=== PATIENT | male | born 1960 | race Caucasian/White ===

== ENCOUNTER 2018-10-02 06:40 | Inpatient (IN) | payer OTHER ==
[~2018-10-02] VITALS: Ht 177.8 cm; Wt 122.0 kg
[2018-10-02] VITALS (41 sets, daily range): BP systolic 112–163; BP diastolic 55–88; PULSE 54–64; RESP 11–23; Ht 177.8 cm; Wt 122.0 kg
[2018-10-02] MEDS ORDERED: ACET-2047 PO (07:28)
[2018-10-02] MEDS ORDERED: ASPI81TA52 PO (07:29)
[2018-10-02] MEDS ORDERED: HYDR-4011 PO (07:29)
[2018-10-02] MEDS ORDERED: METO-448 PO (07:30)
[2018-10-02] MEDS ORDERED: ATOR-2 PO (07:31)
[2018-10-02] MEDS ORDERED: MAG355OR14 PO (07:32)
[2018-10-02] MEDS ORDERED: ZOLP5TAB7 PO (07:33)
[2018-10-02] MEDS ORDERED: ONDA4TAB13 PO (07:34)
[2018-10-02] MEDS ORDERED: NICO-544 TD (07:35)
[2018-10-02] MEDS ORDERED: HYDR2TAB36 IV* (07:42)
[2018-10-02] MEDS ORDERED: IODIXANOL LOCM 100 ML BTL ONE (09:02)
[2018-10-02] MEDS ORDERED: HEPARIN 1000 UNITS/ML 10 ML INJ ONE (09:02)
[2018-10-02] MEDS ORDERED: LIDOCAINE 1% (MDV) 20 ML INJ ONE (09:02)
[2018-10-02] MEDS ORDERED: NITROGLYCERIN (IC) 100 MCG/ML INJ ONE (09:03)
[2018-10-02] MEDS ORDERED: FENTAnyl 50 MCG/ML VIAL ONE (09:03)
[2018-10-02] MEDS ORDERED: VERAPAMIL 5 MG INJ ONE (09:03)
[2018-10-02] MEDS ORDERED: MIDAZOLAM 1 MG/ML 2 ML INJ ONE (09:03)
[2018-10-02] MEDS ORDERED: SOD CHLORIDE 0.9% 500 ML ONE (10:33)
[2018-10-02] MEDS ORDERED: SOD CHLORIDE 0.9% 1,000 ML IV SCH (10:36)
--- NOTE | 2018-10-02 10:44 | OPR ---
Date/Time of Note Date/Time of Note DATE: 10/02/18 TIME: 10:44 Operative Report Procedure Date: Oct 02, 2018 Preoperative Diagnosis Acute coronary syndrome Postoperative Diagnosis same, multivessel CAD Operation/Procedure Performed see details Surgeon see signature line Forklift Driver none Anesthesia Type: moderate sedation Estimated Blood Loss: minimal Transfusion none Specimen none Grafts/Implants none Complications none Procedure Description Procedure Date:10/02/18 Value Stream Leader/surgeon:Maurice Aldana MD. Procedures Performed: Left heart catheterization with selective left and right coronary angiography. Pre-operative Diagnosis:unstable angina Post-operative Diagnosis:same, three vessel CAD Indications: 58 yo M with a h/o CAD, HTN, HL, likely DM (A1C pending), smoker, presenting with chest pain and abnormal EKG concerning for unstable angina. Description of Procedure: After informed consent, the patient was brought to the cardiac catheterization lab. The procedure site was prepped and draped in usual manner. The patient was premedicated with versed 1 mg and fentanyl 50 mcg. 3 mL lidocaine was injected into the right wrist. Next using the posterior wall technique, the 6/5 malay s andriy was inserted into the right radial artery. Next using the JL3.5 and JR4, selective angiography of the left and right coronary arteries were obtained.AV was not crossed due to radial spasm. Next all equipment was removed and hemostasis was obtained by TR band. Findings: Anatomy/Hemodynamics: Left main:normal LAD: prox to mid sequential up to 90% lesions Diagonal:luminal irregularities Circumflex:mid to distal 80% Obtuse marginal: prox 80-90% RCA: long prox to mid stented area with focal 99% in stent restenosis in the mid vessel PDA:luminal irregularities PLV:luminal irregularities Estimated blood loss<10 mL. Specimen: none Grafts/implants: none Complications: none Assessment: Unstable angina/ACS/CAD: Three vessel disease in likely diabetic (A1C pending but glucose levels suggestive). CABG eval is appropriate HTN HL Likely DM Tobacco use Plan: -CABG eval -ASA, lipitor -imdur -metoprolol -heparin drip 2 hours after TR band is removed as RCA lesion appears unstable and dynamic changes in inferior territory on admission MAURICE ALDANA Oct 02, 2018 10:44
[2018-10-02] MEDS ORDERED: HEPARIN 1000 UNITS/ML 10 ML INJ IV ONE (11:00)
[2018-10-02] MEDS ORDERED: HEPARIN 1000 UNITS/ML 10 ML INJ IV PRN (11:00)
[2018-10-02] MEDS: ASPIRIN 81 MG TAB PO SCH (11:27)
[2018-10-02] MEDS: METOPROLOL 25 MG TAB PO SCH ×2 (11:28→21:00)
[2018-10-02] MEDS ORDERED: morphine 2 MG INJ IV PRN (11:30)
[2018-10-02] MEDS ORDERED: ACETAMINOPHEN 325 MG TAB PO PRN (11:30)
[2018-10-02] MEDS: HOLD all METFORMIN and METFORMIN CONTAINING medications for 48 hours post procedure. Chec XX SCH (14:02)
[2018-10-02] MEDS: ISOSORBIDE MONONITRATE(SR)60 MG TAB PO SCH (14:21)
[2018-10-02] MEDS: HEPARIN 25000 UNITS/250 ML 250 ML IV SCH (15:03)
[2018-10-02] MEDS ORDERED: GLUCOSE GEL 15 GRAM TUBE BUCCAL PRN (15:30)
[2018-10-02] MEDS ORDERED: DEXTROSE 50% 50 ML SYRINGE IV PRN ×2 (15:30)
[2018-10-02] MEDS ORDERED: GLUCAGON 1 MG INJ IM PRN (15:30)
[2018-10-02] MEDS ORDERED: GLUCOSE GEL 15 GRAM TUBE PO PRN ×2 (15:30)
--- NOTE | 2018-10-02 16:22 | HP ---
DATE OF ADMISSION: 10/02/2018 CHIEF COMPLAINT: Coronary artery disease. HISTORY OF PRESENT ILLNESS: This is a 58-year-old male with a past medical history of coronary arter y disease, status post 2 stents in the past, who presented to an outside hospital with intermittent c hest pain. The patient states in the morning he started developing chest pain that did not go away w ith some radiation to his shoulder. The patient had some diaphoresis. Upon arrival to the outside h ospital, the patient had abnormal EKG concerning for unstable angina. The patient as a result transf erred to [facility] and underwent cardiac catheterization and found to have multive ssel disease. The patient was then admitted to telemetry for CABG evaluation. Upon my evaluation of the patient at this time, he currently denies any fevers, chills, nausea, vomit ing. PAST MEDICAL HISTORY: History of coronary artery disease, history of hypertension. PAST SURGICAL HISTORY: Status post cardiac catheterization. SOCIAL HISTORY: Does not do drugs. ALLERGIES: NO KNOWN DRUG ALLERGIES. FAMILY HISTORY: No family history of kidney disease. MEDICATIONS: Have been reviewed and reconciled. REVIEW OF SYSTEMS: A 14-point review of systems was conducted. Pertinent positives are stated in HP I, otherwise negative. PHYSICAL EXAMINATION: VITAL SIGNS: Blood pressure is 118/65, respirations 17, pulse 56, temperature 98.6. HEENT: Head is normocephalic. NECK: Supple. HEART: Regular rate. LUNGS: Show diminished breath sounds at base. ABDOMEN: Soft, nontender to palpation. No rebound or guarding. EXTREMITIES: Negative for clubbing, cyanosis. No edema. DERMATOLOGIC: No rashes. MUSCULOSKELETAL: No joint effusion. NEUROLOGIC: No change in exam. LABORATORY DATA: Show a CBC within normal limits. Hemoglobin A1c of 6.9. ASSESSMENT AND PLAN: This is a 58-year-old male who presents with: 1. Coronary artery disease. The patient is status post cardiac catheterization with multivessel dis ease. The patient is pending CABG evaluation. 2. Unstable angina. Continue current medical management. Continue aspirin, statin therapy, beta bl ocker, Imdur. Monitor closely. Follow up with cardiology and CT surgery. 3. Newly diagnosed diabetes. The patient's hemoglobin A1c is 6.8. We will start the patient on ins ulin sliding scale. We will consult for diabetic teaching. 4. Dyslipidemia. Continue statin therapy. 5. History of tobacco use. I will recommend smoking cessation. Consider nicotine patch. 6. Gastrointestinal and deep venous thrombosis prophylaxis. Please note, I spent an additional 30 minutes in [id number] time with the patient, discussing advan michela directives and code status. The patient is full code. Dictated By: VANCE FELDMAN DO NR/NTS Conf#: [id number] DID#: [id number] CC: VANESA RUIZ MD;*EndCC*
[2018-10-02] MEDS: INSULIN ASPART [NOVOLOG] 3 ML PEN SC SCH ×2 (17:00→21:00)
--- NOTE | 2018-10-02 17:29 | CONS ---
Assessment/Plan Assessment/Plan Assessment/Plan (Daily) 58 year old male with history of CAD and now with unstable angina and severe 3V CAD. He will need urgent CABG on this admission. I explained the risks, benefits and alternatives of surgery. The risks are but not limited to bleeding, infection, stroke, MT, renal and respiratory failure and . He understands and agrees. I will order carotids and PFTs Consultation Date/Type/Reason Admit Date/Time Oct 02, 2018 at 10:40 Date of Consultation: Oct 02, [address] SURGERY Reason for Consultation eval for cabg Requesting Provider: VANESA RUIZ Date/Time of Note DATE: 10/02/18 TIME: 17:24 Hx of Present Illness 58 year old male began having chest pain at work and [facility] He has history of previous stents and was transferred here where he underwent cath which shows severe 3V CAD. His chest pain has subsided. His troponin were negative. We are asked to see regarding CABG Constitutional: no complaints, improved Eyes: no complaints ENT: no complaints Respiratory: no complaints Cardiovascular: chest pain Gastrointestinal: no complaints Genitourinary: no complaints Musculoskeletal: no complaints Skin: no complaints Neurologic: no complaints Endocrine: no complaints Lymphatic: no complaints Psychological: no complaints, nl mood/affect Immunologic: no complaints Past Medical History Medical History: angina, coronary artery disease Home Meds Reported Medications Hydromorphone Hcl* (Dilaudid*) 2 Mg Tablet, 2 MG IV* Q4H WHILE AWAKE PRN for PAIN LEVEL 8-10, TAB 10/02/18 Nicotine* (Nicotine* Patch) 7 mg/day Patch, 1 PATCH TD DAILY, PATCH 14MCG 10/02/18 Ondansetron Hcl* (Zofran*) 4 Mg Tab, 4 MG PO Q6H PRN for NAUSEA AND OR VOMITING, TAB 10/02/18 Zolpidem Tartrate* (Zolpidem Tartrate*) 5 Mg Tablet, 5 MG PO QHS PRN for INSOMNIA, #30 TAB 10/02/18 Mag Hydrox/Al Hydrox/Simeth (Maalox Advanced Suspension) 355 Ml Oral.susp, 30 ML PO Q6 PRN for GASTROINTESTINAL UPSET 10/02/18 Atorvastatin* (Atorvastatin*) 80 Mg Tablet, 80 MG PO QHS, #30 TAB 10/02/18 Metoprolol Tartrate* (Lopressor*) 25 Mg Tab, 25 MG PO BID, #60 TAB 10/02/18 Aspirin (Low Dose Aspirin) 81 Mg Tablet.dr, 81 MG PO DAILY, #30 TAB 10/02/18 Hydrocodone/Acetaminophen ([place] 5-325 Tablet) 1 Each Tablet, 1 EACH PO Q4 PRN for MODERATE PAIN 4-7, TAB 10/02/18 Acetaminophen* (Acetaminophen*) 650 Mg Tablet, 650 MG PO Q6H PRN for MILD PAIN LEVEL 1-3, #30 TAB 10/02/18 Medications Current Medications Aspirin (Aspirin) 81 mg DAILY PO Last administered on 10/02/18at 11:27; Admin Dose 81 MG; Start 10/02/18 at 11:30 Atorvastatin Calcium (Lipitor) 80 mg HS PO ; Start 10/02/18 at 21:00 Metoprolol Tartrate (Lopressor) 25 mg BID PO Last administered on 10/02/18at 11:28; Admin Dose 25 MG; Start 10/02/18 at 11:30 Heparin Sodium (Porcine) (Heparin (1000 Units/ml)) 4,000 unit PER PROTOCOL PRN IV aPTT<47; Start 10/02/18 at 11:00 Heparin Sodium (Porcine) 250 ml @ 10 mls/hr PER PROTOCOL IV Last administered on 10/02/18at 15:03; Admin Dose 10 MLS/HR; Start 10/02/18 at 11:00 Miscellaneous Information (* Miscellaneous Pharmacy Order) HOLD all METFORMIN ... ONCE XX ; Start 10/02/18 at 11:00; Stop 10/04/18 at 10:59 Sodium Chloride 1,000 ml @ 75 mls/hr [id number] IV Last administered on 10/02/18at 11:29; Admin Dose 75 MLS/HR; Start 10/02/18 at 10:36; Stop 10/02/18 at 23:55 Isosorbide Mononitrate (Imdur) 60 mg DAILY PO Last administered on 10/02/18at 14:21; Admin Dose 60 MG; Start 10/02/18 at 11:30 Acetaminophen (Tylenol Tab) 650 mg Q4H PRN PO NON-CARDIAC PAIN LEVEL (1-3) Last administered on 10/02/18at 11:27; Admin Dose 650 MG; Start 10/02/18 at 11:30 Morphine Sulfate (morphine) 2 mg Q2H PRN IV FOR NON CARDIAC PAIN (4-10); Start 10/02/18 at 11:30 Diagnostic Test (Pha) (Accu-Chek) 1 ea 02 XX ; Start 10/03/18 at 02:00 Insulin Aspart (Novolog Insulin Pen) NOVOLOG *MILD* ALGORITHM WITH MEALS BEDTIME SC ; Start 10/02/18 at 17:55 Miscellaneous Information 1 ea NOTE XX ; Start 10/02/18 at 15:30 Glucose (Glutose) 15 gm Q15M PRN PO DECREASED GLUCOSE; Start 10/02/18 at 15:30 Glucose (Glutose) 22.5 gm Q15M PRN PO DECREASED GLUCOSE; Start 10/02/18 at 15:30 Dextrose (D50w Syringe) 25 ml Q15M PRN IV DECREASED GLUCOSE; Start 10/02/18 at 15:30 Dextrose (D50w Syringe) 50 ml Q15M PRN IV DECREASED GLUCOSE; Start 10/02/18 at 15:30 Glucagon (Glucagen) 1 mg Q15M PRN IM DECREASED GLUCOSE; Start 10/02/18 at 15:30 Glucose (Glutose) 15 gm Q15M PRN BUCCAL DECREASED GLUCOSE; Start 10/02/18 at 15:30 Influenza Virus Vaccine Quadrival (Fluzone) 0.5 ml ONCE ONCE IM* ; Start 10/03/18 at 09:00; Stop 10/03/18 at 09:01 Allergies: Coded Allergies: No Known Allergy (Unverified , 10/02/18) Past Surgical History Past Surgical Hx: no surgical history Family History Significant Family History: no pertinent family hx Social History Alcohol Use: occasionally Smoking Status: Current every day smoker Drug Use: none Exam/Review of Systems Exam Vitals Vital Signs Date Temp Pulse Resp B/P (MAP) Pulse Ox O2 O2 Flow FiO2 Time Delivery Rate 10/02/18 54 16:46 10/02/18 98.6 22 112/55 91 15:09 (74) 10/02/18 Room Air 13:46 Constitutional: alert, oriented, well developed Psych: no complaints, nl mood/affect Head: normocephalic, atraumatic Eyes: nl conjunctiva, EOMI, nl lids, nl sclera, PERRL ENMT: nl external ears & nose, nl lips & teeth, nl nasal mucosa & septum Neck: supple, non-tender Respiratory: clear to auscultation, normal air movement Cardiovascular: regular rate and rhythm, nl pulses Extremities: normal pulses Neurological: SOFTWARE PROGRAMMER II-XII intact, nl mental status, nl speech, nl strength Skin: nl turgor; No rash or lesions Lymph: nl lymph nodes Results Result Diagram: 10/02/18 1542 Results 24hrs Laboratory Tests Test 10/02/18 07:25 10/02/18 10:36 10/02/18 11:07 10/02/18 15:42 Bedside Glucose 126 Hemoglobin A1c 6.9 H White Blood Count 9.9 10.4 Red Blood Count 4.84 4.70 Hemoglobin 14.9 14.5 Hematocrit 45.9 43.0 Mean Corpuscular 94.8 91.5 Volume Mean Corpuscular 30.8 30.9 Hemoglobin Mean Corpuscular 32.5 33.7 Hemoglobin Concent Red Cell 14.1 14.0 Distribution Width Platelet Count 140 147 Mean Platelet Volume 9.6 9.4 Immature 0.400 0.400 Granulocytes % Neutrophils % 60.2 63.1 Lymphocytes % 30.4 26.9 Monocytes % 7.2 8.2 Eosinophils % 1.4 1.0 Basophils % 0.4 0.4 Nucleated Red Blood 0.0 0.0 Cells % Immature 0.040 H 0.040 H Granulocytes # Neutrophils # 5.9 6.6 Lymphocytes # 3.0 H 2.8 Monocytes # 0.7 0.9 Eosinophils # 0.1 0.1 Basophils # 0.0 0.0 Nucleated Red Blood 0.0 0.0 Cells # Prothrombin Time 12.8 Prothrombin Time 1.0 Ratio INR International 0.95 Normalized Ratio Activated 34.5 Partial Thromboplast Time Test 10/02/18 16:59 Bedside Glucose 105 Medications Medication Current Medications Aspirin (Aspirin) 81 mg DAILY PO Last administered on 10/02/18at 11:27; Admin Dose 81 MG; Start 10/02/18 at 11:30 Atorvastatin Calcium (Lipitor) 80 mg HS PO ; Start 10/02/18 at 21:00 Metoprolol Tartrate (Lopressor) 25 mg BID PO Last administered on 10/02/18at 11:28; Admin Dose 25 MG; Start 10/02/18 at 11:30 Heparin Sodium (Porcine) (Heparin (1000 Units/ml)) 4,000 unit PER PROTOCOL PRN IV aPTT<47; Start 10/02/18 at 11:00 Heparin Sodium (Porcine) 250 ml @ 10 mls/hr PER PROTOCOL IV Last administered on 10/02/18at 15:03; Admin Dose 10 MLS/HR; Start 10/02/18 at 11:00 Miscellaneous Information (* Miscellaneous Pharmacy Order) HOLD all METFORMIN ... ONCE XX ; Start 10/02/18 at 11:00; Stop 10/04/18 at 10:59 Sodium Chloride 1,000 ml @ 75 mls/hr [id number] IV Last administered on 10/02/18at 11:29; Admin Dose 75 MLS/HR; Start 10/02/18 at 10:36; Stop 10/02/18 at 23:55 Isosorbide Mononitrate (Imdur) 60 mg DAILY PO Last administered on 10/02/18at 14:21; Admin Dose 60 MG; Start 10/02/18 at 11:30 Acetaminophen (Tylenol Tab) 650 mg Q4H PRN PO NON-CARDIAC PAIN LEVEL (1-3) Last administered on 10/02/18at 11:27; Admin Dose 650 MG; Start 10/02/18 at 11:30 Morphine Sulfate (morphine) 2 mg Q2H PRN IV FOR NON CARDIAC PAIN (4-10); Start 10/02/18 at 11:30 Diagnostic Test (Pha) (Accu-Chek) 1 ea 02 XX ; Start 10/03/18 at 02:00 Insulin Aspart (Novolog Insulin Pen) NOVOLOG *MILD* ALGORITHM WITH MEALS BEDTIME SC ; Start 10/02/18 at 17:55 Miscellaneous Information 1 ea NOTE XX ; Start 10/02/18 at 15:30 Glucose (Glutose) 15 gm Q15M PRN PO DECREASED GLUCOSE; Start 10/02/18 at 15:30 Glucose (Glutose) 22.5 gm Q15M PRN PO DECREASED GLUCOSE; Start 10/02/18 at 15:30 Dextrose (D50w Syringe) 25 ml Q15M PRN IV DECREASED GLUCOSE; Start 10/02/18 at 15:30 Dextrose (D50w Syringe) 50 ml Q15M PRN IV DECREASED GLUCOSE; Start 10/02/18 at 15:30 Glucagon (Glucagen) 1 mg Q15M PRN IM DECREASED GLUCOSE; Start 10/02/18 at 15:30 Glucose (Glutose) 15 gm Q15M PRN BUCCAL DECREASED GLUCOSE; Start 10/02/18 at 15:30 Influenza Virus Vaccine Quadrival (Fluzone) 0.5 ml ONCE ONCE IM* ; Start 10/03/18 at 09:00; Stop 10/03/18 at 09:01 LAMINE BRYAN MD Oct 02, 2018 17:29
[2018-10-02] MEDS ORDERED: CEFAZOLIN 2 GM/50 ML (PMX) 50 ML IVPB ONE (17:30)
[2018-10-02] MEDS: ATORVASTATIN 80 MG TAB PO SCH (21:39)
[2018-10-03] VITALS (10 sets, daily range): BP systolic 114–156; BP diastolic 57–86; PULSE 55–89; RESP 18–22
[2018-10-03] MEDS ORDERED: HEPARIN 1000 UNITS/ML 10 ML INJ IV ONE
[2018-10-03] MEDS: HEPARIN 25000 UNITS/250 ML 250 ML IV SCH ×3 (00:14→08:15)
[2018-10-03] MEDS: ACCU-CHEK XX SCH (02:02)
--- NOTE | 2018-10-03 07:08 | PN ---
Date/Time of Note Date/Time of Note DATE: 10/03/18 TIME: 07:06 Assessment/Plan Lines/Catheters IV Catheter Type (from Nrs): Peripheral IV Assessment/Plan Assessment/Plan await PFTs and carotid duplex. CABG tomorrow Exam/Review of Systems Vital Signs Vitals Vital Signs Date Temp Pulse Resp B/P (MAP) Pulse Ox O2 O2 Flow FiO2 Time Delivery Rate 10/03/18 56 04:00 10/03/18 98.5 20 156/86 93 04:00 (109) 10/02/18 Room Air 13:46 Intake and Output 10/02/18 10/02/18 10/03/18 1515:00 23:00 07:00 IntakeIntake Total 60 ml 1920 ml BalanceBalance 60 ml 1920 ml Results Result Diagram: 10/03/18 0631 LAMINE BRYAN MD Oct 03, 2018 07:08
[2018-10-03] MEDS: INSULIN ASPART [NOVOLOG] 3 ML PEN SC SCH ×4 (07:55→21:00)
[2018-10-03] MEDS: ASPIRIN 81 MG TAB PO SCH (08:11)
[2018-10-03] MEDS: METOPROLOL 25 MG TAB PO SCH ×2 (08:11→21:39)
[2018-10-03] MEDS: ISOSORBIDE MONONITRATE(SR)60 MG TAB PO SCH (08:11)
[2018-10-03] MEDS ORDERED: ALBUTEROL 0.083% (NEB) 2.5 MG/3 ML AMP HHN STA (08:40)
[2018-10-03] MEDS ORDERED: ENOXAPARIN 40 MG/0.4 ML SYG SC SCH (09:00)
[2018-10-03] MEDS ORDERED: INFLUENZA VIRUS VACCINE 0.5 ML (DISPENSING) IM* ONE (09:00)
--- NOTE | 2018-10-03 10:39 | PN ---
DATE: 10/03/2018 SUBJECTIVE: The patient is stable. The patient is pending possible CABG tomorrow. No other events noted. OBJECTIVE: VITAL SIGNS: Blood pressure is 150/77, respirations 18, pulse 89, temperature 98.7. HEENT: Head is normocephalic. NECK: Supple. HEART: Regular rate. LUNGS: Show diminished breath sounds at the base. ABDOMEN: Soft, nontender to palpation without rebound or guarding. EXTREMITIES: Negative for clubbing, cyanosis, no edema. DERMATOLOGIC: No rashes. MUSCULOSKELETAL: No joint effusion. NEUROLOGIC: No focal deficits. MEDICATIONS: Reviewed. LABORATORY DATA: Shows a BMP within normal limits. CBC within normal limits. ASSESSMENT AND PLAN: 1. Coronary artery disease. The patient is status post cardiac catheterization with multivessel dis ease. The patient is pending coronary artery bypass graft. Continue medical management. 2. Unstable angina. Continue current medical regimen. Continue aspirin and statin therapy, beta bl ocker, continue heparin drip. Continue Imdur. Follow up with cardiology, CT surgery. 3. Diabetes. Continue current insulin regimen of sliding scale. Anticipate starting the patient on oral medications following surgery. 4. Dyslipidemia. Continue statin therapy. 5. History of tobacco abuse. Continue nicotine patch. 6. Gastrointestinal and deep vein thrombosis prophylaxis. Dictated By: VANCE FELDMAN DO NR/NTS Conf#: [id number] DID#: [id number] CC: VANESA RUIZ MD;*EndCC*
[2018-10-03] MEDS: HOLD all METFORMIN and METFORMIN CONTAINING medications for 48 hours post procedure. Chec XX SCH (10:44)
--- NOTE | 2018-10-03 16:08 | CONS ---
Assessment/Plan Assessment/Plan Hospital Course (Demo Recall) Assessment: Unstable angina/ACS/CAD: Three vessel disease in diabetic, scheduled for CABG tomorrow HTN HL DM Tobacco use Recommendations: -scheduled for CABG tomorrow (Dr. Irizarry) -ASA, lipitor -imdur -metoprolol -heparin drip as RCA lesion appears unstable and dynamic changes in inferior territory on admission Consultation Date/Type/Reason Admit Date/Time Oct 02, 2018 at 10:40 Initial Consult Date 10/02/18 Type of Consult Cardiology Date/Time of Note DATE: 10/03/18 TIME: 16:06 24 HR Interval Summary Free Text/Dictation No acute events. Denies chest pain. Scheduled for CABG tomorrow. Detailed Summary Additional Comments 14 point review of systems without changes. Exam/Review of Systems Vital Signs Vitals Vital Signs Date Temp Pulse Resp B/P (MAP) Pulse Ox O2 O2 Flow FiO2 Time Delivery Rate 10/03/18 98.7 55 18 120/58 94 Room Air 15:39 (78) 10/03/18 21 09:30 Intake and Output 10/02/18 10/02/18 10/03/18 1515:00 23:00 07:00 IntakeIntake Total 60 ml 1400 ml OutputOutput Total 400 ml BalanceBalance 60 ml 1000 ml Exam Constitutional: alert, well developed Psych: no complaints, nl mood/affect Head: normocephalic, atraumatic Eyes: nl conjunctiva, nl lids ENMT: nl external ears & nose, nl nasal mucosa & septum Neck: supple, non-tender; No jvd Respiratory: clear to auscultation Cardiovascular: regular rate and rhythm Gastrointestinal: soft, non-tender Musculoskeletal: nl extremities to inspection Extremities: No cyanosis, No clubbing, No edema Neurological: nl mental status, nl speech Labs Result Diagram: 10/03/1831 10/03/1831 Results 24hrs Laboratory Tests Test 10/02/18 16:59 10/02/18 18:00 10/02/18 20:40 10/02/18 21:42 Bedside Glucose 105 123 Urine Random 94.15 Creatinine Urine Random Sodium 98 H Urine Total Protein 6.0 Activated 32.2 Partial Thromboplast Time Test 10/03/18 06:31 10/03/18 08:10 10/03/18 12:03 10/03/18 14:31 White Blood Count 10.4 Red Blood Count 5.09 Hemoglobin 15.7 Hematocrit 46.5 Mean Corpuscular 91.4 Volume Mean Corpuscular 30.8 Hemoglobin Mean Corpuscular 33.8 Hemoglobin Concent Red Cell 13.8 Distribution Width Platelet Count 155 Mean Platelet Volume 9.2 Immature 0.400 Granulocytes % Neutrophils % 60.8 Lymphocytes % 29.5 Monocytes % 7.0 Eosinophils % 1.9 Basophils % 0.4 Nucleated Red Blood 0.0 Cells % Immature 0.040 H Granulocytes # Neutrophils # 6.3 Lymphocytes # 3.1 H Monocytes # 0.7 Eosinophils # 0.2 Basophils # 0.0 Nucleated Red Blood 0.0 Cells # Activated 53.6 H 58.8 H Partial Thromboplast Time Sodium Level 142 Potassium Level 4.1 Chloride Level 109 Carbon Dioxide Level 24 Anion Gap 9 Blood Urea Nitrogen 11 Creatinine 0.60 L Est Glomerular > 60 Filtrat Rate mL/min Glucose Level 115 Calcium Level 9.1 Phosphorus Level 3.5 Magnesium Level 2.1 Bedside Glucose 113 93 Medications Medications Current Medications Aspirin (Aspirin) 81 mg DAILY PO Last administered on 10/03/18 08:11; Admin Dose 81 MG; Start 10/02/18 at 11:30 Atorvastatin Calcium (Lipitor) 80 mg HS PO Last administered on 10/02/18at 21:39; Admin Dose 80 MG; Start 10/02/18 at 21:00 Metoprolol Tartrate (Lopressor) 25 mg BID PO Last administered on 10/03/18 08:11; Admin Dose 25 MG; Start 10/02/18 at 11:30 Heparin Sodium (Porcine) (Heparin (1000 Units/ml)) 4,000 unit PER PROTOCOL PRN IV aPTT<47; Start 10/02/18 at 11:00 Heparin Sodium (Porcine) 250 ml @ 10 mls/hr PER PROTOCOL IV Last administered on 10/03/18 08:15; Admin Dose 17.5 MLS/HR; Start 10/02/18 at 11:00 Miscellaneous Information (* Miscellaneous Pharmacy Order) HOLD all METFORMIN ... ONCE XX ; Start 10/02/18 at 11:00; Stop 10/04/18 at 10:59 Isosorbide Mononitrate (Imdur) 60 mg DAILY PO Last administered on 3/26/19at 08:11; Admin Dose 60 MG; Start 10/02/18 at 11:30 Acetaminophen (Tylenol Tab) 650 mg Q4H PRN PO NON-CARDIAC PAIN LEVEL (1-3) Last administered on 10/02/18at 11:27; Admin Dose 650 MG; Start 10/02/18 at 11:30 Morphine Sulfate (morphine) 2 mg Q2H PRN IV FOR NON CARDIAC PAIN (4-10); Start 10/02/18 at 11:30 Diagnostic Test (Pha) (Accu-Chek) 1 ea 02 XX Last administered on 10/03/18at 02:02; Admin Dose 1 EA; Start 10/03/18 at 02:00 Insulin Aspart (Novolog Insulin Pen) NOVOLOG *MILD* ALGORITHM WITH MEALS BEDTIME SC ; Start 10/02/18 at 17:55 Miscellaneous Information 1 ea NOTE XX ; Start 10/02/18 at 15:30 Glucose (Glutose) 15 gm Q15M PRN PO DECREASED GLUCOSE; Start 10/02/18 at 15:30 Glucose (Glutose) 22.5 gm Q15M PRN PO DECREASED GLUCOSE; Start 10/02/18 at 15:30 Dextrose (D50w Syringe) 25 ml Q15M PRN IV DECREASED GLUCOSE; Start 10/02/18 at 15:30 Dextrose (D50w Syringe) 50 ml Q15M PRN IV DECREASED GLUCOSE; Start 10/02/18 at 15:30 Glucagon (Glucagen) 1 mg Q15M PRN IM DECREASED GLUCOSE; Start 10/02/18 at 15:30 Glucose (Glutose) 15 gm Q15M PRN BUCCAL DECREASED GLUCOSE; Start 10/02/18 at 15:30 Insulin Human Regular 100 unit/ Sodium Chloride 100 ml @ 0 mls/hr Q0M ONCE IVPB ; Start 10/04/18 at 11:00; Stop 10/04/18 at 11:01 Norepinephrine 250 ml @ 0 mls/hr ONCE ONCE IV ; Start 10/04/18 at 11:00; Stop 10/04/18 at 11:01 Epinephrine 4 mg/ Dextrose 250 ml @ 0 mls/hr Q0M ONCE IV ; Start 10/04/18 at 11:00; Stop 10/04/18 at 11:01 Phenylephrine HCl 250 ml @ 0 mls/hr ONCE ONCE IV ; Start 10/04/18 at 11:00; Stop 10/04/18 at 11:01 Aspirin (Aspirin) 600 mg ONCE ONCE GA ; Start 10/04/18 at 11:00; Stop 10/04/18 at 11:01 Heparin Sodium (Porcine) 55855 unit/Milrinone Lactate 10 mg/ Sodium Chloride 1,011 ml @ 0 mls/hr ONCE ONCE SC ; Start 10/04/18 at 11:00; Stop 10/04/18 at 11:01 Milrinone Lactate 2 mg/Sodium Chloride 52 ml @ 0 mls/hr ONCE ONCE IV ; Start 10/04/18 at 11:00; Stop 10/04/18 at 11:01 CYN VALDOVINOS MD Oct 03, 2018 16:08
[2018-10-03] MEDS: ATORVASTATIN 80 MG TAB PO SCH (21:38)
[2018-10-04] VITALS (36 sets, daily range): BP systolic 86–177; BP diastolic 44–84; PULSE 53–112; RESP 12–23; TEMP 98–99.9
[2018-10-04] MEDS: ACCU-CHEK XX SCH ×9 (02:00→23:56)
[2018-10-04] MEDS ORDERED: DOPamine-D5W 1.6 MG/ML 250 ML ONE (07:00)
[2018-10-04] MEDS: INSULIN ASPART [NOVOLOG] 3 ML PEN SC SCH (07:55)
[2018-10-04] MEDS: ASPIRIN 81 MG TAB PO SCH (08:08)
[2018-10-04] MEDS: ISOSORBIDE MONONITRATE(SR)60 MG TAB PO SCH (08:09)
[2018-10-04] MEDS: METOPROLOL 25 MG TAB PO SCH ×2 (08:10→21:00)
--- NOTE | 2018-10-04 09:38 | PN ---
DATE: 10/04/2018 SUBJECTIVE: The patient is stable. The patient is pending CABG today. No other events noted. OBJECTIVE: VITAL SIGNS: Blood pressure is 150/70, pulse 55, respirations 18, temperature 98.0. HEENT: Head is normocephalic. NECK: Supple. HEART: Regular rate. LUNGS: Show diminished breath sounds at the base. ABDOMEN: Soft, nontender to palpation without rebound or guarding. EXTREMITIES: Negative for clubbing, cyanosis, no edema. DERMATOLOGIC: No rashes. MUSCULOSKELETAL: No joint effusion. NEUROLOGIC: No change in exam. MEDICATIONS: Reviewed. LABORATORY DATA: Reviewed. ASSESSMENT AND PLAN: 1. Coronary artery disease. The patient is status post cardiac catheterization with multivessel dis ease. The patient is pending CABG. Continue medical management. 2. Unstable angina. Continue medical management. Continue aspirin and statin therapy, beta abdiel , heparin. Continue Imdur. Follow up with cardiology. 3. Diabetes. Continue current insulin regimen. 4. Dyslipidemia. Continue statin therapy. 5. History of tobacco use. 6. Obesity. Continue dietary modification. 7. Gastrointestinal and deep vein thrombosis prophylaxis. Dictated By: VANCE FELDMAN DO NR/NTS Conf#: [id number] DID#: [id number] CC: VANESA RUIZ MD;*End*
[2018-10-04] MEDS ORDERED: VANCOMYCIN 1 GM INJ ONE ×2 (09:52→12:06)
[2018-10-04] MEDS ORDERED: PAPAVERINE 60 MG INJ ONE (09:52)
[2018-10-04] MEDS ORDERED: HEPARIN 1000 UNITS/ML 10 ML INJ ONE ×4 (09:52→14:51)
[2018-10-04] MEDS ORDERED: MIDAZOLAM 5 ML ONE ×2 (10:33)
[2018-10-04] MEDS ORDERED: ROCURONIUM 50 MG INJ ONE (10:37)
[2018-10-04] MEDS ORDERED: SUCCINYLCHOLINE CHLORIDE 100 MG/5 ML SYG IV ONE (10:37)
[2018-10-04] MEDS ORDERED: PROPOFOL 100 ML ONE (10:37)
[2018-10-04] MEDS ORDERED: NITROGLYCERIN 50 MG/D5W (PMX) 250 ML ONE (10:37)
[2018-10-04] MEDS ORDERED: LIDOCAINE 2% (SDV) 5 ML INJ ONE (10:38)
[2018-10-04] MEDS ORDERED: ALBUMIN HUMAN 25% 200 ML ONE (10:38)
[2018-10-04] MEDS ORDERED: NA BICARBONATE 8.4% 50 ML SYG ONE ×2 (10:38→11:03)
[2018-10-04] MEDS ORDERED: CA CHLORIDE 10% 10 ML SYRINGE ONE ×2 (10:38→11:01)
--- NOTE | 2018-10-04 10:41 | CONS ---
Assessment/Plan Assessment/Plan Hospital Course (Demo Recall) Unstable angina/ACS/CAD: Three vessel disease. Scheduled for CABG HTN HL DM Tobacco use -CABG today -ASA, lipitor -imdur (stop after surgery) -metoprolol -heparin drip (stop after surgery) Consultation Date/Type/Reason Admit Date/Time Oct 02, 2018 at 10:40 Initial Consult Date 10/02/18 Date/Time of Note DATE: 10/04/18 TIME: 10:40 24 HR Interval Summary Free Text/Dictation Awaiting surgery today. No chest pain over past 48 hrs Exam/Review of Systems Exam Vitals Vital Signs Date Temp Pulse Resp B/P (MAP) Pulse Ox O2 O2 Flow FiO2 Time Delivery Rate 10/04/18 58 08:01 10/04/18 98.0 18 150/70 92 Room Air 07:11 (96) 10/03/18 21 09:30 Intake and Output 10/03/18 10/03/18 10/04/18 1515:00 23:00 07:00 IntakeIntake Total 1610 ml 250 ml BalanceBalance 1610 ml 250 ml Constitutional: alert, oriented Psych: no complaints, nl mood/affect Head: normocephalic, atraumatic Neck: supple; No jvd Respiratory: clear to auscultation; No crackles/rales Cardiovascular: regular rate and rhythm; No edema, No systolic murmur Gastrointestinal: soft, non-tender Neurological: nl mental status, nl speech Results Result Diagram: 10/03/18 0631 10/03/18 0631 Results 24hrs Laboratory Tests Test 10/03/18 12:03 10/03/18 14:31 10/03/18 17:03 10/03/18 20:13 Bedside Glucose 93 97 Activated 58.8 H 57.2 H Partial Thromboplast Time Test 10/03/18 21:40 10/04/18 07:54 Bedside Glucose 112 115 Medications Medication Current Medications Aspirin (Aspirin) 81 mg DAILY PO Last administered on 10/04/18at 08:08; Admin Dose 81 MG; Start 10/02/18 at 11:30 Atorvastatin Calcium (Lipitor) 80 mg HS PO Last administered on 10/03/18at 21:38; Admin Dose 80 MG; Start 10/02/18 at 21:00 Metoprolol Tartrate (Lopressor) 25 mg BID PO Last administered on 10/04/18at 08:10; Admin Dose 25 MG; Start 10/02/18 at 11:30 Heparin Sodium (Porcine) (Heparin (1000 Units/ml)) 4,000 unit PER PROTOCOL PRN IV aPTT<47; Start 10/02/18 at 11:00 Miscellaneous Information (* Miscellaneous Pharmacy Order) HOLD all METFORMIN ... ONCE XX ; Start 10/02/18 at 11:00; Stop 10/04/18 at 10:59 Isosorbide Mononitrate (Imdur) 60 mg DAILY PO Last administered on 10/04/18at 08:09; Admin Dose 60 MG; Start 10/02/18 at 11:30 Acetaminophen (Tylenol Tab) 650 mg Q4H PRN PO NON-CARDIAC PAIN LEVEL (1-3) Last administered on 10/02/18at 11:27; Admin Dose 650 MG; Start 10/02/18 at 11:30 Morphine Sulfate (morphine) 2 mg Q2H PRN IV FOR NON CARDIAC PAIN (4-10); Start 10/02/18 at 11:30 Diagnostic Test (Pha) (Accu-Chek) 1 ea 02 XX Last administered on 10/03/18at 02:02; Admin Dose 1 EA; Start 10/03/18 at 02:00 Insulin Aspart (Novolog Insulin Pen) NOVOLOG *MILD* ALGORITHM WITH MEALS BEDTIME SC ; Start 10/02/18 at 17:55 Miscellaneous Information 1 ea NOTE XX ; Start 10/02/18 at 15:30 Glucose (Glutose) 15 gm Q15M PRN PO DECREASED GLUCOSE; Start 10/02/18 at 15:30 Glucose (Glutose) 22.5 gm Q15M PRN PO DECREASED GLUCOSE; Start 10/02/18 at 15:30 Dextrose (D50w Syringe) 25 ml Q15M PRN IV DECREASED GLUCOSE; Start 10/02/18 at 15:30 Dextrose (D50w Syringe) 50 ml Q15M PRN IV DECREASED GLUCOSE; Start 10/02/18 at 15:30 Glucagon (Glucagen) 1 mg Q15M PRN IM DECREASED GLUCOSE; Start 10/02/18 at 15:30 Glucose (Glutose) 15 gm Q15M PRN BUCCAL DECREASED GLUCOSE; Start 10/02/18 at 15:30 Insulin Human Regular 100 unit/ Sodium Chloride 100 ml @ 0 mls/hr Q0M ONCE IVPB ; Start 10/04/18 at 11:00; Stop 10/04/18 at 11:01 Norepinephrine 250 ml @ 0 mls/hr ONCE ONCE IV ; Start 10/04/18 at 11:00; Stop 10/04/18 at 11:01 Epinephrine 4 mg/ Dextrose 250 ml @ 0 mls/hr Q0M ONCE IV ; Start 10/04/18 at 11:00; Stop 10/04/18 at 11:01 Phenylephrine HCl 250 ml @ 0 mls/hr ONCE ONCE IV ; Start 10/04/18 at 11:00; Stop 10/04/18 at 11:01 Aspirin (Aspirin) 600 mg ONCE ONCE PA ; Start 10/04/18 at 11:00; Stop 10/04/18 at 11:01 Heparin Sodium (Porcine) 29394 unit/Milrinone Lactate 10 mg/ Sodium Chloride 1,011 ml @ 0 mls/hr ONCE ONCE SC ; Start 10/04/18 at 11:00; Stop 10/04/18 at 11:01 Milrinone Lactate 2 mg/Sodium Chloride 52 ml @ 0 mls/hr ONCE ONCE IV ; Start 10/04/18 at 11:00; Stop 10/04/18 at 11:01 VANESA RUIZ Oct 04, 2018 10:41
--- NOTE | 2018-10-04 10:54 | PREAC ---
Date/Time of Note Date/Time of Note DATE: 10/04/18 TIME: 10:52 Anesthesia Eval and Record Evaluation Time Pre-Procedure Interview DATE: 10/04/18 TIME: 10:52 Age 58 Sex male NPO: 8 hrs Preoperative diagnosis acute CAD ischemia Planned procedure CABG Past Medical History Past Medical History: Includes Cardio: HTN, Dyslipidemia, DE, CAD, PTCA/Stent, Arrythmia, CHF Endo: Diabetes Pulm: Smoking Hx, Other (current) Neuro: Peripheral neuropathy Renal: CKD GI: GERD, Morbid obesity Heme: Other (on ASA) Surgery & Anesthesia Issues Significant blood loss Meds Anticoagulation: No Beta Bhavna within 24 hr: Yes Reported Medications Hydromorphone Hcl* (Dilaudid*) 2 Mg Tablet, 2 MG IV* Q4H WHILE AWAKE PRN for PAIN LEVEL 8-10, TAB 10/02/18 Nicotine* (Nicotine* Patch) 7 mg/day Patch, 1 PATCH TD DAILY, PATCH 14MCG 10/02/18 Ondansetron Hcl* (Zofran*) 4 Mg Tab, 4 MG PO Q6H PRN for NAUSEA AND OR VOMITING, TAB 10/02/18 Zolpidem Tartrate* (Zolpidem Tartrate*) 5 Mg Tablet, 5 MG PO QHS PRN for INSOMNIA, #30 TAB 10/02/18 Mag Hydrox/Al Hydrox/Simeth (Maalox Advanced Suspension) 355 Ml Oral.susp, 30 ML PO Q6 PRN for GASTROINTESTINAL UPSET 10/02/18 Atorvastatin* (Atorvastatin*) 80 Mg Tablet, 80 MG PO QHS, #30 TAB 10/02/18 Metoprolol Tartrate* (Lopressor*) 25 Mg Tab, 25 MG PO BID, #60 TAB 10/02/18 Aspirin (Low Dose Aspirin) 81 Mg Tablet.dr, 81 MG PO DAILY, #30 TAB 10/02/18 Hydrocodone/Acetaminophen ([place] 5-325 Tablet) 1 Each Tablet, 1 EACH PO Q4 PRN for MODERATE PAIN 4-7, TAB 10/02/18 Acetaminophen* (Acetaminophen*) 650 Mg Tablet, 650 MG PO Q6H PRN for MILD PAIN LEVEL 1-3, #30 TAB 10/02/18 Current Medications Aspirin (Aspirin) 81 mg DAILY PO Last administered on 10/04/18at 08:08; Admin Dose 81 MG; Start 10/02/18 at 11:30 Atorvastatin Calcium (Lipitor) 80 mg HS PO Last administered on 10/03/18at 21:38; Admin Dose 80 MG; Start 10/02/18 at 21:00 Metoprolol Tartrate (Lopressor) 25 mg BID PO Last administered on 10/04/18at 08:10; Admin Dose 25 MG; Start 10/02/18 at 11:30 Heparin Sodium (Porcine) (Heparin (1000 Units/ml)) 4,000 unit PER PROTOCOL PRN IV aPTT<47; Start 10/02/18 at 11:00 Miscellaneous Information (* Miscellaneous Pharmacy Order) HOLD all METFORMIN ... ONCE XX ; Start 10/02/18 at 11:00; Stop 10/04/18 at 10:59 Isosorbide Mononitrate (Imdur) 60 mg DAILY PO Last administered on 10/04/18at 08:09; Admin Dose 60 MG; Start 10/02/18 at 11:30 Acetaminophen (Tylenol Tab) 650 mg Q4H PRN PO NON-CARDIAC PAIN LEVEL (1-3) Last administered on 10/02/18at 11:27; Admin Dose 650 MG; Start 10/02/18 at 11:30 Morphine Sulfate (morphine) 2 mg Q2H PRN IV FOR NON CARDIAC PAIN (4-10); Start 10/02/18 at 11:30 Diagnostic Test (Pha) (Accu-Chek) 1 ea 02 XX Last administered on 10/03/18at 02:02; Admin Dose 1 EA; Start 10/03/18 at 02:00 Insulin Aspart (Novolog Insulin Pen) NOVOLOG *MILD* ALGORITHM WITH MEALS [place] [facility] [place] Start 10/02/18 at 17:55 Miscellaneous Information 1 ea NOTE XX ; Start 10/02/18 at 15:30 Glucose (Glutose) 15 gm Q15M PRN PO DECREASED GLUCOSE; Start 10/02/18 at 15:30 Glucose (Glutose) 22.5 gm Q15M PRN PO DECREASED GLUCOSE; Start 10/02/18 at 15:30 Dextrose (D50w Syringe) 25 ml Q15M PRN IV DECREASED GLUCOSE; Start 10/02/18 at 15:30 Dextrose (D50w Syringe) 50 ml Q15M PRN IV DECREASED GLUCOSE; Start 10/02/18 at 15:30 Glucagon (Glucagen) 1 mg Q15M PRN IM DECREASED GLUCOSE; Start 10/02/18 at 15:30 Glucose (Glutose) 15 gm Q15M PRN BUCCAL DECREASED GLUCOSE; Start 10/02/18 at 15:30 Insulin Human Regular 100 unit/ Sodium Chloride 100 ml @ 0 mls/hr Q0M ONCE IVPB ; Start 10/04/18 at 11:00; Stop 10/04/18 at 11:01 Norepinephrine 250 ml @ 0 mls/hr ONCE ONCE IV ; Start 10/04/18 at 11:00; Stop 10/04/18 at 11:01 Epinephrine 4 mg/ Dextrose 250 ml @ 0 mls/hr Q0M ONCE IV ; Start 10/04/18 at 11:00; Stop 10/04/18 at 11:01 Phenylephrine HCl 250 ml @ 0 mls/hr ONCE ONCE IV ; Start 10/04/18 at 11:00; Stop 10/04/18 at 11:01 Aspirin (Aspirin) 600 mg ONCE ONCE IA ; Start 10/04/18 at 11:00; Stop 10/04/18 at 11:01 Heparin Sodium (Porcine) 72495 unit/Milrinone Lactate 10 mg/ Sodium Chloride 1,011 ml @ 0 mls/hr ONCE ONCE SC ; Start 10/04/18 at 11:00; Stop 10/04/18 at 11:01 Milrinone Lactate 2 mg/Sodium Chloride 52 ml @ 0 mls/hr ONCE ONCE IV ; Start 10/04/18 at 11:00; Stop 10/04/18 at 11:01 Meds reviewed: Yes Allergies Coded Allergies: No Known Allergy (Unverified , 10/02/18) Allergies Reviewed: Yes Labs/Studies Labs Reviewed: Reviewed by anesthesiologist Result Diagram: 10/03/1863010/03/18630 test: N/A Studies: ECG, CXR, Stress test Pre-procedure Exam Last vitals Vital Signs Date Temp Pulse Resp B/P (MAP) Pulse Ox O2 O2 Flow FiO2 Time Delivery Rate 10/04/18 58 08:01 10/04/18 98.0 18 150/70 92 Room Air 07:11 (96) 10/03/18 21 09:30 Airway: Adequate mouth opening, Adequate thyromental dist Mallampati: Mallampati III Teeth: Normal Lung: Normal Heart: Normal ASA Physical Status ASA physical status: 4 Emergency: None Planned Anesthetic General/MAC: ETT, A Line, CVP, PCWP, MYRA Planned Pain Management Parenteral pain med Pre-operative Attestations Prior to commencing anesthesia and surgery, the patient was re-evaluated, there was verification of: *The patient's identity *The results of appropriate recent lab work and preoperative vital signs *The above evaluation not changing prior to induction *Anesthetic plan, risk benefits, alternative and complications discussed with p atient/family; questions answered; patient/family understands, accepts and wishes to proceed. SHAHRZAD COLES MD Oct 04, 2018 10:54
[2018-10-04] MEDS ORDERED: HALOPERIDOL 5 MG INJ IV PRN (11:00)
[2018-10-04] MEDS ORDERED: LABETALOL HCL 20MG INJ IV PRN (11:00)
[2018-10-04] MEDS ORDERED: METOCLOPRAMIDE 10 MG INJ IV PRN (11:00)
[2018-10-04] MEDS ORDERED: EPINEPHrine 4 MG in DEXTROSE 5% 246 ML IV ONE (11:00)
[2018-10-04] MEDS ORDERED: INSULIN HUMAN REGULAR 100 UNIT in SOD CHLORIDE 0.9% 99 ML IVPB ONE (11:00)
[2018-10-04] MEDS ORDERED: FENTAnyl 50 MCG/ML VIAL IV PRN ×3 (11:00)
[2018-10-04] MEDS ORDERED: LEVALBUTEROL (NEB) 1.25 MG/0.5 ML AMP HHN PRN (11:00)
[2018-10-04] MEDS ORDERED: ALBUMIN HUMAN 25% 100 ML ONE (11:00)
[2018-10-04] MEDS ORDERED: MIDAZOLAM 1 MG/ML 2 ML INJ IV PRN (11:00)
[2018-10-04] MEDS ORDERED: hydrALAzine 20 MG INJ IV PRN (11:00)
[2018-10-04] MEDS ORDERED: HYDROmorphONE 0.5 MG/0.5 ML SYG IV PRN ×4 (11:00→16:30)
[2018-10-04] MEDS ORDERED: IPRATROPIUM (NEB) 0.5 MG/2.5 ML AMP HHN PRN (11:00)
[2018-10-04] MEDS ORDERED: ALBUMIN HUMAN 5% 250 ML IV PRN (11:00)
[2018-10-04] MEDS ORDERED: NORepinephrine 8MG/250 ML (PMX 250 ML IV ONE (11:00)
[2018-10-04] MEDS ORDERED: morphine 2 MG INJ IV PRN ×2 (11:00)
[2018-10-04] MEDS ORDERED: DIPHENHYDRAMINE 50 MG INJ IV PRN (11:00)
[2018-10-04] MEDS ORDERED: LORAZEPAM 2 MG INJ IV PRN (11:00)
[2018-10-04] MEDS ORDERED: ASPIRIN 600 MG SUPP PR ONE (11:00)
[2018-10-04] MEDS ORDERED: ONDANSETRON 4 MG INJ IV PRN ×2 (11:00→16:30)
[2018-10-04] MEDS ORDERED: MEPERIDINE 25 MG INJ IV PRN (11:00)
[2018-10-04] MEDS ORDERED: PHENYLephrine 20MG IN 250 ML 250 ML IV ONE ×2 (11:00→20:00)
[2018-10-04] MEDS ORDERED: HEPARIN (10000 UNITS/ML) 10,000 UNIT, MILRINONE LACTATE 10 MG in SOD CHLORIDE 0.9% 1,00... SC ONE (11:00)
[2018-10-04] MEDS ORDERED: morphine 10 MG INJ IV PRN (11:00)
[2018-10-04] MEDS ORDERED: ALBUMIN HUMAN 5% 500 ML ONE (11:00)
[2018-10-04] MEDS ORDERED: MILRINONE LACTATE 2 MG in SOD CHLORIDE 0.9% 50 ML IV ONE (11:00)
[2018-10-04] MEDS ORDERED: AMINOCAPROIC ACID 5 GM INJ ONE ×2 (11:01→12:38)
[2018-10-04] MEDS ORDERED: LIDOCAINE 100 MG SYRINGE ONE (11:02)
[2018-10-04] MEDS ORDERED: POTASSIUM CHLORIDE 40 MEQ INJ ONE (11:02)
[2018-10-04] MEDS ORDERED: MANNITOL 20% 500 ML ONE (11:03)
[2018-10-04] MEDS ORDERED: MAGNESIUM SULFATE (MG) 50% 10 ML INJ ONE (11:03)
[2018-10-04] MEDS ORDERED: PHENYLephrine 10 MG INJ ONE (11:04)
[2018-10-04] MEDS ORDERED: PHENYLephrine (100 MCG/ML) 5ML SYG ONE (11:05)
--- NOTE | 2018-10-04 11:38 | HPN ---
Date/Time of Note Date/Time of Note DATE: 10/04/18 TIME: 11:38 Interval H&P Admission Note Pt. seen H&P reviewed: No system changes LAMINE BRYAN MD Oct 04, 2018 11:38
[2018-10-04] MEDS ORDERED: CEFAZOLIN 1 GM INJ ONE (12:38)
[2018-10-04] MEDS ORDERED: PROTAMINE 250 MG INJ ONE (12:38)
[2018-10-04] MEDS ORDERED: FUROSEMIDE 20 MG INJ ONE ×2 (15:00→15:51)
[2018-10-04] MEDS ORDERED: AMIODARONE 150 MG INJ ONE (15:10)
[2018-10-04] MEDS ORDERED: morphine 10 MG INJ ONE (15:40)
[2018-10-04] MEDS ORDERED: PROVENTIL HFA 6.7GM INHALER ONE (15:54)
--- NOTE | 2018-10-04 16:14 | SIPON ---
Date/Time of Note Date/Time of Note DATE: 10/04/18 TIME: 16:12 Operative Report Preoperative Diagnosis 3v CAD Postoperative Diagnosis SAME Operation/Procedure Performed CABGX5, BILLINGSLEY TO LAD, SVG TO PDA, SVG TO DIAG SEQUENCED OM1 SEQUENCED TO OM2 Surgeon see signature line kindergarten teacher assistant ITA STACK MD AND SHWETHA HOPPER Second assist: AGUSTINA LAW Anesthesia: general Estimated blood loss: 250 - 300 ml's Transfusion Required none Specimen NONE Grafts/Implants none Complications none LAMINE BRYAN MD Oct 04, 2018 16:14
[2018-10-04] MEDS ORDERED: MAGNESIUM SULFATE 1 GM/D5W 100 ML IVPB PRN (16:30)
[2018-10-04] MEDS ORDERED: NITROGLYCERIN 50 MG/D5W (PMX) 250 ML IV SCH (16:30)
[2018-10-04] MEDS ORDERED: DEXTROSE 50% 50 ML SYRINGE IV PRN ×2 (16:30)
[2018-10-04] MEDS ORDERED: ACETAMINOPHEN 325 MG TAB PO PRN (16:30)
[2018-10-04] MEDS ORDERED: DOPamine-D5W 1.6 MG/ML 250 ML IV SCH (16:30)
[2018-10-04] MEDS ORDERED: CEFAZOLIN 1 GM/50 ML (PMX) 50 ML IVPB SCH (16:30)
[2018-10-04] MEDS ORDERED: MILRINONE LACTATE 100 ML IV SCH (17:30)
[2018-10-04] MEDS: POTASSIUM CHLORIDE 40 MEQ, CALCIUM CHLORIDE 10% 1 GM in DEXTROSE 5%-0.225% NACL 1,000 ML IV SCH (18:10)
[2018-10-04] MEDS: HYDROmorphONE 0.5 MG/0.5 ML SYG IV PRN ×3 (18:10→19:02)
[2018-10-04] MEDS: INSULIN HUMAN REGULAR 100 UNIT in SOD CHLORIDE 0.9% 99 ML IV SCH (18:13)
[2018-10-04] MEDS: POTASSIUM CHLORIDE 50 ML IVPB PRN ×3 (19:25→21:49)
[2018-10-04] MEDS ORDERED: NA BICARBONATE 8.4% 50 ML SYG IV ONE (20:00)
[2018-10-04] MEDS ORDERED: PHENYLephrine 20MG IN 250 ML 250 ML IV SCH (20:00)
[2018-10-04] MEDS: FAMOTIDINE 20 MG INJ IV SCH (20:29)
[2018-10-04] MEDS: PROPOFOL 100 ML IV SCH (20:58)
[2018-10-04] MEDS: ATORVASTATIN 80 MG TAB PO SCH (21:00)
[2018-10-04] MEDS: ENOXAPARIN 30 MG/0.3 ML SYG SC SCH (21:00)
--- NOTE | 2018-10-04 21:23 | OPR ---
DATE OF OPERATION: 10/04/2018 PREOPERATIVE DIAGNOSIS: Unstable angina, 3-vessel coronary artery disease. POSTOPERATIVE DIAGNOSIS: Unstable angina, 3-vessel coronary artery disease. PROCEDURE: CABG x5, BILLINGSLEY to LAD, SVG to PDA, SVG to diagonal artery sequence to OM1 sequenced to OM2 , endoscopic vein harvesting from both lower extremities, epiaortic scanning of the ascending aorta. SURGEON: Lamine Bryan MD ANALOG CIRCUIT DESIGNER: Francisco Perales MD SECOND CAUSTIC CRESYLATE SHIFT SUPERINTENDENT: WARD Nails CAUSTIC CRESYLATE SHIFT SUPERINTENDENT: Alecia Castellon PA-C ANESTHESIOLOGIST: Dr. Rob Reyes. ANESTHESIA: General endotracheal. COMPLICATIONS: None. FINDINGS: LV function was good pre- and post-revascularization. No atheromas or plaques were noted in the ascending aorta. The flow in the BILLINGSLEY was 37 mL per minute, the flow in the triple sequenced graft was 75 mL per minute, and the flow in the PDA was 30 mL per minute. Aortic crossclamp time was 74 minutes. Cardiopulmonary bypass time was 95 minutes. INDICATION: The patient is a 58-year-old male with previous coronary artery disease and stenting who presented with unstable angina. He underwent angiogram which showed severe 3-vessel coronary artery disease. He was referred for urgent CABG. Risks, benefits and alternatives were explained to the p atient as well as to his who understood and consented. DESCRIPTION OF PROCEDURE: The patient was brought to the operating room. He was placed in supine po sition. He was induced and underwent general endotracheal intubation without complications. Lines w ere placed. Antibiotics were given. He was prepped and draped in usual sterile fashion. Median cecy rnotomy was made simultaneous to endoscopic vein harvesting of the saphenous vein from both lower ext remities. Heparin was given. BILLINGSLEY was taken down using clips and cautery. Pericardium was establis hed. The ascending aorta was scanned. There were no atheromas or plaques. Pursestring was placed i n the ascending aorta on the right atrium. He was then cannulated and then we placed an ascending ao rtic vent. Once all our lines were in place, we commenced cardiopulmonary bypass. We placed a cross clamp and arrested using antegrade cardioplegia and topical ice. Once the heart was arrested, we lora ntified the OM2, made arteriotomy, extended the Alfaro scissors, and anastomose our vein graft using 7 -0 Prolene in running fashion in end-to-side manner. The next two arteries, the OM1 and diagonal, we re sequentially vein graft anastomosis using 6-0 Prolene. Vein graft cut to length. We then identif ied the PDA, made arteriotomy, extended with Alfaro scissors, and anastomose our vein graft using 7-0 Prolene in running fashion in end-to-side manner. Antegrade cardioplegia was given intermittently th roughout the case. We then identified the mid-LAD, made arteriotomy, extended with Alfaro scissors, a nd anastomose our BILLINGSLEY using 7-0 Prolene in running fashion in end-to-side manner. At this time, the patient was rewarmed. Warm blood was given. Crossclamp was removed. He was cardioverted back to n ormal sinus rhythm. Partial clamp was placed on the ascending aorta and a ventricular pacing wire wa s placed. We made two aortotomies and anastomose our vein graft using 5-0 Prolene in running fashion in end-to-side manner. Partial clamp was removed. Vein grafts were deaired. Distal hemostasis was achieved. We began ventilating and then weaned the patient off cardiopulmonary bypass. Protamine w as given. He was de-lined. We placed a left pleural tube and anterior mediastinal tube and then lino sed the chest using interrupted cables followed by sternal plates and screws, followed by closure of the fascia using 0 Vicryl and the skin using 4-0 Monocryl in subcuticular fashion. Lower extremity i ncisions were closed using 3-0 Vicryl for the deep layer and 4-0 Monocryl for the skin. Dressings we re applied. The patient was taken to the ICU in critical but stable condition. Dictated By: LAMINE BRYAN MD AA/NTS Conf#: [id number] DID#: [id number] CC: VANESA RUIZ MD;*End*
[2018-10-04] MEDS: CEFAZOLIN 1 GM/50 ML (PMX) 50 ML IVPB SCH (21:52)
[2018-10-04] MEDS: PHENYLephrine 20MG IN 250 ML 250 ML IV SCH (22:20)
[2018-10-05] VITALS (88 sets, daily range): BP systolic 84–166; BP diastolic 50–83; PULSE 62–100; RESP 13–31; TEMP 98–100
[2018-10-05] MEDS: ACCU-CHEK XX SCH ×23 (00:57→23:00)
[2018-10-05] MEDS: PROPOFOL 100 ML IV SCH ×2 (00:58→06:26)
[2018-10-05] MEDS: POTASSIUM CHLORIDE 50 ML IVPB PRN ×2 (01:20→05:36)
[2018-10-05] MEDS: HYDROmorphONE 0.5 MG/0.5 ML SYG IV PRN ×2 (01:44→06:04)
[2018-10-05] MEDS: PHENYLephrine 20MG IN 250 ML 250 ML IV SCH (03:27)
[2018-10-05] MEDS: CEFAZOLIN 1 GM/50 ML (PMX) 50 ML IVPB SCH ×2 (05:36→14:39)
--- NOTE | 2018-10-05 06:57 | PN ---
Date/Time of Note Date/Time of Note DATE: 10/05/18 TIME: 06:56 Assessment/Plan Lines/Catheters IV Catheter Type (from Nrsg): Peripheral IV Fierro in Place (from Nrsg): Yes Assessment/Plan Assessment/Plan PO2 improved on 60%. sedated. HD stable. needs fluid bolus. attempt weaning today. WBC 16K which is down. cxr mild congestion. Exam/Review of Systems Vital Signs Vitals Vital Signs Date Temp Pulse Resp B/P (MAP) Pulse Ox O2 O2 Flow FiO2 Time Delivery Rate 10/05/18 60 05:20 10/05/18 99.7 81 20 122/54 97 05:00 (76) 10/05/18 Bag Valve 00:00 Mask Intake and Output 10/04/18 10/04/18 10/05/18 1515:00 23:00 07:00 IntakeIntake Total 3767.06 ml 1058.66 ml OutputOutput Total 1839 ml 539 ml BalanceBalance 1928.06 ml 519.66 ml Results Result Diagram: 10/05/18 0340 10/05/18 0340 LAMINE BRYAN MD Oct 05, 2018 06:57
[2018-10-05] MEDS ORDERED: SOD CHLORIDE 0.9% 500 ML IV ONE (07:00)
[2018-10-05] MEDS: METOPROLOL 25 MG TAB PO SCH ×2 (08:25→20:19)
[2018-10-05] MEDS: ENOXAPARIN 30 MG/0.3 ML SYG SC SCH ×2 (08:25→20:20)
[2018-10-05] MEDS: ASPIRIN (EC) 325 MG TAB PO SCH (08:25)
[2018-10-05] MEDS: FAMOTIDINE 20 MG INJ IV SCH ×2 (08:25→20:24)
--- NOTE | 2018-10-05 08:34 | CONS ---
Assessment/Plan Assessment/Plan Hospital Course (Demo Recall) Unstable angina/ACS/CAD: Three vessel disease on cath. s/p CABG x5 10/04/2018, BILLINGSLEY to LAD, SVG to PDA, SVG to diagonal artery sequence to OM1 sequenced to OM2 Acute respiratory failure: intubated for surgery. Will be weaned today HTN HL DM Tobacco use -ASA 325mg x 1 year, then 81mg -lipitor -restart metoprolol if BP stable Consultation Date/Type/Reason Admit Date/Time Oct 02, 2018 at 10:40 Initial Consult Date 10/02/18 Date/Time of Note DATE: 10/05/18 TIME: 08:26 24 HR Interval Summary Free Text/Dictation s/p CABG. No complications. Almost off pressor support. Remains intubated but will be weaned later today. PAP normal. CVP ~10 Exam/Review of Systems Exam Vitals Vital Signs Date Temp Pulse Resp B/P (MAP) Pulse Ox O2 O2 Flow FiO2 Time Delivery Rate 10/05/18 99.2 100 20 108/54 99 07:00 (72) 10/05/18 60 05:20 10/05/18 Bag Valve 00:00 Mask Intake and Output 10/04/18 10/04/18 10/05/18 1515:00 23:00 07:00 IntakeIntake Total 3767.06 ml 1058.66 ml OutputOutput Total 1839 ml 605 ml BalanceBalance 1928.06 ml 453.66 ml Constitutional: No alert, No oriented ENMT: intubated Neck: supple; No jvd Respiratory: diminished breath sounds; No clear to auscultation Cardiovascular: regular rate and rhythm; No edema, No systolic murmur Gastrointestinal: soft, non-tender; No distended Neurological: No nl mental status, No nl speech Results Result Diagram: 10/05/18 0340 10/05/18 0340 Results 24hrs Laboratory Tests Test 10/04/18 16:16 10/04/18 17:01 10/04/18 17:25 10/04/18 18:04 Blood Gas Blood arterial Specimen Source Arterial Blood 10/04/2018 6:30: Date Drawn 43 PM Arterial Blood 7.257 *L pH (Temp corrected) Arterial Blood 46.7 H pCO2 (Temp correct) Arterial Blood 107.8 H pO2 (Temp corrected) Arterial Blood 20.3 L HCO3 Arterial Blood -6.8 L Base Excess Arterial Blood 96.7 Oxygen Saturatio n Rudy Test N/A Arterial Blood A-Line Gas Puncture Site Arterial 0.3 Blood Carboxyhem oglobin Arterial Blood 0.5 Methemoglobin Blood Gas A-a O2 558.5 H Differential Oxyhemoglobin 95.9 Percent Blood Gas 37.0 Temperature Blood Gas 16.0 Respiration Rate Blood Gas Actual 16 Respiration Rate Blood Gas VENT - AC Modality FiO2 100.0 Blood Gas Tidal 750.0 Volume Blood Gas Low 10.0 PEEP Setting Blood Gas A Pressure Support Blood Gas A.Lissa SHERMAN Critical Value N Read Back Blood Gas [place] Notified Whom Blood Gas 10/04/2018 6:47: Notified Time 30 PM Bedside Glucose 113 147 White Blood 24.8 #H Count Red Blood Count 4.19 L Hemoglobin 13.0 L Hematocrit 39.0 L Mean Corpuscular 93.1 Volume Mean Corpuscular 31.0 Hemoglobin Mean Corpuscular 33.3 Hemoglobin Chanell nt Red Cell 14.2 Distribution Width Platelet Count 171 Mean Platelet 9.4 Volume Immature 1.300 H Granulocytes % Neutrophils % 82.7 H Lymphocytes % 9.7 L Monocytes % 5.7 Eosinophils % 0.2 Basophils % 0.4 Nucleated Red 0.0 Blood Cells % Immature 0.330 H Granulocytes # Neutrophils # 20.5 H Lymphocytes # 2.4 Monocytes # 1.4 H Eosinophils # 0.1 Basophils # 0.1 Nucleated Red 0.0 Blood Cells # Prothrombin Time 15.0 H Prothrombin Time 1.2 Ratio INR 1.17 International Normalized Ratio Activated 35.2 H Partial Thrombop last Time Sodium Level 145 H Potassium Level 3.8 Chloride Level 110 Carbon Dioxide 22 Level Anion Gap 13 Blood Urea 19 Nitrogen Creatinine 1.20 Est Glomerular > 60 Filtrat Rate mL/min Glucose Level 115 Calcium Level 9.4 Magnesium Level 3.2 H Test 10/04/18 18:43 10/04/18 19:00 10/04/18 20:00 10/04/18 21:00 Blood Gas BLMV Blood arterial Specimen Source Arterial Blood 10/04/2018 6:30: 10/04/2018 9:00: Date Drawn 00 PM 20 PM Arterial Blood PUL ART LINE A-Line Gas Puncture Site Rudy Test N/A N/A Mixed Venous 48.1 H Blood PO2 Mixed Venous 75.2 H Blood O2 Saturation Mixed Venous 14.4 Blood Total Hemoglobin Mixed Venous 74.7 Blood Oxyhemoglo bin Mixed Venous 0.1 Bld Carboxyhemog lobin Mixed Venous 0.5 Blood Methemoglo bin Blood Gas 37.0 37.0 Temperature Blood Gas 16.0 20.0 Respiration Rate Blood Gas Actual 16 20 Respiration Rate Blood Gas VENT - AC VENT - AC Modality FiO2 100.0 100.0 Blood Gas Tidal 750.0 600.0 Volume Blood Gas Low 10.0 10.0 PEEP Setting Blood Gas [place]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 Notified Whom Blood Gas 10/04/2018 6:50: 10/04/2018 9:09: Notified Time 00 PM 44 PM Bedside Glucose 177 181 Arterial Blood 7.271 *L pH (Temp corrected) Arterial Blood 57.0 H pCO2 (Temp correct) Arterial Blood 158.8 H pO2 (Temp corrected) Arterial Blood 25.6 HCO3 Arterial Blood -2.2 Base Excess Arterial Blood 98.5 H Oxygen Saturatio n Arterial 0.3 Blood Carboxyhem oglobin Arterial Blood 0.4 Methemoglobin Blood Gas A-a O2 497.2 H Differential Oxyhemoglobin 97.8 Percent Blood Gas 26.0 Inspiratory Pressure Blood Gas [facility] Critical Value Read Back Test 10/04/18 21:02 10/04/18 22:19 10/04/18 23:20 10/04/18 23:55 Bedside Glucose 161 157 148 Potassium Level 4.4 Test 10/05/18 01:05 10/05/18 03:21 10/05/18 03:40 10/05/18 03:59 Bedside Glucose 179 185 179 White Blood 16.1 #H Count Red Blood Count 3.91 L Hemoglobin 12.0 L Hematocrit 37.0 L Mean Corpuscular 94.6 Volume Mean Corpuscular 30.7 Hemoglobin Mean Corpuscular 32.4 Hemoglobin Chanell nt Red Cell 14.6 H Distribution Width Platelet Count 201 Mean Platelet 9.9 Volume Immature 0.600 H Granulocytes % Neutrophils % 78.2 H Lymphocytes % 11.5 L Monocytes % 9.4 Eosinophils % 0.0 Basophils % 0.3 Nucleated Red 0.0 Blood Cells % Immature 0.100 H Granulocytes # Neutrophils # 12.6 H Lymphocytes # 1.9 Monocytes # 1.5 H Eosinophils # 0.0 Basophils # 0.1 Nucleated Red 0.0 Blood Cells # Prothrombin Time 14.5 Prothrombin Time 1.1 Ratio INR 1.12 International Normalized Ratio Activated 26.0 Partial Thrombop last Time Sodium Level 147 H Potassium Level 4.5 Chloride Level 108 Carbon Dioxide 26 Level Anion Gap 13 Blood Urea 22 H Nitrogen Creatinine 1.06 Est Glomerular > 60 Filtrat Rate mL/min Glucose Level 181 Calcium Level 8.8 Phosphorus Level 5.5 #H Magnesium Level 2.6 H Test 10/05/18 05:00 10/05/18 05:27 10/05/18 06:32 10/05/18 07:52 Blood Gas Blood arterial Specimen Source Arterial Blood 10/05/2018 5:03: Date Drawn 27 AM Arterial Blood 7.351 pH (Temp corrected) Arterial Blood 45.2 H pCO2 (Temp correct) Arterial Blood 120.4 H pO2 (Temp corrected) Arterial Blood 24.4 HCO3 Arterial Blood -1.3 Base Excess Arterial Blood 97.9 Oxygen Saturatio n Rudy Test N/A Arterial Blood A-Line Gas Puncture Site Arterial 0.3 Blood Carboxyhem oglobin Arterial Blood 0.3 Methemoglobin Blood Gas A-a O2 402.5 H Differential Oxyhemoglobin 97.3 Percent Blood Gas 37.0 Temperature Blood Gas 20.0 Respiration Rate Blood Gas Actual 20 Respiration Rate Blood Gas VENT - AC Modality FiO2 80.0 Blood Gas Tidal 600.0 Volume Blood Gas Low 5.0 PEEP Setting Blood Gas 22.0 Inspiratory Pressure Blood Gas d yokasta [facility] Notified Whom Blood Gas 10/05/2018 5:13: Notified Time 46 AM Bedside Glucose 167 139 146 Medications Medication Current Medications Aspirin (Aspirin) 81 mg DAILY PO Last administered on 10/04/18at 08:08; Admin Dose 81 MG; Start 10/02/18 at 11:30 Atorvastatin Calcium (Lipitor) 80 mg HS PO Last administered on 10/03/18at 21:38; Admin Dose 80 MG; Start 10/02/18 at 21:00 Metoprolol Tartrate (Lopressor) 25 mg BID PO Last administered on 10/04/18at 08:10; Admin Dose 25 MG; Start 10/02/18 at 11:30 Insulin Human Regular 100 unit/ Sodium Chloride 100 ml @ 0 mls/hr PER PROTOCOL IV Last administered on 10/04/18at 18:13; Admin Dose 1.5 MLS/HR; Start 10/04/18 at 16:30 Miscellaneous Information (* Miscellaneous Pharmacy Order) Treatment of Hypoglycemia: 1.BG 51... Per protocol XX ; Start 10/04/18 at 16:30 Dextrose (D50w Syringe) 25 ml Q15M PRN IV .DECREASED GLUCOSE; Start 10/04/18 at 16:30 Dextrose (D50w Syringe) 50 ml Q15M PRN IV .DECREASED GLUCOSE; Start 10/04/18 at 16:30 Potassium Chloride 40 meq/ Calcium Chloride 1 gm/Dextrose/ Sodium Chloride 1,030 ml @ 60 mls/hr [id number] IV Last administered on 10/04/18at 18:10; Admin Dose 60 MLS/HR; Start 10/04/18 at 16:16 Hydromorphone HCl (Dilaudid) 0.2 mg Q15M PRN IV PAIN LEVEL 1-5; Start 10/04/18 at 16:30 Hydromorphone HCl (Dilaudid) 0.4 mg Q15M PRN IV PAIN LEVEL 6-10 Last administered on 10/05/18at 06:04; Admin Dose 0.4 MG; Start 10/04/18 at 16:30 Oxycodone/ Acetaminophen (Percocet (5/ 325)) 1 tab Q3H PRN PO PAIN LEVEL 1-5; Start 10/04/18 at 16:30 Oxycodone/ Acetaminophen (Percocet (5/ 325)) 2 tab Q3H PRN PO PAIN LEVEL 6-10; Start 10/04/18 at 16:30 Ondansetron HCl (Zofran Inj) 4 mg Q6H PRN IV NAUSEA AND/OR VOMITING; Start 10/04/18 at 16:30 Famotidine (Pepcid Iv) 20 mg BID@08,20 IV Last administered on 10/04/18at 20:29; Admin Dose 20 MG; Start 10/04/18 at 20:00 Acetaminophen (Tylenol Tab) 650 mg Q3H PRN PO ELEVATED TEMPERATURE; Start 10/04/18 at 16:30 Potassium Chloride 50 ml @ 50 mls/hr SEE DIRECTION PRN IVPB K+ LEVEL Last administered on 10/05/18at 05:36; Admin Dose 50 MLS/HR; Start 10/04/18 at 16:30 Magnesium Sulfate/ Dextrose 100 ml @ 100 mls/hr PRN PRN IVPB PENDING LAB VALUE; Start 10/04/18 at 16:30 Nitroglycerin/ Dextrose 250 ml @ 1.5 mls/hr PER PROTOCOL IV Last administered on 10/04/18at 18:14; Admin Dose 1.5 MLS/HR; Start 10/04/18 at 16:30 Dopamine HCl/ Dextrose 250 ml @ 9.15 mls/hr PER PROTOCOL IV Last administered on 10/04/18at 17:16; Admin Dose 32.025 MLS/HR; Start 10/04/18 at 16:30 Enoxaparin Sodium (Lovenox) 30 mg BID SC ; Start 10/04/18 at 21:00 Milrinone Lactate 100 ml @ 13.725 mls/ hr TITRATE IV Last administered on 10/04/18at 18:25; Admin Dose 13.725 MLS/HR; Start 10/04/18 at 17:30 Cefazolin Sodium 50 ml @ 100 mls/hr Q8 IVPB Last administered on 10/05/18at 05:36; Admin Dose 100 MLS/HR; Start 10/04/18 at 22:00; Stop 10/05/18 at 14:29 Propofol 100 ml @ 3.66 mls/hr Q12H IV Last administered on 10/05/18at 06:26; Admin Dose 36.6 MLS/HR; Start 10/04/18 at 21:00 Phenylephrine HCl 250 ml @ 75 mls/hr TITRATE IV Last administered on 10/05/18at 03:27; Admin Dose 75 MLS/HR; Start 10/04/18 at 21:34 Diagnostic Test (Pha) (Accu-Chek) 1 ea Q1H XX ; Start 10/05/18 at 08:00 VANESA RUIZ Oct 05, 2018 08:34
[2018-10-05] MEDS ORDERED: ALBUMIN HUMAN 5% 250 ML IV PRN (09:00)
--- NOTE | 2018-10-05 09:23 | PN ---
DATE: 10/05/2018 SUBJECTIVE: The patient is status post 5-vessel CABG. Overnight, the patient was unable to be extubated. The patient remains on pressor support. Urinary output has been adequate. No other events noted. OBJECTIVE: VITAL SIGNS: Blood pressure is 102/50, respiratory rate 20, pulse 68, temperature 98.6. HEENT: Head is normocephalic. NECK: Supple. HEART: Regular rate. LUNGS: Show diminished breath sounds at the base. ABDOMEN: Soft, nontender to palpation. Positive mediastinal tubes noted. DERMATOLOGIC: No rashes. MUSCULOSKELETAL: No joint effusions. NEUROLOGIC: Limited exam as the patient's obtunded, sedated. MEDICATIONS: Reviewed. LABORATORY DATA: Shows white count 16.8, hemoglobin 12.0, platelet count is 201. Sodium 147, BUN 22, creatinine 1.06, phosphorous and magnesium were reviewed. INR is reviewed. Urinalysis was reviewed. ABG was reviewed. IMAGING: The patient's chest x-ray was reviewed, shows mild pulmonary congestion, cardiomegaly. ASSESSMENT AND PLAN: 1. Coronary artery disease. The patient is status post 5-vessel CABG. Continue current medical management. Continue aspirin. Continue Lipitor. Follow up with cardiology, CT surgery. 2. Shock, etiology is likely cardiogenic secondary to CABG. The patient is being weaned off pressor support. Will continue to monitor. Follow up with cardiology and CT surgery. 3. Ventilator-dependent respiratory failure. Vent settings and ABG was reviewed. Continue to monitor. Continue weaning. Will follow. Will place a pulmonary consult for evaluation. 4. History of tobacco use, possible COPD. Continue medical management. Continue nebulizers. 5. Diabetes. Continue current insulin regimen. 6. Dyslipidemia. Continue statin therapy. 7. Hypernatremia. Continue hypertonic fluid and monitor. 8. Mineral bone disorder. Monitor calcium and phosphorus levels. 9. Hypomagnesemia. Continue to monitor. 10. Acute encephalopathy, etiology toxic metabolic. 11. Gastrointestinal and deep vein thrombosis prophylaxis. Dictated By: VANCE EUGENE/NTS Conf#: [id number] DID#: [id number] CC: VANESA RUIZ MD;*EndCC* MTDD
[2018-10-05] MEDS ORDERED: FUROSEMIDE 20 MG INJ ONE (10:32)
[2018-10-05] MEDS ORDERED: morphine 2 MG INJ IV STA (10:49)
[2018-10-05] MEDS ORDERED: FUROSEMIDE 20 MG INJ IV ONE (11:00)
--- NOTE | 2018-10-05 11:10 | CONS ---
DATE OF ADMISSION: 10/02/2018 DATE OF CONSULTATION: 10/05/2018 TYPE OF CONSULTATION: Pulmonary. REASON FOR CONSULTATION: Shortness of breath. Thank you, Dr. Irizarry for this consultation. HISTORY OF PRESENT ILLNESS: This is a 58-year-old gentleman with multiple medical problems including history of coronary artery disease with prior stent placement, presented to outside facility with in creasing chest pain with radiation to his shoulder with associated diaphoresis. He was found to have abnormal EKG concerning for non-ST elevation myocardial infarction and ongoing ischemia. Transferre d to [facility] for cardiac catheterization, found to have multivessel disease and now status post coronary artery bypass graft surgery. 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 PAST MEDICAL HISTORY: Coronary artery disease, morbid obesity, possible sleep apnea, and prior signi ficant tobacco history. MEDICATIONS: Per chart. ALLERGIES: NONE. SOCIAL HISTORY: Ex-smoker, no alcohol, no history of drug use. FAMILY HISTORY: Noncontributory. SYSTEMS REVIEW: A 12-point review of systems was negative, other than that mentioned above. PHYSICAL EXAMINATION: GENERAL: Well-nourished, well-developed gentleman, intubated on mechanical ventilation, appears comf ortable at rest, no acute distress. VITAL SIGNS: Currently afebrile, pulse is 80, blood pressure 102/50, O2 saturation 96% on FIO2 of 40 %. NECK: Supple. No JVD or lymphadenopathy. CARDIAC: Sounds S1, S2, no added sounds or murmurs. CHEST: Diminished air entry bilaterally. ABDOMEN: Soft, nontender. No guarding or rebound. EXTREMITIES: No cyanosis, clubbing, 1+ edema. NEUROLOGIC: Generalized weakness. LABORATORY DATA: White count 16.1, hemoglobin 12.0, platelets of 201. BUN 22, creatinine 1.06. ABG : pH 7.35, pCO2 of 45, pO2 of 120 on FIO2 of 80%. DATA: Chest x-ray was reviewed, showed no significant infiltrates or effusions. IMPRESSION AND PLAN: A 58-year-old gentleman with multivessel coronary artery disease, status post re cent coronary artery bypass graft surgery, postop day 1. The patient will require: 1. Decrease sedation. 2. CPAP weaning trial. 3. Post-extubation incentive spirometry and bronchodilators. 4. Early ambulation as tolerated. 5. Outpatient pulmonary function testing and sleep study. Given probability of obstructive sleep ap allison the patient may require nocturnal noninvasive positive pressure ventilation post-extubation. Thank you again, Dr. Irizarry, for this consultation. Dictated By: IVAN COOK MD SV/NTS Conf#: [id number] DID#: [id number] CC: VANESA RUIZ MD;*EndCC*
[2018-10-05] MEDS: morphine 2 MG INJ IV PRN ×3 (12:32→22:00)
[2018-10-05] MEDS: POTASSIUM CHLORIDE 40 MEQ, CALCIUM CHLORIDE 10% 1 GM in DEXTROSE 5%-0.225% NACL 1,000 ML IV SCH (14:39)
--- NOTE | 2018-10-05 18:55 | RADRPT ---
Vent Rate: 66 bpm RR Interval: 0 msec IA Interval: 134 msec QRS Duration: 86 msec QT Interval: 430 msec QTC Interval: 450 msec P-R-T Riggins: 50 - 39 - 74 degrees Normal sinus rhythm Nonspecific T wave abnormality Abnormal ECG Electronically Signed By: Maurice Aldana
[2018-10-05] MEDS: ATORVASTATIN 80 MG TAB PO SCH (20:19)
[2018-10-05] MEDS: INSULIN HUMAN REGULAR 100 UNIT in SOD CHLORIDE 0.9% 99 ML IV SCH (21:09)
[2018-10-05] MEDS ORDERED: AMOXICILLIN/CLAV 500 MG TAB PO SCH (22:00)
[2018-10-06] VITALS (29 sets, daily range): BP systolic 112–154; BP diastolic 62–87; PULSE 60–150; RESP 14–31
[2018-10-06] MEDS: ACCU-CHEK XX SCH ×8 (01:00→07:00)
[2018-10-06] MEDS: OXYCODONE/ACETAMINOPHEN (5/325) TAB PO PRN ×4 (01:09→22:59)
[2018-10-06] MEDS: POTASSIUM CHLORIDE 40 MEQ, CALCIUM CHLORIDE 10% 1 GM in DEXTROSE 5%-0.225% NACL 1,000 ML IV SCH (05:45)
[2018-10-06] MEDS: INSULIN HUMAN REGULAR 100 UNIT in SOD CHLORIDE 0.9% 99 ML IV SCH (06:12)
[2018-10-06] MEDS: POTASSIUM CHLORIDE 50 ML IVPB PRN (06:29)
--- NOTE | 2018-10-06 06:29 | PN ---
Date/Time of Note Date/Time of Note DATE: 10/06/18 TIME: 06:28 Assessment/Plan Lines/Catheters IV Catheter Type (from Nrs): Peripheral IV Adams in Place (from Nrs): Yes Assessment/Plan Assessment/Plan sitting up in bed. labs ok. d/c lines and adams. transfer to tele. transition insulin Exam/Review of Systems Vital Signs Vitals Vital Signs Date Temp Pulse Resp B/P (MAP) Pulse Ox O2 O2 Flow FiO2 Time Delivery Rate 10/06/18 92 4.0 04:38 10/06/18 72 04:00 10/06/18 98.5 31 04:00 10/06/18 129/87 03:30 (101) 10/05/18 Nasal 23:30 Cannula 10/05/18 40 13:10 Intake and Output 10/05/18 10/05/18 10/06/18 1515:00 23:00 07:00 IntakeIntake Total 938 ml 1388 ml 709 ml OutputOutput Total 610 ml 940 ml 240 ml BalanceBalance 328 ml 448 ml 469 ml Results Result Diagram: 10/06/18 0400 10/06/18 0400 LAMINE BRYAN MD Oct 06, 2018 06:29
[2018-10-06] MEDS ORDERED: DIGOXIN 500 MCG INJ IV ONE (06:30)
[2018-10-06] MEDS ORDERED: MAGNESIUM SULFATE 2 GM/50 ML 50 ML IVPB ONE (06:30)
[2018-10-06] MEDS: morphine 2 MG INJ IV PRN (07:38)
[2018-10-06] MEDS: ASPIRIN (EC) 325 MG TAB PO SCH (09:42)
[2018-10-06] MEDS: METOPROLOL 25 MG TAB PO SCH ×2 (09:42→20:45)
[2018-10-06] MEDS: FAMOTIDINE 20 MG INJ IV SCH ×2 (09:42→20:45)
[2018-10-06] MEDS: ENOXAPARIN 30 MG/0.3 ML SYG SC SCH ×2 (09:44→21:03)
[2018-10-06] MEDS ORDERED: FUROSEMIDE 20 MG INJ IV ONE (11:00)
--- NOTE | 2018-10-06 11:29 | CONS ---
Assessment/Plan Assessment/Plan Hospital Course (Demo Recall) Paroxysmal atrial fibrillation: very common post cardiac surgery. No need for chronic anticoagulation. Will try rhythm control for one month Acute diastolic CHF: EF preserved. Mild CHF on exam and CXR Unstable angina/ACS/CAD: Three vessel disease on cath. s/p CABG x5 10/04/2018, BILLINGSLEY to LAD, SVG to PDA, SVG to diagonal artery sequence to OM1 sequenced to OM2 Acute respiratory failure: intubated for surgery. extubated 10/05 HTN HL DM Tobacco use -amiodarone bolus followed by 400mg PO BID, eventual taper to outpt dose of 200mg daily x 1 month -lasix 20mg IV x2 today, reassess daily -ASA 325mg -lipitor -metoprolol 25mg BID Consultation Date/Type/Reason Admit Date/Time Oct 02, 2018 at 10:40 Initial Consult Date 10/02/18 Type of Consult Cardiology Date/Time of Note DATE: 10/06/18 TIME: 11:26 24 HR Interval Summary Free Text/Dictation Extubated yesterday. Overall doing well. Not much pain. Mild SOB. Had afib with RVR briefly and has been in and out of afib this am. Exam/Review of Systems Exam Vitals Vital Signs Date Temp Pulse Resp B/P (MAP) Pulse Ox O2 O2 Flow FiO2 Time Delivery Rate 10/06/18 77 24 148/73 93 Nasal 5.0 10:00 (98) Cannula 10/06/18 98.8 08:00 10/05/18 40 13:10 Intake and Output 10/05/18 10/05/18 10/06/18 1515:00 23:00 07:00 IntakeIntake Total 938 ml 1388 ml 709 ml OutputOutput Total 610 ml 940 ml 415 ml BalanceBalance 328 ml 448 ml 294 ml Constitutional: alert, oriented Psych: no complaints, nl mood/affect Head: normocephalic, atraumatic Neck: jvd (9cm) Respiratory: crackles/rales; No clear to auscultation Cardiovascular: regular rate and rhythm, edema (1+) Gastrointestinal: soft, non-tender; No distended Neurological: nl mental status, nl speech Results Result Diagram: 10/06/18 0400 10/06/18 0400 Results 24hrs Laboratory Tests Test 10/05/18 11:56 10/05/18 13:00 10/05/18 13:49 10/05/18 15:58 Bedside Glucose 157 161 171 Blood Gas Blood arterial Specimen Source Arterial Blood 10/05/2018 1:13: Date Drawn 00 PM Arterial Blood 7.419 pH (Temp corrected ) Arterial Blood 35.5 pCO2 (Temp correct) Arterial Blood 65.4 L pO2 (Temp corrected ) Arterial Blood 22.5 HCO3 Arterial Blood -1.6 Base Excess Arterial Blood 92.1 L Oxygen Saturati on Rudy Test N/A Arterial Blood A-Line Gas Puncture Site Arterial 0.3 Blood Carboxyhe moglobin Arterial Blood 0.3 Methemoglobin Blood Gas A-a 179.0 H O2 Differential Oxyhemoglobin 91.5 L Percent Blood Gas 37.0 Temperature Blood Gas 26 Actual Respiration Rat e Blood Gas VENT - CPAP Modality FiO2 40.0 Blood Gas Low 5.0 PEEP Setting Blood Gas 10 Pressure Support Blood Gas TM Notified Whom Blood Gas 10/05/2018 1:21: Notified Time 48 PM Test 10/05/18 16:08 10/05/18 17:58 10/05/18 20:12 10/05/18 21:56 Hematocrit 32.1 L Bedside Glucose 152 165 194 Test 10/05/18 23:45 10/06/18 01:45 10/06/18 04:00 10/06/18 04:06 Bedside Glucose 137 175 122 White Blood 14.7 H Count Red Blood Count 3.52 L Hemoglobin 10.9 L Hematocrit 33.4 L Mean 94.9 Corpuscular Volume Mean 31.0 Corpuscular Hemoglobin Mean 32.6 Corpuscular Hemoglobin Conc ent Red Cell 14.4 Distribution Width Platelet Count 118 #L Mean Platelet 10.2 Volume Immature 0.600 H Granulocytes % Neutrophils % 70.7 Lymphocytes % 18.7 Monocytes % 9.5 Eosinophils % 0.2 Basophils % 0.3 Nucleated Red 0.0 Blood Cells % Immature 0.090 H Granulocytes # Neutrophils # 10.4 H Lymphocytes # 2.7 Monocytes # 1.4 H Eosinophils # 0.0 Basophils # 0.0 Nucleated Red 0.0 Blood Cells # Prothrombin 14.0 Time Prothrombin 1.1 Time Ratio INR 1.07 International Normalized Rati o Activated 21.5 L Partial Thrombo plast Time Sodium Level 142 Potassium Level 4.1 Chloride Level 107 Carbon Dioxide 26 Level Anion Gap 9 Blood Urea 24 H Nitrogen Creatinine 0.70 Est Glomerular > 60 Filtrat Rate mL/min Glucose Level 112 # Calcium Level 9.1 Phosphorus 3.4 # Level Magnesium Level 2.3 Test 10/06/18 05:12 10/06/18 05:53 10/06/18 07:00 Lab Scanned REFERENCE LAB Report Bedside Glucose 128 Blood Gas Blood Specimen arterial Source Arterial Blood 10/06/2018 7:11 Date Drawn :33 AM Arterial Blood 7.425 pH (Temp corrected ) Arterial Blood 37.1 pCO2 (Temp correct) Arterial Blood 57.0 L pO2 (Temp corrected ) Arterial Blood 23.8 HCO3 Arterial Blood -0.3 Base Excess Arterial Blood 89.2 L Oxygen Saturati on Rudy Test ACCEPTAB Arterial Blood Right Radial Gas Puncture Site Arterial 0.3 Blood Carboxyhe moglobin Arterial Blood 0.3 Methemoglobin Blood Gas A-a 135.0 H O2 Differential Oxyhemoglobin 88.7 L Percent Blood Gas 37.0 Temperature Blood Gas NASAL CANNULA Modality FiO2 33.0 Blood Gas TM Notified Whom Blood Gas 10/06/2018 7:25 Notified Time :01 AM Medications Medication Current Medications Atorvastatin Calcium (Lipitor) 80 mg HS PO Last administered on 10/05/18at 20:19; Admin Dose 80 MG; Start 10/02/18 at 21:00 Metoprolol Tartrate (Lopressor) 25 mg BID PO Last administered on 10/06/18at 09:42; Admin Dose 25 MG; Start 10/02/18 at 11:30 Miscellaneous Information (* Miscellaneous Pharmacy Order) Treatment of Hypogly cemia: 1.BG 51... Per protocol XX ; Start 10/04/18 at 16:30 Dextrose (D50w Syringe) 25 ml Q15M PRN IV .DECREASED GLUCOSE; Start 10/04/18 at 16:30 Dextrose (D50w Syringe) 50 ml Q15M PRN IV .DECREASED GLUCOSE; Start 10/04/18 at 16:30 Oxycodone/ Acetaminophen (Percocet (5/ 325)) 1 tab Q3H PRN PO PAIN LEVEL 1-5; Start 10/04/18 at 16:30 Oxycodone/ Acetaminophen (Percocet (5/ 325)) 2 tab Q3H PRN PO PAIN LEVEL 6-10 Last administered on 10/06/18at 09:42; Admin Dose 2 TAB; Start 3/27/19 at 16:30 Ondansetron HCl (Zofran Inj) 4 mg Q6H PRN IV NAUSEA AND/OR VOMITING; Start 10/04/18 at 16:30 Famotidine (Pepcid Iv) 20 mg BID@08,20 IV Last administered on 10/06/18 09:42; Admin Dose 20 MG; Start 10/04/18 at 20:00 Acetaminophen (Tylenol Tab) 650 mg Q3H PRN PO ELEVATED TEMPERATURE; Start 10/04/18 at 16:30 Enoxaparin Sodium (Lovenox) 30 mg BID SC Last administered on 10/06/18 09:44; Admin Dose 30 MG; Start 10/04/18 at 21:00 Aspirin (Ecotrin) 325 mg DAILY PO Last administered on 10/06/18 09:42; Admin Dose 325 MG; Start 10/05/18 at 09:00 Morphine Sulfate (morphine) 2 mg Q2H PRN IV SEVERE PAIN LEVEL 7-10 Last administered on 10/06/18 07:38; Admin Dose 2 MG; Start 10/05/18 at 11:00 VANESA RUIZ Oct 06, 2018 11:29
[2018-10-06] MEDS ORDERED: AMIODARONE 150MG/D5W BOLUS 100 ML IV ONE (11:30)
[2018-10-06] MEDS: FUROSEMIDE 20 MG INJ IV SCH ×2 (12:16→18:10)
--- NOTE | 2018-10-06 12:25 | CONS ---
Consult Date/Type/Reason Admit Date/Time Oct 02, 2018 at 10:40 Initial Consult Date 10/02/18 Type of Consult Pulmonary Date/Time of Note DATE: 10/06/18 TIME: 12:23 Subjective Patient is comfortable this morning. Decreased chest tube output. Objective Vital Signs Date Temp Pulse Resp B/P (MAP) Pulse Ox O2 O2 Flow FiO2 Time Delivery Rate 10/06/18 77 24 148/73 93 Nasal 5.0 10:00 (98) Cannula 10/06/18 98.8 08:00 10/05/18 40 13:10 Intake and Output 10/05/18 10/05/18 10/06/18 1515:00 23:00 07:00 IntakeIntake Total 938 ml 1388 ml 714 ml OutputOutput Total 610 ml 940 ml 415 ml BalanceBalance 328 ml 448 ml 299 ml Exam PHYSICAL EXAMINATION: GENERAL: Well-nourished, well-developed gentleman nasal cannula O2 VITAL SIGNS: NECK: Supple. No JVD or lymphadenopathy. CARDIAC: Sounds S1, S2, no added sounds or murmurs. CHEST: Diminished air entry bilaterally. ABDOMEN: Soft, nontender. No guarding or rebound. EXTREMITIES: No cyanosis, clubbing, 1+ edema. NEUROLOGIC: Generalized weakness. Vent Setting Ventilator Support Mode: CPAP, PS, SPONT Fraction of Inspired Oxygen pe: 40 Positive End Expiratory Pressu: 5.0 Results/Medications Result Diagram: 10/06/18 0400 10/06/18 0400 Results 24 hrs Laboratory Tests Test 10/05/18 13:00 10/05/18 13:49 10/05/18 15:58 10/05/18 16:08 Blood Gas Blood arterial Specimen Source Arterial Blood 10/05/2018 1:13: Date Drawn 00 PM Arterial Blood 7.419 pH (Temp corrected ) Arterial Blood 35.5 pCO2 (Temp correct) Arterial Blood 65.4 L pO2 (Temp corrected ) Arterial Blood 22.5 HCO3 Arterial Blood -1.6 Base Excess Arterial Blood 92.1 L Oxygen Saturati on Rudy Test N/A Arterial Blood A-Line Gas Puncture Site Arterial 0.3 Blood Carboxyhe moglobin Arterial Blood 0.3 Methemoglobin Blood Gas A-a 179.0 H O2 Differential Oxyhemoglobin 91.5 L Percent Blood Gas 37.0 Temperature Blood Gas 26 Actual Respiration Rat e Blood Gas VENT - CPAP Modality FiO2 40.0 Blood Gas Low 5.0 PEEP Setting Blood Gas 10 Pressure Support Blood Gas TM Notified Whom Blood Gas 10/05/2018 1:21: Notified Time 48 PM Bedside Glucose 161 171 Hematocrit 32.1 L Test 10/05/18 17:58 10/05/18 20:12 10/05/18 21:56 10/05/18 23:45 Bedside Glucose 152 165 194 137 Test 10/06/18 01:45 10/06/18 04:00 10/06/18 04:06 10/06/18 05:12 Bedside Glucose 175 122 White Blood 14.7 H Count Red Blood Count 3.52 L Hemoglobin 10.9 L Hematocrit 33.4 L Mean 94.9 Corpuscular Volume Mean 31.0 Corpuscular Hemoglobin Mean 32.6 Corpuscular Hemoglobin Conc ent Red Cell 14.4 Distribution Width Platelet Count 118 #L Mean Platelet 10.2 Volume Immature 0.600 H Granulocytes % Neutrophils % 70.7 Lymphocytes % 18.7 Monocytes % 9.5 Eosinophils % 0.2 Basophils % 0.3 Nucleated Red 0.0 Blood Cells % Immature 0.090 H Granulocytes # Neutrophils # 10.4 H Lymphocytes # 2.7 Monocytes # 1.4 H Eosinophils # 0.0 Basophils # 0.0 Nucleated Red 0.0 Blood Cells # Prothrombin 14.0 Time Prothrombin 1.1 Time Ratio INR 1.07 International Normalized Rati o Activated 21.5 L Partial Thrombo plast Time Sodium Level 142 Potassium Level 4.1 Chloride Level 107 Carbon Dioxide 26 Level Anion Gap 9 Blood Urea 24 H Nitrogen Creatinine 0.70 Est Glomerular > 60 Filtrat Rate mL/min Glucose Level 112 # Calcium Level 9.1 Phosphorus 3.4 # Level Magnesium Level 2.3 Lab Scanned REFERENCE LAB Report Test 10/06/18 05:53 10/06/18 07:00 Bedside Glucose 128 Blood Gas Blood arterial Specimen Source Arterial Blood 10/06/2018 7:11: Date Drawn 33 AM Arterial Blood 7.425 pH (Temp corrected ) Arterial Blood 37.1 pCO2 (Temp correct) Arterial Blood 57.0 L pO2 (Temp corrected ) Arterial Blood 23.8 HCO3 Arterial Blood -0.3 Base Excess Arterial Blood 89.2 L Oxygen Saturati on Rudy Test ACCEPTAB Arterial Blood Right Radial Gas Puncture Site Arterial 0.3 Blood Carboxyhe moglobin Arterial Blood 0.3 Methemoglobin Blood Gas A-a 135.0 H O2 Differential Oxyhemoglobin 88.7 L Percent Blood Gas 37.0 Temperature Blood Gas NASAL CANNULA Modality FiO2 33.0 Blood Gas TM Notified Whom Blood Gas 10/06/2018 7:25: Notified Time 01 AM Medications Current Medications Atorvastatin Calcium (Lipitor) 80 mg HS PO Last administered on 10/05/18 20:19; Admin Dose 80 MG; Start 10/02/18 at 21:00 Metoprolol Tartrate (Lopressor) 25 mg BID PO Last administered on 10/06/18 09:42; Admin Dose 25 MG; Start 10/02/18 at 11:30 Miscellaneous Information (* Miscellaneous Pharmacy Order) Treatment of Hypoglyc emia: 1.BG 51... Per protocol XX ; Start 10/04/18 at 16:30 Dextrose (D50w Syringe) 25 ml Q15M PRN IV .DECREASED GLUCOSE; Start 10/04/18 at 16:30 Dextrose (D50w Syringe) 50 ml Q15M PRN IV .DECREASED GLUCOSE; Start 10/04/18 at 16:30 Oxycodone/ Acetaminophen (Percocet (5/ 325)) 1 tab Q3H PRN PO PAIN LEVEL 1-5; Start 10/04/18 at 16:30 Oxycodone/ Acetaminophen (Percocet (5/ 325)) 2 tab Q3H PRN PO PAIN LEVEL 6-10 Last administered on 10/06/18 09:42; Admin Dose 2 TAB; Start 10/04/18 at 16:30 Ondansetron HCl (Zofran Inj) 4 mg Q6H PRN IV NAUSEA AND/OR VOMITING; Start 10/04/18 at 16:30 Famotidine (Pepcid Iv) 20 mg BID@08,20 IV Last administered on 10/06/18 09:42; Admin Dose 20 MG; Start 10/04/18 at 20:00 Acetaminophen (Tylenol Tab) 650 mg Q3H PRN PO ELEVATED TEMPERATURE; Start 10/04/18 at 16:30 Enoxaparin Sodium (Lovenox) 30 mg BID SC Last administered on 10/06/18 09:44; Admin Dose 30 MG; Start 10/04/18 at 21:00 Aspirin (Ecotrin) 325 mg DAILY PO Last administered on 3/29/19at 09:42; Admin Dose 325 MG; Start 10/05/18 at 09:00 Morphine Sulfate (morphine) 2 mg Q2H PRN IV SEVERE PAIN LEVEL 7-10 Last administered on 10/06/18at 07:38; Admin Dose 2 MG; Start 10/05/18 at 11:00 Furosemide (Lasix) 20 mg BID DIURETICS IV Last administered on 10/06/18at 12:16; Admin Dose 20 MG; Start 10/06/18 at 11:30; Stop 10/06/18 at 23:00 Amiodarone HCl (Cordarone) 400 mg BID PO ; Start 10/06/18 at 21:00 Assessment/Plan Hospital Course (Demo Recall) Assessment 1. Multivessel coronary artery disease status post coronary artery bypass graft surgery 2. History of COPD 3. Probable obstructive sleep apnea with morbid obesity 4. Status post hypoxemic respiratory failure postoperatively Plan 1. Post extubation incentive spirometry and bronchodilators 2. Continue chest tube management per thoracic surgery 3. Physical therapy and encourage out of bed if tolerated 4. DVT and GI prophylaxis Critical care time 40 minutes [facility] COOK MD, [facility] Oct 06, 2018 12:25
--- NOTE | 2018-10-06 14:56 | PAC ---
Date/Time of Note Date/Time of Note DATE: 10/06/18 TIME: 14:56 Post-Anesthesia Notes Post-Anesthesia Note Last documented vital signs Vital Signs Date Temp Pulse Resp B/P (MAP) Pulse Ox O2 O2 Flow FiO2 Time Delivery Rate 10/06/18 62 14:34 10/06/18 98.6 17 132/66 96 14:33 (88) 10/06/18 Nasal 5.0 10:00 Cannula 10/05/18 40 13:10 Activity: WNL Respiratory function: WNL Cardiovascular function: WNL Mental status: Baseline Pain reasonably controlled: Yes Hydration appropriate: Yes Nausea/Vomiting absent: Yes SHAHRZAD COLES MD Oct 06, 2018 14:56
[2018-10-06] MEDS: ALBUTEROL/IPRATROPIUM (NEB) 3 ML AMP HHN SCH ×2 (15:10→20:14)
[2018-10-06] MEDS ORDERED: GLUCAGON 1 MG INJ IM PRN (20:00)
[2018-10-06] MEDS ORDERED: GLUCOSE GEL 15 GRAM TUBE BUCCAL PRN (20:00)
[2018-10-06] MEDS ORDERED: DEXTROSE 50% 50 ML SYRINGE IV PRN ×2 (20:00)
[2018-10-06] MEDS ORDERED: GLUCOSE GEL 15 GRAM TUBE PO PRN ×2 (20:00)
[2018-10-06] MEDS: AMIODARONE 200 MG TAB PO SCH (20:45)
[2018-10-06] MEDS: ATORVASTATIN 80 MG TAB PO SCH (20:45)
[2018-10-06] MEDS: INSULIN ASPART [NOVOLOG] 3 ML PEN SC SCH (21:00)
[2018-10-07] VITALS (11 sets, daily range): BP systolic 125–140; BP diastolic 61–76; PULSE 62–78; RESP 16–18
[2018-10-07] MEDS: INSULIN ASPART [NOVOLOG] 3 ML PEN SC SCH ×4 (07:36→21:00)
[2018-10-07] MEDS: ALBUTEROL/IPRATROPIUM (NEB) 3 ML AMP HHN SCH ×3 (08:26→20:04)
--- NOTE | 2018-10-07 08:26 | PN ---
Date/Time of Note Date/Time of Note DATE: 10/07/18 TIME: 08:23 Assessment/Plan VTE Prophylaxis Risk score (from Ns)>0 risk: 11 SCD applied (from [facility] [place]): No SCD contraindicated: other Pharmacological prophylaxis: other Lines/Catheters [facility]from [facility] Saline Lock Urinary Cath still in place: No Assessment/Plan Hospital Course SUBJECTIVE: The patient is status post 5-vessel CABG. Urinary output has been adequate. No other events noted. no fever, chills, new rash, chest pain, dyspnea, hematuria oxygenating well on 3 liters nc OBJECTIVE: HEENT: Head is normocephalic. NECK: Supple. HEART: Regular rate. LUNGS: Show diminished breath sounds at the base. ABDOMEN: Soft, nontender to palpation. DERMATOLOGIC: No rashes. MUSCULOSKELETAL: No joint effusions. NEUROLOGIC: Limited exam as the patient's obtunded, sedated. MEDICATIONS: Reviewed. ASSESSMENT AND PLAN: 1. Coronary artery disease. The patient is status post 5-vessel CABG. Continue current medical management. Continue aspirin. Continue Lipitor. Follow up with cardiology, CT surgery. 2. Shock, etiology is likely cardiogenic secondary to CABG. Will continue to monitor. Follow up with cardiology and CT surgery. 3. Ventilator-dependent respiratory failure. s/p extubation 4. History of tobacco use, possible COPD. Continue medical management. Continue nebulizers. 5. Diabetes. Continue current insulin regimen. 6. Dyslipidemia. Continue statin therapy. 7. Hypernatremia. Continue hypertonic fluid and monitor. 8. Mineral bone disorder. Monitor calcium and phosphorus levels. 9. Hypomagnesemia. Continue to monitor. 10. Acute encephalopathy, etiology toxic metabolic. 11. Gastrointestinal and deep vein thrombosis prophylaxis. Result Diagram: 10/07/18 0500 10/07/18 0500 Results 24hrs Laboratory Tests Test 10/06/18 12:29 10/06/18 20:29 10/07/18 05:00 10/07/18 07:35 Bedside Glucose 128 158 124 White Blood Count 12.6 H Red Blood Count 3.76 L Hemoglobin 11.7 L Hematocrit 35.4 L Mean Corpuscular 94.1 Volume Mean Corpuscular 31.1 Hemoglobin Mean Corpuscular 33.1 Hemoglobin Concent Red Cell 14.2 Distribution Width Platelet Count 118 L Mean Platelet Volume 9.4 Immature 0.600 H Granulocytes % Neutrophils % 72.8 Lymphocytes % 17.1 Monocytes % 7.9 Eosinophils % 1.2 Basophils % 0.4 Nucleated Red Blood 0.0 Cells % Immature 0.080 H Granulocytes # Neutrophils # 9.2 H Lymphocytes # 2.2 Monocytes # 1.0 H Eosinophils # 0.2 Basophils # 0.1 Nucleated Red Blood 0.0 Cells # Sodium Level 141 Potassium Level 4.4 Chloride Level 104 Carbon Dioxide Level 30 Anion Gap 7 Blood Urea Nitrogen 20 Creatinine 0.72 Est Glomerular > 60 Filtrat Rate mL/min Glucose Level 124 Calcium Level 8.7 Phosphorus Level 3.4 Magnesium Level 2.1 Exam/Review of Systems Exam Vitals Vital Signs Date Temp Pulse Resp B/P (MAP) Pulse Ox O2 O2 Flow FiO2 Time Delivery Rate 10/07/18 66 08:14 10/07/18 97.7 16 125/67 91 07:32 (86) 10/06/18 3.0 20:17 10/06/18 Nasal 20:16 Cannula 10/06/18 28 15:12 Intake and Output 10/06/18 10/06/18 10/07/18 1414:59 22:59 06:59 IntakeIntake Total 515 ml 550 ml 650 ml OutputOutput Total 650 ml 425 ml 700 ml BalanceBalance -135 ml 125 ml -50 ml Results Results 24hrs Laboratory Tests Test 10/06/18 12:29 10/06/18 20:29 10/07/18 05:00 10/07/18 07:35 Bedside Glucose 128 158 124 White Blood Count 12.6 H Red Blood Count 3.76 L Hemoglobin 11.7 L Hematocrit 35.4 L Mean Corpuscular 94.1 Volume Mean Corpuscular 31.1 Hemoglobin Mean Corpuscular 33.1 Hemoglobin Concent Red Cell 14.2 Distribution Width Platelet Count 118 L Mean Platelet Volume 9.4 Immature 0.600 H Granulocytes % Neutrophils % 72.8 Lymphocytes % 17.1 Monocytes % 7.9 Eosinophils % 1.2 Basophils % 0.4 Nucleated Red Blood 0.0 Cells % Immature 0.080 H Granulocytes # Neutrophils # 9.2 H Lymphocytes # 2.2 Monocytes # 1.0 H Eosinophils # 0.2 Basophils # 0.1 Nucleated Red Blood 0.0 Cells # Sodium Level 141 Potassium Level 4.4 Chloride Level 104 Carbon Dioxide Level 30 Anion Gap 7 Blood Urea Nitrogen 20 Creatinine 0.72 Est Glomerular > 60 Filtrat Rate mL/min Glucose Level 124 Calcium Level 8.7 Phosphorus Level 3.4 Magnesium Level 2.1 Medications Medication Current Medications Atorvastatin Calcium (Lipitor) 80 mg HS PO Last administered on 10/06/18 20:45; Admin Dose 80 MG; Start 10/02/18 at 21:00 Metoprolol Tartrate (Lopressor) 25 mg BID PO Last administered on 10/06/18 20:45; Admin Dose 25 MG; Start 10/02/18 at 11:30 Oxycodone/ Acetaminophen (Percocet (5/ 325)) 1 tab Q3H PRN PO PAIN LEVEL 1-5; Start 10/04/18 at 16:30 Oxycodone/ Acetaminophen (Percocet (5/ 325)) 2 tab Q3H PRN PO PAIN LEVEL 6-10 Last administered on 10/06/18 22:59; Admin Dose 2 TAB; Start 10/04/18 at 16:30 Ondansetron HCl (Zofran Inj) 4 mg Q6H PRN IV NAUSEA AND/OR VOMITING; Start 10/04/18 at 16:30 Famotidine (Pepcid Iv) 20 mg BID@08,20 IV Last administered on 10/06/18 20:45; Admin Dose 20 MG; Start 10/04/18 at 20:00 Acetaminophen (Tylenol Tab) 650 mg Q3H PRN PO ELEVATED TEMPERATURE; Start 10/04/18 at 16:30 Enoxaparin Sodium (Lovenox) 30 mg BID SC Last administered on 10/06/18 21:03; Admin Dose 30 MG; Start 10/04/18 at 21:00 Aspirin (Ecotrin) 325 mg DAILY PO Last administered on 10/06/18 09:42; Admin Dose 325 MG; Start 10/05/18 at 09:00 Morphine Sulfate (morphine) 2 mg Q2H PRN IV SEVERE PAIN LEVEL 7-10 Last administered on 10/06/18 07:38; Admin Dose 2 MG; Start 10/05/18 at 11:00 Amiodarone HCl (Cordarone) 400 mg BID PO Last administered on 10/06/18 20:45; Admin Dose 400 MG; Start 10/06/18 at 21:00 Albuterol/ Ipratropium (Duoneb) 3 ml Q6HWA RESP THERAPY HHN Last administered on 10/06/18at 20:14; Admin Dose 3 ML; Start 10/06/18 at 14:00 Insulin Aspart (Novolog Insulin Pen) NOVOLOG *MILD* ALGORITHM WITH MEALS BEDTIME SC ; Start 10/06/18 at 21:00 Miscellaneous Information 1 ea NOTE XX ; Start 10/06/18 at 20:00 Glucose (Glutose) 15 gm Q15M PRN PO DECREASED GLUCOSE; Start 10/06/18 at 20:00 Glucose (Glutose) 22.5 gm Q15M PRN PO DECREASED GLUCOSE; Start 10/06/18 at 20:00 Dextrose (D50w Syringe) 25 ml Q15M PRN IV DECREASED GLUCOSE; Start 10/06/18 at 20:00 Dextrose (D50w Syringe) 50 ml Q15M PRN IV DECREASED GLUCOSE; Start 10/06/18 at 20:00 Glucagon (Glucagen) 1 mg Q15M PRN IM DECREASED GLUCOSE; Start 10/06/18 at 20:00 Glucose (Glutose) 15 gm Q15M PRN BUCCAL DECREASED GLUCOSE; Start 10/06/18 at 20:00 FRANKI MARTINEZ DO Oct 07, 2018 08:26
[2018-10-07] MEDS: ASPIRIN (EC) 325 MG TAB PO SCH (08:52)
[2018-10-07] MEDS: METOPROLOL 25 MG TAB PO SCH ×2 (08:52→20:57)
[2018-10-07] MEDS: AMIODARONE 200 MG TAB PO SCH ×2 (08:53→20:56)
[2018-10-07] MEDS: FAMOTIDINE 20 MG INJ IV SCH (08:53)
[2018-10-07] MEDS: ENOXAPARIN 30 MG/0.3 ML SYG SC SCH ×2 (09:14→21:04)
--- NOTE | 2018-10-07 10:35 | CONS ---
Assessment/Plan Assessment/Plan Assessment/Plan (Daily) Assessment and recommendations; next 1. Patient status post CABG with significant overall clinical improvement. 2. Likely underlying sleep apnea. 3. COPD. Continue current supportive care. Chest tube to be removed per cardiothoracic surgeon. Consultation Date/Type/Reason Admit Date/Time Oct 02, 2018 at 10:40 Initial Consult Date 10/02/18 Type of Consult Pulmonary Reason for Consultation Patient's condition is stable. Has been transferred to medical floor. Denies any shortness of breath. Complains of occasional cough with associated chest pain. General exam; middle-aged male, awake alert, currently in no distress. Date/Time of Note DATE: 10/07/18 TIME: 10:32 Exam/Review of Systems Exam Vitals Vital Signs Date Temp Pulse Resp B/P (MAP) Pulse Ox O2 O2 Flow FiO2 Time Delivery Rate 10/07/18 77 20 92 Nasal 4.0 08:32 Cannula 10/07/18 97.7 125/67 07:32 (86) 10/06/18 28 15:12 Intake and Output 10/06/18 10/06/18 10/07/18 1515:00 23:00 07:00 IntakeIntake Total 450 ml 550 ml 650 ml OutputOutput Total 550 ml 425 ml 700 ml BalanceBalance -100 ml 125 ml -50 ml Exam HEENT exam; supple neck, no JVD. No lymphadenopathy. Midline trachea. No thyromegaly. Patient has carious teeth. Chest exam; diminished but clear breath sounds. S1-S2 audible, no murmurs. Dressing applied to the sternum. Right-sided chest tube in place. Abdomen exam; soft, protuberant. Bowel sounds audible. Nontender. Extremity exam; no peripheral edema. BUILDING CUSTODIAN exam; no focal deficit. Results Result Diagram: 10/07/18 0500 10/07/18 0500 Results 24hrs Laboratory Tests Test 10/06/18 12:29 10/06/18 20:29 10/07/18 05:00 10/07/18 07:35 Bedside Glucose 128 158 124 White Blood Count 12.6 H Red Blood Count 3.76 L Hemoglobin 11.7 L Hematocrit 35.4 L Mean Corpuscular 94.1 Volume Mean Corpuscular 31.1 Hemoglobin Mean Corpuscular 33.1 Hemoglobin Concent Red Cell 14.2 Distribution Width Platelet Count 118 L Mean Platelet Volume 9.4 Immature 0.600 H Granulocytes % Neutrophils % 72.8 Lymphocytes % 17.1 Monocytes % 7.9 Eosinophils % 1.2 Basophils % 0.4 Nucleated Red Blood 0.0 Cells % Immature 0.080 H Granulocytes # Neutrophils # 9.2 H Lymphocytes # 2.2 Monocytes # 1.0 H Eosinophils # 0.2 Basophils # 0.1 Nucleated Red Blood 0.0 Cells # Sodium Level 141 Potassium Level 4.4 Chloride Level 104 Carbon Dioxide Level 30 Anion Gap 7 Blood Urea Nitrogen 20 Creatinine 0.72 Est Glomerular > 60 Filtrat Rate mL/min Glucose Level 124 Calcium Level 8.7 Phosphorus Level 3.4 Magnesium Level 2.1 Medications Medication Current Medications Atorvastatin Calcium (Lipitor) 80 mg HS PO Last administered on 10/06/18 20:45; Admin Dose 80 MG; Start 10/02/18 at 21:00 Metoprolol Tartrate (Lopressor) 25 mg BID PO Last administered on 10/07/18 08:52; Admin Dose 25 MG; Start 10/02/18 at 11:30 Oxycodone/ Acetaminophen (Percocet (5/ 325)) 1 tab Q3H PRN PO PAIN LEVEL 1-5; Start 10/04/18 at 16:30 Oxycodone/ Acetaminophen (Percocet (5/ 325)) 2 tab Q3H PRN PO PAIN LEVEL 6-10 Last administered on 10/06/18 22:59; Admin Dose 2 TAB; Start 10/04/18 at 16:30 Ondansetron HCl (Zofran Inj) 4 mg Q6H PRN IV NAUSEA AND/OR VOMITING; Start 10/04/18 at 16:30 Famotidine (Pepcid Iv) 20 mg BID@08,20 IV Last administered on 10/07/18 08:53; Admin Dose 20 MG; Start 10/04/18 at 20:00 Acetaminophen (Tylenol Tab) 650 mg Q3H PRN PO ELEVATED TEMPERATURE; Start 10/04/18 at 16:30 Enoxaparin Sodium (Lovenox) 30 mg BID SC Last administered on 10/07/18 09:14; Admin Dose 30 MG; Start 10/04/18 at 21:00 Aspirin (Ecotrin) 325 mg DAILY PO Last administered on 10/07/18 08:52; Admin Dose 325 MG; Start 10/05/18 at 09:00 Morphine Sulfate (morphine) 2 mg Q2H PRN IV SEVERE PAIN LEVEL 7-10 Last administered on 10/06/18at 07:38; Admin Dose 2 MG; Start 10/05/18 at 11:00 Amiodarone HCl (Cordarone) 400 mg BID PO Last administered on 10/07/18at 08:53; Admin Dose 400 MG; Start 10/06/18 at 21:00 Albuterol/ Ipratropium (Duoneb) 3 ml Q6HWA RESP THERAPY HHN Last administered on 10/07/18at 08:26; Admin Dose 3 ML; Start 10/06/18 at 14:00 Insulin Aspart (Novolog Insulin Pen) NOVOLOG *MILD* ALGORITHM WITH MEALS BEDTIME SC ; Start 10/06/18 at 21:00 Miscellaneous Information 1 ea NOTE XX ; Start 10/06/18 at 20:00 Glucose (Glutose) 15 gm Q15M PRN PO DECREASED GLUCOSE; Start 10/06/18 at 20:00 Glucose (Glutose) 22.5 gm Q15M PRN PO DECREASED GLUCOSE; Start 10/06/18 at 20:00 Dextrose (D50w Syringe) 25 ml Q15M PRN IV DECREASED GLUCOSE; Start 10/06/18 at 20:00 Dextrose (D50w Syringe) 50 ml Q15M PRN IV DECREASED GLUCOSE; Start 10/06/18 at 20:00 Glucagon (Glucagen) 1 mg Q15M PRN IM DECREASED GLUCOSE; Start 10/06/18 at 20:00 Glucose (Glutose) 15 gm Q15M PRN BUCCAL DECREASED GLUCOSE; Start 10/06/18 at 20:00 GLORIA SANCHEZ Oct 07, 2018 10:35
--- NOTE | 2018-10-07 14:26 | PN ---
Date/Time of Note Date/Time of Note DATE: 10/07/18 TIME: 14:25 Assessment/Plan Lines/Catheters IV Catheter Type (from Nrs): Saline Lock Fierro in Place (from Nrs): No Assessment/Plan Assessment/Plan doing well, remove chest tubes and wires. cxr shows LLL atelectasis. increase activity. home in 1-2 days Exam/Review of Systems Vital Signs Vitals Vital Signs Date Temp Pulse Resp B/P (MAP) Pulse Ox O2 O2 Flow FiO2 Time Delivery Rate 10/07/18 4.0 13:35 10/07/18 62 20 94 Nasal 13:31 Cannula 10/07/18 98.0 129/61 11:12 (83) 10/06/18 28 15:12 Intake and Output 10/06/18 10/06/18 10/07/18 1414:59 22:59 06:59 IntakeIntake Total 515 ml 550 ml 650 ml OutputOutput Total 650 ml 425 ml 700 ml BalanceBalance -135 ml 125 ml -50 ml Results Result Diagram: 10/07/18 0500 10/07/18 0500 LAMINE BRYAN MD Oct 07, 2018 14:26
--- NOTE | 2018-10-07 18:08 | RADRPT ---
Vent Rate: 80 bpm RR Interval: 0 msec MT Interval: 136 msec QRS Duration: 102 msec QT Interval: 420 msec QTC Interval: 484 msec P-R-T [place]: 35 - 27 - 42 degrees Normal sinus rhythm Prolonged QT Abnormal ECG Electronically Signed By: Maurice Aldana
--- NOTE | 2018-10-07 18:09 | RADRPT ---
Vent Rate: 103 bpm RR Interval: 0 msec DE Interval: 124 msec QRS Duration: 98 msec QT Interval: 380 msec QTC Interval: 497 msec P-R-T [place]: 18 - 55 - 49 degrees Sinus tachycardia Nonspecific ST abnormality Abnormal ECG Electronically Signed By: Maurice Aldana
[2018-10-07] MEDS: FAMOTIDINE 20 MG TAB PO SCH (20:56)
[2018-10-07] MEDS: ATORVASTATIN 80 MG TAB PO SCH (20:57)
[2018-10-07] MEDS: OXYCODONE/ACETAMINOPHEN (5/325) TAB PO PRN (21:07)
[2018-10-08] VITALS (12 sets, daily range): BP systolic 112–159; BP diastolic 69–82; PULSE 64–131; RESP 16–18
[2018-10-08] MEDS: OXYCODONE/ACETAMINOPHEN (5/325) TAB PO PRN ×3 (02:53→20:18)
[2018-10-08] MEDS: FAMOTIDINE 20 MG TAB PO SCH ×2 (07:45→20:18)
[2018-10-08] MEDS: INSULIN ASPART [NOVOLOG] 3 ML PEN SC SCH ×4 (07:45→20:16)
[2018-10-08] MEDS: ALBUTEROL/IPRATROPIUM (NEB) 3 ML AMP HHN SCH ×3 (07:54→20:28)
--- NOTE | 2018-10-08 07:54 | PN ---
Date/Time of Note Date/Time of Note DATE: 10/08/18 TIME: 07:50 Assessment/Plan VTE Prophylaxis Risk score (from Ns)>0 risk: 11 SCD applied (from Ns): No SCD contraindicated: other Pharmacological prophylaxis: other Lines/Catheters [facility]from [facility] Saline Lock Urinary Cath still in place: No Assessment/Plan Hospital Course SUBJECTIVE: The patient is status post 5-vessel CABG. Urinary output has been adequate. No other events noted. no fever, chills, new rash, chest pain, dyspnea, hematuria oxygenating well on 3 liters nc has a wound vac on sternal surgical site OBJECTIVE: HEENT: Head is normocephalic. NECK: Supple. HEART: Regular rate. LUNGS: Show diminished breath sounds at the base. ABDOMEN: Soft, nontender to palpation. DERMATOLOGIC: No rashes. MUSCULOSKELETAL: No joint effusions. NEUROLOGIC: Limited exam as the patient's obtunded, sedated. MEDICATIONS: Reviewed. ASSESSMENT AND PLAN: 1. Coronary artery disease. The patient is status post 5-vessel CABG. Continue current medical management. Continue aspirin. Continue Lipitor. unsure when the wound vac is going to be dc'd. will d/w surgery 2. Shock, etiology is likely cardiogenic secondary to CABG. Will continue to monitor. Follow up with cardiology and CT surgery. 3. Ventilator-dependent respiratory failure. s/p extubation 4. History of tobacco use, possible COPD. Continue medical management. Continue nebulizers. 5. Diabetes. Continue current insulin regimen. 6. Dyslipidemia. Continue statin therapy. 7. Hypernatremia. Continue hypertonic fluid and monitor. 8. Mineral bone disorder. Monitor calcium and phosphorus levels. 9. Hypomagnesemia. Continue to monitor. 10. Acute encephalopathy, etiology toxic metabolic. 11. Gastrointestinal and deep vein thrombosis prophylaxis. Result Diagram: 10/07/18 0500 10/07/18 0500 Results 24hrs Laboratory Tests Test 10/07/18 11:23 10/07/18 17:12 10/07/18 21:42 10/08/18 07:42 Bedside Glucose 119 131 119 273 H Test 10/08/18 07:44 Bedside Glucose 122 Exam/Review of Systems Exam Vitals Vital Signs Date Temp Pulse Resp B/P (MAP) Pulse Ox O2 O2 Flow FiO2 Time Delivery Rate 10/08/18 64 04:00 10/08/18 98.8 16 126/72 92 03:53 (90) 10/07/18 Nasal 4.0 20:05 Cannula 10/06/18 15:12 Intake and Output 10/07/18 10/07/18 10/08/18 1515:00 23:00 07:00 IntakeIntake Total 480 ml BalanceBalance 480 ml Results Results 24hrs Laboratory Tests Test 10/07/18 11:23 10/07/18 17:12 10/07/18 21:42 10/08/18 07:42 Bedside Glucose 119 131 119 273 H Test 10/08/18 07:44 Bedside Glucose 122 Medications Medication Current Medications Atorvastatin Calcium (Lipitor) 80 mg HS PO Last administered on 10/07/18 20:57; Admin Dose 80 MG; Start 10/02/18 at 21:00 Metoprolol Tartrate (Lopressor) 25 mg BID PO Last administered on 10/07/18 20:57; Admin Dose 25 MG; Start 10/02/18 at 11:30 Oxycodone/ Acetaminophen (Percocet (5/ 325)) 1 tab Q3H PRN PO PAIN LEVEL 1-5 Last administered on 10/08/18 02:53; Admin Dose 1 TAB; Start 10/04/18 at 16:30 Oxycodone/ Acetaminophen (Percocet (5/ 325)) 2 tab Q3H PRN PO PAIN LEVEL 6-10 Last administered on 10/06/18 22:59; Admin Dose 2 TAB; Start 10/04/18 at 16:30 Ondansetron HCl (Zofran Inj) 4 mg Q6H PRN IV NAUSEA AND/OR VOMITING; Start 10/04/18 at 16:30 Acetaminophen (Tylenol Tab) 650 mg Q3H PRN PO ELEVATED TEMPERATURE; Start 10/04/18 at 16:30 Enoxaparin Sodium (Lovenox) 30 mg BID SC Last administered on 10/07/18 21:04; Admin Dose 30 MG; Start 10/04/18 at 21:00 Aspirin (Ecotrin) 325 mg DAILY PO Last administered on 10/07/18 08:52; Admin Dose 325 MG; Start 10/05/18 at 09:00 Morphine Sulfate (morphine) 2 mg Q2H PRN IV SEVERE PAIN LEVEL 7-10 Last administered on 3/29/19at 07:38; Admin Dose 2 MG; Start 10/05/18 at 11:00 Amiodarone HCl (Cordarone) 400 mg BID PO Last administered on 10/07/18at 20:56; Admin Dose 400 MG; Start 10/06/18 at 21:00 Albuterol/ Ipratropium (Duoneb) 3 ml Q6HWA RESP THERAPY HHN Last administered on 10/07/18at 20:04; Admin Dose 3 ML; Start 10/06/18 at 14:00 Insulin Aspart (Novolog Insulin Pen) NOVOLOG *MILD* ALGORITHM WITH MEALS BEDTIME SC ; Start 10/06/18 at 21:00 Miscellaneous Information 1 ea NOTE XX ; Start 10/06/18 at 20:00 Glucose (Glutose) 15 gm Q15M PRN PO DECREASED GLUCOSE; Start 10/06/18 at 20:00 Glucose (Glutose) 22.5 gm Q15M PRN PO DECREASED GLUCOSE; Start 10/06/18 at 20:00 Dextrose (D50w Syringe) 25 ml Q15M PRN IV DECREASED GLUCOSE; Start 10/06/18 at 20:00 Dextrose (D50w Syringe) 50 ml Q15M PRN IV DECREASED GLUCOSE; Start 10/06/18 at 20:00 Glucagon (Glucagen) 1 mg Q15M PRN IM DECREASED GLUCOSE; Start 10/06/18 at 20:00 Glucose (Glutose) 15 gm Q15M PRN BUCCAL DECREASED GLUCOSE; Start 10/06/18 at 20:00 Famotidine (Pepcid) 20 mg BID@0800,2000 PO Last administered on 10/08/18at 07:45; Admin Dose 20 MG; Start 10/07/18 at 20:00 FRANKI MARTINEZ DO Oct 08, 2018 07:54
[2018-10-08] MEDS: AMIODARONE 200 MG TAB PO SCH ×2 (08:24→20:17)
[2018-10-08] MEDS: ASPIRIN (EC) 325 MG TAB PO SCH (08:24)
[2018-10-08] MEDS: METOPROLOL 25 MG TAB PO SCH ×2 (08:24→20:18)
[2018-10-08] MEDS: ENOXAPARIN 30 MG/0.3 ML SYG SC SCH ×2 (08:59→20:23)
--- NOTE | 2018-10-08 12:06 | PN ---
Date/Time of Note Date/Time of Note DATE: 10/08/18 TIME: 12:05 Assessment/Plan Lines/Catheters IV Catheter Type (from Nrs): Saline Lock Fierro in Place (from Nrs): No Assessment/Plan Assessment/Plan doing well, remove dressing. ok to shower. d/c home and follow up in office Exam/Review of Systems Vital Signs Vitals Vital Signs Date Temp Pulse Resp B/P (MAP) Pulse Ox O2 O2 Flow FiO2 Time Delivery Rate 10/08/18 98.6 116 16 120/69 94 11:30 (86) 10/08/18 Nasal 4.0 07:56 Cannula 10/06/18 28 15:12 Intake and Output 10/07/18 10/07/18 10/08/18 1515:00 23:00 07:00 IntakeIntake Total 480 ml BalanceBalance 480 ml Results Result Diagram: 10/07/18 0500 10/07/18 0500 LAMINE BRYAN MD Oct 08, 2018 12:06
[2018-10-08] MEDS: ATORVASTATIN 80 MG TAB PO SCH (20:18)
[2018-10-09] VITALS (11 sets, daily range): BP systolic 116–137; BP diastolic 55–82; PULSE 59–129; RESP 16–18
[2018-10-09] MEDS: OXYCODONE/ACETAMINOPHEN (5/325) TAB PO PRN (02:54)
[2018-10-09] MEDS: ALBUTEROL/IPRATROPIUM (NEB) 3 ML AMP HHN SCH ×2 (07:24→13:07)
[2018-10-09] MEDS: INSULIN ASPART [NOVOLOG] 3 ML PEN SC SCH ×2 (08:00→12:00)
[2018-10-09] MEDS: ASPIRIN (EC) 325 MG TAB PO SCH (08:55)
[2018-10-09] MEDS: METOPROLOL 25 MG TAB PO SCH (08:58)
[2018-10-09] MEDS: AMIODARONE 200 MG TAB PO SCH (08:59)
[2018-10-09] MEDS: ENOXAPARIN 30 MG/0.3 ML SYG SC SCH (09:03)
[2018-10-09] MEDS: FAMOTIDINE 20 MG TAB PO SCH (09:04)
--- NOTE | 2018-10-09 10:03 | PN ---
DATE: 10/09/2018 SUBJECTIVE: The patient is stable. The patient was noted to still require 3 to 4 liters nasal cannu la. The patient this morning also describes some weakness upon ambulating. I discussed with the pat rose possibility of acute rehab for rehabilitation. The patient has agreed for an evaluation. No ot her events noted. OBJECTIVE: VITAL SIGNS: Blood pressure is 129/72, respiration 18, pulse 129, temperature is 98.3. HEENT: Head is normocephalic. NECK: Supple. HEART: Regular rate. LUNGS: Show diminished breath sounds at the base. ABDOMEN: Soft, nontender to palpation without rebound or guarding. EXTREMITIES: Negative for clubbing, cyanosis, no edema. DERMATOLOGIC: No rashes. MUSCULOSKELETAL: No joint effusion. NEUROLOGIC: No change in exam. MEDICATIONS: The patient's medications have been reviewed. LABORATORY DATA: Has been reviewed. ASSESSMENT AND PLAN: 1. Coronary artery disease. The patient is status post 5-vessel CABG. Continue to medical manageme nt. Continue aspirin and Lipitor. Followup with CT surgery. 2. Status post shock. Etiology secondary to cardiogenic, likely from CABG. Improved. Continue to m onitor. 3. Respiratory failure, status post extubation. The patient is currently on 3 to 4 liters nasal can nula. Continue to titrate down. 4. History of tobacco abuse, possible COPD. Continue medical management. Continue nebulizers. 5. Diabetes. Continue current diabetic regimen. 6. Dyslipidemia. Continue statin therapy. 7. Hypernatremia, improved. 8. Mineral bone disorder, monitor calcium and phosphorus levels. 9. Hypomagnesemia. Continue to monitor. 10. Acute encephalopathy, etiology is toxic metabolic. 11. GI and deep vein thrombosis prophylaxis. 12. Debility. Will have an acute rehabilitation evaluation. Dictated By: VANCE FELDMAN DO NR/NTS Conf#: [id number] DID#: [id number] CC: IVAN COOK MD; VANESA RUIZ MD;*EndCC*
[2018-10-09] MEDS ORDERED: METOPROLOL 25 MG TAB PO ONE (10:30)
--- NOTE | 2018-10-09 11:16 | CONS ---
Assessment/Plan Assessment/Plan Hospital Course (Demo Recall) Paroxysmal atrial fibrillation: very common post cardiac surgery. No need for chronic anticoagulation unless recurrence as outpt. Will try rhythm control for one month. Chronic treatment depends on if there is recurrence Acute diastolic CHF: EF preserved. Euvolemic Unstable angina/ACS/CAD: Three vessel disease on cath. s/p CABG x5 10/04/2018, BILLINGSLEY to LAD, SVG to PDA, SVG to diagonal artery sequence to OM1 sequenced to OM2 Acute respiratory failure: intubated for surgery. extubated 10/05 HTN HL DM Tobacco use -ok for d/c home -amiodarone 400mg PO BID x 1 week, then 200mg PO BID x 1 week, then 200mg daily x 2 weeks. To be assessed by his outpt post form remover who he will see within 2 weeks -ASA 325mg -lipitor -increase to metoprolol 50mg BID Consultation Date/Type/Reason Admit Date/Time Oct 02, 2018 at 10:40 Initial Consult Date 10/02/18 Type of Consult Cardiology Date/Time of Note DATE: 10/09/18 TIME: 11:13 24 HR Interval Summary Free Text/Dictation Had afib with RVR for about 12 hors yesterday but has been in sinus for >12 hours. No complaints and wants to go home. Exam/Review of Systems Exam Vitals Vital Signs Date Temp Pulse Resp B/P (MAP) Pulse Ox O2 O2 Flow FiO2 Time Delivery Rate 10/09/18 68 08:00 10/09/18 98.3 18 129/72 91 Room Air 07:18 (91) 10/08/18 4.0 20:28 10/06/18 28 15:12 Intake and Output 10/08/18 10/08/18 10/09/18 1515:00 23:00 07:00 IntakeIntake Total 1200 ml 600 ml BalanceBalance 1200 ml 600 ml Constitutional: alert, oriented Psych: no complaints, nl mood/affect Head: normocephalic, atraumatic Neck: No jvd Respiratory: clear to auscultation, diminished breath sounds Cardiovascular: regular rate and rhythm, systolic murmur (2/6 JONATHAN); No edema Gastrointestinal: soft, non-tender, distended Neurological: nl mental status, nl speech Results Result Diagram: 10/07/18 0500 10/07/18 0500 Results 24hrs Laboratory Tests Test 10/08/18 11:55 10/08/18 18:01 10/08/18 20:14 10/09/18 08:07 Bedside Glucose 118 105 146 121 Medications Medication Current Medications Atorvastatin Calcium (Lipitor) 80 mg HS PO Last administered on 10/08/18 20:18; Admin Dose 80 MG; Start 10/02/18 at 21:00 Oxycodone/ Acetaminophen (Percocet (5/ 325)) 1 tab Q3H PRN PO PAIN LEVEL 1-5 Last administered on 10/09/18 02:54; Admin Dose 1 TAB; Start 10/04/18 at 16:30 Oxycodone/ Acetaminophen (Percocet (5/ 325)) 2 tab Q3H PRN PO PAIN LEVEL 6-10 Last administered on 10/06/18at 22:59; Admin Dose 2 TAB; Start 10/04/18 at 16:30 Ondansetron HCl (Zofran Inj) 4 mg Q6H PRN IV NAUSEA AND/OR VOMITING; Start 10/04/18 at 16:30 Acetaminophen (Tylenol Tab) 650 mg Q3H PRN PO ELEVATED TEMPERATURE; Start 10/04/18 at 16:30 Enoxaparin Sodium (Lovenox) 30 mg BID SC Last administered on 10/09/18 09:03; Admin Dose 30 MG; Start 10/04/18 at 21:00 Aspirin (Ecotrin) 325 mg DAILY PO Last administered on 10/09/18 08:55; Admin Dose 325 MG; Start 10/05/18 at 09:00 Morphine Sulfate (morphine) 2 mg Q2H PRN IV SEVERE PAIN LEVEL 7-10 Last administered on 10/06/18 07:38; Admin Dose 2 MG; Start 10/05/18 at 11:00 Amiodarone HCl (Cordarone) 400 mg BID PO Last administered on 10/09/18 08:59; Admin Dose 400 MG; Start 10/06/18 at 21:00 Albuterol/ Ipratropium (Duoneb) 3 ml Q6HWA RESP THERAPY HHN Last administered on 10/09/18 07:24; Admin Dose 3 ML; Start 10/06/18 at 14:00 Insulin Aspart (Novolog Insulin Pen) NOVOLOG *MILD* ALGORITHM WITH MEALS BEDTIME SC ; Start 10/06/18 at 21:00 Miscellaneous Information 1 ea NOTE XX ; Start 10/06/18 at 20:00 Glucose (Glutose) 15 gm Q15M PRN PO DECREASED GLUCOSE; Start 10/06/18 at 20:00 Glucose (Glutose) 22.5 gm Q15M PRN PO DECREASED GLUCOSE; Start 10/06/18 at 20:00 Dextrose (D50w Syringe) 25 ml Q15M PRN IV DECREASED GLUCOSE; Start 10/06/18 at 20:00 Dextrose (D50w Syringe) 50 ml Q15M PRN IV DECREASED GLUCOSE; Start 10/06/18 at 20:00 Glucagon (Glucagen) 1 mg Q15M PRN IM DECREASED GLUCOSE; Start 10/06/18 at 20:00 Glucose (Glutose) 15 gm Q15M PRN BUCCAL DECREASED GLUCOSE; Start 10/06/18 at 20:00 Famotidine (Pepcid) 20 mg BID@0800,2000 PO Last administered on 10/09/18at 09:04; Admin Dose 20 MG; Start 10/07/18 at 20:00 Metoprolol Tartrate (Lopressor) 50 mg BID PO ; Start 10/09/18 at 21:00 VANESA RUIZ Oct 09, 2018 11:16
--- NOTE | 2018-10-09 12:36 | CONS ---
Consult Date/Type/Reason Admit Date/Time Oct 02, 2018 at 10:40 Initial Consult Date 10/02/18 Type of Consult Pulmonary Date/Time of Note DATE: 10/09/18 TIME: 12:35 Subjective Patient comfortable this morning anxious to go home denies shortness of breath chest pain or palpitations Objective Vital Signs Date Temp Pulse Resp B/P (MAP) Pulse Ox O2 O2 Flow FiO2 Time Delivery Rate 10/09/18 98.3 75 16 135/76 92 Room Air 11:22 (95) 10/08/18 4.0 20:28 10/06/18 28 15:12 Intake and Output 10/08/18 10/08/18 10/09/18 1515:00 23:00 07:00 IntakeIntake Total 1200 ml 600 ml BalanceBalance 1200 ml 600 ml Exam PHYSICAL EXAMINATION: GENERAL: Well-nourished, well-developed gentleman VITAL SIGNS: NECK: Supple. No JVD or lymphadenopathy. CARDIAC: Sounds S1, S2, no added sounds or murmurs. CHEST: Diminished air entry bilaterally. ABDOMEN: Soft, nontender. No guarding or rebound. EXTREMITIES: No cyanosis, clubbing, 1+ edema. NEUROLOGIC: Generalized weakness. Vent Setting Ventilator Support Mode: CPAP, PS, SPONT Fraction of Inspired Oxygen pe: 28 Positive End Expiratory Pressu: 5.0 Results/Medications Result Diagram: 10/07/18 0500 10/07/18 0500 Results 24 hrs Laboratory Tests Test 10/08/18 18:01 10/08/18 20:14 10/09/18 08:07 10/09/18 12:00 Bedside Glucose 105 146 121 111 Medications Current Medications Atorvastatin Calcium (Lipitor) 80 mg HS PO Last administered on 10/08/18at 20:18; Admin Dose 80 MG; Start 10/02/18 at 21:00 Oxycodone/ Acetaminophen (Percocet (5/ 325)) 1 tab Q3H PRN PO PAIN LEVEL 1-5 Last administered on 10/09/18at 02:54; Admin Dose 1 TAB; Start 10/04/18 at 16:30 Oxycodone/ Acetaminophen (Percocet (5/ 325)) 2 tab Q3H PRN PO PAIN LEVEL 6-10 Last administered on 10/06/18at 22:59; Admin Dose 2 TAB; Start 10/04/18 at 16:30 Ondansetron HCl (Zofran Inj) 4 mg Q6H PRN IV NAUSEA AND/OR VOMITING; Start 10/04/18 at 16:30 Acetaminophen (Tylenol Tab) 650 mg Q3H PRN PO ELEVATED TEMPERATURE; Start 10/04/18 at 16:30 Enoxaparin Sodium (Lovenox) 30 mg BID SC Last administered on 10/09/18at 09:03; Admin Dose 30 MG; Start 10/04/18 at 21:00 Aspirin (Ecotrin) 325 mg DAILY PO Last administered on 10/09/18at 08:55; Admin Dose 325 MG; Start 10/05/18 at 09:00 Morphine Sulfate (morphine) 2 mg Q2H PRN IV SEVERE PAIN LEVEL 7-10 Last administered on 10/06/18at 07:38; Admin Dose 2 MG; Start 10/05/18 at 11:00 Amiodarone HCl (Cordarone) 400 mg BID PO Last administered on 10/09/18at 08:59; Admin Dose 400 MG; Start 10/06/18 at 21:00 Albuterol/ Ipratropium (Duoneb) 3 ml Q6HWA RESP THERAPY HHN Last administered on 10/09/18at 07:24; Admin Dose 3 ML; Start 10/06/18 at 14:00 Insulin Aspart (Novolog Insulin Pen) NOVOLOG *MILD* ALGORITHM WITH MEALS BEDTIME SC ; Start 10/06/18 at 21:00 Miscellaneous Information 1 ea NOTE XX ; Start 10/06/18 at 20:00 Glucose (Glutose) 15 gm Q15M PRN PO DECREASED GLUCOSE; Start 10/06/18 at 20:00 Glucose (Glutose) 22.5 gm Q15M PRN PO DECREASED GLUCOSE; Start 10/06/18 at 20:00 Dextrose (D50w Syringe) 25 ml Q15M PRN IV DECREASED GLUCOSE; Start 10/06/18 at 20:00 Dextrose (D50w Syringe) 50 ml Q15M PRN IV DECREASED GLUCOSE; Start 10/06/18 at 20:00 Glucagon (Glucagen) 1 mg Q15M PRN IM DECREASED GLUCOSE; Start 10/06/18 at 20:00 Glucose (Glutose) 15 gm Q15M PRN BUCCAL DECREASED GLUCOSE; Start 10/06/18 at 20:00 Famotidine (Pepcid) 20 mg BID@0800,2000 PO Last administered on 10/09/18at 09:04; Admin Dose 20 MG; Start 10/07/18 at 20:00 Metoprolol Tartrate (Lopressor) 50 mg BID PO ; Start 10/09/18 at 21:00 Assessment/Plan Hospital Course (Demo Recall) Assessment 1. Multivessel coronary artery disease status post coronary artery bypass graft surgery 2. History of COPD 3. Probable obstructive sleep apnea with morbid obesity 4. Status post hypoxemic respiratory failure postoperatively Plan 1. Continue cardiac recommendations 2. Outpatient pulmonary function testing 3. Discharge planning okay from pulmonary standpoint IVAN COOK MD, [facility] Oct 09, 2018 12:36
[2018-10-09] MEDS ORDERED: METOPROLOL 25 MG TAB PO SCH (21:00)
--- NOTE | 2018-10-12 02:47 | DS ---
DATE OF ADMISSION: 10/02/2018 DATE OF DISCHARGE: 10/09/2018 HOSPITAL COURSE: This is a 58-year-old male with a past medical history of coronary artery disease, status post PCI in the past, history of tobacco use who presented to outside hospital with chest pain . The patient was subsequently transferred to [facility], underwent cardiac cathet erization and found to have multivessel disease. The patient was then evaluated by CT surgeon, Dr. Fer anderson and had a cardiac CABG, 5-vessel. Following surgery, the patient required intubation for over _ ____. The patient was then eventually appropriately extubated. The patient also following surgery w as noted to be in shock, felt to be likely cardiogenic. The patient was on inotropic medication and that was eventually weaned off. The patient was then transferred to telemetry. While on telemetry, the patient was stable and was cleared by both cardiology, pulmonary and CT surgery for discharge mariya e. Currently, at this time, the patient is stable, no acute distress. He will be discharged home an d will follow up with his primary physician, his ski lift operator, Dr. Ruiz and CT surgeon, Dr. Russell solano in 1 to 2 weeks' time. Please also note, during the hospital course, the patient had hemoglobin A 1c checked and was found to be elevated at 6.8. The patient's glucose levels, however, were controll ed to diet without any intervention. FINAL DIAGNOSES: 1. Coronary artery disease, status post 5-vessel CABG. 2. Diabetes, newly diagnosed, controlled on dietary modification. 3. Dyslipidemia. 4. Hypomagnesemia. 5. Status post respiratory failure. 6. Status post shock. 7. Status post acute encephalopathy. FINAL MEDICATIONS: See reconciliation list. Please note I spent 40 minutes of time preparing the patient's discharge. At time of discharge, the patient is stable, in no acute distress. Please note, the patient's final medications will include: 1. Aspirin 325 mg daily. 2. Amiodarone taper. 3. Metoprolol 50 mg b.i.d. 4. Lipitor 80 mg at bedtime. 5. DuoNeb nebulizers p.r.n. The patient will be also discharged on a glucometer, lancet, and Accu-Chek. Dictated By: VANCE EUGENE/MARC Conf#: [id number] DID#: [id number] CC: VANESA RUIZ MD;*End*
== END 2018-10-09 16:52 | disposition home health service (06) | DRG 233 ==
LOC: SDS 06:40 → CCL 06:40 → REC 10:40 → TEL 14:00 → ICU 10-04 12:29 → 6WM 10-06 14:10
PROVIDERS: ADMIT Internal Medicine Interventional Cardiology; ATTEND Internal Medicine Interventional Cardiology
PROC: 4A023N7 Measurement of Cardiac Sampling and Pressure, Left Heart, Percutaneous Approach (ICD-10-PCS; 2018-10-02)
PROC: B211YZZ Fluoroscopy of Multiple Coronary Arteries using Other Contrast (ICD-10-PCS; 2018-10-02)
PROC: 021309W Bypass Coronary Artery, Four or More Arteries from Aorta with Autologous Venous Tissue, Open Approach (ICD-10-PCS; 2018-10-04)
PROC: 06BQ4ZZ Excision of Left Saphenous Vein, Percutaneous Endoscopic Approach (ICD-10-PCS; 2018-10-04)
PROC: 06BP4ZZ Excision of Right Saphenous Vein, Percutaneous Endoscopic Approach (ICD-10-PCS; 2018-10-04)
PROC: 5A1221Z Performance of Cardiac Output, Continuous (ICD-10-PCS; 2018-10-04)
PROC: 5A1935Z Respiratory Ventilation, Less than 24 Consecutive Hours (ICD-10-PCS; 2018-10-04)
PROC: 02100Z9 Bypass Coronary Artery, One Artery from Left Internal Mammary, Open Approach (ICD-10-PCS; principal; 2018-10-04 12:00)
DX: I24.9 Acute ischemic heart disease, unspecified (principal); I50.31 Acute diastolic (congestive) heart failure; J96.01 Acute respiratory failure with hypoxia; R57.0 Cardiogenic shock; G92 Toxic encephalopathy; T82.855A Stenosis of coronary artery stent, initial encounter; E87.0 Hyperosmolality and hypernatremia; E83.42 Hypomagnesemia; E78.5 Hyperlipidemia, unspecified; E11.9 Type 2 diabetes mellitus without complications; E66.01 Morbid (severe) obesity due to excess calories; F17.200 Nicotine dependence, unspecified, uncomplicated; G47.33 Obstructive sleep apnea (adult) (pediatric); I11.0 Hypertensive heart disease with heart failure; I25.110 Atherosclerotic heart disease of native coronary artery with unstable angina pectoris; Y83.8 Other surgical procedures as the cause of abnormal reaction of the patient, or of later complication, without mention of misadventure at the time of the procedure; Z68.38 Body mass index [BMI] 38.0-38.9, adult; Z79.82 Long term (current) use of aspirin
CPT/HCPCS: 36592; 36600; 71045; 80048; 80076; 81001; 81003; 82043; 82803; 82962; 83036; 83735; 84100; 84132; 84155; 84300; 85014; 85025; 85610; 85730; 86850; 86900; 86901; 86920; 87081; 90686; 93005; 93312; 93320; 93325; 93454; 93880; 94002; 94003; 94060; 94640; 94664; 94770; 97110; 97116; 97163; 97530; C1887; J0171; J0282; J0690; J1170; J1265; J1644; J1650; J1815; J1940; J2001; J2250; J2260; J2270; J2370; J2440; J2720; J3010; J3370; J3475; J3480; J7030; J7040; J7070; P9045; P9047; Q9967

== ENCOUNTER 2018-10-21 03:28 | Inpatient (IN) | payer OTHER ==
[~2018-10-21] VITALS: Ht 177.8 cm; Wt 120.0 kg
[2018-10-21] VITALS (53 sets, daily range): BP systolic 99–150; BP diastolic 70–104; PULSE 109–138; RESP 13–44
[~2018-10-21 03:28] MED LIST: ACET-2047 PO; ATOR-2 PO; NICO-544 TD
--- NOTE | 2018-10-21 03:32 | ERD ---
ER Documentation Chief Complaint Chief Complaint sob HPI The patient is a 58-year-old male, presenting to the ER because of dyspnea, o rthopnea, paroxysmal nocturnal dyspnea and bilateral leg edema for the last couple days, worse today. He was treated by EMS with 2 nitroglycerin spray and put on high flow nasal cannula with good response. He had similar interim previously, denies fever, cough, neck pain, chest pain, abdominal pain, vomiting, dizzy, diarrhea. He smoke a pack a day Past medical history: CAD, diabetes mellitus, hypertension, hyperlipidemia Past surgical history: CABG in October 04, 2018, stent PCI ROS All systems reviewed and are negative except as per history of present illness. Medications Home Meds Reported Medications Nicotine* (Nicotine* Patch) 7 mg/day Patch, 1 PATCH TD DAILY, PATCH 14MCG 10/02/18 Atorvastatin* (Atorvastatin*) 80 Mg Tablet, 80 MG PO QHS, #30 TAB 10/02/18 Acetaminophen* (Acetaminophen*) 650 Mg Tablet, 650 MG PO Q6H PRN for MILD PAIN LEVEL 1-3, #30 TAB 10/02/18 Allergies Allergies: Coded Allergies: No Known Allergy (Unverified , 10/02/18) PMhx/Soc History of Surgery: Yes (CARDIAC STENT X2) Anesthesia Reaction: No Hx Neurological Disorder: No Hx Respiratory Disorders: No Hx Cardiac Disorders: Yes (HTN,HLD,CAD,CP) Hx Psychiatric Problems: No Hx Miscellaneous Medical Probl: Yes (See technical record) Hx Alcohol Use: No Hx Substance Use: No Hx Tobacco Use: Yes (1 PACK A DAY) Physical Exam Vitals Vital Signs Date Temp Pulse Resp B/P (MAP) Pulse Ox O2 O2 Flow FiO2 Time Delivery Rate 10/21/18 131 95 60 05:12 10/21/18 93 6.0 04:37 10/21/18 114 26 93 Nasal 6.0 04:37 Cannula 10/21/18 Nasal 6 03:37 Cannula 10/21/18 98.7 72 35 144/81 84 03:31 (102) 10/21/18 98.7 71 24 140/82 91 Nasal 6.0 03:31 (101) Cannula Physical Exam Const: Mild-moderate acute distress. Head: Atraumatic. Eyes: Normal Conjunctiva. ENT: Normal External Ears, Nose and Mouth. Neck: Full range of motion. No meningismus. Resp: Bibasilar crackle. Mild expiratory wheeze, tachypneic Cardio: Regular rate and rhythm. Abd: Soft, non distended, normal bowel sounds, non tender. Skin: No petechiae or rashes. Back: No midline or flank tenderness. Ext: Bilateral leg edema, no calf tenderness Neur: Awake and alert. No focal deficit Psych: Normal Mood and Affect. Result Diagram: 10/21/18 0334 10/21/18 0334 Results 24 hrs Laboratory Tests Test 10/21/18 03:33 10/21/18 03:34 Blood Gas Specimen Source Blood arterial Arterial Blood Date Drawn 10/21/2018 3:49:30 AM Arterial Blood pH (Temp corrected) 7.390 Arterial Blood pCO2 (Temp correct) 48.1 mmhg Arterial Blood pO2 (Temp corrected) 66.8 mmHG Arterial Blood HCO3 28.5 mmol/L Arterial Blood Base Excess 2.8 mmol/L Arterial Blood Oxygen Saturation 91.4 mmHG Rudy Test ACCEPTAB Arterial Blood Gas Puncture Site Right Radial Arterial Blood Carboxyhemoglobin 0.4 % Arterial Blood Methemoglobin 0.2 % Blood Gas A-a O2 Differential 155.8 mmHg Oxyhemoglobin Percent 90.9 % Blood Gas Temperature 37.0 C Blood Gas Actual Respiration Rate 23 Blood Gas Modality NASAL CANNULA FiO2 39.0 % Blood Gas Notified Whom MH Blood Gas Notified Time 10/21/2018 3:54:55 AM White Blood Count 15.3 10^3/ul Red Blood Count 3.90 10^6/ul Hemoglobin 11.8 g/dl Hematocrit 36.2 % Mean Corpuscular Volume 92.8 fl Mean Corpuscular Hemoglobin 30.3 pg Mean Corpuscular Hemoglobin Concent 32.6 g/dl Red Cell Distribution Width 14.4 % Platelet Count 436 10^3/UL Mean Platelet Volume 8.1 fl Immature Granulocytes % 0.300 % Neutrophils % 74.9 % Lymphocytes % 12.3 % Monocytes % 8.3 % Eosinophils % 3.7 % Basophils % 0.5 % Nucleated Red Blood Cells % 0.0 /100WBC Immature Granulocytes # 0.050 10^3/ul Neutrophils # 11.4 10^3/ul Lymphocytes # 1.9 10^3/ul Monocytes # 1.3 10^3/ul Eosinophils # 0.6 10^3/ul Basophils # 0.1 10^3/ul Nucleated Red Blood Cells # 0.0 10^3/ul Prothrombin Time 14.7 Sec Prothrombin Time Ratio 1.1 INR International Normalized Ratio 1.14 Activated Partial Thromboplast Time 25.9 Sec D-Dimer Pending Sodium Level 140 mmol/L Potassium Level 3.8 mmol/L Chloride Level 104 mmol/L Carbon Dioxide Level 29 mmol/L Anion Gap 7 Blood Urea Nitrogen 20 mg/dl Creatinine 0.81 mg/dl Est Glomerular Filtrat Rate mL/min > 60 mL/min Glucose Level 134 mg/dl Calcium Level 8.6 mg/dl Magnesium Level 2.1 mg/dl Troponin I 0.046 ng/ml B-Type Natriuretic Peptide 377 PG/ML Current Medications Medications Dose Sig/Maureen Start Time Status Last (Trade) Ordered Route PRN Stop Time Admin Dose Reason Admin Furosemide 40 mg ONCE ONCE 10/21/18 DC 10/21/18 (Lasix) IV 04:00 03:45 10/21/18 04:01 1.25 mg ONCE ONCE 10/21/18 DC 10/21/18 Levalbuterol HHN 04:30 04:37 (Xopenex 10/21/18 04:31 Neb) Cefepime HCl 50 ml @ ONCE ONCE 10/21/18 10/21/18 100 mls/hr IVPB 05:00 05:13 10/21/18 05:29 Vancomycin 250 ml @ ONCE ONCE 10/21/18 HCl 125 mls/hr IVPB 05:00 10/21/18 06:59 Procedures/[place] [address] Radiology Main Line: [phone] DIAGNOSTIC IMAGING REPORT Patient: ZENAIDA HUGHES : 1960 Age: 58 Sex: M MR #: [id number] DOS: 10/21/18 0333 Ordering MD: ITA CALL MD Location: E/R Room/Bed: PROCEDURE: Chest x-ray CLINICAL INDICATION: Shortness of breath. TECHNIQUE: VIEWS: 1 COMPARISON: CR chest 10/07/2018 FINDINGS: SUPPORT DEVICES: None CARDIAC AND MEDIASTINAL SILHOUETTES: Obscured left cardiac border. There are thoracic aortic atherosclerotic calcifications. Sternotomy changes with cardiac valve replacement. LUNGS AND PLEURAL SPACE: There are increased bilateral, left greater than right pleural effusions and atelectasis. . PNEUMOTHORAX: None. OSSEOUS STRUCTURES: Unremarkable. IMPRESSION: 1. Interval increased bilateral, left greater than right pleural effusions and atelectasis. 2. Aortic valve replacement. Aortic atherosclerosis. RPTAT: HRSR Physician Staci Date Time Electronically viewed and signed by Myriam Cruz Physician on 10/21/2018 04:42 RR/ CC: ITA CALL MD [phone] D-dimer Pending EKG: Read by emergency physician Rate/Rhythm: Normal Sinus Rhythm 70 beats per min QRS, ST, T-waves: No ST elevation, no T wave inversion, PVC, LAE, septal Q, prolong QT Impression: Abnormal EKG MEDICAL MAKING DECISION: The patient is a 58-year-old male, presenting with acute respiratory failure, acute CHF exacerbation, probable acute COPD exacerbation. He was treated with Lasix 80 mg IV for acute CHF exacerbation, cefepime IV and vancomycin IV and Solu-Medrol 125 mg IV for acute COPD exacerbation. He was able to tolerate BiPAP well The differential diagnoses considered include but are not limited to asthma, COPD, pneumonia, pulmonary embolus, pleural effusion, congestive heart failure. Critical Care: Time: 35 minutes excluding all billable procedures. Treatments/Evaluations: Close monitoring and treatment of unstable vital signs, cardiorespiratory, and neurologic status, while maintaining tight balance of fluid, respiratory, and cardiac interventions. Departure Diagnosis: Primary Impression: Respiratory failure Additional Impressions: CHF (congestive heart failure) COPD exacerbation Anemia Condition: Critical Comments I discussed the findings with the patient. I am waiting for his physician Dr. Salcido to call back to admit the patient. The patient is admitted to ICU Disclaimer: Inadvertent spelling and grammatical errors are likely due to EHR/dictation software use and do not reflect on the overall quality of patient care. Also, please note that the electronic time recorded on this note does not necessarily reflect the actual time of the patient encounter. ITA CALL MD Oct 21, 2018 03:32
[2018-10-21] MEDS ORDERED: FUROSEMIDE 40 MG INJ IV ONE (04:00)
[2018-10-21] MEDS ORDERED: LEVALBUTEROL (NEB) 1.25 MG/0.5 ML AMP HHN ONE (04:30)
[2018-10-21] MEDS ORDERED: VANCOMYCIN 1 GM (PMX) 250 ML IVPB ONE (05:00)
[2018-10-21] MEDS ORDERED: CEFEPIME 1GM/50 ML (PMX) 50 ML IVPB ONE (05:00)
[2018-10-21] MEDS ORDERED: METHYLPREDNISOLONE 125 MG INJ IV ONE (05:30)
[2018-10-21] MEDS ORDERED: IOHEXOL 100 ML ONE (06:01)
[2018-10-21] MEDS ORDERED: SOD CHLORIDE 0.9% 100 ML ONE (06:01)
--- NOTE | 2018-10-21 08:29 | HP ---
DATE OF ADMISSION: 10/21/2018 CHIEF COMPLAINT: Shortness of breath, chest pain. HISTORY OF PRESENT ILLNESS: This is a 58-year-old male with a past medical history of coronary arter y disease, history of tobacco use who presented to [facility] in early October after being ruled in for acute coronary syndrome. The patient then underwent cardiac catheterization and e ventual 5-vessel CABG by Dr. Irizarry. Following the surgery, the patient had a fever and was eventuall y extubated. The patient was stabilized and eventually discharged home. After being discharged home , the patient had an episode of syncope, was seen by his director compliance and placed on a monitor. The p atrose also continued to have cough and was given inhalers and nebulizers. The patient, however, in the last 24 hours, had a significant worsening of respiratory status and increased shortness of breat h. As a result, he came in to [facility] Emergency Room. Upon arrival, the bernard t had imaging studies including chest x-ray, which showed findings of bilateral effusions, left great er than right. The patient in the emergency room also had elevated white count of 15,000. The patie nt was given IV antibiotics, given diuretic therapy, placed on BiPAP and transferred to intensive car e unit for evaluation. Upon my evaluation of the patient, he is currently alert and oriented, continues to be on BiPAP. The patient denies any hemoptysis, hematemesis, hematochezia. PAST MEDICAL HISTORY: History of coronary artery disease, history of hypertension, history of dyslip idemia, history of probable COPD, history of diabetes. PAST SURGICAL HISTORY: Status post CABG. FAMILY HISTORY: No family history of kidney disease. SOCIAL HISTORY: Does not actively drink, smoke or do drugs. MEDICATIONS: The patient's medications have been reviewed. ALLERGIES: NO KNOWN DRUG ALLERGIES. REVIEW OF SYSTEMS: A 14-point review of systems conducted. Pertinent positives stated in HPI, other ibanez negative. PHYSICAL EXAMINATION: VITAL SIGNS: Blood pressure is 127/80, respirations 23, pulse 128, temperature 98.6. HEENT: Head is normocephalic. NECK: Supple. HEART: Regular rate. LUNGS: Show diminished breath sounds at the base. ABDOMEN: Soft, nontender to palpation without rebound or guarding. EXTREMITIES: Negative for clubbing, cyanosis. Positive edema. DERMATOLOGIC: No rashes. MUSCULOSKELETAL: No joint effusion. NEUROLOGIC: No focal deficits. MEDICATIONS: The patient's medications have been reviewed. LABORATORY DATA: Has been reviewed. ABG was reviewed. Chest x-rays were reviewed. ASSESSMENT AND PLAN: This is a 58-year-old male who presents with: 1. Acute hypoxemic respiratory failure. Etiology is secondary to acute congestive heart failure exa cerbation, possible chronic obstructive pulmonary disease exacerbation, possible pneumonia. The froylan ent is currently on BiPAP. Plan is to continue current treatment plan. Will continue antibiotic the rapy. Continue diuretic therapy, continue BiPAP, wean off if possible. We will place a pulmonary co nsult for evaluation. 2. Acute heart failure. The patient is clinically decompensated with pleural effusions, lower extre mity edema. Continue current diuretic regimen. Would also check serial troponins to rule out possib ility of acute coronary syndrome. Consider a 2D echo. We will place a cardiology consult for evaluat ion. 3. Coronary artery disease, status post coronary artery bypass graft. Continue medical management. Continue aspirin, continue beta abdiel. Continue statin therapy. 4. Hypertension. Continue current blood pressure regimen. 5. Systemic inflammatory response syndrome, possible sepsis may be secondary to bronchitis, pneumoni a. Continue current antibiotic regimen. Follow up cultures. We will place an ID consult for evalua tion. 6. Diabetes. Continue Accu-Cheks, insulin sliding scale. 7. History of tobacco abuse. Continue nicotine patch. 8. Gastrointestinal and deep venous thrombosis prophylaxis. 9. Anemia. Monitor hemoglobin and hematocrit levels. 10. Syncope, noted in the outpatient setting. The patient was currently on a monitor to evaluate fo r any forms of arrhythmia. Will continue to monitor closely. Please note I spent over 30 minutes of critical care time with this patient. Dictated By: VANCE FELDMAN DO NR/NTS Conf#: [id number] DID#: [id number] CC: ITA CALL MD;*EndCC*
[2018-10-21] MEDS ORDERED: ACETAMINOPHEN 325 MG TAB PO PRN (08:30)
[2018-10-21] MEDS ORDERED: ALBUTEROL/IPRATROPIUM (NEB) 3 ML AMP HHN SCH (09:00)
[2018-10-21] MEDS: FUROSEMIDE 40 MG INJ IV SCH ×2 (09:09→18:09)
[2018-10-21] MEDS: ASPIRIN 325 MG TAB PO SCH (09:09)
[2018-10-21] MEDS: ENOXAPARIN 100 MG/ML SYG SC SCH ×2 (09:11→20:29)
[2018-10-21] MEDS ORDERED: VANCOMYCIN IV PER PHARMACY XX SCH (09:30)
[2018-10-21] MEDS ORDERED: AMIODARONE 900 MG in DEXTROSE 5% 482 ML IV SCH (10:00)
--- NOTE | 2018-10-21 10:28 | CONS ---
Assessment/Plan Assessment/Plan Hospital Course (Demo Recall) ID PRELIMINARY NOTE=> Please refer to Dr. Kelly's FULL CONSULT NOTE dictated w/irish moss gatherer pending. CURRENT ABX: DAY # =>Vanco IV #1 + Cefepime #1 10/21/18 0334 10/21/18333 HPI/INITIAL HOSPITAL COURSE REVIEWED * 58 yo M recent 5V CABG re-admitted w/acute hypoxic respiratory distress, SIRS w/tachycardia, leukocytosis, bilateral pleural effusions. No fevers recorded. BNP mild elevated at 377. Per notes syncopal episode recent -- he is currently wearing ambulatory heart monitor. Patient started on broad spectrum IV ABX coverage and administered IV steroids. * A/A/O & able to communicate yes and not and other simple words -- currently on BIPAP face mask for hypoxemia, tachy on telemonitor, mild distress, no fevers. I introduced myself and discussed the CXR and need for empiric coverage with ABX for HCAP. Patient nods expressing understanding, agreement, and gratitude. PAST MEDICAL/SURG HX: * Past medical history: CAD, diabetes mellitus, hypertension, hyperlipidemia, tobaccoism * Past surgical history: AoVR, 5V CABG October 04, 2018, stent PCI DIAGNOSTIC IMAGING * 10/21/18 CXR: IMPRESSION:1. Interval increased bilateral, left greater than right pleural effusions and atelectasis.2. Aortic valve replacement. Aortic atherosclerosis. MICRO/OTHER * 10/05/18 MRSA SCREEN Final No methicillin resistant staphylococcus aureus isolated PHYSICAL EXAMINATION: GENERAL: A/A/O -- mild-moderate distress due to hypoxic resp failure -- stable on BIPAP HEENT: AT, NC, anicteric NECK: Supple, CHEST: Equal chest rise bilaterally, tachypneic, bilateral rales HEART: Pulse RRR, S1S2 tachy ABDOMEN: Soft / NT : Voiding EXTREMITIES: Warm, dry, trace bilat pedal edema, bilateral feet callouses SKIN: No rash, no diaphoresis ID ASSESSMENT 58 yo M admit with: 1. SIRS criteria: tachycardia, leukocytosis -> No fevers 2. Acute hypoxic respiratory failure -- BIPAP 3. Acute CHF exacerbation w/mildly elevated BNP 377 - tachycardia playing a role 4. Bilateral pleural effusions w/hx of prior recent intubation -- presumptive HCAP 5. CAD-> s/p 5V CABG + Hx of AVR 6. COPD-> started on IV STEROIDS 7. Hypertension. 8. Recent syncopal episode -- r/o cardiac arrhythmia vs orthostatic hypotension vs other 9. Diabetes 10. HLD 11. Anemia 13. History of tobacco abuse-> currently on nicotine patch. (-)MRSA Nares ABX ALLERGIES: KNDA INVASIVES: PIV CURRENT ABX: DAY # => Vanco IV #1 + Cefepime #1 ID RECOMMENDATIONS/PLAN: 1. Continue current ABX 2. Diuretics per CARDS/primary 3. Obtain sputum for C&S if able to produce 4. IV steroids initiated -- may impact WBC short term future 5. Case d/w Dr. Kelly -- please refer to Dr. Kelly's full dictation note pending irish moss gatherer/posting into medical record. . Consultation Date/Type/Reason Admit Date/Time Oct 21, 2018 at 05:07 Initial Consult Date Date/Time of Note DATE: 10/21/18 TIME: 10:27 Exam/Review of Systems Exam Vitals Vital Signs Date Temp Pulse Resp B/P (MAP) Pulse Ox O2 O2 Flow FiO2 Time Delivery Rate 10/21/18 123 08:00 10/21/18 98.6 23 127/80 97 BIPAP 6.0 07:51 (96) 10/21/18 50 07:15 Intake and Output 10/20/18 10/20/18 10/21/18 1515:00 23:00 07:00 IntakeIntake Total 50 ml BalanceBalance 50 ml Results Result Diagram: 10/21/18 0334 10/21/18 0334 Results 24hrs Laboratory Tests Test 10/21/18 03:33 10/21/18 03:34 10/21/18 06:00 Blood Gas Specimen Blood arterial Blood arterial Source Arterial Blood Date 10/21/2018 3:49:30 AM 10/21/2018 6:20:51 AM Drawn Arterial Blood pH 7.390 7.420 (Temp corrected) Arterial Blood pCO2 48.1 H 42.8 (Temp correct) Arterial Blood pO2 66.8 L 85.5 (Temp corrected) Arterial Blood HCO3 28.5 H 27.1 H Arterial Blood Base 2.8 2.3 Excess Arterial Blood 91.4 L 96.0 Oxygen Saturation Rudy Test ACCEPTAB ACCEPTAB Arterial Blood Gas Right Radial Left Radial Puncture Site Arterial 0.4 0.1 Blood Carboxyhemoglob in Arterial Blood 0.2 0 Methemoglobin Blood Gas A-a O2 155.8 H 295.2 H Differential Oxyhemoglobin Percent 90.9 L 95.9 Blood Gas Temperature 37.0 37.0 Blood Gas Actual 23 21 Respiration Rate Blood Gas Modality NASAL CANNULA MASK - BIPAP FiO2 39.0 60.0 Blood Gas Notified UP Whom Blood Gas Notified 10/21/2018 3:54:55 AM 10/21/2018 6:33:47 AM Time White Blood Count 15.3 #H Red Blood Count 3.90 L Hemoglobin 11.8 L Hematocrit 36.2 L Mean Corpuscular 92.8 Volume Mean Corpuscular 30.3 Hemoglobin Mean Corpuscular 32.6 Hemoglobin Concent Red Cell Distribution 14.4 Width Platelet Count 436 #H Mean Platelet Volume 8.1 Immature Granulocytes 0.300 % Neutrophils % 74.9 Lymphocytes % 12.3 L Monocytes % 8.3 Eosinophils % 3.7 Basophils % 0.5 Nucleated Red Blood 0.0 Cells % Immature Granulocytes 0.050 H # Neutrophils # 11.4 H Lymphocytes # 1.9 Monocytes # 1.3 H Eosinophils # 0.6 H Basophils # 0.1 Nucleated Red Blood 0.0 Cells # Prothrombin Time 14.7 Prothrombin Time 1.1 Ratio INR International 1.14 Normalized Ratio Activated 25.9 Partial Thromboplast Time D-Dimer 9134.10 H D-Dimer Comment Sodium Level 140 Potassium Level 3.8 Chloride Level 104 Carbon Dioxide Level 29 Anion Gap 7 Blood Urea Nitrogen 20 Creatinine 0.81 Est Glomerular > 60 Filtrat Rate mL/min Glucose Level 134 Calcium Level 8.6 Magnesium Level 2.1 Troponin I 0.046 B-Type Natriuretic 377 H Peptide Blood Gas Respiration 18.0 Rate Blood Gas Pressure 13 Support Blood Gas IPAP/EPAP 18/5 Ratio Medications Medication Current Medications Enoxaparin Sodium (Lovenox) 120 mg Q12 SC Last administered on 10/21/18at 09:11; Admin Dose 120 MG; Start 10/21/18 at 09:00 Acetaminophen (Tylenol Tab) 650 mg Q6H PRN PO MILD PAIN LEVEL 1-3; Start 10/21/18 at 08:30 Atorvastatin Calcium (Lipitor) 80 mg QHS PO ; Start 10/21/18 at 21:00 Nicotine (Nicoderm 7 Mg/ 24 Hr) 1 patch DAILY TRANSDERM ; Start 10/21/18 at 09:00 Aspirin (Aspirin) 325 mg DAILY PO Last administered on 10/21/18at 09:09; Admin Dose 325 MG; Start 10/21/18 at 09:00 Albuterol/ Ipratropium (Duoneb) 3 ml DAILY HHN ; Start 10/21/18 at 09:00 Furosemide (Lasix) 40 mg BID DIURETICS IV Last administered on 10/21/18at 09:09; Admin Dose 40 MG; Start 10/21/18 at 09:00 Cefepime HCl 50 ml @ 100 mls/hr Q12 IVPB ; Start 10/21/18 at 21:00 Vancomycin HCl (Vanco Iv Per Pharmacy) VANCOMYCIN PER PHARMACY PER PROTOCOL XX ; Start 10/21/18 at 09:30; Status UNV Amiodarone HCl 900 mg/Dextrose 500 ml @ 0 mls/hr Q0M IV ; Start 10/21/18 at 10:00 FEDERICO KHAN NP Oct 21, 2018 10:28
--- NOTE | 2018-10-21 10:41 | CONS ---
DATE OF ADMISSION: 10/21/2018 DATE OF CONSULTATION: 10/21/2018 TYPE OF CONSULTATION: Respiratory distress. Thank you, Dr. Feldman, for this consultation. HISTORY OF PRESENT ILLNESS: This is a 58-year-old gentleman with history of coronary artery disease, underwent coronary artery bypass graft vessel surgery 2 weeks ago at [facility]. He was discharged safely with no respiratory distress, now represents with dyspnea, hypoxemia, orthop allison and leukocytosis. Chest x-ray on admission shows mild congestive cardiac failure, possible left effusion. The patient denies chest pain this morning in the ICU on BiPAP. PAST MEDICAL HISTORY: Likely chronic obstructive pulmonary disease, coronary artery disease, hyperte nsion, hyperlipidemia, morbid obesity, possible obstructive sleep apnea. MEDICATIONS: Per chart. ALLERGIES: NONE KNOWN SOCIAL HISTORY: Ex-smoker. No alcohol. No history of drug use. FAMILY HISTORY: Noncontributory. A 12-point review of systems negative on admission. PHYSICAL EXAMINATION: GENERAL: Moderately obese gentleman, awake, alert, comfortable on high flow O2. VITAL SIGNS: Currently afebrile, pulse is 130 in atrial flutter, blood pressure 127/80, O2 sat 97% o n BiPAP. NECK: Supple. JVD is mildly elevated. HEART: S1, S2, tachycardia. CHEST: Diminished air entry bilaterally. ABDOMEN: Obese, soft, nontender, no guarding or rebound. EXTREMITIES: No cyanosis, clubbing, 1+ edema. NEUROLOGIC: Generalized weakness. LABORATORY DATA: White count 15.3, hemoglobin 11.8, platelets of 436. Chemistry is within normal li mits. BNP mildly elevated. D-dimer elevated at 9134. ABG on BiPAP 60%, pH 7.42, pCO2 of 42, pO2 of 185. Chest x-ray as stated. EKG shows atrial flutter. ASSESSMENT: 1. Congestive cardiac failure with hypoxemic respiratory failure. 2. Possible community-acquired pneumonia. 3. Atrial fibrillation with rapid ventricular rate. 4. Underlying history of chronic obstructive pulmonary disease. 5. Coronary artery disease status post 5-vessel coronary artery bypass graft surgery. PLAN: 1. Gentle diuresis. 2. Antibiotics. 3. Rate control per cardiology. 4. Transition to high flow O2. 5. CT chest and thoracentesis if not radiographically improved by tomorrow. 6. Deep vein thrombosis and gastrointestinal prophylaxis. 7. Lower extremity Doppler's to rule out deep vein thrombosis. Dictated By: KEVAN NUÑEZ/MARC Conf#: [id number] DID#: [id number] CC: IVAN COOK MD; RONY WYNN MD; VANCE FELDMAN DO;*EndCC*
--- NOTE | 2018-10-21 10:58 | CONS ---
DATE OF ADMISSION: 10/21/2018 DATE OF CONSULTATION: 10/21/2018 TYPE OF CONSULTATION: Infectious Disease. REASON FOR CONSULTATION: Antibiotic management. HISTORY OF PRESENT ILLNESS: The patient is a 58-year-old male who came to the emergency room with sh ortness of breath, orthopnea, PND, bilateral pedal edema for the last few days, worse. On admission, he was treated with nitroglycerin spray, high flow nasal cannula with good response and similar epis ode previously, does not have any cough, runny nose, or sore throat. He smokes a pack of cigarettes a day. PAST MEDICAL HISTORY: Includes: 1. Coronary artery disease. 2. Diabetes mellitus. 3. Hypertension. 4. Hyperlipidemia. 5. Status post coronary bypass graft 10/04/2018 just recently and stent PCI and cardiac stent x2. A s noted, he had hypertension, hyperlipidemia, coronary artery disease and chest pain. PAST MEDICAL HISTORY: As outlined. FAMILY HISTORY: Noncontributory. SOCIAL HISTORY: He smokes a pack of cigarettes a day. REVIEW OF SYSTEMS: Noncontributory. PHYSICAL EXAMINATION: GENERAL: He is in mild to moderate distress. VITAL SIGNS: Stable. He is afebrile. SKIN: Without generalized rash. HEENT: Within normal limits. NECK: Supple. LYMPH NODES: None palpable. CHEST: Decreased breath sounds at the bases. HEART: Without murmur or gallop. ABDOMEN: Soft, nontender, without organomegaly, splenomegaly or masses. EXTREMITIES: Without cyanosis or clubbing. He has bilateral leg edema. No calf tenderness. RECTAL AND GENITAL: Deferred. NEUROLOGIC: No focal neurological abnormalities. ANCILLARY LABORATORY DATA: White count 15.3 with 75% neutrophils, hemoglobin and hematocrit 11.8 and 36.2, platelet count 436, urine creatinine 20/0.81, glucose 134. IMAGING: Chest x-ray shows interval increased bilateral left greater than right pleural effusions an d atelectasis, aortic valve replacement, aortic atherosclerosis. IMPRESSION AND PLAN: The patient was discussed with Dr. Feldman. Dr. Feldman knows the patient. He was seen by Dr. Feldman who notes that the patient presents with acute hypoxemic respiratory failure secondary to congestive heart failure and chronic pulmonary obstructive disease, possible pneumonia. The patient is currently on BiPAP. Antibiotic therapy was started. Pulmonary consultation was adv ised to consider 2D echocardiogram. The patient has coronary artery disease in addition to numerous other problems. He has a systemic inflammatory response syndrome, possibly sepsis may be secondary t o bronchitis or pneumonia. The patient was begun on vancomycin and cefepime. Chest x-ray as recentl y outlined. Cultures were done. Blood cultures are pending. MRSA screen is pending. We will get a urinalysis and culture as well if the patient's putting out urine. I will dictate my findings to Dr Samira Feldman. Dictated By: NALDO GUILLAUME MD, JD/NTS Conf#: [id number] DID#: [id number] CC: VANCE FELDMAN DO; IVAN COOK MD; RONY WYNN MD;*[facility]*
[2018-10-21] MEDS: NICOTINE (7 MG/24 HR) PATCH TRANSDERM SCH (11:32)
[2018-10-21] MEDS: VANCOMYCIN HCL 1.5 GM in SOD CHLORIDE 0.9% 250 ML IVPB SCH ×2 (11:50→23:17)
[2018-10-21] MEDS ORDERED: ALBUTEROL/IPRATROPIUM (NEB) 3 ML AMP HHN PRN (17:00)
[2018-10-21] MEDS ORDERED: PENDING SANTYL ORDER FOR WOUND CARE XX PRN (19:30)
[2018-10-21] MEDS: ATORVASTATIN 80 MG TAB PO SCH (20:28)
[2018-10-21] MEDS: CEFEPIME 1GM/50 ML (PMX) 50 ML IVPB SCH (20:28)
[2018-10-21] MEDS ORDERED: LORAZEPAM 2 MG INJ IV PRN (21:30)
[2018-10-22] VITALS (34 sets, daily range): BP systolic 103–146; BP diastolic 58–101; PULSE 64–128; RESP 17–32
[2018-10-22] MEDS: FUROSEMIDE 40 MG INJ IV SCH ×2 (05:11→17:13)
--- NOTE | 2018-10-22 08:25 | PN ---
DATE: 10/22/2018 SUBJECTIVE: The patient is currently on high flow oxygen. The patient was noted to be anxious overn ight. No other acute events noted. No hemoptysis, hematemesis, hematochezia. The patient's D-dimer was noted to be elevated at 9000. The patient is pending possible CT angio and is currently on Love nox. OBJECTIVE: VITAL SIGNS: Blood pressure is 146/72, respiration 23, pulse 83, temperature 97.5. I's and O's were reviewed. HEENT: Head is normocephalic. NECK: Supple. HEART: Regular rate. LUNGS: Show diminished breath sounds at the base. ABDOMEN: Soft, nontender to palpation. EXTREMITIES: Negative for clubbing, cyanosis. Positive edema, improving. DERMATOLOGIC: No rashes. MUSCULOSKELETAL: No joint effusion. NEUROLOGIC: No change in exam. MEDICATIONS: The patient's medications have been reviewed. LABORATORY DATA: From 10/22/2018 was reviewed. ABG was reviewed. Microbiology was reviewed. IMAGING: Chest x-ray from 10/21/2018 was reviewed. ASSESSMENT AND PLAN: 1. Acute hypoxemic respiratory failure. Etiology is possibly multifactorial secondary to congestive heart failure exacerbation, likely chronic obstructive pulmonary disease exacerbation, possible pneu monia, possible PE. The patient remains on high flow oxygen and has been receiving antibiotic therap y, nebulizers and diuretics. The possibility of a CT angio is a consideration per pulmonary. Contin ue current medical management. Continue Lovenox. Monitor closely. 2. Acute heart failure, possibly systolic, diastolic. The patient remains clinically volume overloa ded, although improving. A 2D echo is pending. The patient's initial troponins were negative. Will continue current medical management. Continue diuretic therapy. Follow up with cardiology. 3. Atrial fibrillation, atrial flutter. The patient is currently on amiodarone drip, has converted to sinus tachycardia. Will continue medical management. Complete a course of amiodarone drip and th en convert to oral amiodarone. Will follow up with cardiology recommendations. 4. Coronary artery disease, status post coronary artery bypass graft. Continue current medical wiliam gement with aspirin. Continue beta abdiel. Continue statin therapy. 5. Hypertension. Continue current blood pressure regimen. 6. SIRS, possible sepsis secondary to bronchitis pneumonia. Continue current antibiotic regimen. F ollow up cultures. 7. Diabetes, continue insulin sliding scale, Accu-Cheks. 8. History of tobacco abuse. Continue nicotine patch. 9. Anemia. Monitor hemoglobin and hematocrit levels. 10. Syncope, since resolved. Continue to monitor. 11. Gastrointestinal and deep venous thrombosis prophylaxis. Please note I spent over 30 minutes of critical care time with this patient. Dictated By: VANCE FELDMAN DO NR/NTS Conf#: [id number] DID#: [id number] CC: RONY WYNN MD;*EndCC*
[2018-10-22] MEDS: NICOTINE (7 MG/24 HR) PATCH TRANSDERM SCH (08:38)
[2018-10-22] MEDS: CEFEPIME 1GM/50 ML (PMX) 50 ML IVPB SCH ×2 (08:39→21:23)
[2018-10-22] MEDS: ENOXAPARIN 100 MG/ML SYG SC SCH ×2 (08:42→21:40)
[2018-10-22] MEDS: ASPIRIN 325 MG TAB PO SCH (08:46)
[2018-10-22] MEDS: FAMOTIDINE 20 MG TAB PO SCH ×2 (08:49→21:22)
--- NOTE | 2018-10-22 10:40 | RADRPT ---
Echocardiogram Report Patient Name: ZENAIDA HUGHES MPatient ID: [id number] : 1960 (58y 8m)Study Date: 10/21/2018 11:02:06 AM Gender: MAccession #: [id number] Tech: DENISSE Location: Ref.Physician: VANCE FELDMAN Height(Cm): BSA: Weight(Kg): 119.8 Quality: Technically Difficult StudyAccount #: Procedures: Echocardiographic Report: Transthoracic echocardiogram examination. Indications: Congestive Heart Failure. Measurements: 2D/M Mode Doppler Measurement Value Normal Range Measurement Value Normal Range LVIDd 2D 4.4 [ 4.2 - 5.8 ] cm TOM VTI 1.5 [ 2.0 - 4.0 ] cm2 LVIDs 2D 2.7 [ 2.5 - 4.0 ] cm AV Mean Humza 1.4 [ 70.0 - 90.0 ] cm/sec LVPWd 2D 1.4 [ 0.6 - 1.0 ] cm AV Mean PG 10.0 [ 2.0 - 4.0 ] mmHg IVSd 2D 1.7 [ 0.6 - 1.0 ] cm AV VTI 29.6 cm AoR Diam 2D 3.7 [ 2.6 - 3.4 ] cm LVOT Mean Humza 0.6 [ 60.0 - 80.0 ] cm/sec EDV 2D 87.7 [ 62.0 - 150.0 ] ml LVOT Mean PG 2.0 [ 1.0 - 3.0 ] mmHg ESV 2D 27.3 [ 21.0 - 61.0 ] ml LVOT Peak Humza 1.0 [ 70.0 - 110.0 ] cm/sec EF 2D 68.9 [ 52.0 - 72.0 ] percent LVOT Peak PG 4.0 [ 2.0 - 6.0 ] mmHg LA Dimen 2D 3.3 [ 3.0 - 4.0 ] cm LVOT VTI 14.0 [ 20.0 - 30.0 ] cm LVOT Diam 2.0 [ 2.3 - 2.9 ] cm Lat E` Humza 0.1 [ 10.0 - 15.0 ] cm/sec PV Peak Humza 0.8 [ 40.0 - 80.0 ] cm/sec PV Peak PG 2.0 mmHg Findings: Left Ventricle: Normal left ventricular cavity size. Normal left ventricular systolic function. Moderate concentric left ventricular hypertrophy. The left ventricular ejection fraction is visually estimated at 60 %. Right Ventricle: Normal right ventricular size. Normal right ventricular systolic function. Left Atrium: There is moderate enlargement of left atrium. Right Atrium: The right atrium is not well visualized. Atrial Septum: The atrial septum is not well visualized. Mitral Valve: Normal appearance of the mitral valve leaflets to the extent imaged. Normal appearance and function of the mitral valve with trace physiologic regurgitation. Aortic Valve: The aortic valve is not well visualized. No hemodynamically significant aortic stenosis by Doppler. Aortic cusps appear to be at least moderately calcified. No aortic regurgitation. Tricuspid Valve: The tricuspid valve is not well visualized. Pulmonic Valve: The pulmonic valve is not well visualized. Pericardium: Normal pericardium with no significant pericardial effusion. Left pleural effusion seen. Aorta: Normal aortic root. IVC: The inferior vena cava is not well visualized. Pulmonary Artery: Normal pulmonary artery size. Conclusions: Technically difficult study with overall poor structural visualization. Normal left ventricular cavity size. Normal left ventricular systolic function based on limited views. Moderate concentric left ventricular hypertrophy. The left ventricular ejection fraction is visually estimated at 60 %. The aortic valve is not well visualized. No hemodynamically significant aortic stenosis by Doppler. Aortic cusps appear to be at least moderately calcified. No aortic regurgitation. The inferior vena cava is not well visualized. Electronically Signed By: Maurice Aldana 2018-10-22 10:39:29 PDT
--- NOTE | 2018-10-22 10:42 | CONS ---
DATE OF ADMISSION: 10/21/2018 DATE OF CONSULTATION: 10/22/2018 REASON FOR CONSULTATION: Shortness of breath. Thank you, Dr. Feldman, for this consultation. HISTORY OF PRESENT ILLNESS: This is a 58-year-old gentleman with history of coronary artery bypass g raft, underwent 5-vessel coronary artery bypass graft surgery several weeks ago. Presented yesterday with increasing cough, congestion, respiratory distress, initially placed on noninvasive positive pr essure ventilation, now high flow O2. He states his breathing is still somewhat labored. Chest x-ra y demonstrates mild pulmonary edema, possible left effusion and compressive atelectasis. He has an e xtensive prior tobacco history. PAST MEDICAL HISTORY: Chronic obstructive pulmonary disease, hypertension, hyperlipidemia, and mild coronary artery disease with coronary artery bypass graft surgery. SOCIAL HISTORY: Nonsmoker, no alcohol, no history of drug use. FAMILY HISTORY: Noncontributory. SYSTEMS REVIEW: A 12-point review of systems was negative other than that mentioned above. PHYSICAL EXAMINATION: GENERAL: Well-nourished, well-developed gentleman, awake, alert, oriented, sitting up in chair, no r espiratory distress but on 100% high flow O2. VITAL SIGNS: Temperature 98, pulse is 83, blood pressure 146/72, O2 saturation 96% on high flow O2. NECK: Supple. No JVD or lymphadenopathy. CARDIAC: S1, S2, no added sounds or murmurs. CHEST: Diminished air entry bilaterally. ABDOMEN: Soft, nontender. No guarding or rebound. EXTREMITIES: No cyanosis, clubbing, or edema. NEUROLOGIC: Grossly intact. No focal deficits. LABORATORY DATA: White count 21.0, hemoglobin 11.4, platelets of 258. Chemistry is within normal li mits. BNP was mildly elevated. ABG this morning, pH 7.41, pCO2 of 45, pO2 of 95. IMPRESSION AND PLAN: 1. Acute hypoxemic respiratory failure, likely secondary to combination of chronic obstructive pulmo nary disease exacerbation. 2. Congestive cardiac failure. 3. Postop atelectasis and possible effusion. The patient will require: 1. Supplemental O2. Titrate to keep sats greater than 92. 2. Antibiotics, currently on cefepime and vancomycin. 3. Rate control per cardiology. 4. Short course of steroids. 5. Diuretics. 6. Possible ultrasound thoracentesis of left pleural effusion. Dictated By: IVAN COOK MD SV/MARC Conf#: [id number] [facility]#: [id number] CC: IVAN COOK MD; RONY WYNN MD; VANCE FELDMAN DO;*EndCC*
--- NOTE | 2018-10-22 12:14 | CONS ---
Assessment/Plan Assessment/Plan Hospital Course (Demo Recall) ID PRELIMINARY NOTE=> CURRENT ABX: DAY # =>Vanco IV #2 + Cefepime #2 10/22/18 1000 10/22/18 0442 24H INTERVAL SUMMARY * Napping while sitting up OOB-> Chair on supplemental O2 via NC -- Generalized weakness, SOB with activities, easily fatigued * No fevers, Tachy on telemonitor -- per notes was noted to have intermittent bouts of anxiety/restlessness overnight, this am * PER PULM NOTE: Possible ultrasound thoracentesis of left pleural effusion. * D-dimer noted to be elevated at 9000. * IV steroids initiated -- WBC rising = partial steroids demargination HPI/INITIAL HOSPITAL COURSE REVIEWED * 58 yo M recent 5V CABG re-admitted w/acute hypoxic respiratory distress, SIRS w/tachycardia, leukocytosis, bilateral pleural effusions. No fevers recorded. BNP mild elevated at 377. Per notes syncopal episode recent -- he is currently wearing ambulatory heart monitor. Patient started on broad spectrum IV ABX coverage and administered IV steroids. PAST MEDICAL/SURG HX: * Past medical history: CAD, diabetes mellitus, hypertension, hyperlipidemia, tobaccoism * Past surgical history: AoVR, 5V CABG October 04, 2018, stent PCI DIAGNOSTIC IMAGING * 10/21/18 CXR: IMPRESSION:1. Interval increased bilateral, left greater than right pleural effusions and atelectasis.2. Aortic valve replacement. Aortic atherosclerosis. MICRO/OTHER * 10/21/18 BCx (+) 1/2 bottles from ED:BLOOD CULTURE Preliminary BCULT GRAM BOTTLE 1 Gram positive cocci in clusters 1 of 2 bottles . seen on gram stain of the broth Organism 1 GRAM POSITIVE COCCI IN CLUSTER * 10/21/18 MRSA SCREEN Final No methicillin resistant staphylococcus aureus isolated PHYSICAL EXAMINATION: GENERAL: A/A/O -- mild-moderate distress due to hypoxic resp failure -- stable on BIPAP HEENT: AT, NC, anicteric NECK: Supple, CHEST: Equal chest rise bilaterally, tachypneic, bilateral rales, LEFT CHEST AMBULATORY HEART MONITOR ONBOARD HEART: Pulse RRR, S1S2 tachy ABDOMEN: Soft / NT : Voiding EXTREMITIES: Warm, dry, trace bilat pedal edema, bilateral feet callouses SKIN: No rash, no diaphoresis ID ASSESSMENT 58 yo M admit with: 1. SIRS criteria: tachycardia, leukocytosis -> No fevers * -- WBC rising = partial steroids demargination 2. Acute hypoxic respiratory failure -- BIPAP 3. Acute CHF exacerbation w/mildly elevated BNP 377 - tachycardia playing a role 4. Bilateral pleural effusions w/hx of prior recent intubation -- presumptive HCAP 5. CAD-> s/p 5V CABG + Hx of AVR 6. COPD-> started on IV STEROIDS 7. Hypertension. 8. Recent syncopal episode -- r/o cardiac arrhythmia vs orthostatic hypotension vs other 9. Diabetes 10. HLD 11. Anemia 13. History of tobacco abuse-> currently on nicotine patch. 14. Coagulopathy -> D-dimer noted to be elevated at 9000. (-)MRSA Nares ABX ALLERGIES: KNDA INVASIVES: PIV CURRENT ABX: DAY #2 => Vanco IV #2 + Cefepime #2 ID RECOMMENDATIONS/PLAN: 1. Continue current ABX -- WBC rising = partial steroids demargination 2. Diuretics per CARDS/primary 3. Obtain sputum for C&S if able to produce 4. PER PULM NOTE: Possible ultrasound thoracentesis of left pleural effusion. . Consultation Date/Type/Reason Admit Date/Time Oct 21, 2018 at 05:07 Initial Consult Date Date/Time of Note DATE: 10/22/18 TIME: 12:03 Exam/Review of Systems Exam Vitals Vital Signs Date Temp Pulse Resp B/P (MAP) Pulse Ox O2 O2 Flow FiO2 Time Delivery Rate 10/22/18 85 08:00 10/22/18 23 146/72 93 High Flow 06:00 (96) 10/22/18 97.5 04:00 10/22/18 100 03:35 10/21/18 6.0 07:51 Intake and Output 10/21/18 10/21/18 10/22/18 1515:00 23:00 07:00 IntakeIntake Total 799.900 ml 541.75 ml 486.899 ml OutputOutput Total 950 ml 480 ml 400 ml BalanceBalance -150.100 ml 61.75 ml 86.899 ml Results Result Diagram: 10/22/18 1000 10/22/18 0442 Results 24hrs Laboratory Tests Test 10/22/18 04:42 10/22/18 05:00 10/22/18 07:00 10/22/18 10:00 Sodium Level 139 Potassium Level 3.9 Chloride Level 99 Carbon Dioxide 31 Level Anion Gap 9 Blood Urea 28 H Nitrogen Creatinine 0.73 Est Glomerular > 60 Filtrat Rate mL/min Glucose Level 133 Calcium Level 8.4 Phosphorus Level 3.8 Magnesium Level 2.1 Blood Gas Blood arterial Blood arterial Specimen Source Arterial Blood 10/22/2018 5:10: 10/22/2018 8:20: Date Drawn 29 AM 01 AM Arterial Blood 7.446 7.414 pH (Temp corrected) Arterial Blood 40.2 45.7 H pCO2 (Temp correct) Arterial Blood 71.2 L 95.3 pO2 (Temp corrected) Arterial Blood 27.1 H 28.6 H HCO3 Arterial Blood 2.8 3.4 H Base Excess Arterial Blood 93.9 L 96.8 Oxygen Saturatio n Rudy Test ACCEPTAB ACCEPTAB Arterial Blood Right Radial Right Radial Gas Puncture Site Arterial 0.3 0 Blood Carboxyhem oglobin Arterial Blood 0.1 0 Methemoglobin Blood Gas A-a O2 601.6 H 572.0 H Differential Oxyhemoglobin 93.5 96.8 Percent Blood Gas 37.0 37.0 Temperature Blood Gas HFNC HFNC Modality FiO2 100.0 100.0 Blood Gas UP Jose [facility]OP[facility] Notified Whom Blood Gas 10/22/2018 5:23: 10/22/2018 8:34: Notified Time 46 AM 19 AM White Blood 21.0 #H Count Red Blood Count 3.79 L Hemoglobin 11.4 L Hematocrit 34.7 L Mean Corpuscular 91.6 Volume Mean Corpuscular 30.1 Hemoglobin Mean Corpuscular 32.9 Hemoglobin Chanell nt Red Cell 14.6 H Distribution Width Platelet Count 258 # Mean Platelet 9.1 Volume Immature 0.400 Granulocytes % Neutrophils % 82.2 H Lymphocytes % 8.5 L Monocytes % 8.5 Eosinophils % 0.2 Basophils % 0.2 Nucleated Red 0.0 Blood Cells % Immature 0.090 H Granulocytes # Neutrophils # 17.3 H Lymphocytes # 1.8 Monocytes # 1.8 H Eosinophils # 0.1 Basophils # 0.1 Nucleated Red 0.0 Blood Cells # Medications Medication Current Medications Enoxaparin Sodium (Lovenox) 120 mg Q12 SC Last administered on 10/22/18at 08:42; Admin Dose 120 MG; Start 10/21/18 at 09:00 Acetaminophen (Tylenol Tab) 650 mg Q6H PRN PO MILD PAIN LEVEL 1-3; Start 10/21/18 at 08:30 Atorvastatin Calcium (Lipitor) 80 mg QHS PO Last administered on 10/21/18 20:28; Admin Dose 80 MG; Start 10/21/18 at 21:00 Nicotine (Nicoderm 7 Mg/ 24 Hr) 1 patch DAILY TRANSDERM Last administered on 10/22/18 08:38; Admin Dose 1 PATCH; Start 10/21/18 at 09:00 Aspirin (Aspirin) 325 mg DAILY PO Last administered on 10/22/18 08:46; Admin Dose 325 MG; Start 10/21/18 at 09:00 Furosemide (Lasix) 40 mg BID DIURETICS IV Last administered on 10/22/18 05:11; Admin Dose 40 MG; Start 10/21/18 at 09:00 Cefepime HCl 50 ml @ 100 mls/hr Q12 IVPB Last administered on 10/22/18 08:39; Admin Dose 100 MLS/HR; Start 10/21/18 at 21:00 Vancomycin HCl (Vanco Iv Per Pharmacy) VANCOMYCIN PER PHARMACY PER PROTOCOL XX ; Start 10/21/18 at 09:30 Amiodarone HCl 900 mg/Dextrose 500 ml @ 0 mls/hr Q0M IV Last administered on 10/21/18 11:32; Admin Dose 33.3 MLS/HR; Start 10/21/18 at 10:00 Vancomycin HCl 1.5 gm/Sodium Chloride 250 ml @ 83.333 mls/ hr Q12H IVPB Last administered on 10/21/18 23:17; Admin Dose 83.333 MLS/HR; Start 10/21/18 at 12:00 Albuterol/ Ipratropium (Duoneb) 3 ml Q6H RESP THERAPY PRN HHN SHORTNESS OF BREATH; Start 10/21/18 at 17:00 Miscellaneous Information (Pending [facility] Order For Wound Care) This patient mclean... PRN PRN XX WOUND CARE; Start 10/21/18 at 19:30 Lorazepam (Ativan) 1 mg Q8H PRN IV anxiety Last administered on 10/21/18 22:52; Admin Dose 1 MG; Start 10/21/18 at 21:30 Famotidine (Pepcid) 20 mg BID PO Last administered on 10/22/18at 08:49; Admin Dose 20 MG; Start 10/22/18 at 09:00 Methylprednisolone Sodium Succinate (Solu-Medrol) 40 mg Q8 IV ; Start 10/22/18 at 14:00 FEDERICO KHAN NP Oct 22, 2018 12:13
[2018-10-22] MEDS: VANCOMYCIN HCL 1.5 GM in SOD CHLORIDE 0.9% 250 ML IVPB SCH ×2 (13:09→23:56)
[2018-10-22] MEDS: METHYLPREDNISOLONE 40 MG INJ IV SCH ×2 (14:20→21:22)
[2018-10-22] MEDS: HYDROCODONE/APAP (5/325) TAB PO PRN (16:13)
--- NOTE | 2018-10-22 16:18 | CONS ---
Assessment/Plan Cardiology NYHA: IV Heart Failure Type: Acute on Chronic Heart Failure Type: Diastolic Assessment/Plan Hospital Course (Demo Recall) Acute respiratory failure: Likely multifactorial including CHF exacerbation, COPD, and left pleural effusion. Doubt PE but possible Acute on chronic diastolic CHF: EF remains preserved though poor study. Deco mpensated on exam Acute on chronic COPD with exacerbation Left pleural effusion Paroxysmal atrial fibrillation/flutter: very common post cardiac surgery, however this is no longer the acute stage and so anticoagulation mcfp is appropriate. Now back in sinus after amiodarone CAD s/p CABG: s/p CABG x5 10/04/2018, BILLINGS[place] to LAD, SVG to PDA, SVG to diagonal artery sequence to OM1 sequenced to OM2. No angina and trops negative HTN HL DM Tobacco use -continue lasix 40mg IV BID -steroids per pulm -amiodarone 400mg PO BID, taper to 200mg on discharge -ASA 325mg -lipitor 80mg -start diltiazem 120mg instead of metoprolol with COPD -consider thoracentesis. After all procedures completed, switch lovenox to Eliquis 5mg BID and decrease ASA to 81mg daily Consultation Date/Type/Reason Admit Date/Time Oct 21, 2018 at 05:07 Date of Consultation: Oct 22, 2018 Type of Consult Cardiology Reason for Consultation Respiratory failure Requesting Provider: VANCE FELDMAN DO Date/Time of Note DATE: 10/22/18 TIME: 16:07 Hx of Present Illness 58 yo M known to me from prior hospitalization with a h/o CAD s/p 5V CABG 10/04/18 here at [facility], chronic diastolic CHF, COPD, DM, HTN, HL, tobacco use, paroxysmal afib post op discharged with amiodarone (unclear if he took it though), who presented with worsening dyspnea, edema, orthopnea. 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 No chest pain except from the surgical site. SOB improved per pt since admission. He remains on high flow oxygen. He was diuresed and also treated for COPD exacerbation. He converted to afib/flutter and after amiodarone drip, converted back to sinus. per hPI Past Medical History per hPI Home Meds Reported Medications Nicotine* (Nicotine* Patch) 7 mg/day Patch, 1 PATCH TD DAILY, PATCH 14MCG 10/02/18 Atorvastatin* (Atorvastatin*) 80 Mg Tablet, 80 MG PO QHS, #30 TAB 10/02/18 Acetaminophen* (Acetaminophen*) 650 Mg Tablet, 650 MG PO Q6H PRN for MILD PAIN LEVEL 1-3, #30 TAB 10/02/18 Medications Current Medications Enoxaparin Sodium (Lovenox) 120 mg Q12 SC Last administered on 10/22/18 08:42; Admin Dose 120 MG; Start 10/21/18 at 09:00 Acetaminophen (Tylenol Tab) 650 mg Q6H PRN PO MILD PAIN LEVEL 1-3; Start 10/21 at 08:30 Atorvastatin Calcium (Lipitor) 80 mg QHS PO Last administered on 10/21/18 20:28; Admin Dose 80 MG; Start 10/21/18 at 21:00 Nicotine (Nicoderm 7 Mg/ 24 Hr) 1 patch DAILY TRANSDERM Last administered on 10/22/18 08:38; Admin Dose 1 PATCH; Start 10/21/18 at 09:00 Aspirin (Aspirin) 325 mg DAILY PO Last administered on 10/22/18 08:46; Admin Dose 325 MG; Start 10/21/18 at 09:00 Furosemide (Lasix) 40 mg BID DIURETICS IV Last administered on 10/22/18 05:11; Admin Dose 40 MG; Start 10/21/18 at 09:00 Cefepime HCl 50 ml @ 100 mls/hr Q12 IVPB Last administered on 10/22/18 08:39; Admin Dose 100 MLS/HR; Start 10/21/18 at 21:00 Vancomycin HCl (Vanco Iv Per Pharmacy) VANCOMYCIN PER PHARMACY PER PROTOCOL XX ; Start 10/21/18 at 09:30 Amiodarone HCl 900 mg/Dextrose 500 ml @ 0 mls/hr Q0M IV Last administered on 10/21/18 11:32; Admin Dose 33.3 MLS/HR; Start 10/21/18 at 10:00 Vancomycin HCl 1.5 gm/Sodium Chloride 250 ml @ 83.333 mls/ hr Q12H IVPB Last administered on 10/22/18 13:09; Admin Dose 83.333 MLS/HR; Start 10/21/18 at 12:00 Albuterol/ Ipratropium (Duoneb) 3 ml Q6H RESP THERAPY PRN HHN SHORTNESS OF BREATH; Start 10/21/18 at 17:00 Miscellaneous Information ([facility]) This patient mclean... PRN PRN XX WOUND CARE; Start 10/21/18 at 19:30 Lorazepam (Ativan) 1 mg Q8H PRN IV anxiety Last administered on 10/21/18at 22:52; Admin Dose 1 MG; Start 10/21/18 at 21:30 Famotidine (Pepcid) 20 mg BID PO Last administered on 10/22/18at 08:49; Admin Dose 20 MG; Start 10/22/18 at 09:00 Methylprednisolone Sodium Succinate (Solu-Medrol) 40 mg Q8 IV Last administered on 10/22/18at 14:20; Admin Dose 40 MG; Start 10/22/18 at 14:00 Miscellaneous Information (*Rx Drug Level Order Reminder*) VANCO TROUGH ON @ 300 2300 ONCE XX ; Start 10/22/18 at 23:00; Stop 10/22/18 at 23:01 Allergies: Coded Allergies: No Known Allergy (Unverified , 10/02/18) Past Surgical History Past Surgical Hx: no surgical history Social History Smoking Status: Former smoker Exam/Review of Systems Vital Signs Vitals Vital Signs Date Temp Pulse Resp B/P (MAP) Pulse Ox O2 O2 Flow FiO2 Time Delivery Rate 10/22/18 96 100 15:34 10/22/18 72 23 132/85 High Flow 15:00 (101) Nasal Cannula 10/22/18 98.5 12:00 10/21/18 6.0 07:51 Intake and Output 10/21/18 10/21/18 10/22/18 1515:00 23:00 07:00 IntakeIntake Total 799.900 ml 541.75 ml 503.599 ml OutputOutput Total 950 ml 480 ml 400 ml BalanceBalance -150.100 ml 61.75 ml 103.599 ml Exam Constitutional: alert, oriented Psych: no complaints Head: normocephalic, atraumatic Neck: jvd (9-10cm) Respiratory: diminished breath sounds; No clear to auscultation Cardiovascular: regular rate and rhythm, edema (2-3+), systolic murmur (2/6 JONATHAN) Gastrointestinal: soft, non-tender; No distended Musculoskeletal: No nl extremities to inspection Neurological: nl mental status, nl speech Labs Result Diagram: 10/22/18 1000 10/22/18 0442 Results 24hrs Laboratory Tests Test 10/22/18 04:42 10/22/18 05:00 10/22/18 07:00 10/22/18 10:00 Sodium Level 139 Potassium Level 3.9 Chloride Level 99 Carbon Dioxide 31 Level Anion Gap 9 Blood Urea 28 H Nitrogen Creatinine 0.73 Est Glomerular > 60 Filtrat Rate mL/min Glucose Level 133 Calcium Level 8.4 Phosphorus Level 3.8 Magnesium Level 2.1 Blood Gas Blood arterial Blood arterial Specimen Source Arterial Blood 10/22/2018 5:10: 10/22/2018 8:20: Date Drawn 29 AM 01 AM Arterial Blood 7.446 7.414 pH (Temp corrected) Arterial Blood 40.2 45.7 H pCO2 (Temp correct) Arterial Blood 71.2 L 95.3 pO2 (Temp corrected) Arterial Blood 27.1 H 28.6 H HCO3 Arterial Blood 2.8 3.4 H Base Excess Arterial Blood 93.9 L 96.8 Oxygen Saturatio n Rudy Test ACCEPTAB ACCEPTAB Arterial Blood Right Radial Right Radial Gas Puncture Site Arterial 0.3 0 Blood Carboxyhem oglobin Arterial Blood 0.1 0 Methemoglobin Blood Gas A-a O2 601.6 H 572.0 H Differential Oxyhemoglobin 93.5 96.8 Percent Blood Gas 37.0 37.0 Temperature Blood Gas HFNC HFNC Modality FiO2 100.0 100.0 Blood Gas UP Jose [facility] Notified Whom Blood Gas 10/22/2018 5:23: 10/22/2018 8:34: Notified Time 46 AM 19 AM White Blood 21.0 #H Count Red Blood Count 3.79 L Hemoglobin 11.4 L Hematocrit 34.7 L Mean Corpuscular 91.6 Volume Mean Corpuscular 30.1 Hemoglobin Mean Corpuscular 32.9 Hemoglobin Chanell nt Red Cell 14.6 H Distribution Width Platelet Count 258 # Mean Platelet 9.1 Volume Immature 0.400 Granulocytes % Neutrophils % 82.2 H Lymphocytes % 8.5 L Monocytes % 8.5 Eosinophils % 0.2 Basophils % 0.2 Nucleated Red 0.0 Blood Cells % Immature 0.090 H Granulocytes # Neutrophils # 17.3 H Lymphocytes # 1.8 Monocytes # 1.8 H Eosinophils # 0.1 Basophils # 0.1 Nucleated Red 0.0 Blood Cells # Medications Medications Current Medications Enoxaparin Sodium (Lovenox) 120 mg Q12 SC Last administered on 10/22/18 08:42; Admin Dose 120 MG; Start 10/21/18 at 09:00 Acetaminophen (Tylenol Tab) 650 mg Q6H PRN PO MILD PAIN LEVEL 1-3; Start 10/21/18 at 08:30 Atorvastatin Calcium (Lipitor) 80 mg QHS PO Last administered on 10/21/18 20:28; Admin Dose 80 MG; Start 10/21/18 at 21:00 Nicotine (Nicoderm 7 Mg/ 24 Hr) 1 patch DAILY TRANSDERM Last administered on 10/22/18 08:38; Admin Dose 1 PATCH; Start 10/21/18 at 09:00 Aspirin (Aspirin) 325 mg DAILY PO Last administered on 10/22/18 08:46; Admin Dose 325 MG; Start 10/21/18 at 09:00 Furosemide (Lasix) 40 mg BID DIURETICS IV Last administered on 10/22/18 05:11; Admin Dose 40 MG; Start 10/21/18 at 09:00 Cefepime HCl 50 ml @ 100 mls/hr Q12 IVPB Last administered on 10/22/18 08:39; Admin Dose 100 MLS/HR; Start 10/21/18 at 21:00 Vancomycin HCl (Vanco Iv Per Pharmacy) VANCOMYCIN PER PHARMACY PER PROTOCOL XX ; Start 10/21/18 at 09:30 Amiodarone HCl 900 mg/Dextrose 500 ml @ 0 mls/hr Q0M IV Last administered on 10/21/18 11:32; Admin Dose 33.3 MLS/HR; Start 10/21/18 at 10:00 Vancomycin HCl 1.5 gm/Sodium Chloride 250 ml @ 83.333 mls/ hr Q12H IVPB Last administered on 10/22/18 13:09; Admin Dose 83.333 MLS/HR; Start 10/21/18 at 12:00 Albuterol/ Ipratropium (Duoneb) 3 ml Q6H RESP THERAPY PRN HHN SHORTNESS OF BREATH; Start 10/21/18 at 17:00 Miscellaneous Information (Pending [facility] Order For Wound Care) This patient mclean... PRN PRN XX WOUND CARE; Start 10/21/18 at 19:30 Lorazepam (Ativan) 1 mg Q8H PRN IV anxiety Last administered on 10/21/18at 22:52; Admin Dose 1 MG; Start 10/21/18 at 21:30 Famotidine (Pepcid) 20 mg BID PO Last administered on 10/22/18at 08:49; Admin Dose 20 MG; Start 10/22/18 at 09:00 Methylprednisolone Sodium Succinate (Solu-Medrol) 40 mg Q8 IV Last administered on 10/22/18at 14:20; Admin Dose 40 MG; Start 10/22/18 at 14:00 Miscellaneous Information (*Rx Drug Level Order Reminder*) VANCO TROUGH ON @ 300 2300 ONCE XX ; Start 10/22/18 at 23:00; Stop 10/22/18 at 23:01 VANESA RUIZ Oct 22, 2018 16:18
[2018-10-22] MEDS: AMIODARONE 200 MG TAB PO SCH ×2 (17:14→23:56)
[2018-10-22] MEDS: DILTIAZEM (CD) 120 MG CAP PO SCH (17:47)
[2018-10-22] MEDS: ATORVASTATIN 80 MG TAB PO SCH (21:22)
[2018-10-23] VITALS (23 sets, daily range): BP systolic 119–159; BP diastolic 61–102; PULSE 55–90; RESP 15–38
[2018-10-23] MEDS: METHYLPREDNISOLONE 40 MG INJ IV SCH ×3 (06:31→21:00)
[2018-10-23] MEDS: FUROSEMIDE 40 MG INJ IV SCH ×2 (06:31→17:11)
[2018-10-23] MEDS ORDERED: POTASSIUM CHLORIDE (SR) 20 MEQ TAB PO STA (08:09)
--- NOTE | 2018-10-23 08:26 | PN ---
DATE: 10/23/2018 SUBJECTIVE: The patient is in serious, but stable condition. The patient remains on high flow oxyge n. The patient's urinary output has been adequate. No other events noted. No hemoptysis, hematemes is or hematochezia. OBJECTIVE: VITAL SIGNS: Blood pressure is 119/73, respirations 15, pulse 65, temperature 97.0. HEENT: Head is normocephalic. NECK: Supple. HEART: Regular rate. LUNGS: Show diminished breath sounds at the base. ABDOMEN: Soft, nontender to palpation without rebound or guarding. EXTREMITIES: Negative for clubbing, cyanosis. Positive edema. DERMATOLOGIC: No rashes. MUSCULOSKELETAL: No joint effusion. NEUROLOGIC: No change in exam. MEDICATIONS: Reviewed. LABORATORY DATA: Shows sodium 140, potassium 3.8, bicarbonate 32, BUN 29, creatinine 0.55. The froylan ent's ABG was reviewed. White count 13.9, hemoglobin 11.3, platelet count is 205. The patient's uri nalysis was reviewed. The patient's blood cultures were reviewed. IMAGING STUDIES: Chest x-ray on 10/22/2018 was reviewed, continues to show central pulmonary vascula r congestion. ASSESSMENT AND PLAN: 1. Acute hypoxemic respiratory failure, etiology is multifactorial secondary to congestive heart batsheva lure exacerbation, chronic obstructive pulmonary disease exacerbation, possible pneumonia, questionab le pulmonary embolism. The patient is clinically stable on high flow oxygen. He continues on antibi otics, diuretics, and nebulizers. Possible CT angio is pending. We will continue anticoagulation. Monitor closely. 2. Sepsis. The patient has a gram-positive bacteremia. Underlying source is unclear, possible pneu monia. Continue broad spectrum antibiotics. Follow up with infectious disease for antibiotic manage ment. 3. Acute diastolic heart failure. The patient's echo was reviewed. Continue current diuretic regim en. We will continue Lasix 40 mg IV b.i.d. We will add Diamox to help augment diuresis also in the setting of alkalosis. 4. Arrhythmia. The patient continues to have atrial fibrillation, atrial flutter. Continue medical management. Continue amiodarone. Continue anticoagulation. Follow up with cardiology for further recommendations. 5. Coronary artery disease, status post 5-vessel coronary artery bypass graft. Currently stable. C ontinue aspirin. Continue AV shantelle blockers. Continue statin therapy. 6. Hypertension. Continue current blood pressure regimen. 7. Diabetes. Continue current insulin regimen. Continue Accu-Cheks. 8. History of tobacco abuse. Continue nicotine patch. 9. Anemia. Monitor hemoglobin and hematocrit levels. 10. Syncope, resolved. Continue to monitor. 11. Gastrointestinal and deep vein thrombosis prophylaxis. Please note I spent over 30 minutes of critical care time with this patient. Dictated By: VANCE FELDMAN DO NR/NTS Conf#: [id number] DID#: [id number] CC: RONY WYNN MD; IVAN COOK MD;*EndCC*
[2018-10-23] MEDS ORDERED: ACETAZOLAMIDE 500 MG INJ IV ONE (08:30)
--- NOTE | 2018-10-23 08:47 | CONS ---
Assessment/Plan Assessment/Plan Assessment/Plan (Daily) Assessment and recommendations; 1. Patient admitted with severe hypoxemic respiratory failure with left lower lobe atelectasis. 2. History of recent CABG about 5 weeks ago. 3. COPD. 4. Possible left lower lobe pneumonia. 5. Gram-positive bacteremia. 6. Mild CHF. Continue current supportive care. Continue current antibiotics as well as full dose Lovenox. Obtain CTA of the chest to rule out pulmonary embolism. Consultation Date/Type/Reason Admit Date/Time Oct 21, 2018 at 05:07 Initial Consult Date 10/22/18 Type of Consult Pulmonary Reason for Consultation Patient's condition is still tenuous. 100% FiO2 via high flow nasal cannula. Patient himself is complaining of significant improvement in shortness of breath. Denies any chest pain, coughing, wheezing, sputum production. General exam; middle-aged male, morbidly obese, sitting in a chair by bedside. Currently no distress. Awake and alert. Requesting Provider: VANCE FELDMAN DO Date/Time of Note DATE: 10/23/18 TIME: 08:45 Exam/Review of Systems Exam Vitals Vital Signs Date Temp Pulse Resp B/P (MAP) Pulse Ox O2 O2 Flow FiO2 Time Delivery Rate 10/23/18 97.0 55 15 119/73 95 High Flow 06:00 (88) Nasal Cannula 10/23/18 100 05:56 10/21/18 6.0 07:51 Intake and Output 10/22/18 10/22/18 10/23/18 1515:00 23:00 07:00 IntakeIntake Total 531.816 ml 433.334 ml 490 ml OutputOutput Total 580 ml 1020 ml 985 ml BalanceBalance -48.184 ml -586.666 ml -495 ml Exam H EENT exam; supple neck, no JVD. No lymphadenopathy. Midline trachea. No thyromegaly. Patient has a multiple carious teeth. No neck masses. Chest exam; diminished but clear breath sounds. S1-S2 audible, no murmurs. Regular rhythm. There is a well-healed sternal scar. Abdomen exam; protuberant. Nontender. Bowel sounds audible. Organomegaly difficult to assess. Extremity exam; no peripheral edema or clubbing. [employer] exam; no focal deficit. Results Result Diagram: 10/23/18 0447 10/23/18 044 Results 24hrs Laboratory Tests Test 10/22/18 10:00 10/22/18 22:00 10/22/18 22:52 10/23/18 04:47 White Blood Count 21.0 #H 13.9 #H Red Blood Count 3.79 L 3.82 L Hemoglobin 11.4 L 11.3 L Hematocrit 34.7 L 35.4 L Mean Corpuscular 91.6 92.7 Volume Mean Corpuscular 30.1 29.6 Hemoglobin Mean Corpuscular 32.9 31.9 L Hemoglobin Concent Red Cell 14.6 H 14.2 Distribution Width Platelet Count 258 # 205 # Mean Platelet Volume 9.1 8.8 Immature 0.400 0.600 H Granulocytes % Neutrophils % 82.2 H 90.8 H Lymphocytes % 8.5 L 6.3 L Monocytes % 8.5 2.2 Eosinophils % 0.2 0.0 Basophils % 0.2 0.1 Nucleated Red Blood 0.0 0.0 Cells % Immature 0.090 H 0.080 H Granulocytes # Neutrophils # 17.3 H 12.7 H Lymphocytes # 1.8 0.9 Monocytes # 1.8 H 0.3 Eosinophils # 0.1 0.0 Basophils # 0.1 0.0 Nucleated Red Blood 0.0 0.0 Cells # Urine Color YELLOW Urine Clarity CLEAR Urine pH 5.0 Urine Specific 1.019 [place] Urine Ketones NEGATIVE Urine Nitrite NEGATIVE Urine Bilirubin NEGATIVE Urine Urobilinogen 1+ H Urine Leukocyte NEGATIVE Esterase Urine Microscopic 0 RBC Urine Microscopic 2 WBC Urine Mucus FEW A Urine Hemoglobin 1+ H Urine Random 105.89 Creatinine Urine Random Sodium 29 L Urine Glucose NEGATIVE Urine Total Protein 9.0 Vancomycin Level 9.9 L Trough Sodium Level 140 Potassium Level 3.8 Chloride Level 98 Carbon Dioxide Level 32 H Anion Gap 10 Blood Urea Nitrogen 29 H Creatinine 0.55 L Est Glomerular > 60 Filtrat Rate mL/min Glucose Level 149 Calcium Level 8.4 Phosphorus Level 4.2 Magnesium Level 2.1 Medications Medication Current Medications Enoxaparin Sodium (Lovenox) 120 mg Q12 SC Last administered on 10/22/18at 21:40; Admin Dose 120 MG; Start 10/21/18 at 09:00 Acetaminophen (Tylenol Tab) 650 mg Q6H PRN PO MILD PAIN LEVEL 1-3; Start 10/21/18 at 08:30 Atorvastatin Calcium (Lipitor) 80 mg QHS PO Last administered on 10/22/18 21:22; Admin Dose 80 MG; Start 10/21/18 at 21:00 Nicotine (Nicoderm 7 Mg/ 24 Hr) 1 patch DAILY TRANSDERM Last administered on 10/22/18 08:38; Admin Dose 1 PATCH; Start 10/21/18 at 09:00 Aspirin (Aspirin) 325 mg DAILY PO Last administered on 10/22/18 08:46; Admin Dose 325 MG; Start 10/21/18 at 09:00 Furosemide (Lasix) 40 mg BID DIURETICS IV Last administered on 10/23/18 06:31; Admin Dose 40 MG; Start 10/21/18 at 09:00 Cefepime HCl 50 ml @ 100 mls/hr Q12 IVPB Last administered on 10/22/18 21:23; Admin Dose 100 MLS/HR; Start 10/21/18 at 21:00 Vancomycin HCl (Vanco Iv Per Pharmacy) VANCOMYCIN PER PHARMACY PER PROTOCOL XX ; Start 10/21/18 at 09:30 Amiodarone HCl 900 mg/Dextrose 500 ml @ 0 mls/hr Q0M IV Last administered on 10/21/18 11:32; Admin Dose 33.3 MLS/HR; Start 10/21/18 at 10:00 Albuterol/ Ipratropium (Duoneb) 3 ml Q6H RESP THERAPY PRN HHN SHORTNESS OF BREATH; Start 10/21/18 at 17:00 Miscellaneous Information (Pending [facility] Order For Wound Care) This patient mclean... PRN PRN XX WOUND CARE; Start 10/21/18 at 19:30 Lorazepam (Ativan) 1 mg Q8H PRN IV anxiety Last administered on 10/21/18 22:52; Admin Dose 1 MG; Start 10/21/18 at 21:30 Famotidine (Pepcid) 20 mg BID PO Last administered on 10/22/18 21:22; Admin Dose 20 MG; Start 10/22/18 at 09:00 Methylprednisolone Sodium Succinate (Solu-Medrol) 40 mg Q8 IV Last administered on 10/23/18 06:31; Admin Dose 40 MG; Start 10/22/18 at 14:00 Acetaminophen/ Hydrocodone Bitart ([place] (5/325)) 1 tab Q6H PRN PO MODERATE PAIN LEVEL 4-6 Last administered on 10/22/18at 16:13; Admin Dose 1 TAB; Start 10/22/18 at 16:30 Diltiazem HCl (Cardizem Cd) 120 mg DAILY PO Last administered on 10/22/18at 17:47; Admin Dose 120 MG; Start 10/22/18 at 17:30 Amiodarone HCl (Cordarone) 400 mg BID PO Last administered on 10/22/18at 23:56; Admin Dose 400 MG; Start 10/22/18 at 16:30 Morphine Sulfate (morphine) 2 mg Q6H PRN IV SEVERE PAIN LEVEL 7-10; Start 10/22/18 at 18:30 Vancomycin HCl 1.75 gm/Sodium Chloride 500 ml @ 125 mls/hr Q12H IVPB ; Start 10/23/18 at 12:00 GLORIA SANCHEZ Oct 23, 2018 08:47
[2018-10-23] MEDS: ASPIRIN 325 MG TAB PO SCH (09:03)
[2018-10-23] MEDS: FAMOTIDINE 20 MG TAB PO SCH ×2 (09:03→20:48)
[2018-10-23] MEDS: DILTIAZEM (CD) 120 MG CAP PO SCH (09:04)
[2018-10-23] MEDS: AMIODARONE 200 MG TAB PO SCH ×2 (09:05→20:48)
[2018-10-23] MEDS: CEFEPIME 1GM/50 ML (PMX) 50 ML IVPB SCH ×2 (09:06→20:48)
[2018-10-23] MEDS: NICOTINE (7 MG/24 HR) PATCH TRANSDERM SCH (09:13)
[2018-10-23] MEDS: ENOXAPARIN 100 MG/ML SYG SC SCH ×2 (09:16→20:49)
[2018-10-23] MEDS: VANCOMYCIN HCL 1.75 GM in SOD CHLORIDE 0.9% 500 ML IVPB SCH ×2 (11:47→23:30)
--- NOTE | 2018-10-23 11:49 | CONS ---
Assessment/Plan Assessment/Plan Hospital Course (Demo Recall) Patient is alert sitting up in a chair denies pain and looks comfortable states that he feels okay he is in no distress. at bedside. WBC today 13.9 platelets 205 neutrophils 90.8 BUN 29 creatinine 0.55 Microbiology: Blood cultures on admission grew gram-positive cocci in clusters, MRSA swab negative Chest x-ray from yesterday revealed cardiomegaly pulmonary vascular congestion stable lower lung infiltrates with moderate left pleural effusion and small right pleural effusion Antimicrobials: Vancomycin, cefepime Plan: This is a well-developed obese middle-aged man who is awake in no distress. Head atraumatic normocephalic sclera nonicteric neck is supple. Chest rise symmetrical breath sounds diminished to bases. Heart: S1-S2. Abdomen soft bowel sounds present. Extremities without cyanosis. Skin: Patient has well-healed midsternal scar there is an area of swelling upper part of incision no pain, no fluctuance Assessment: 1. Acute hypoxemic respiratory failure secondary to CHF exacerbation and pneumonia 2. Gram-positive cocci bacteremia==> no vegetations per 2D echo 3. Coronary artery disease with a history of CABG and aortic valve replacement 4. COPD exacerbation 5. Diabetes 6. Obesity Plan: The patient is stable, we are going to repeat blood cultures, continue on current antibiotics, follow pulmonary and cardiology recommendations. Consultation Date/Type/Reason Admit Date/Time Oct 21, 2018 at 05:07 Initial Consult Date 10/22/18 Type of Consult id Requesting Provider: VANCE FELDMAN DO Date/Time of Note DATE: 10/23/18 TIME: 11:49 Exam/Review of Systems Exam Vitals Vital Signs Date Temp Pulse Resp B/P (MAP) Pulse Ox O2 O2 Flow FiO2 Time Delivery Rate 10/23/18 78 38 129/92 87 High Flow 10:00 (104) 10/23/18 98.3 08:00 10/23/18 100 05:56 10/21/18 6.0 07:51 Intake and Output 10/22/18 10/22/18 10/23/18 1414:59 22:59 06:59 IntakeIntake Total 465.183 ml 516.667 ml 490 ml OutputOutput Total 580 ml 1020 ml 360 ml BalanceBalance -114.817 ml -503.333 ml 130 ml Results Result Diagram: 10/23/18 0447 10/23/18 0447 Results 24hrs Laboratory Tests Test 10/22/18 22:00 10/22/18 22:52 10/23/18 04:47 Urine Color YELLOW Urine Clarity CLEAR Urine pH 5.0 Urine Specific [place] 1.019 Urine Ketones NEGATIVE Urine Nitrite NEGATIVE Urine Bilirubin NEGATIVE Urine Urobilinogen 1+ H Urine Leukocyte Esterase NEGATIVE Urine Microscopic RBC 0 Urine Microscopic WBC 2 Urine Mucus FEW A Urine Hemoglobin 1+ H Urine Random Creatinine 105.89 Urine Random Sodium 29 L Urine Glucose NEGATIVE Urine Total Protein 9.0 Vancomycin Level Trough 9.9 L White Blood Count 13.9 #H Red Blood Count 3.82 L Hemoglobin 11.3 L Hematocrit 35.4 L Mean Corpuscular Volume 92.7 Mean Corpuscular Hemoglobin 29.6 Mean Corpuscular Hemoglobin Concent 31.9 L Red Cell Distribution Width 14.2 Platelet Count 205 # Mean Platelet Volume 8.8 Immature Granulocytes % 0.600 H Neutrophils % 90.8 H Lymphocytes % 6.3 L Monocytes % 2.2 Eosinophils % 0.0 Basophils % 0.1 Nucleated Red Blood Cells % 0.0 Immature Granulocytes # 0.080 H Neutrophils # 12.7 H Lymphocytes # 0.9 Monocytes # 0.3 Eosinophils # 0.0 Basophils # 0.0 Nucleated Red Blood Cells # 0.0 Sodium Level 140 Potassium Level 3.8 Chloride Level 98 Carbon Dioxide Level 32 H Anion Gap 10 Blood Urea Nitrogen 29 H Creatinine 0.55 L Est Glomerular Filtrat Rate mL/min > 60 Glucose Level 149 Calcium Level 8.4 Phosphorus Level 4.2 Magnesium Level 2.1 Medications Medication Current Medications Enoxaparin Sodium (Lovenox) 120 mg Q12 SC Last administered on 10/23/18at 09:16; Admin Dose 120 MG; Start 10/21/18 at 09:00 Acetaminophen (Tylenol Tab) 650 mg Q6H PRN PO MILD PAIN LEVEL 1-3; Start 10/21/18 at 08:30 Atorvastatin Calcium (Lipitor) 80 mg QHS PO Last administered on 10/22/18at 21:22; Admin Dose 80 MG; Start 10/21/18 at 21:00 Nicotine (Nicoderm 7 Mg/ 24 Hr) 1 patch DAILY TRANSDERM Last administered on 10/23/18at 09:13; Admin Dose 1 PATCH; Start 10/21/18 at 09:00 Aspirin (Aspirin) 325 mg DAILY PO Last administered on 10/23/18 09:03; Admin Dose 325 MG; Start 10/21/18 at 09:00 Furosemide (Lasix) 40 mg BID DIURETICS IV Last administered on 10/23/18 06:31; Admin Dose 40 MG; Start 10/21/18 at 09:00 Cefepime HCl 50 ml @ 100 mls/hr Q12 IVPB Last administered on 10/23/18 09:06; Admin Dose 100 MLS/HR; Start 10/21/18 at 21:00 Vancomycin HCl (Vanco Iv Per Pharmacy) VANCOMYCIN PER PHARMACY PER PROTOCOL XX ; Start 10/21/18 at 09:30 Amiodarone HCl 900 mg/Dextrose 500 ml @ 0 mls/hr Q0M IV Last administered on 10/21/18 11:32; Admin Dose 33.3 MLS/HR; Start 10/21/18 at 10:00 Albuterol/ Ipratropium (Duoneb) 3 ml Q6H RESP THERAPY PRN HHN SHORTNESS OF BREATH; Start 10/21/18 at 17:00 Miscellaneous Information (Pending [facility] Order For Wound Care) This patient mclean... PRN PRN XX WOUND CARE; Start 10/21/18 at 19:30 Lorazepam (Ativan) 1 mg Q8H PRN IV anxiety Last administered on 10/21/18 22:52; Admin Dose 1 MG; Start 10/21/18 at 21:30 Famotidine (Pepcid) 20 mg BID PO Last administered on 10/23/18 09:03; Admin Dose 20 MG; Start 10/22/18 at 09:00 Methylprednisolone Sodium Succinate (Solu-Medrol) 40 mg Q8 IV Last administered on 10/23/18 06:31; Admin Dose 40 MG; Start 10/22/18 at 14:00 Acetaminophen/ Hydrocodone Bitart ([place] (5/325)) 1 tab Q6H PRN PO MODERATE PAIN LEVEL 4-6 Last administered on 10/22/18 16:13; Admin Dose 1 TAB; Start 10/22/18 at 16:30 Diltiazem HCl (Cardizem Cd) 120 mg DAILY PO Last administered on 10/23/18 09:04; Admin Dose 120 MG; Start 10/22/18 at 17:30 Amiodarone HCl (Cordarone) 400 mg BID PO Last administered on 10/23/18at 09:05; Admin Dose 400 MG; Start 10/22/18 at 16:30 Morphine Sulfate (morphine) 2 mg Q6H PRN IV SEVERE PAIN LEVEL 7-10; Start 10/22/18 at 18:30 Vancomycin HCl 1.75 gm/Sodium Chloride 500 ml @ 125 mls/hr Q12H IVPB Last administered on 10/23/18at 11:47; Admin Dose 125 MLS/HR; Start 10/23/18 at 12:00 JUAN CARLOS ROLDAN NP Oct 23, 2018 11:49
--- NOTE | 2018-10-23 13:37 | CONS ---
Assessment/Plan Cardiology NYHA: IV Heart Failure Type: Acute on Chronic Heart Failure Type: Diastolic Assessment/Plan Hospital Course (Demo Recall) Acute respiratory failure: Likely multifactorial including CHF exacerbation, COPD, and left pleural effusion. Still high O2 requirements so being evaluated for PE Bacteremia: GPC. Contaminant vs true infection. If true staph infection, may need MYRA to evaluate AV as it is poorly seen on TTE Acute on chronic diastolic CHF: EF remains preserved though poor study. Decompensated on exam but improving Acute on chronic COPD with exacerbation Left pleural effusion Paroxysmal atrial fibrillation/flutter: very common post cardiac surgery, however this is no longer the acute stage and so anticoagulation nursing home is appropriate. Now back in sinus after amiodarone CAD s/p CABG: s/p CABG x5 10/04/2018, [place] to LAD, SVG to PDA, SVG to diagonal artery sequence to OM1 sequenced to OM2. No angina and trops negative HTN HL DM Tobacco use -f/u chest CTA. If no PE and still with large effusion, ?thoracentesis -f/u blood cultures -continue lasix 40mg IV BID -steroids per pulm -amiodarone 400mg PO BID, taper to 200mg on discharge -ASA 325mg -lipitor 80mg -diltiazem 120mg instead of metoprolol with COPD -After all procedures completed, switch lovenox to Eliquis 5mg BID and decrease ASA to 81mg daily Consultation Date/Type/Reason Admit Date/Time Oct 21, 2018 at 05:07 Initial Consult Date 10/22/18 Type of Consult Cardiology Requesting Provider: VANCE FELDMAN DO Date/Time of Note DATE: 10/23/18 TIME: 13:34 24 HR Interval Summary Free Text/Dictation Feels like he is improvingand he has less cough. However remains on high O2 requirements. Chest CTA has been ordered for evaluation of PE. Exam/Review of Systems Vital Signs Vitals Vital Signs Date Temp Pulse Resp B/P (MAP) Pulse Ox O2 O2 Flow FiO2 Time Delivery Rate 10/23/18 97.6 70 26 139/72 91 High Flow 12:00 (94) 10/23/18 100 05:56 10/21/18 6.0 07:51 Intake and Output 10/22/18 10/22/18 10/23/18 1515:00 23:00 07:00 IntakeIntake Total 531.816 ml 433.334 ml 490 ml OutputOutput Total 580 ml 1020 ml 985 ml BalanceBalance -48.184 ml -586.666 ml -495 ml Exam Constitutional: alert, oriented, distress (mild) Psych: no complaints, nl mood/affect Neck: jvd (8cm) Respiratory: crackles/rales, diminished breath sounds; No clear to auscultation Cardiovascular: regular rate and rhythm, edema (1+), systolic murmur (2/6 JONATHAN) Gastrointestinal: soft, non-tender; No distended Neurological: nl mental status, nl speech Labs Result Diagram: 10/23/187 10/23/187 Results 24hrs Laboratory Tests Test 10/22/18 22:00 10/22/18 22:52 10/23/18 04:47 Urine Color YELLOW Urine Clarity CLEAR Urine pH 5.0 Urine Specific [place] 1.019 Urine Ketones NEGATIVE Urine Nitrite NEGATIVE Urine Bilirubin NEGATIVE Urine Urobilinogen 1+ H Urine Leukocyte Esterase NEGATIVE Urine Microscopic RBC 0 Urine Microscopic WBC 2 Urine Mucus FEW A Urine Hemoglobin 1+ H Urine Random Creatinine 105.89 Urine Random Sodium 29 L Urine Glucose NEGATIVE Urine Total Protein 9.0 Vancomycin Level Trough 9.9 L White Blood Count 13.9 #H Red Blood Count 3.82 L Hemoglobin 11.3 L Hematocrit 35.4 L Mean Corpuscular Volume 92.7 Mean Corpuscular Hemoglobin 29.6 Mean Corpuscular Hemoglobin Concent 31.9 L Red Cell Distribution Width 14.2 Platelet Count 205 # Mean Platelet Volume 8.8 Immature Granulocytes % 0.600 H Neutrophils % 90.8 H Lymphocytes % 6.3 L Monocytes % 2.2 Eosinophils % 0.0 Basophils % 0.1 Nucleated Red Blood Cells % 0.0 Immature Granulocytes # 0.080 H Neutrophils # 12.7 H Lymphocytes # 0.9 Monocytes # 0.3 Eosinophils # 0.0 Basophils # 0.0 Nucleated Red Blood Cells # 0.0 Sodium Level 140 Potassium Level 3.8 Chloride Level 98 Carbon Dioxide Level 32 H Anion Gap 10 Blood Urea Nitrogen 29 H Creatinine 0.55 L Est Glomerular Filtrat Rate mL/min > 60 Glucose Level 149 Calcium Level 8.4 Phosphorus Level 4.2 Magnesium Level 2.1 Medications Medications Current Medications Enoxaparin Sodium (Lovenox) 120 mg Q12 SC Last administered on 10/23/18 09:16; Admin Dose 120 MG; Start 10/21/18 at 09:00 Acetaminophen (Tylenol Tab) 650 mg Q6H PRN PO MILD PAIN LEVEL 1-3; Start 10/21/18 at 08:30 Atorvastatin Calcium (Lipitor) 80 mg QHS PO Last administered on 10/22/18 21:22; Admin Dose 80 MG; Start 10/21/18 at 21:00 Nicotine (Nicoderm 7 Mg/ 24 Hr) 1 patch DAILY TRANSDERM Last administered on 10/23/18 09:13; Admin Dose 1 PATCH; Start 10/21/18 at 09:00 Aspirin (Aspirin) 325 mg DAILY PO Last administered on 10/23/18 09:03; Admin Dose 325 MG; Start 10/21/18 at 09:00 Furosemide (Lasix) 40 mg BID DIURETICS IV Last administered on 10/23/18 06:31; Admin Dose 40 MG; Start 10/21/18 at 09:00 Cefepime HCl 50 ml @ 100 mls/hr Q12 IVPB Last administered on 10/23/18 09:06; Admin Dose 100 MLS/HR; Start 10/21/18 at 21:00 Vancomycin HCl (Vanco Iv Per Pharmacy) VANCOMYCIN PER PHARMACY PER PROTOCOL XX ; Start 10/21/18 at 09:30 Amiodarone HCl 900 mg/Dextrose 500 ml @ 0 mls/hr Q0M IV Last administered on 10/21/18 11:32; Admin Dose 33.3 MLS/HR; Start 10/21/18 at 10:00 Albuterol/ Ipratropium (Duoneb) 3 ml Q6H RESP THERAPY PRN HHN SHORTNESS OF BREATH; Start 10/21/18 at 17:00 Miscellaneous Information (Pending Santyl Order For Wound Care) This patient mclean... PRN PRN XX WOUND CARE; Start 10/21/18 at 19:30 Lorazepam (Ativan) 1 mg Q8H PRN IV anxiety Last administered on 10/21/18 22:52; Admin Dose 1 MG; Start 10/21/18 at 21:30 Famotidine (Pepcid) 20 mg BID PO Last administered on 10/23/18 09:03; Admin Dose 20 MG; Start 10/22/18 at 09:00 Methylprednisolone Sodium Succinate (Solu-Medrol) 40 mg Q8 IV Last administered on 10/23/18 06:31; Admin Dose 40 MG; Start 10/22/18 at 14:00 Acetaminophen/ Hydrocodone Bitart ([place] (5/325)) 1 tab Q6H PRN PO MODERATE PAIN LEVEL 4-6 Last administered on 10/22/18 16:13; Admin Dose 1 TAB; Start 10/22/18 at 16:30 Diltiazem HCl (Cardizem Cd) 120 mg DAILY PO Last administered on 10/23/18 09:04; Admin Dose 120 MG; Start 10/22/18 at 17:30 Amiodarone HCl (Cordarone) 400 mg BID PO Last administered on 10/23/18at 09:05; Admin Dose 400 MG; Start 10/22/18 at 16:30 Morphine Sulfate (morphine) 2 mg Q6H PRN IV SEVERE PAIN LEVEL 7-10; Start 10/22/18 at 18:30 Vancomycin HCl 1.75 gm/Sodium Chloride 500 ml @ 125 mls/hr Q12H IVPB Last administered on 10/23/18at 11:47; Admin Dose 125 MLS/HR; Start 10/23/18 at 12:00 VANESA RUIZ Oct 23, 2018 13:37
[2018-10-23] MEDS: ATORVASTATIN 80 MG TAB PO SCH (20:47)
[2018-10-24] VITALS (24 sets, daily range): BP systolic 113–156; BP diastolic 58–133; PULSE 54–84; RESP 14–33
[2018-10-24] MEDS: FUROSEMIDE 40 MG INJ IV SCH ×2 (05:19→18:05)
[2018-10-24] MEDS: METHYLPREDNISOLONE 40 MG INJ IV SCH ×3 (05:19→21:28)
[2018-10-24] MEDS ORDERED: ACETAZOLAMIDE 500 MG INJ IV ONE (08:30)
[2018-10-24] MEDS: CEFEPIME 1GM/50 ML (PMX) 50 ML IVPB SCH ×2 (09:21→21:28)
[2018-10-24] MEDS: ASPIRIN 325 MG TAB PO SCH (09:22)
[2018-10-24] MEDS: DILTIAZEM (CD) 120 MG CAP PO SCH (09:22)
[2018-10-24] MEDS: FAMOTIDINE 20 MG TAB PO SCH ×2 (09:22→21:28)
[2018-10-24] MEDS: AMIODARONE 200 MG TAB PO SCH ×2 (09:23→21:28)
[2018-10-24] MEDS: ENOXAPARIN 100 MG/ML SYG SC SCH (09:24)
--- NOTE | 2018-10-24 10:55 | CONS ---
Consult Date/Type/Reason Admit Date/Time Oct 21, 2018 at 05:07 Initial Consult Date 10/22/18 Type of Consult Pulmonary Requesting Provider: VANCE FELDMAN DO Date/Time of Note DATE: 10/24/18 TIME: 10:53 Subjective Slowly improving. Patient states his breathing is better today. FiO2 is being decreased. Awake alert oriented sitting in chair out of bed. Objective Vital Signs Date Temp Pulse Resp B/P (MAP) Pulse Ox O2 O2 Flow FiO2 Time Delivery Rate 10/24/18 59 08:00 10/24/18 18 125/65 97 High Flow 06:00 (85) 10/24/18 100 04:30 10/24/18 98.0 04:00 10/21/18 6.0 07:51 Intake and Output 10/23/18 10/23/18 10/24/18 1515:00 23:00 07:00 IntakeIntake Total 410 ml 985 ml 520.0 ml OutputOutput Total 800 ml 925 ml 700 ml BalanceBalance -390 ml 60 ml -180.0 ml Exam PHYSICAL EXAMINATION: GENERAL: Well-nourished, well-developed gentleman, awake, alert, oriented, sitting up in chair, no respiratory distress but on 100% high flow O2. VITAL SIGNS: NECK: Supple. No JVD or lymphadenopathy. CARDIAC: S1, S2, no added sounds or murmurs. CHEST: Diminished air entry bilaterally. ABDOMEN: Soft, nontender. No guarding or rebound. EXTREMITIES: No cyanosis, clubbing, or edema. NEUROLOGIC: Grossly intact. No focal deficits. Vent Setting Fraction of Inspired Oxygen pe: 100 Results/Medications Result Diagram: 10/24/18 0429 10/24/18 0429 Results 24 hrs Laboratory Tests Test 10/24/18 04:29 White Blood Count 19.4 #H Red Blood Count 3.80 L Hemoglobin 11.4 L Hematocrit 35.5 L Mean Corpuscular Volume 93.4 Mean Corpuscular Hemoglobin 30.0 Mean Corpuscular Hemoglobin Concent 32.1 Red Cell Distribution Width 14.2 Platelet Count 214 Mean Platelet Volume 8.8 Immature Granulocytes % 0.800 H Neutrophils % 89.3 H Lymphocytes % 6.9 L Monocytes % 2.9 Eosinophils % 0.0 Basophils % 0.1 Nucleated Red Blood Cells % 0.0 Immature Granulocytes # 0.160 H Neutrophils # 17.3 H Lymphocytes # 1.3 Monocytes # 0.6 Eosinophils # 0.0 Basophils # 0.0 Nucleated Red Blood Cells # 0.0 Sodium Level 142 Potassium Level 4.1 Chloride Level 104 Carbon Dioxide Level 30 Anion Gap 8 Blood Urea Nitrogen 26 H Creatinine 0.79 Est Glomerular Filtrat Rate mL/min > 60 Glucose Level 158 Calcium Level 9.0 Phosphorus Level 3.7 Magnesium Level 2.4 Medications Current Medications Enoxaparin Sodium (Lovenox) 120 mg Q12 SC Last administered on 10/24/18 09:24; Admin Dose 120 MG; Start 10/21/18 at 09:00 Acetaminophen (Tylenol Tab) 650 mg Q6H PRN PO MILD PAIN LEVEL 1-3; Start 10/21/18 at 08:30 Atorvastatin Calcium (Lipitor) 80 mg QHS PO Last administered on 10/23/18 20:47; Admin Dose 80 MG; Start 10/21/18 at 21:00 Nicotine (Nicoderm 7 Mg/ 24 Hr) 1 patch DAILY TRANSDERM Last administered on 10/23/18 09:13; Admin Dose 1 PATCH; Start 10/21/18 at 09:00 Aspirin (Aspirin) 325 mg DAILY PO Last administered on 10/24/18 09:22; Admin Dose 325 MG; Start 10/21/18 at 09:00 Furosemide (Lasix) 40 mg BID DIURETICS IV Last administered on 10/24/18 05:19; Admin Dose 40 MG; Start 10/21/18 at 09:00 Cefepime HCl 50 ml @ 100 mls/hr Q12 IVPB Last administered on 10/24/18 09:21; Admin Dose 100 MLS/HR; Start 10/21/18 at 21:00 Vancomycin HCl (Vanco Iv Per Pharmacy) VANCOMYCIN PER PHARMACY PER PROTOCOL XX ; Start 10/21/18 at 09:30 Albuterol/ Ipratropium (Duoneb) 3 ml Q6H RESP THERAPY PRN HHN SHORTNESS OF BREATH; Start 10/21/18 at 17:00 Miscellaneous Information (Pending Santyl Order For Wound Care) This patient mclean... PRN PRN XX WOUND CARE; Start 10/21/18 at 19:30 Lorazepam (Ativan) 1 mg Q8H PRN IV anxiety Last administered on 10/21/18at 22:52; Admin Dose 1 MG; Start 10/21/18 at 21:30 Famotidine (Pepcid) 20 mg BID PO Last administered on 10/24/18at 09:22; Admin Dose 20 MG; Start 10/22/18 at 09:00 Methylprednisolone Sodium Succinate (Solu-Medrol) 40 mg Q8 IV Last administered on 10/24/18at 05:19; Admin Dose 40 MG; Start 10/22/18 at 14:00 Acetaminophen/ Hydrocodone Bitart ([place] (5/325)) 1 tab Q6H PRN PO MODERATE PAIN LEVEL 4-6 Last administered on 10/22/18at 16:13; Admin Dose 1 TAB; Start 10/22/18 at 16:30 Diltiazem HCl (Cardizem Cd) 120 mg DAILY PO Last administered on 10/24/18at 09:22; Admin Dose 120 MG; Start 10/22/18 at 17:30 Amiodarone HCl (Cordarone) 400 mg BID PO Last administered on 10/24/18at 09:23; Admin Dose 400 MG; Start 10/22/18 at 16:30 Morphine Sulfate (morphine) 2 mg Q6H PRN IV SEVERE PAIN LEVEL 7-10; Start 10/22/18 at 18:30 Vancomycin HCl 1.75 gm/Sodium Chloride 500 ml @ 125 mls/hr Q12H IVPB Last administered on 10/23/18at 23:30; Admin Dose 125 MLS/HR; Start 10/23/18 at 12:00 Assessment/Plan Hospital Course (Demo Recall) IMPRESSION 1. Acute hypoxemic respiratory failure, likely secondary to combination of c hronic obstructive pulmonary disease exacerbation. 2. Congestive cardiac failure. 3. Postop atelectasis and possible effusion. Plan 1. Supplemental O2. Titrate to keep sats greater than 92. 2. Antibiotics, currently on cefepime and vancomycin. 3. Rate control per cardiology. 4. Short course of steroids. 5. Diuretics. 6. Possible ultrasound thoracentesis of left pleural effusion. Repeat chest x- ray in a.m., Ultrasound left lung. Critical care time 40 minutes. IVAN COOK MD, [facility] Oct 24, 2018 10:54
--- NOTE | 2018-10-24 13:04 | CONS ---
Assessment/Plan Assessment/Plan Hospital Course (Demo Recall) Alert, feels good still on high flow oxygen, no fevers overnight Microbiology: Blood cultures on admission grew gram-positive cocci in clusters, MRSA swab negative Chest x-ray from yesterday revealed cardiomegaly pulmonary vascular congestion stable lower lung infiltrates with moderate left pleural effusion and small right pleural effusion Antimicrobials: Vancomycin, cefepime Plan: This is a well-developed obese middle-aged man who is awake in no distress. Head atraumatic normocephalic sclera nonicteric neck is supple. Chest rise symmetrical breath sounds diminished to bases. Heart: S1-S2. Abdomen soft bowel sounds present. Extremities without cyanosis. Skin: Patient has well-healed midsternal scar there is an area of swelling upper part of incision no pain, no fluctuance Assessment: 1. Acute hypoxemic respiratory failure secondary to CHF exacerbation and pneumonia 2. Gram-positive cocci bacteremia==> no vegetations per 2D echo 3. Coronary artery disease with a history of CABG and aortic valve replacement 4. COPD exacerbation 5. Diabetes 6. Obesity Plan: The patient is stable, continue antibiotics, follow repeat blood cultures, pulmonary and cardiology recommendations. Consultation Date/Type/Reason Admit Date/Time Oct 21, 2018 at 05:07 Initial Consult Date 10/22/18 Type of Consult id Requesting Provider: VANCE FELDMAN DO Date/Time of Note DATE: 10/24/18 TIME: 13:03 Exam/Review of Systems Exam Vitals Vital Signs Date Temp Pulse Resp B/P (MAP) Pulse Ox O2 O2 Flow FiO2 Time Delivery Rate 10/24/18 60 12:00 10/24/18 18 125/65 97 High Flow 06:00 (85) 10/24/18 100 04:30 10/24/18 98.0 04:00 10/21/18 6.0 07:51 Intake and Output 10/23/18 10/23/18 10/24/18 1515:00 23:00 07:00 IntakeIntake Total 410 ml 985 ml 520.0 ml OutputOutput Total 800 ml 925 ml 700 ml BalanceBalance -390 ml 60 ml -180.0 ml Results Result Diagram: 10/24/18 0429 10/24/18 0429 Results 24hrs Laboratory Tests Test 10/24/18 04:29 White Blood Count 19.4 #H Red Blood Count 3.80 L Hemoglobin 11.4 L Hematocrit 35.5 L Mean Corpuscular Volume 93.4 Mean Corpuscular Hemoglobin 30.0 Mean Corpuscular Hemoglobin Concent 32.1 Red Cell Distribution Width 14.2 Platelet Count 214 Mean Platelet Volume 8.8 Immature Granulocytes % 0.800 H Neutrophils % 89.3 H Lymphocytes % 6.9 L Monocytes % 2.9 Eosinophils % 0.0 Basophils % 0.1 Nucleated Red Blood Cells % 0.0 Immature Granulocytes # 0.160 H Neutrophils # 17.3 H Lymphocytes # 1.3 Monocytes # 0.6 Eosinophils # 0.0 Basophils # 0.0 Nucleated Red Blood Cells # 0.0 Sodium Level 142 Potassium Level 4.1 Chloride Level 104 Carbon Dioxide Level 30 Anion Gap 8 Blood Urea Nitrogen 26 H Creatinine 0.79 Est Glomerular Filtrat Rate mL/min > 60 Glucose Level 158 Calcium Level 9.0 Phosphorus Level 3.7 Magnesium Level 2.4 Medications Medication Current Medications Enoxaparin Sodium (Lovenox) 120 mg Q12 SC Last administered on 10/24/18 09:24; Admin Dose 120 MG; Start 10/21/18 at 09:00 Acetaminophen (Tylenol Tab) 650 mg Q6H PRN PO MILD PAIN LEVEL 1-3; Start 10/21/18 at 08:30 Atorvastatin Calcium (Lipitor) 80 mg QHS PO Last administered on 10/23/18at 20:47; Admin Dose 80 MG; Start 10/21/18 at 21:00 Nicotine (Nicoderm 7 Mg/ 24 Hr) 1 patch DAILY TRANSDERM Last administered on 10/23/18 09:13; Admin Dose 1 PATCH; Start 10/21/18 at 09:00 Aspirin (Aspirin) 325 mg DAILY PO Last administered on 10/24/18 09:22; Admin Dose 325 MG; Start 10/21/18 at 09:00 Furosemide (Lasix) 40 mg BID DIURETICS IV Last administered on 10/24/18 05:19; Admin Dose 40 MG; Start 10/21/18 at 09:00 Cefepime HCl 50 ml @ 100 mls/hr Q12 IVPB Last administered on 10/24/18 09:21; Admin Dose 100 MLS/HR; Start 10/21/18 at 21:00 Vancomycin HCl (Vanco Iv Per Pharmacy) VANCOMYCIN PER PHARMACY PER PROTOCOL XX ; Start 10/21/18 at 09:30 Albuterol/ Ipratropium (Duoneb) 3 ml Q6H RESP THERAPY PRN HHN SHORTNESS OF BREATH; Start 10/21/18 at 17:00 Miscellaneous Information (Pending [facility] Order For Wound Care) This patient mclean... PRN PRN XX WOUND CARE; Start 10/21/18 at 19:30 Lorazepam (Ativan) 1 mg Q8H PRN IV anxiety Last administered on 10/21/18at 22:52; Admin Dose 1 MG; Start 10/21/18 at 21:30 Famotidine (Pepcid) 20 mg BID PO Last administered on 10/24/18 09:22; Admin Dose 20 MG; Start 10/22/18 at 09:00 Methylprednisolone Sodium Succinate (Solu-Medrol) 40 mg Q8 IV Last administered on 10/24/18 05:19; Admin Dose 40 MG; Start 10/22/18 at 14:00 Acetaminophen/ Hydrocodone Bitart ([place] (5/325)) 1 tab Q6H PRN PO MODERATE PAIN LEVEL 4-6 Last administered on 10/22/18at 16:13; Admin Dose 1 TAB; Start 10/22/18 at 16:30 Diltiazem HCl (Cardizem Cd) 120 mg DAILY PO Last administered on 10/24/18 09:22; Admin Dose 120 MG; Start 10/22/18 at 17:30 Amiodarone HCl (Cordarone) 400 mg BID PO Last administered on 10/24/18 09:23; Admin Dose 400 MG; Start 10/22/18 at 16:30 Morphine Sulfate (morphine) 2 mg Q6H PRN IV SEVERE PAIN LEVEL 7-10; Start 10/22/18 at 18:30 Vancomycin HCl 1.75 gm/Sodium Chloride 500 ml @ 125 mls/hr Q12H IVPB Last administered on 10/23/18 23:30; Admin Dose 125 MLS/HR; Start 10/23/18 at 12:00 JUAN CARLOS ROLDAN NP Oct 24, 2018 13:04
[2018-10-24] MEDS: NICOTINE (7 MG/24 HR) PATCH TRANSDERM SCH (13:10)
[2018-10-24] MEDS: VANCOMYCIN HCL 1.75 GM in SOD CHLORIDE 0.9% 500 ML IVPB SCH (13:12)
--- NOTE | 2018-10-24 13:31 | PN ---
DATE: 10/24/2018 SUBJECTIVE: The patient remains on high flow oxygen. The patient is unable to lie supine. No other acute events noted. No hemoptysis, hematemesis, hematochezia. The patient has had adequate urinary output. OBJECTIVE: VITAL SIGNS: Blood pressure is 125/65, respiration 19, pulse 68, temperature 98.0. HEENT: Head is normocephalic. NECK: Supple. HEART: Regular rate. LUNGS: Show diminished breath sounds at the base, improving. ABDOMEN: Soft, nontender to palpation without rebound or guarding. EXTREMITIES: Negative for clubbing, cyanosis. Positive edema. DERMATOLOGIC: No rashes. MUSCULOSKELETAL: No joint effusions. NEUROLOGIC: No change in exam. MEDICATIONS: The patient's medications have been reviewed. LABORATORY DATA: Shows sodium 142, potassium 4.1, chloride 104, bicarb 30, BUN 26, creatinine 0.79. White count 19.4, hemoglobin 11.4, platelet count is 214. The patient's blood cultures grew out coa g-negative staph. ASSESSMENT AND PLAN: 1. Acute hypoxemic respiratory failure. Etiology is multifactorial secondary to congestive heart fa ilure exacerbation, COPD exacerbation, possible pneumonia, questionable PE. The patient remains on h igh-flow oxygen. Continue to titrate off if possible. Would otherwise continue antibiotics, diureti cs, nebulizers. Possible CT angio if the patient is stable. Continue anticoagulation. Follow up pulmonary. 2. Bacteremia, possible sepsis. The patient grew out coag-negative staph. Unclear if this is a con taminant. Continue broad spectrum antibiotics. Repeat cultures are pending. Follow up with infecti ous disease. 3. Acute diastolic heart failure. The patient remains volume overloaded, although clinically improv ing. Continue current diuretic regimen of Lasix 40 mg IV b.i.d. We will continue Diamox for underly ing alkalosis and to help augment diuresis. 4. Arrhythmia. The patient is currently in sinus rhythm. Continue amiodarone. 5. Coronary artery disease, status post 5-vessel CABG, currently stable. Continue aspirin. Continu e anticoagulation. Continue AV shantelle blockers. 6. Hypertension. Continue current blood pressure regimen. 7. Diabetes. Continue current insulin regimen. 8. History of tobacco use. Continue nicotine patch. 9. Anemia. Monitor hemoglobin and hematocrit levels. 10. Syncope, resolved. 11. Gastrointestinal and deep venous thrombosis prophylaxis. Please note I spent over 30 minutes of critical care time with this patient. Dictated By: VANCE FELDMAN DO NR/MARC Conf#: [id number] DID#: [id number] CC: RONY WYNN MD;*EndCC*
[2018-10-24] MEDS ORDERED: METOLAZONE 5 MG TAB PO ONE (15:00)
--- NOTE | 2018-10-24 15:01 | CONS ---
Assessment/Plan Cardiology NYHA: IV Heart Failure Type: Acute on Chronic Heart Failure Type: Diastolic Assessment/Plan Hospital Course (Demo Recall) Acute respiratory failure: Likely multifactorial including CHF exacerbation, COPD, and left pleural effusion. Still high O2 requirements but improving Coag negative staph bacteremia: likely contaminant. f/u ID recs Acute on chronic diastolic CHF: EF remains preserved though poor study. Decompensated on exam still Acute on chronic COPD with exacerbation Left pleural effusion Paroxysmal atrial fibrillation/flutter: very common post cardiac surgery, however this is no longer the acute stage and so anticoagulation m[facility]p is appropriate. Now back in sinus after amiodarone CAD s/p CABG: s/p CABG x5 10/04/2018, BILLINGSLEY to LAD, SVG to PDA, SVG to diagonal artery sequence to OM1 sequenced to OM2. No angina and trops negative HTN HL DM Tobacco use -one dose of metolazone 5mg today -continue lasix 40mg IV BID -agree with eval for thoracentesis -steroids per pulm -amiodarone 400mg PO BID, taper to 200mg on discharge -ASA 325mg -lipitor 80mg -diltiazem 120mg instead of metoprolol with COPD -After all procedures completed, switch lovenox to Eliquis 5mg BID and decrease ASA to 81mg daily Consultation Date/Type/Reason Admit Date/Time Oct 21, 2018 at 05:07 Initial Consult Date 10/22/18 Type of Consult Cardiology Requesting Provider: VANCE FELDMAN DO Date/Time of Note DATE: 10/24/18 TIME: 14:58 24 HR Interval Summary Free Text/Dictation FiO2 down to 75%. Feels better. Still with significant orthopnea so chest CT cancelled. Possible thoracentesis planned Exam/Review of Systems Vital Signs Vitals Vital Signs Date Temp Pulse Resp B/P (MAP) Pulse Ox O2 O2 Flow FiO2 Time Delivery Rate 10/24/18 97 75 13:10 10/24/18 62 24 135/69 High Flow 13:00 (91) 10/24/18 97.7 12:00 10/21/18 6.0 07:51 Intake and Output 10/23/18 10/23/18 10/24/18 1515:00 23:00 07:00 IntakeIntake Total 410 ml 985 ml 520.0 ml OutputOutput Total 800 ml 925 ml 700 ml BalanceBalance -390 ml 60 ml -180.0 ml Exam Constitutional: alert, oriented, distress (mild respiratory ) Head: normocephalic, atraumatic Neck: jvd (9-10cm) Respiratory: crackles/rales, diminished breath sounds; No clear to auscultation Cardiovascular: regular rate and rhythm, edema (2+), systolic murmur (2-3/6 JONATHAN) Gastrointestinal: soft, non-tender; No distended Neurological: nl mental status, nl speech Labs Result Diagram: 10/24/1842810/24/18428 Results 24hrs Laboratory Tests Test 10/24/18 04:29 White Blood Count 19.4 #H Red Blood Count 3.80 L Hemoglobin 11.4 L Hematocrit 35.5 L Mean Corpuscular Volume 93.4 Mean Corpuscular Hemoglobin 30.0 Mean Corpuscular Hemoglobin Concent 32.1 Red Cell Distribution Width 14.2 Platelet Count 214 Mean Platelet Volume 8.8 Immature Granulocytes % 0.800 H Neutrophils % 89.3 H Lymphocytes % 6.9 L Monocytes % 2.9 Eosinophils % 0.0 Basophils % 0.1 Nucleated Red Blood Cells % 0.0 Immature Granulocytes # 0.160 H Neutrophils # 17.3 H Lymphocytes # 1.3 Monocytes # 0.6 Eosinophils # 0.0 Basophils # 0.0 Nucleated Red Blood Cells # 0.0 Sodium Level 142 Potassium Level 4.1 Chloride Level 104 Carbon Dioxide Level 30 Anion Gap 8 Blood Urea Nitrogen 26 H Creatinine 0.79 Est Glomerular Filtrat Rate mL/min > 60 Glucose Level 158 Calcium Level 9.0 Phosphorus Level 3.7 Magnesium Level 2.4 Medications Medications Current Medications Enoxaparin Sodium (Lovenox) 120 mg Q12 SC Last administered on 10/24/18at 09:24; Admin Dose 120 MG; Start 10/21/18 at 09:00 Acetaminophen (Tylenol Tab) 650 mg Q6H PRN PO MILD PAIN LEVEL 1-3; Start 10/21 at 08:30 Atorvastatin Calcium (Lipitor) 80 mg QHS PO Last administered on 10/23/18at 20:47; Admin Dose 80 MG; Start 10/21/18 at 21:00 Nicotine (Nicoderm 7 Mg/ 24 Hr) 1 patch DAILY TRANSDERM Last administered on 10/24/18at 13:10; Admin Dose 1 PATCH; Start 10/21/18 at 09:00 Aspirin (Aspirin) 325 mg DAILY PO Last administered on 10/24/18 09:22; Admin Dose 325 MG; Start 10/21/18 at 09:00 Furosemide (Lasix) 40 mg BID DIURETICS IV Last administered on 10/24/18 05:19; Admin Dose 40 MG; Start 10/21/18 at 09:00 Cefepime HCl 50 ml @ 100 mls/hr Q12 IVPB Last administered on 10/24/18 09:21; Admin Dose 100 MLS/HR; Start 10/21/18 at 21:00 Vancomycin HCl (Vanco Iv Per Pharmacy) VANCOMYCIN PER PHARMACY PER PROTOCOL XX ; Start 10/21/18 at 09:30 Albuterol/ Ipratropium (Duoneb) 3 ml Q6H RESP THERAPY PRN HHN SHORTNESS OF BREATH; Start 10/21/18 at 17:00 Miscellaneous Information (Pending [facility] Order For Wound Care) This patient mclean... PRN PRN XX WOUND CARE; Start 10/21/18 at 19:30 Lorazepam (Ativan) 1 mg Q8H PRN IV anxiety Last administered on 10/21/18 22:52; Admin Dose 1 MG; Start 10/21/18 at 21:30 Famotidine (Pepcid) 20 mg BID PO Last administered on 10/24/18 09:22; Admin Dose 20 MG; Start 10/22/18 at 09:00 Methylprednisolone Sodium Succinate (Solu-Medrol) 40 mg Q8 IV Last administered on 10/24/18 14:28; Admin Dose 40 MG; Start 10/22/18 at 14:00 Acetaminophen/ Hydrocodone Bitart ([place] (5/325)) 1 tab Q6H PRN PO MODERATE PAIN LEVEL 4-6 Last administered on 10/22/18 16:13; Admin Dose 1 TAB; Start 10/22/18 at 16:30 Diltiazem HCl (Cardizem Cd) 120 mg DAILY PO Last administered on 10/24/18 09:22; Admin Dose 120 MG; Start 10/22/18 at 17:30 Amiodarone HCl (Cordarone) 400 mg BID PO Last administered on 10/24/18 09:23; Admin Dose 400 MG; Start 10/22/18 at 16:30 Morphine Sulfate (morphine) 2 mg Q6H PRN IV SEVERE PAIN LEVEL 7-10; Start 10/22/18 at 18:30 Vancomycin HCl 1.75 gm/Sodium Chloride 500 ml @ 125 mls/hr Q12H IVPB Last administered on 10/24/18at 13:12; Admin Dose 125 MLS/HR; Start 10/23/18 at 12:00 Miscellaneous Information (*Rx Drug Level Order Reminder*) VANCOMYCIN TROUGH AT 1100 ONCE ONCE XX ; Start 10/25/18 at 11:00; Stop 10/25/18 at 11:01 VANESA RUIZ Oct 24, 2018 15:01
[2018-10-24] MEDS: ATORVASTATIN 80 MG TAB PO SCH (21:28)
[2018-10-25] VITALS (21 sets, daily range): BP systolic 124–141; BP diastolic 60–115; PULSE 51–72; RESP 12–26
[2018-10-25] MEDS: VANCOMYCIN HCL 1.75 GM in SOD CHLORIDE 0.9% 500 ML IVPB SCH ×2 (00:02→12:17)
[2018-10-25] MEDS: METHYLPREDNISOLONE 40 MG INJ IV SCH ×3 (05:42→20:16)
[2018-10-25] MEDS: FUROSEMIDE 40 MG INJ IV SCH ×2 (05:43→17:34)
[2018-10-25] MEDS ORDERED: ACETAZOLAMIDE 500 MG INJ IV ONE (08:00)
[2018-10-25] MEDS: CEFEPIME 1GM/50 ML (PMX) 50 ML IVPB SCH ×2 (08:16→20:14)
[2018-10-25] MEDS: FAMOTIDINE 20 MG TAB PO SCH ×2 (08:19→20:16)
[2018-10-25] MEDS: DILTIAZEM (CD) 120 MG CAP PO SCH (08:19)
[2018-10-25] MEDS: AMIODARONE 200 MG TAB PO SCH ×2 (08:19→20:16)
[2018-10-25] MEDS: NICOTINE (7 MG/24 HR) PATCH TRANSDERM SCH (08:21)
--- NOTE | 2018-10-25 08:41 | PN ---
DATE: 10/25/2018 SUBJECTIVE: The patient remains on high flow oxygen. The patient had excellent urinary output. The patient remains short of breath, unable to lie flat. No other events noted. No hemoptysis, hematem esis or hematochezia. OBJECTIVE: VITAL SIGNS: Blood pressure is 133/78, respirations 18, pulse 68, temperature 98.0. I's and O's suyapa wed 2.9 liters in, 3.4 liters out. HEENT: Head is normocephalic. NECK: Supple. HEART: Regular rate. LUNGS: Show diminished breath sounds at the base. ABDOMEN: Soft, nontender to palpation. No rebound or guarding. EXTREMITIES: Negative for clubbing, cyanosis. Positive edema. DERMATOLOGIC: No rashes. MUSCULOSKELETAL: No joint effusion. NEUROLOGIC: No change in exam. MEDICATIONS: Reviewed. LABORATORY DATA: Reviewed. ASSESSMENT AND PLAN: 1. Acute hypoxemic respiratory failure, etiology is multifactorial secondary to congestive heart bats[place] lure exacerbation, chronic obstructive pulmonary disease exacerbation, possible pneumonia, questionab le pulmonary embolism. The patient remains on high flow oxygen. Continue to wean down per pulmonary . Otherwise, continue antibiotics, diuretics, nebulizers. Continue anticoagulation therapy. Possib le CT angiogram. The patient is able to tolerate lying supine. 2. Bacteremia, possible sepsis. The patient's initial blood cultures positive for coag-negative sta ph. Unclear if this is contaminant. Continue antibiotic therapy. Repeat cultures are pending. Fol low up with infectious disease. 3. Acute diastolic heart failure. The patient remains decompensated on exam. Continue Lasix 40 mg IV b.i.d. We will continue Diamox. The patient received a dose of metolazone yesterday. Monitor lino sely. 4. Alkalosis secondary to diuretic therapy. Continue Diamox. We will monitor closely. 5. Arrhythmia, currently in sinus rhythm. Continue amiodarone. 6. Coronary artery disease, status post 5-vessel coronary artery bypass graft. Continue medical man agement, aspirin, anticoagulation, AV shantelle blockers. 7. Hypertension. Continue current blood pressure regimen. 8. Diabetes. Continue insulin regimen. 9. Anemia. Monitor hemoglobin and hematocrit levels. 10. History of tobacco use. Continue nicotine patch. 11. Gastrointestinal and deep vein thrombosis prophylaxis. 12. Status post syncope. Dictated By: VANCE EUGENE/MARC Conf#: [id number] [facility]#: [id number] CC: IVAN COOK MD; RONY WYNN MD;*[facility]*
--- NOTE | 2018-10-25 10:20 | CONS ---
Assessment/Plan Cardiology NYHA: IV Heart Failure Type: Acute on Chronic Heart Failure Type: Diastolic Assessment/Plan Hospital Course (Demo Recall) Acute respiratory failure: Likely multifactorial including CHF exacerbation, COPD, and left pleural effusion. O2 requirements improving Coag negative staph bacteremia: likely contaminant. f/u ID recs Acute on chronic diastolic CHF: EF remains preserved though poor study. Decompensated on exam still but improving daily Acute on chronic COPD with exacerbation Left pleural effusion Paroxysmal atrial fibrillation/flutter: very common post cardiac surgery, however this is no longer the acute stage and so anticoagulation fci is appropriate. Now back in sinus after amiodarone CAD s/p CABG: s/p CABG x5 10/04/2018, BILLINGSLEY to LAD, SVG to PDA, SVG to diagonal artery sequence to OM1 sequenced to OM2. No angina and trops negative HTN HL DM Tobacco use -one more dose of metolazone 5mg today -continue lasix 40mg IV BID -agree with thoracentesis -steroids per pulm -amiodarone 400mg PO BID, taper to 200mg on discharge -ASA 325mg -lipitor 80mg -diltiazem 120mg instead of metoprolol with COPD -After all procedures completed, switch lovenox to Eliquis 5mg BID and decrease ASA to 81mg daily Consultation Date/Type/Reason Admit Date/Time Oct 21, 2018 at 05:07 Initial Consult Date 10/22/18 Type of Consult Cardiology Requesting Provider: VANCE FELDMAN DO Date/Time of Note DATE: 10/25/18 TIME: 10:19 24 HR Interval Summary Free Text/Dictation FiO2 down to 50%. Diuresing well. Plan for thora today. Exam/Review of Systems Vital Signs Vitals Vital Signs Date Temp Pulse Resp B/P (MAP) Pulse Ox O2 O2 Flow FiO2 Time Delivery Rate 10/25/18 94 50 09:45 10/25/18 65 22 128/74 High Flow 09:00 (92) 10/25/18 98.0 08:00 10/21/18 6.0 07:51 Intake and Output 10/24/18 10/24/18 10/25/18 1515:00 23:00 07:00 IntakeIntake Total 850 ml 1350 ml 700 ml OutputOutput Total 400 ml 2000 ml 1450 ml BalanceBalance 450 ml -650 ml -750 ml Exam Constitutional: alert, oriented Neck: supple, jvd (9cm) Cardiovascular: regular rate and rhythm, edema (1-2+), systolic murmur (2/6 JONATHAN) Gastrointestinal: soft, non-tender; No distended Neurological: nl mental status, nl speech Labs Result Diagram: 10/25/18 0428 10/25/18 0428 Results 24hrs Laboratory Tests Test 10/25/18 04:28 10/25/18 07:00 White Blood Count 18.7 H Red Blood Count 3.72 L Hemoglobin 11.3 L Hematocrit 34.8 L Mean Corpuscular Volume 93.5 Mean Corpuscular Hemoglobin 30.4 Mean Corpuscular Hemoglobin Concent 32.5 Red Cell Distribution Width 14.1 Platelet Count 203 Mean Platelet Volume 9.1 Immature Granulocytes % 1.200 H Neutrophils % 88.0 H Lymphocytes % 7.7 L Monocytes % 3.0 Eosinophils % 0.0 Basophils % 0.1 Nucleated Red Blood Cells % 0.0 Immature Granulocytes # 0.220 H Neutrophils # 16.5 H Lymphocytes # 1.4 Monocytes # 0.6 Eosinophils # 0.0 Basophils # 0.0 Nucleated Red Blood Cells # 0.0 Sodium Level 140 Potassium Level 4.8 Chloride Level 99 Carbon Dioxide Level 30 Anion Gap 11 Blood Urea Nitrogen 30 H Creatinine 0.91 Est Glomerular Filtrat Rate mL/min > 60 Glucose Level 158 Calcium Level 9.3 Phosphorus Level 4.4 Magnesium Level 2.3 Blood Gas Specimen Source Blood arterial Arterial Blood Date Drawn 10/25/2018 7:13:05 AM Arterial Blood pH (Temp corrected) 7.451 H Arterial Blood pCO2 (Temp correct) 39.9 Arterial Blood pO2 (Temp corrected) 58.3 L Arterial Blood HCO3 27.2 H Arterial Blood Base Excess 3.0 Arterial Blood Oxygen Saturation 89.6 L Rudy Test ACCEPTAB Arterial Blood Gas Puncture Site Right Radial Arterial Blood Carboxyhemoglobin 0.3 Arterial Blood Methemoglobin 0.1 Blood Gas A-a O2 Differential 253.3 H Oxyhemoglobin Percent 89.2 L Blood Gas Temperature 37.0 Blood Gas Modality HFNC FiO2 50.0 Blood Gas Notified Whom TM Blood Gas Notified Time 10/25/2018 7:29:52 AM Medications Medications Current Medications Enoxaparin Sodium (Lovenox) 120 mg Q12 SC Last administered on 4/16/19at 09:24; Admin Dose 120 MG; Start 10/21/18 at 09:00; Status Hold Acetaminophen (Tylenol Tab) 650 mg Q6H PRN PO MILD PAIN LEVEL 1-3; Start 10/21/18 at 08:30 Atorvastatin Calcium (Lipitor) 80 mg QHS PO Last administered on 10/24/18 21:28; Admin Dose 80 MG; Start 10/21/18 at 21:00 Nicotine (Nicoderm 7 Mg/ 24 Hr) 1 patch DAILY TRANSDERM Last administered on 10/25/18 08:21; Admin Dose 1 PATCH; Start 10/21/18 at 09:00 Aspirin (Aspirin) 325 mg DAILY PO Last administered on 10/24/18 09:22; Admin Dose 325 MG; Start 10/21/18 at 09:00 Furosemide (Lasix) 40 mg BID DIURETICS IV Last administered on 10/25/18 05:43; Admin Dose 40 MG; Start 10/21/18 at 09:00 Cefepime HCl 50 ml @ 100 mls/hr Q12 IVPB Last administered on 10/25/18 08:16; Admin Dose 100 MLS/HR; Start 10/21/18 at 21:00 Vancomycin HCl (Vanco Iv Per Pharmacy) VANCOMYCIN PER PHARMACY PER PROTOCOL XX ; Start 10/21/18 at 09:30 Albuterol/ Ipratropium (Duoneb) 3 ml Q6H RESP THERAPY PRN HHN SHORTNESS OF MATTHEW TH; Start 10/21/18 at 17:00 Miscellaneous Information (Pending [facility] Order For Wound Care) This patient mclean... PRN PRN XX WOUND CARE; Start 10/21/18 at 19:30 Lorazepam (Ativan) 1 mg Q8H PRN IV anxiety Last administered on 10/21/18at 22:52; Admin Dose 1 MG; Start 10/21/18 at 21:30 Famotidine (Pepcid) 20 mg BID PO Last administered on 10/25/18 08:19; Admin Dose 20 MG; Start 10/22/18 at 09:00 Methylprednisolone Sodium Succinate (Solu-Medrol) 40 mg Q8 IV Last administered on 10/25/18at 05:42; Admin Dose 40 MG; Start 10/22/18 at 14:00 Acetaminophen/ Hydrocodone Bitart ([place] (5/325)) 1 tab Q6H PRN PO MODERATE PAIN LEVEL 4-6 Last administered on 10/22/18at 16:13; Admin Dose 1 TAB; Start 10/22/18 at 16:30 Diltiazem HCl (Cardizem Cd) 120 mg DAILY PO Last administered on 10/25/18at 08:19; Admin Dose 120 MG; Start 10/22/18 at 17:30 Amiodarone HCl (Cordarone) 400 mg BID PO Last administered on 10/25/18at 08:19; Admin Dose 400 MG; Start 10/22/18 at 16:30 Morphine Sulfate (morphine) 2 mg Q6H PRN IV SEVERE PAIN LEVEL 7-10; Start 10/22/18 at 18:30 Vancomycin HCl 1.75 gm/Sodium Chloride 500 ml @ 125 mls/hr Q12H IVPB Last administered on 10/25/18at 00:02; Admin Dose 125 MLS/HR; Start 10/23/18 at 12:00 Miscellaneous Information (*Rx Drug Level Order Reminder*) VANCOMYCIN TROUGH AT 1100 ONCE ONCE XX ; Start 10/25/18 at 11:00; Stop 10/25/18 at 11:01 VANESA RUIZ Oct 25, 2018 10:20
[2018-10-25] MEDS ORDERED: METOLAZONE 5 MG TAB PO ONE (10:30)
[2018-10-25] MEDS: ASPIRIN 325 MG TAB PO SCH (10:38)
[2018-10-25] MEDS ORDERED: LIDOCAINE 1% (MPF) 5 ML VIAL ONE (10:46)
--- NOTE | 2018-10-25 11:22 | CONS ---
Consult Date/Type/Reason Admit Date/Time Oct 21, 2018 at 05:07 Initial Consult Date 10/22/18 Type of Consult Pulmonary Requesting Provider: VACNE FELDMAN DO Date/Time of Note DATE: 10/25/18 TIME: 11:19 Subjective Decreasing oxygen requirements. Status post thoracentesis 1 L removed from left using lung Objective Vital Signs Date Temp Pulse Resp B/P (MAP) Pulse Ox O2 O2 Flow FiO2 Time Delivery Rate 10/25/18 98 45 10:53 10/25/18 64 24 10:53 10/25/18 128/74 High Flow 09:00 (92) 10/25/18 98.0 08:00 10/21/18 6.0 07:51 Intake and Output 10/24/18 10/24/18 10/25/18 1515:00 23:00 07:00 IntakeIntake Total 850 ml 1350 ml 700 ml OutputOutput Total 400 ml 2000 ml 1450 ml BalanceBalance 450 ml -650 ml -750 ml Exam PHYSICAL EXAMINATION: GENERAL: Well-nourished, well-developed gentleman, on high flow O2 VITAL SIGNS: NECK: Supple. No JVD or lymphadenopathy. CARDIAC: S1, S2, no added sounds or murmurs. CHEST: Diminished air entry bilaterally. ABDOMEN: Soft, nontender. No guarding or rebound. EXTREMITIES: No cyanosis, clubbing, or edema. NEUROLOGIC: Grossly intact. No focal deficits. Vent Setting Fraction of Inspired Oxygen pe: 45 Results/Medications Result Diagram: 10/25/18 0428 10/25/18 0428 Results 24 hrs Laboratory Tests Test 10/25/18 04:28 10/25/18 07:00 White Blood Count 18.7 H Red Blood Count 3.72 L Hemoglobin 11.3 L Hematocrit 34.8 L Mean Corpuscular Volume 93.5 Mean Corpuscular Hemoglobin 30.4 Mean Corpuscular Hemoglobin Concent 32.5 Red Cell Distribution Width 14.1 Platelet Count 203 Mean Platelet Volume 9.1 Immature Granulocytes % 1.200 H Neutrophils % 88.0 H Lymphocytes % 7.7 L Monocytes % 3.0 Eosinophils % 0.0 Basophils % 0.1 Nucleated Red Blood Cells % 0.0 Immature Granulocytes # 0.220 H Neutrophils # 16.5 H Lymphocytes # 1.4 Monocytes # 0.6 Eosinophils # 0.0 Basophils # 0.0 Nucleated Red Blood Cells # 0.0 Sodium Level 140 Potassium Level 4.8 Chloride Level 99 Carbon Dioxide Level 30 Anion Gap 11 Blood Urea Nitrogen 30 H Creatinine 0.91 Est Glomerular Filtrat Rate mL/min > 60 Glucose Level 158 Calcium Level 9.3 Phosphorus Level 4.4 Magnesium Level 2.3 Blood Gas Specimen Source Blood arterial Arterial Blood Date Drawn 10/25/2018 7:13:05 AM Arterial Blood pH (Temp corrected) 7.451 H Arterial Blood pCO2 (Temp correct) 39.9 Arterial Blood pO2 (Temp corrected) 58.3 L Arterial Blood HCO3 27.2 H Arterial Blood Base Excess 3.0 Arterial Blood Oxygen Saturation 89.6 L Rudy Test ACCEPTAB Arterial Blood Gas Puncture Site Right Radial Arterial Blood Carboxyhemoglobin 0.3 Arterial Blood Methemoglobin 0.1 Blood Gas A-a O2 Differential 253.3 H Oxyhemoglobin Percent 89.2 L Blood Gas Temperature 37.0 Blood Gas Modality HFNC FiO2 50.0 Blood Gas Notified Whom TM Blood Gas Notified Time 10/25/2018 7:29:52 AM Medications Current Medications Enoxaparin Sodium (Lovenox) 120 mg Q12 SC Last administered on 10/24/18at 09:24; Admin Dose 120 MG; Start 10/21/18 at 09:00; Status Hold Acetaminophen (Tylenol Tab) 650 mg Q6H PRN PO MILD PAIN LEVEL 1-3; Start 10/21/18 at 08:30 Atorvastatin Calcium (Lipitor) 80 mg QHS PO Last administered on 10/24/18at 21:28; Admin Dose 80 MG; Start 10/21/18 at 21:00 Nicotine (Nicoderm 7 Mg/ 24 Hr) 1 patch DAILY TRANSDERM Last administered on 10/25/18at 08:21; Admin Dose 1 PATCH; Start 10/21/18 at 09:00 Aspirin (Aspirin) 325 mg DAILY PO Last administered on 10/25/18at 10:38; Admin Dose 325 MG; Start 10/21/18 at 09:00 Furosemide (Lasix) 40 mg BID DIURETICS IV Last administered on 10/25/18 05:43; Admin Dose 40 MG; Start 10/21/18 at 09:00 Cefepime HCl 50 ml @ 100 mls/hr Q12 IVPB Last administered on 10/25/18 08:16; Admin Dose 100 MLS/HR; Start 10/21/18 at 21:00 Vancomycin HCl (Vanco Iv Per Pharmacy) VANCOMYCIN PER PHARMACY PER PROTOCOL XX ; Start 10/21/18 at 09:30 Albuterol/ Ipratropium (Duoneb) 3 ml Q6H RESP THERAPY PRN HHN SHORTNESS OF BREATH; Start 10/21/18 at 17:00 Miscellaneous Information (Pending [facility] Order For Wound Care) This patient mclean... PRN PRN XX WOUND CARE; Start 10/21/18 at 19:30 Lorazepam (Ativan) 1 mg Q8H PRN IV anxiety Last administered on 10/21/18at 22:52; Admin Dose 1 MG; Start 10/21/18 at 21:30 Famotidine (Pepcid) 20 mg BID PO Last administered on 10/25/18at 08:19; Admin Dose 20 MG; Start 10/22/18 at 09:00 Methylprednisolone Sodium Succinate (Solu-Medrol) 40 mg Q8 IV Last administered on 10/25/18at 05:42; Admin Dose 40 MG; Start 10/22/18 at 14:00 Acetaminophen/ Hydrocodone Bitart ([place] (5/325)) 1 tab Q6H PRN PO MODERATE PAIN LEVEL 4-6 Last administered on 10/22/18at 16:13; Admin Dose 1 TAB; Start at 16:30 Diltiazem HCl (Cardizem Cd) 120 mg DAILY PO Last administered on 10/25/18at 08:19; Admin Dose 120 MG; Start 10/22/18 at 17:30 Amiodarone HCl (Cordarone) 400 mg BID PO Last administered on 10/25/18at 08:19; Admin Dose 400 MG; Start 10/22/18 at 16:30 Morphine Sulfate (morphine) 2 mg Q6H PRN IV SEVERE PAIN LEVEL 7-10; Start 10/22/18 at 18:30 Vancomycin HCl 1.75 gm/Sodium Chloride 500 ml @ 125 mls/hr Q12H IVPB Last administered on 10/25/18at 00:02; Admin Dose 125 MLS/HR; Start 10/23/18 at 12:00 Assessment/Plan Hospital Course (Demo Recall) IMPRESSION 1. Acute hypoxemic respiratory failure, likely secondary to combination of chronic obstructive pulmonary disease exacerbation. 2. Congestive cardiac failure. 3. Postop atelectasis and possible effusion. Plan 1. Supplemental O2. Titrate to keep sats greater than 92. 2. Antibiotics, currently on cefepime and vancomycin. 3. Rate control per cardiology. 4. Short course of steroids. 5. Diuretics. 6. Thoracentesis left lung with 1 L removed. Critical care time 40 minutes. IVAN COOK MD, [facility] Oct 25, 2018 11:21
--- NOTE | 2018-10-25 14:35 | CONS ---
Assessment/Plan Assessment/Plan Hospital Course (Demo Recall) Patient is asleep sitting in a chair is in no distress looks comfortable afebrile with WBC 18.7 platelets 203 neutrophils 88 BUN 30 creatinine 0.91 Microbiology: Blood culture on admission grew coag negative staph species, repeat blood cultures negative Chest x-ray revealed no pneumothorax status post thoracentesis Antimicrobials: Vancomycin, cefepime Plan: This is a well-developed obese middle-aged man who is in no distress. Head atraumatic normocephalic sclera nonicteric neck is supple. Chest rise symmetrical breath sounds diminished to bases. Heart: S1-S2. Abdomen soft bowel sounds present. Extremities without cyanosis. Skin: Patient has well- healed midsternal scar there is an area of swelling upper part of incision no pain, no fluctuance Assessment: 1. Acute hypoxemic respiratory failure secondary to CHF exacerbation and pneumonia, s/p thoracentesis 1 L 2. Gram-positive cocci bacteremia cw contaminant ==> no vegetations per 2D echo 3. Coronary artery disease with a history of CABG and aortic valve replacement 4. COPD exacerbation 5. Diabetes 6. Obesity Plan: The patient is stable post thoracentesis, repeat blood cultures negative, continue antibiotics, await for pleural fluid fluid analysis and cultures, follow pulmonary and cardiology recommendations. Consultation Date/Type/Reason Admit Date/Time Oct 21, 2018 at 05:07 Initial Consult Date 10/22/18 Type of Consult id Requesting Provider: VANCE FELDMAN DO Date/Time of Note DATE: 10/25/18 TIME: 14:33 Exam/Review of Systems Exam Vitals Vital Signs Date Temp Pulse Resp B/P (MAP) Pulse Ox O2 O2 Flow FiO2 Time Delivery Rate 10/25/18 98 40 13:08 10/25/18 98.2 62 15 135/79 High Flow 12:00 (97) 10/21/18 6.0 07:51 Intake and Output 10/24/18 10/24/18 10/25/18 1515:00 23:00 07:00 IntakeIntake Total 850 ml 1350 ml 700 ml OutputOutput Total 400 ml 2000 ml 1450 ml BalanceBalance 450 ml -650 ml -750 ml Results Result Diagram: 10/25/18 0428 10/25/18 0428 Results 24hrs Laboratory Tests Test 10/25/18 04:28 10/25/18 07:00 10/25/18 10:15 10/25/18 11:15 White Blood 18.7 H Count Red Blood Count 3.72 L Hemoglobin 11.3 L Hematocrit 34.8 L Mean Corpuscular 93.5 Volume Mean Corpuscular 30.4 Hemoglobin Mean Corpuscular 32.5 Hemoglobin Chanell nt Red Cell 14.1 Distribution Width Platelet Count 203 Mean Platelet 9.1 Volume Immature 1.200 H Granulocytes % Neutrophils % 88.0 H Lymphocytes % 7.7 L Monocytes % 3.0 Eosinophils % 0.0 Basophils % 0.1 Nucleated Red 0.0 Blood Cells % Immature 0.220 H Granulocytes # Neutrophils # 16.5 H Lymphocytes # 1.4 Monocytes # 0.6 Eosinophils # 0.0 Basophils # 0.0 Nucleated Red 0.0 Blood Cells # Sodium Level 140 Potassium Level 4.8 Chloride Level 99 Carbon Dioxide 30 Level Anion Gap 11 Blood Urea 30 H Nitrogen Creatinine 0.91 Est Glomerular > 60 Filtrat Rate mL/min Glucose Level 158 Calcium Level 9.3 Phosphorus Level 4.4 Magnesium Level 2.3 Blood Gas Blood arterial Specimen Source Arterial Blood 10/25/2018 7:13: Date Drawn 05 AM Arterial Blood 7.451 H pH (Temp corrected) Arterial Blood 39.9 pCO2 (Temp correct) Arterial Blood 58.3 L pO2 (Temp corrected) Arterial Blood 27.2 H HCO3 Arterial Blood 3.0 Base Excess Arterial Blood 89.6 L Oxygen Saturatio n Rudy Test ACCEPTAB Arterial Blood Right Radial Gas Puncture Site Arterial 0.3 Blood Carboxyhem oglobin Arterial Blood 0.1 Methemoglobin Blood Gas A-a O2 253.3 H Differential Oxyhemoglobin 89.2 L Percent Blood Gas 37.0 Temperature Blood Gas HFNC Modality FiO2 50.0 Blood Gas TM Notified Whom Blood Gas 10/25/2018 7:29: Notified Time 52 AM Body Fluid Type THORACENTESIS F LUID Body Fluid Total 4.8 Protein Body Fluid 2627 Lactate Dehydrog enase Vancomycin Level 13.4 Trough Medications Medication Current Medications Enoxaparin Sodium (Lovenox) 120 mg Q12 SC Last administered on 10/24/18at 09:24; Admin Dose 120 MG; Start 10/21/18 at 09:00; Status Hold Acetaminophen (Tylenol Tab) 650 mg Q6H PRN PO MILD PAIN LEVEL 1-3; Start 10/21/18 at 08:30 Atorvastatin Calcium (Lipitor) 80 mg QHS PO Last administered on 10/24/18 21:28; Admin Dose 80 MG; Start 10/21/18 at 21:00 Nicotine (Nicoderm 7 Mg/ 24 Hr) 1 patch DAILY TRANSDERM Last administered on 10/25/18 08:21; Admin Dose 1 PATCH; Start 10/21/18 at 09:00 Aspirin (Aspirin) 325 mg DAILY PO Last administered on 10/25/18 10:38; Admin Dose 325 MG; Start 10/21/18 at 09:00 Furosemide (Lasix) 40 mg BID DIURETICS IV Last administered on 10/25/18 05:43; Admin Dose 40 MG; Start 10/21/18 at 09:00 Cefepime HCl 50 ml @ 100 mls/hr Q12 IVPB Last administered on 10/25/18 08:16; Admin Dose 100 MLS/HR; Start 10/21/18 at 21:00 Vancomycin HCl (Vanco Iv Per Pharmacy) VANCOMYCIN PER PHARMACY PER PROTOCOL XX ; Start 10/21/18 at 09:30 Albuterol/ Ipratropium (Duoneb) 3 ml Q6H RESP THERAPY PRN HHN SHORTNESS OF BREATH; Start 10/21/18 at 17:00 Miscellaneous Information (Pending [facility] Order For Wound Care) This patient mclean... PRN PRN XX WOUND CARE; Start 10/21/18 at 19:30 Lorazepam (Ativan) 1 mg Q8H PRN IV anxiety Last administered on 10/21/18 22:52; Admin Dose 1 MG; Start 10/21/18 at 21:30 Famotidine (Pepcid) 20 mg BID PO Last administered on 10/25/18 08:19; Admin Dose 20 MG; Start 10/22/18 at 09:00 Methylprednisolone Sodium Succinate (Solu-Medrol) 40 mg Q8 IV Last administered on 10/25/18 05:42; Admin Dose 40 MG; Start 10/22/18 at 14:00 Acetaminophen/ Hydrocodone Bitart ([place] (5/325)) 1 tab Q6H PRN PO MODERATE PAIN LEVEL 4-6 Last administered on 10/22/18at 16:13; Admin Dose 1 TAB; Start 10/22/18 at 16:30 Diltiazem HCl (Cardizem Cd) 120 mg DAILY PO Last administered on 10/25/18at 08:19; Admin Dose 120 MG; Start 10/22/18 at 17:30 Amiodarone HCl (Cordarone) 400 mg BID PO Last administered on 10/25/18at 08:19; Admin Dose 400 MG; Start 10/22/18 at 16:30 Morphine Sulfate (morphine) 2 mg Q6H PRN IV SEVERE PAIN LEVEL 7-10; Start 10/22/18 at 18:30 Vancomycin HCl 1.75 gm/Sodium Chloride 500 ml @ 125 mls/hr Q12H IVPB Last administered on 10/25/18at 12:17; Admin Dose 125 MLS/HR; Start 10/23/18 at 12:00 JUAN CARLOS ROLDAN NP Oct 25, 2018 14:35
[2018-10-25] MEDS: ATORVASTATIN 80 MG TAB PO SCH (20:15)
[2018-10-26] VITALS (12 sets, daily range): BP systolic 119–148; BP diastolic 68–73; PULSE 54–63; RESP 20
[2018-10-26] MEDS: METHYLPREDNISOLONE 40 MG INJ IV SCH (06:09)
[2018-10-26] MEDS: FUROSEMIDE 40 MG INJ IV SCH ×2 (06:10→18:23)
[2018-10-26] MEDS ORDERED: ACETAZOLAMIDE 500 MG INJ IV ONE (08:30)
--- NOTE | 2018-10-26 08:40 | PN ---
DATE: 10/26/2018 SUBJECTIVE: The patient had thoracentesis yesterday with approximately 1 liter removed. The patient is clinically improving, currently off high flow in 6 liters nasal cannula. The patient also states that he has been able to lie down yesterday. No other events noted. OBJECTIVE: VITAL SIGNS: Blood pressure is 119/69, pulse 60, respirations 20, temperature 98.1. HEENT: Head is normocephalic. NECK: Supple. HEART: Regular rate. LUNGS: Show diminished breath sounds at the base, improving. ABDOMEN: Soft, nontender to palpation without rebound or guarding. EXTREMITIES: Negative for clubbing, cyanosis. Positive edema. DERMATOLOGIC: No rashes. MUSCULOSKELETAL: No joint effusion. NEUROLOGIC: No change in exam. MEDICATIONS: Reviewed. LABORATORY DATA: From 10/26/2018 was reviewed. IMAGING STUDIES: Chest x-ray was reviewed. ASSESSMENT AND PLAN: 1. Acute hypoxemic respiratory failure. Etiology is multifactorial secondary to congestive heart fa ilure exacerbation, chronic obstructive pulmonary disease exacerbation, pleural effusion, possible pn eumonia. The patient is clinically improving on diuretic, status post thoracentesis yesterday. We w ill continue current treatment plan. Continue antibiotics. We will continue diuretics, nebulizers. Continue anticoagulation. Possible CT angiogram if the patient is able to lie down flat. The patie nt remains on anticoagulation for empiric treatment of possible pulmonary embolism. 2. Bacteremia, systemic inflammatory response syndrome, possible sepsis. The patient's blood cultur es were positive for coag-negative staph. Repeat cultures have been negative. Continue antibiotic t herapy. 3. Acute diastolic heart failure. The patient remains decompensated on exam. We will continue Lasi x. We will add Diamox to augment diuresis. The patient was given additional dose of metolazone by c ardiology and monitor closely. 4. Alkalosis secondary to diuretic therapy, with possible compensatory response. Continue Diamox an d monitor. 5. Arrhythmia, currently in sinus rhythm. Continue amiodarone. Continue anticoagulation. 6. Coronary artery disease, status post 5-vessel coronary artery bypass graft. Continue medical man agement, aspirin, anticoagulation, AV shantelle blockers. 7. Hypertension. Continue current blood pressure regimen. 8. Diabetes. Continue current diabetic regimen. 9. Anemia. Continue to monitor hemoglobin and hematocrit levels. 10. History of tobacco use. Continue nicotine patch. 11. Gastrointestinal and deep vein thrombosis prophylaxis. 12. Status post syncope. DISPOSITION: We will place a [place] consult for evaluation. Dictated By: VANCE FELDMAN DO NR/MARC Conf#: [id number] DID#: [id number] CC: IVAN COOK MD; VANCE FELDMAN DO; RONY WYNN MD;*EndCC*
[2018-10-26] MEDS: DILTIAZEM (CD) 120 MG CAP PO SCH (09:37)
[2018-10-26] MEDS: CEFEPIME 1GM/50 ML (PMX) 50 ML IVPB SCH ×2 (09:37→21:18)
[2018-10-26] MEDS: ASPIRIN 325 MG TAB PO SCH (09:37)
[2018-10-26] MEDS: AMIODARONE 200 MG TAB PO SCH ×2 (09:38→21:19)
[2018-10-26] MEDS: FAMOTIDINE 20 MG TAB PO SCH ×2 (09:38→21:19)
[2018-10-26] MEDS: ENOXAPARIN 100 MG/ML SYG SC SCH (09:48)
--- NOTE | 2018-10-26 12:39 | CONS ---
Consult Date/Type/Reason Admit Date/Time Oct 21, 2018 at 05:07 Initial Consult Date 10/22/18 Type of Consult Pulmonary Requesting Provider: VANCE FELDMAN DO Date/Time of Note DATE: 10/26/18 TIME: 12:38 Subjective Continues to improve. Now on 3 L nasal cannulaWith less shortness of breath. Objective Vital Signs Date Temp Pulse Resp B/P (MAP) Pulse Ox O2 O2 Flow FiO2 Time Delivery Rate 10/26/18 98.2 61 20 120/68 94 Nasal 11:19 (85) Cannula 10/26/18 3.0 10:20 10/26/18 35 04:58 Intake and Output 10/25/18 10/25/18 10/26/18 1515:00 23:00 07:00 IntakeIntake Total 625 ml 440 ml 850 ml OutputOutput Total 1090 ml 1230 ml BalanceBalance -465 ml -790 ml 850 ml Exam PHYSICAL EXAMINATION: GENERAL: Well-nourished, well-developed gentleman, on 3 L nasal cannula. VITAL SIGNS: NECK: Supple. No JVD or lymphadenopathy. CARDIAC: S1, S2, no added sounds or murmurs. CHEST: Diminished air entry bilaterally. ABDOMEN: Soft, nontender. No guarding or rebound. EXTREMITIES: No cyanosis, clubbing, or edema. NEUROLOGIC: Grossly intact. No focal deficits. Vent Setting Fraction of Inspired Oxygen pe: 35 Results/Medications Result Diagram: 10/26/18 0437 10/26/18 0500 Results 24 hrs Laboratory Tests Test 10/26/18 04:37 10/26/18 05:00 10/26/18 07:00 White Blood Count 18.4 H Red Blood Count 3.84 L Hemoglobin 11.1 L Hematocrit 34.9 L Mean Corpuscular Volume 90.9 Mean Corpuscular Hemoglobin 28.9 L Mean Corpuscular 31.8 L Hemoglobin Concent Red Cell Distribution Width 14.0 Platelet Count 147 # Mean Platelet Volume 9.5 Immature Granulocytes % 1.100 H Neutrophils % 84.7 H Lymphocytes % 9.8 L Monocytes % 4.2 Eosinophils % 0.0 Basophils % 0.2 Nucleated Red Blood Cells % 0.1 H Immature Granulocytes # 0.200 H Neutrophils # 15.6 H Lymphocytes # 1.8 Monocytes # 0.8 Eosinophils # 0.0 Basophils # 0.0 Nucleated Red Blood Cells # 0.0 Sodium Level 138 Potassium Level 4.4 Chloride Level 96 L Carbon Dioxide Level 31 Anion Gap 11 Blood Urea Nitrogen 35 H Creatinine 0.97 Est Glomerular Filtrat > 60 Rate mL/min Glucose Level 172 Calcium Level 9.2 Phosphorus Level 5.5 H Magnesium Level 2.2 Blood Gas Specimen Source Blood arterial Arterial Blood Date Drawn 10/26/2018 8:30:18 AM Arterial Blood pH 7.450 (Temp corrected) Arterial Blood pCO2 41.1 (Temp correct) Arterial Blood pO2 60.7 L (Temp corrected) Arterial Blood HCO3 27.9 H Arterial Blood Base Excess 3.6 H Arterial Blood 89.7 L Oxygen Saturation Rudy Test N/A Arterial Blood Gas Right Brachial Puncture Site Arterial 0.3 Blood Carboxyhemoglobin Arterial Blood Methemoglobin 0.1 Blood Gas A-a O2 104.9 H Differential Oxyhemoglobin Percent 89.3 L Blood Gas Temperature 37.0 Blood Gas Modality NASAL CANNULA FiO2 30.0 Blood Gas Notified Whom TM Blood Gas Notified Time 10/26/2018 8:39:52 AM Medications Current Medications Enoxaparin Sodium (Lovenox) 120 mg Q12 SC Last administered on 10/26/18 09:48; Admin Dose 120 MG; Start 10/21/18 at 09:00 Acetaminophen (Tylenol Tab) 650 mg Q6H PRN PO MILD PAIN LEVEL 1-3; Start 10/21/18 at 08:30 Atorvastatin Calcium (Lipitor) 80 mg QHS PO Last administered on 10/25/18 20:15; Admin Dose 80 MG; Start 10/21/18 at 21:00 Nicotine (Nicoderm 7 Mg/ 24 Hr) 1 patch DAILY TRANSDERM Last administered on 10/25/18 08:21; Admin Dose 1 PATCH; Start 10/21/18 at 09:00 Aspirin (Aspirin) 325 mg DAILY PO Last administered on 10/26/18 09:37; Admin Dose 325 MG; Start 10/21/18 at 09:00 Furosemide (Lasix) 40 mg BID DIURETICS IV Last administered on 10/26/18 06:10; Admin Dose 40 MG; Start 10/21/18 at 09:00 Cefepime HCl 50 ml @ 100 mls/hr Q12 IVPB Last administered on 10/26/18 09:37; Admin Dose 100 MLS/HR; Start 10/21/18 at 21:00 Vancomycin HCl (Vanco Iv Per Pharmacy) VANCOMYCIN PER PHARMACY PER PROTOCOL XX ; Start 10/21/18 at 09:30 Albuterol/ Ipratropium (Duoneb) 3 ml Q6H RESP THERAPY PRN HHN SHORTNESS OF BREATH; Start 10/21/18 at 17:00 Miscellaneous Information (Pending [facility] Order For Wound Care) This patient mclean... PRN PRN XX WOUND CARE; Start 10/21/18 at 19:30 Lorazepam (Ativan) 1 mg Q8H PRN IV anxiety Last administered on 10/21/18at 22:52; Admin Dose 1 MG; Start 10/21/18 at 21:30 Famotidine (Pepcid) 20 mg BID PO Last administered on 10/26/18 09:38; Admin Dose 20 MG; Start 10/22/18 at 09:00 Methylprednisolone Sodium Succinate (Solu-Medrol) 40 mg Q8 IV Last administered on 10/26/18at 06:09; Admin Dose 40 MG; Start 10/22/18 at 14:00 Acetaminophen/ Hydrocodone Bitart ([place] (5/325)) 1 tab Q6H PRN PO MODERATE PAIN LEVEL 4-6 Last administered on 10/22/18at 16:13; Admin Dose 1 TAB; Start 10/22/18 at 16:30 Diltiazem HCl (Cardizem Cd) 120 mg DAILY PO Last administered on 10/26/18at 09:37; Admin Dose 120 MG; Start 10/22/18 at 17:30 Amiodarone HCl (Cordarone) 400 mg BID PO Last administered on 10/26/18at 09:38; Admin Dose 400 MG; Start 10/22/18 at 16:30 Morphine Sulfate (morphine) 2 mg Q6H PRN IV SEVERE PAIN LEVEL 7-10; Start 10/22/18 at 18:30 Vancomycin HCl 1.75 gm/Sodium Chloride 500 ml @ 125 mls/hr Q12H IVPB Last administered on 10/26/18at 00:00; Admin Dose 125 MLS/HR; Start 10/23/18 at 12:00 Assessment/Plan Hospital Course (Demo Recall) IMPRESSION 1. Acute hypoxemic respiratory failure, likely secondary to combination of chronic obstructive pulmonary disease exacerbation. Clinically improving. 2. Congestive cardiac failure. 3. Postop atelectasis and possible effusion. Plan 1. Supplemental O2. Titrate to keep sats greater than 92. 2. Antibiotics, currently on cefepime and vancomycin. 3. Rate control per cardiology. 4. Short course of steroids. 5. Diuretics. 6. Thoracentesis left lung with 1 L removed. Anticipate discharge soon. IVAN COOK MD, [facility] Oct 26, 2018 12:39
[2018-10-26] MEDS: VANCOMYCIN HCL 1.75 GM in SOD CHLORIDE 0.9% 500 ML IVPB SCH ×3 (13:50)
[2018-10-26] MEDS: NICOTINE (7 MG/24 HR) PATCH TRANSDERM SCH (13:52)
--- NOTE | 2018-10-26 14:02 | CONS ---
Assessment/Plan Assessment/Plan Hospital Course (Demo Recall) Alert, comfortable on nasal cannula, afebrile. Microbiology: Blood culture on admission grew coag negative staph species, repeat blood cultures negative Chest x-ray revealed no pneumothorax status post thoracentesis Antimicrobials: Vancomycin, cefepime Plan: This is a well-developed obese middle-aged man who is in no distress. Head atraumatic normocephalic sclera nonicteric neck is supple. Chest rise symmetrical breath sounds diminished to bases. Heart: S1-S2. Abdomen soft bowel sounds present. Extremities without cyanosis. Skin: Patient has well- healed midsternal scar there is an area of swelling upper part of incision no pain, no fluctuance Assessment: 1. Acute hypoxemic respiratory failure secondary to CHF exacerbation and pneumonia, s/p thoracentesis 1 L 10/25/18 2. Gram-positive cocci bacteremia cw contaminant ==> no vegetations per 2D echo 3. Coronary artery disease with a history of CABG and aortic valve replacement 4. COPD exacerbation 5. Diabetes 6. Obesity Plan: Patient is doing better, pleural fluid cultures preliminary negative, continue antibiotics, steroids taper, follow pulmonary and cardiology recommendations Consultation Date/Type/Reason Admit Date/Time Oct 21, 2018 at 05:07 Initial Consult Date 10/22/18 Type of Consult id Requesting Provider: VANCE FELDMAN DO Date/Time of Note DATE: 10/26/18 TIME: 14:01 Exam/Review of Systems Exam Vitals Vital Signs Date Temp Pulse Resp B/P (MAP) Pulse Ox O2 O2 Flow FiO2 Time Delivery Rate 10/26/18 57 13:38 10/26/18 98.2 20 120/68 94 Nasal 11:19 (85) Cannula 10/26/18 3.0 10:20 10/26/18 35 04:58 Intake and Output 10/25/18 10/25/18 10/26/18 1515:00 23:00 07:00 IntakeIntake Total 625 ml 440 ml 850 ml OutputOutput Total 1090 ml 1230 ml BalanceBalance -465 ml -790 ml 850 ml Results Result Diagram: 10/26/18 0437 10/26/18 0500 Results 24hrs Laboratory Tests Test 10/26/18 04:37 10/26/18 05:00 10/26/18 07:00 White Blood Count 18.4 H Red Blood Count 3.84 L Hemoglobin 11.1 L Hematocrit 34.9 L Mean Corpuscular Volume 90.9 Mean Corpuscular Hemoglobin 28.9 L Mean Corpuscular 31.8 L Hemoglobin Concent Red Cell Distribution Width 14.0 Platelet Count 147 # Mean Platelet Volume 9.5 Immature Granulocytes % 1.100 H Neutrophils % 84.7 H Lymphocytes % 9.8 L Monocytes % 4.2 Eosinophils % 0.0 Basophils % 0.2 Nucleated Red Blood Cells % 0.1 H Immature Granulocytes # 0.200 H Neutrophils # 15.6 H Lymphocytes # 1.8 Monocytes # 0.8 Eosinophils # 0.0 Basophils # 0.0 Nucleated Red Blood Cells # 0.0 Sodium Level 138 Potassium Level 4.4 Chloride Level 96 L Carbon Dioxide Level 31 Anion Gap 11 Blood Urea Nitrogen 35 H Creatinine 0.97 Est Glomerular Filtrat > 60 Rate mL/min Glucose Level 172 Calcium Level 9.2 Phosphorus Level 5.5 H Magnesium Level 2.2 Blood Gas Specimen Source Blood arterial Arterial Blood Date Drawn 10/26/2018 8:30:18 AM Arterial Blood pH 7.450 (Temp corrected) Arterial Blood pCO2 41.1 (Temp correct) Arterial Blood pO2 60.7 L (Temp corrected) Arterial Blood HCO3 27.9 H Arterial Blood Base Excess 3.6 H Arterial Blood 89.7 L Oxygen Saturation Rudy Test N/A Arterial Blood Gas Right Brachial Puncture Site Arterial 0.3 Blood Carboxyhemoglobin Arterial Blood Methemoglobin 0.1 Blood Gas A-a O2 104.9 H Differential Oxyhemoglobin Percent 89.3 L Blood Gas Temperature 37.0 Blood Gas Modality NASAL CANNULA FiO2 30.0 Blood Gas Notified Whom TM Blood Gas Notified Time 10/26/2018 8:39:52 AM Medications Medication Current Medications Enoxaparin Sodium (Lovenox) 120 mg Q12 SC Last administered on 10/26/18at 09:48; Admin Dose 120 MG; Start 10/21/18 at 09:00 Acetaminophen (Tylenol Tab) 650 mg Q6H PRN PO MILD PAIN LEVEL 1-3; Start 10/21/18 at 08:30 Atorvastatin Calcium (Lipitor) 80 mg QHS PO Last administered on 10/25/18at 20:15; Admin Dose 80 MG; Start 10/21/18 at 21:00 Nicotine (Nicoderm 7 Mg/ 24 Hr) 1 patch DAILY TRANSDERM Last administered on 10/26/18 13:52; Admin Dose 1 PATCH; Start 10/21/18 at 09:00 Aspirin (Aspirin) 325 mg DAILY PO Last administered on 10/26/18 09:37; Admin Dose 325 MG; Start 10/21/18 at 09:00 Furosemide (Lasix) 40 mg BID DIURETICS IV Last administered on 10/26/18 06:10; Admin Dose 40 MG; Start 10/21/18 at 09:00 Cefepime HCl 50 ml @ 100 mls/hr Q12 IVPB Last administered on 10/26/18 09:37; Admin Dose 100 MLS/HR; Start 10/21/18 at 21:00 Vancomycin HCl (Vanco Iv Per Pharmacy) VANCOMYCIN PER PHARMACY PER PROTOCOL XX ; Start 10/21/18 at 09:30 Albuterol/ Ipratropium (Duoneb) 3 ml Q6H RESP THERAPY PRN HHN SHORTNESS OF BREATH; Start 10/21/18 at 17:00 Miscellaneous Information (Pending [facility] Order For Wound Care) This patient mclean... PRN PRN XX WOUND CARE; Start 10/21/18 at 19:30 Lorazepam (Ativan) 1 mg Q8H PRN IV anxiety Last administered on 10/21/18 22:5 2; Admin Dose 1 MG; Start 10/21/18 at 21:30 Famotidine (Pepcid) 20 mg BID PO Last administered on 10/26/18 09:38; Admin Dose 20 MG; Start 10/22/18 at 09:00 Acetaminophen/ Hydrocodone Bitart ([place] (5/325)) 1 tab Q6H PRN PO MODERATE PAIN LEVEL 4-6 Last administered on 10/22/18 16:13; Admin Dose 1 TAB; Start 10/22/18 at 16:30 Diltiazem HCl (Cardizem Cd) 120 mg DAILY PO Last administered on 10/26/18 09:37; Admin Dose 120 MG; Start 10/22/18 at 17:30 Amiodarone HCl (Cordarone) 400 mg BID PO Last administered on 10/26/18 09:38; Admin Dose 400 MG; Start 10/22/18 at 16:30 Morphine Sulfate (morphine) 2 mg Q6H PRN IV SEVERE PAIN LEVEL 7-10; Start 10/22/18 at 18:30 Vancomycin HCl 1.75 gm/Sodium Chloride 500 ml @ 125 mls/hr Q12H IVPB Last administered on 10/26/18at 13:50; Admin Dose 125 MLS/HR; Start 10/23/18 at 12:00 Methylprednisolone Sodium Succinate (Solu-Medrol) 40 mg DAILY IV ; Start 10/27/18 at 09:00 JUAN CARLOS ROLDAN NP Oct 26, 2018 14:02
--- NOTE | 2018-10-26 18:33 | CONS ---
Assessment/Plan Cardiology NYHA: IV Heart Failure Type: Acute on Chronic Heart Failure Type: Diastolic Assessment/Plan Hospital Course (Demo Recall) Acute respiratory failure: Likely multifactorial including CHF exacerbation, COPD, and left pleural effusion. Now down to 3L NC Coag negative staph bacteremia: likely contaminant. f/u ID recs Acute on chronic diastolic CHF: EF remains preserved though poor study. Close to euvolemic now Acute on chronic COPD with exacerbation Left pleural effusion: s/p thora with 1 L removed 10/25 Paroxysmal atrial fibrillation/flutter: very common post cardiac surgery, however this is no longer the acute stage and so anticoagulation shelter is appropriate. Now back in sinus after amiodarone CAD s/p CABG: s/p CABG x5 10/04/2018, BILLINGSLEY to LAD, SVG to PDA, SVG to diagonal artery sequence to OM1 sequenced to OM2. No angina and trops negative HTN HL DM Tobacco use -decrease to lasix 20mg IV BID, possible PO tomorrow -d/c lovenox and start Eliquis 5mg BID -decrease to ASA 81mg -decrease to amiodarone 200mg PO BID, taper to 200mg on discharge -lipitor 80mg -diltiazem 120mg instead of metoprolol with COPD Consultation Date/Type/Reason Admit Date/Time Oct 21, 2018 at 05:07 Initial Consult Date 10/22/18 Type of Consult Cardiology Requesting Provider: VANCE FELDMAN DO Date/Time of Note DATE: 10/26/18 TIME: 18:30 24 HR Interval Summary Free Text/Dictation s/p 1 L thora. Now down to 3 L NC. Feels much better and can now lay flat. Exam/Review of Systems Vital Signs Vitals Vital Signs Date Temp Pulse Resp B/P (MAP) Pulse Ox O2 O2 Flow FiO2 Time Delivery Rate 10/26/18 59 16:04 10/26/18 97.7 20 143/70 94 Nasal 15:24 (94) Cannula 10/26/18 3.0 10:20 10/26/18 35 04:58 Intake and Output 10/25/18 10/25/18 10/26/18 1515:00 23:00 07:00 IntakeIntake Total 625 ml 440 ml 850 ml OutputOutput Total 1090 ml 1230 ml BalanceBalance -465 ml -790 ml 850 ml Exam Constitutional: alert, oriented Psych: no complaints, nl mood/affect Neck: No jvd Respiratory: crackles/rales (mild at bases); No clear to auscultation Cardiovascular: regular rate and rhythm, edema (trace) Neurological: nl mental status, nl speech Labs Result Diagram: 10/26/18 0437 10/26/18 0500 Results 24hrs Laboratory Tests Test 10/26/18 04:37 10/26/18 05:00 10/26/18 07:00 White Blood Count 18.4 H Red Blood Count 3.84 L Hemoglobin 11.1 L Hematocrit 34.9 L Mean Corpuscular Volume 90.9 Mean Corpuscular Hemoglobin 28.9 L Mean Corpuscular 31.8 L Hemoglobin Concent Red Cell Distribution Width 14.0 Platelet Count 147 # Mean Platelet Volume 9.5 Immature Granulocytes % 1.100 H Neutrophils % 84.7 H Lymphocytes % 9.8 L Monocytes % 4.2 Eosinophils % 0.0 Basophils % 0.2 Nucleated Red Blood Cells % 0.1 H Immature Granulocytes # 0.200 H Neutrophils # 15.6 H Lymphocytes # 1.8 Monocytes # 0.8 Eosinophils # 0.0 Basophils # 0.0 Nucleated Red Blood Cells # 0.0 Sodium Level 138 Potassium Level 4.4 Chloride Level 96 L Carbon Dioxide Level 31 Anion Gap 11 Blood Urea Nitrogen 35 H Creatinine 0.97 Est Glomerular Filtrat > 60 Rate mL/min Glucose Level 172 Calcium Level 9.2 Phosphorus Level 5.5 H Magnesium Level 2.2 Blood Gas Specimen Source Blood arterial Arterial Blood Date Drawn 10/26/2018 8:30:18 AM Arterial Blood pH 7.450 (Temp corrected) Arterial Blood pCO2 41.1 (Temp correct) Arterial Blood pO2 60.7 L (Temp corrected) Arterial Blood HCO3 27.9 H Arterial Blood Base Excess 3.6 H Arterial Blood 89.7 L Oxygen Saturation Rudy Test N/A Arterial Blood Gas Right Brachial Puncture Site Arterial 0.3 Blood Carboxyhemoglobin Arterial Blood Methemoglobin 0.1 Blood Gas A-a O2 104.9 H Differential Oxyhemoglobin Percent 89.3 L Blood Gas Temperature 37.0 Blood Gas Modality NASAL CANNULA FiO2 30.0 Blood Gas Notified Whom TM Blood Gas Notified Time 10/26/2018 8:39:52 AM Medications Medications Current Medications Enoxaparin Sodium (Lovenox) 120 mg Q12 SC Last administered on 10/26/18 09:48; Admin Dose 120 MG; Start 10/21/18 at 09:00 Acetaminophen (Tylenol Tab) 650 mg Q6H PRN PO MILD PAIN LEVEL 1-3; Start 10/21/18 at 08:30 Atorvastatin Calcium (Lipitor) 80 mg QHS PO Last administered on 10/25/18 20:15; Admin Dose 80 MG; Start 10/21/18 at 21:00 Nicotine (Nicoderm 7 Mg/ 24 Hr) 1 patch DAILY TRANSDERM Last administered on 10/26/18 13:52; Admin Dose 1 PATCH; Start 10/21/18 at 09:00 Aspirin (Aspirin) 325 mg DAILY PO Last administered on 10/26/18 09:37; Admin Dose 325 MG; Start 10/21/18 at 09:00 Furosemide (Lasix) 40 mg BID DIURETICS IV Last administered on 10/26/18 18:23; Admin Dose 40 MG; Start 10/21/18 at 09:00 Cefepime HCl 50 ml @ 100 mls/hr Q12 IVPB Last administered on 10/26/18 09:37; Admin Dose 100 MLS/HR; Start 10/21/18 at 21:00 Vancomycin HCl (Vanco Iv Per Pharmacy) VANCOMYCIN PER PHARMACY PER PROTOCOL XX ; Start 10/21/18 at 09:30 Albuterol/ Ipratropium (Duoneb) 3 ml Q6H RESP THERAPY PRN HHN SHORTNESS OF BREATH; Start 10/21/18 at 17:00 Miscellaneous Information (Pending [facility] Order For Wound Care) This patient mclean... PRN PRN XX WOUND CARE; Start 10/21/18 at 19:30 Lorazepam (Ativan) 1 mg Q8H PRN IV anxiety Last administered on 10/21/18 22:52; Admin Dose 1 MG; Start 10/21/18 at 21:30 Famotidine (Pepcid) 20 mg BID PO Last administered on 10/26/18 09:38; Admin Dose 20 MG; Start 10/22/18 at 09:00 Acetaminophen/ Hydrocodone Bitart ([place] (5/325)) 1 tab Q6H PRN PO MODERATE PAIN LEVEL 4-6 Last administered on 10/22/18 16:13; Admin Dose 1 TAB; Start 10/22/18 at 16:30 Diltiazem HCl (Cardizem Cd) 120 mg DAILY PO Last administered on 10/26/18at 09:37; Admin Dose 120 MG; Start 10/22/18 at 17:30 Amiodarone HCl (Cordarone) 400 mg BID PO Last administered on 10/26/18at 09:38; Admin Dose 400 MG; Start 10/22/18 at 16:30 Morphine Sulfate (morphine) 2 mg Q6H PRN IV SEVERE PAIN LEVEL 7-10; Start 10/22/18 at 18:30 Vancomycin HCl 1.75 gm/Sodium Chloride 500 ml @ 125 mls/hr Q12H IVPB Last administered on 10/26/18at 13:50; Admin Dose 125 MLS/HR; Start 10/23/18 at 12:00 Methylprednisolone Sodium Succinate (Solu-Medrol) 40 mg DAILY IV ; Start 10/27/18 at 09:00 VANESA RUIZ Oct 26, 2018 18:33
[2018-10-26] MEDS: ATORVASTATIN 80 MG TAB PO SCH (21:18)
[2018-10-26] MEDS: APIXABAN 5 MG TABLET PO SCH (21:18)
[2018-10-27] VITALS (10 sets, daily range): BP systolic 106–130; BP diastolic 57–70; PULSE 51–72; RESP 20
[2018-10-27] MEDS: VANCOMYCIN HCL 1.75 GM in SOD CHLORIDE 0.9% 500 ML IVPB SCH ×2 (00:05→14:36)
[2018-10-27] MEDS ORDERED: FUROSEMIDE 40 MG INJ IV SCH (06:00)
[2018-10-27] MEDS ORDERED: POTASSIUM CHLORIDE (SR) 20 MEQ TAB PO STA (08:31)
--- NOTE | 2018-10-27 09:04 | PN ---
DATE: 10/27/2018 SUBJECTIVE: The patient is currently stable. The patient is currently on 3 liters nasal cannula. T he patient describes less shortness of breath. The patient, however, is still unable to lie down sup ine, for long periods. No other events noted. OBJECTIVE: VITAL SIGNS: Blood pressure is 108/65, respirations 20, pulse 86, temperature 97.5. HEENT: Head is normocephalic. NECK: Supple. HEART: Regular rate. LUNGS: Show diminished breath sounds at the base. ABDOMEN: Soft, nontender to palpation. No rebound or guarding. EXTREMITIES: Negative for clubbing, cyanosis. +1 edema. DERMATOLOGIC: No rashes. MUSCULOSKELETAL: No joint effusion. NEUROLOGIC: No change in exam. MEDICATIONS: The patient's medications have been reviewed. LABORATORY DATA: Shows sodium 138, potassium 3.2, BUN 38, creatinine 1.12. White count 20.7, hemogl obin 11.4, platelet count is 97. ASSESSMENT AND PLAN: 1. Acute hypoxemic respiratory failure. Etiology is multifactorial secondary to congestive heart fa ilure exacerbation, chronic obstructive pulmonary disease exacerbation, pleural effusion. The patien t is clinically improving. Continue current medical management. Continue antibiotic therapy, nebuli zers, continue diuretic therapy, and monitor closely. 2. Systemic inflammatory response syndrome, possible sepsis. The patient's blood cultures were posi tive for coag negative staph. Repeat cultures have been negative. Continue antibiotic therapy. Missy kocytosis is likely due to underlying steroids. 3. Acute diastolic heart failure. The patient is clinically improving, appears near euvolemic statu s. Agree with deescalating diuretic therapy. 4. Nonoliguric acute kidney injury, etiology is secondary to hemodynamics, diuretic therapy. The reese gonsalves's diuretics have been adjusted. We will continue to monitor renal function closely. 5. Hypokalemia. We will replete with potassium chloride. 6. Metabolic alkalosis secondary to diuretic therapy, hypokalemia. We will continue to monitor. Th e patient is status post Diamox. 7. Arrhythmia. The patient is currently on anticoagulation, on amiodarone. We will continue. 8. Coronary artery disease, status post 5-vessel coronary artery bypass graft. Continue medical man agement. Continue aspirin. 9. Hypertension. Blood pressure controlled. 10. Diabetes. Continue current diabetic regimen. 11. Anemia. Continue to monitor hemoglobin and hematocrit levels. 12. Gastrointestinal and deep vein thrombosis prophylaxis. 13. Status post syncope. 14. History of tobacco use. 15. Debility. We will place a physical therapy consult for evaluation. Dictated By: VANCE FELDMAN DO NR/NTS Conf#: [id number] DID#: [id number] CC: RONY WYNN MD; IVAN COOK MD; VANCE FELDMAN DO;*EndCC*
[2018-10-27] MEDS: FAMOTIDINE 20 MG TAB PO SCH ×2 (10:16→21:32)
[2018-10-27] MEDS: APIXABAN 5 MG TABLET PO SCH ×2 (10:16→21:32)
[2018-10-27] MEDS: DILTIAZEM (CD) 120 MG CAP PO SCH (10:16)
[2018-10-27] MEDS: AMIODARONE 200 MG TAB PO SCH ×2 (10:16→21:32)
[2018-10-27] MEDS: NICOTINE (7 MG/24 HR) PATCH TRANSDERM SCH (10:17)
[2018-10-27] MEDS: ASPIRIN 325 MG TAB PO SCH (10:19)
--- NOTE | 2018-10-27 10:56 | CONS ---
Assessment/Plan Cardiology NYHA: IV Heart Failure Type: Acute on Chronic Heart Failure Type: Diastolic Assessment/Plan Hospital Course (Demo Recall) Acute respiratory failure: Likely multifactorial including CHF exacerbation, COPD, and left pleural effusion. Now down to 3L NC Coag negative staph bacteremia: likely contaminant. f/u ID recs Acute on chronic diastolic CHF: EF remains preserved though poor study. Euvolemic now Acute on chronic COPD with exacerbation Left pleural effusion: s/p thora with 1 L removed 10/25 Paroxysmal atrial fibrillation/flutter: very common post cardiac surgery, however this is no longer the acute stage and so anticoagulation fci is appropriate. Now back in sinus after amiodarone CAD s/p CABG: s/p CABG x5 10/04/2018, BILLINGSLEY to LAD, SVG to PDA, SVG to diagonal artery sequence to OM1 sequenced to OM2. No angina and trops negative HTN HL DM Tobacco use -lasix 20mg PO daily starting tomorrow, may need 40mg daily to keep even but can monitor -Eliquis 5mg BID -ASA 81mg -amiodarone 200mg PO BID, taper to 200mg on discharge -lipitor 80mg -diltiazem 120mg instead of metoprolol with COPD Consultation Date/Type/Reason Admit Date/Time Oct 21, 2018 at 05:07 Initial Consult Date 10/22/18 Type of Consult Cardiology Requesting Provider: VANCE FELDMAN DO Date/Time of Note DATE: 10/27/18 TIME: 10:53 24 HR Interval Summary Free Text/Dictation No complaints. Cr slightly worse today Exam/Review of Systems Vital Signs Vitals Vital Signs Date Temp Pulse Resp B/P (MAP) Pulse Ox O2 O2 Flow FiO2 Time Delivery Rate 10/27/18 58 08:23 10/27/18 97.5 20 108/65 94 Nasal 07:18 (79) Cannula 10/27/18 3.0 04:58 10/26/18 35 04:58 Intake and Output 10/26/18 10/26/18 10/27/18 1515:00 23:00 07:00 IntakeIntake Total 50 ml 1400 ml OutputOutput Total 1300 ml BalanceBalance 50 ml 100 ml Exam Constitutional: alert, oriented Psych: no complaints, nl mood/affect Head: normocephalic, atraumatic Neck: No jvd Respiratory: crackles/rales (mild at bases); No clear to auscultation Cardiovascular: regular rate and rhythm; No edema, No systolic murmur Gastrointestinal: soft, non-tender; No distended Neurological: nl mental status, nl speech Labs Result Diagram: 10/27/1863210/27/1833 Results 24hrs Laboratory Tests Test 10/27/18 06:33 White Blood Count 20.7 H Red Blood Count 3.86 L Hemoglobin 11.4 L Hematocrit 34.9 L Mean Corpuscular Volume 90.4 Mean Corpuscular Hemoglobin 29.5 Mean Corpuscular Hemoglobin Concent 32.7 Red Cell Distribution Width 14.3 Platelet Count 97 #L Mean Platelet Volume 10.1 Immature Granulocytes % 1.800 H Neutrophils % 70.9 Lymphocytes % 19.4 Monocytes % 7.4 Eosinophils % 0.4 Basophils % 0.1 Nucleated Red Blood Cells % 0.2 H Immature Granulocytes # 0.380 H Neutrophils # 14.6 H Lymphocytes # 4.0 H Monocytes # 1.5 H Eosinophils # 0.1 Basophils # 0.0 Nucleated Red Blood Cells # 0.0 Sodium Level 138 Potassium Level 3.2 L Chloride Level 96 L Carbon Dioxide Level 31 Anion Gap 11 Blood Urea Nitrogen 38 H Creatinine 1.12 Est Glomerular Filtrat Rate mL/min > 60 Glucose Level 107 # Calcium Level 8.9 Phosphorus Level 4.0 Magnesium Level 2.1 Medications Medications Current Medications Acetaminophen (Tylenol Tab) 650 mg Q6H PRN PO MILD PAIN LEVEL 1-3; Start 10/21/18 at 08:30 Atorvastatin Calcium (Lipitor) 80 mg QHS PO Last administered on 10/26/18at 21:18; Admin Dose 80 MG; Start 10/21/18 at 21:00 Nicotine (Nicoderm 7 Mg/ 24 Hr) 1 patch DAILY TRANSDERM Last administered on 10/27/18at 10:17; Admin Dose 1 PATCH; Start 10/21/18 at 09:00 Cefepime HCl 50 ml @ 100 mls/hr Q12 IVPB Last administered on 10/26/18at 21:18; Admin Dose 100 MLS/HR; Start 10/21/18 at 21:00 Vancomycin HCl (Vanco Iv Per Pharmacy) VANCOMYCIN PER PHARMACY PER PROTOCOL XX ; Start 10/21/18 at 09:30 Albuterol/ Ipratropium (Duoneb) 3 ml Q6H RESP THERAPY PRN HHN SHORTNESS OF BREATH; Start 10/21/18 at 17:00 Miscellaneous Information (Pending [facility] Order For Wound Care) This patient mclean... PRN PRN XX WOUND CARE; Start 10/21/18 at 19:30 Lorazepam (Ativan) 1 mg Q8H PRN IV anxiety Last administered on 10/21/18 22:52; Admin Dose 1 MG; Start 10/21/18 at 21:30 Famotidine (Pepcid) 20 mg BID PO Last administered on 10/27/18 10:16; Admin Dose 20 MG; Start 10/22/18 at 09:00 Acetaminophen/ Hydrocodone Bitart ([place] (5/325)) 1 tab Q6H PRN PO MODERATE PAIN LEVEL 4-6 Last administered on 10/22/18 16:13; Admin Dose 1 TAB; Start 10/22/18 at 16:30 Diltiazem HCl (Cardizem Cd) 120 mg DAILY PO Last administered on 10/27/18 10:16; Admin Dose 120 MG; Start 10/22/18 at 17:30 Morphine Sulfate (morphine) 2 mg Q6H PRN IV SEVERE PAIN LEVEL 7-10; Start 10/22/18 at 18:30 Vancomycin HCl 1.75 gm/Sodium Chloride 500 ml @ 125 mls/hr Q12H IVPB Last administered on 10/27/18 00:05; Admin Dose 125 MLS/HR; Start 10/23/18 at 12:00 Methylprednisolone Sodium Succinate (Solu-Medrol) 40 mg DAILY IV ; Start 10/27/18 at 09:00 Aspirin (Aspirin) 81 mg DAILY PO Last administered on 10/27/18 10:19; Admin Dose 81 MG; Start 10/27/18 at 09:00 Apixaban (Eliquis) 5 mg BID PO Last administered on 10/27/18 10:16; Admin Dose 5 MG; Start 10/26/18 at 21:00 Amiodarone HCl (Cordarone) 200 mg BID PO Last administered on 10/27/18 10:16; Admin Dose 200 MG; Start 10/26/18 at 21:00 Furosemide (Lasix) 20 mg DAILY@0600 PO ; Start 10/28/18 at 06:00 VANESA RUIZ Oct 27, 2018 10:56
[2018-10-27] MEDS: METHYLPREDNISOLONE 40 MG INJ IV SCH (11:15)
[2018-10-27] MEDS: CEFEPIME 1GM/50 ML (PMX) 50 ML IVPB SCH ×2 (11:15→21:32)
--- NOTE | 2018-10-27 13:41 | CONS ---
Consult Date/Type/Reason Admit Date/Time Oct 21, 2018 at 05:07 Initial Consult Date 10/22/18 Type of Consult Pulmonary Requesting Provider: VANCE FELDMAN DO Date/Time of Note DATE: 10/27/18 TIME: 13:40 Subjective Continues to slowly improve. On 3 L nasal cannula. Objective Vital Signs Date Temp Pulse Resp B/P (MAP) Pulse Ox O2 O2 Flow FiO2 Time Delivery Rate 10/27/18 58 12:30 10/27/18 97.9 20 127/70 95 Nasal 11:02 (89) Cannula 10/27/18 3.0 04:58 10/26/18 35 04:58 Intake and Output 10/26/18 10/26/18 10/27/18 1515:00 23:00 07:00 IntakeIntake Total 50 ml 1400 ml OutputOutput Total 1300 ml BalanceBalance 50 ml 100 ml Exam PHYSICAL EXAMINATION: GENERAL: Well-nourished, well-developed gentleman, on 3 L nasal cannula. VITAL SIGNS: NECK: Supple. No JVD or lymphadenopathy. CARDIAC: S1, S2, no added sounds or murmurs. CHEST: Diminished air entry bilaterally. ABDOMEN: Soft, nontender. No guarding or rebound. EXTREMITIES: No cyanosis, clubbing, or edema. NEUROLOGIC: Grossly intact. No focal deficits. Vent Setting Fraction of Inspired Oxygen pe: 35 Results/Medications Result Diagram: 10/27/18 0633 10/27/18 0633 Results 24 hrs Laboratory Tests Test 10/27/18 06:33 White Blood Count 20.7 H Red Blood Count 3.86 L Hemoglobin 11.4 L Hematocrit 34.9 L Mean Corpuscular Volume 90.4 Mean Corpuscular Hemoglobin 29.5 Mean Corpuscular Hemoglobin Concent 32.7 Red Cell Distribution Width 14.3 Platelet Count 97 #L Mean Platelet Volume 10.1 Immature Granulocytes % 1.800 H Neutrophils % 70.9 Lymphocytes % 19.4 Monocytes % 7.4 Eosinophils % 0.4 Basophils % 0.1 Nucleated Red Blood Cells % 0.2 H Immature Granulocytes # 0.380 H Neutrophils # 14.6 H Lymphocytes # 4.0 H Monocytes # 1.5 H Eosinophils # 0.1 Basophils # 0.0 Nucleated Red Blood Cells # 0.0 Sodium Level 138 Potassium Level 3.2 L Chloride Level 96 L Carbon Dioxide Level 31 Anion Gap 11 Blood Urea Nitrogen 38 H Creatinine 1.12 Est Glomerular Filtrat Rate mL/min > 60 Glucose Level 107 # Calcium Level 8.9 Phosphorus Level 4.0 Magnesium Level 2.1 Medications Current Medications Acetaminophen (Tylenol Tab) 650 mg Q6H PRN PO MILD PAIN LEVEL 1-3; Start 10/21/18 at 08:30 Atorvastatin Calcium (Lipitor) 80 mg QHS PO Last administered on 10/26/18 21:18; Admin Dose 80 MG; Start 10/21/18 at 21:00 Nicotine (Nicoderm 7 Mg/ 24 Hr) 1 patch DAILY TRANSDERM Last administered on 10/27/18 10:17; Admin Dose 1 PATCH; Start 10/21/18 at 09:00 Cefepime HCl 50 ml @ 100 mls/hr Q12 IVPB Last administered on 10/27/18 11:15; Admin Dose 100 MLS/HR; Start 10/21/18 at 21:00 Vancomycin HCl (Vanco Iv Per Pharmacy) VANCOMYCIN PER PHARMACY PER PROTOCOL XX ; Start 10/21/18 at 09:30 Albuterol/ Ipratropium (Duoneb) 3 ml Q6H RESP THERAPY PRN HHN SHORTNESS OF BREATH; Start 10/21/18 at 17:00 Miscellaneous Information (Pending [facility] Order For Wound Care) This patient mclean... PRN PRN XX WOUND CARE; Start 10/21/18 at 19:30 Lorazepam (Ativan) 1 mg Q8H PRN IV anxiety Last administered on 10/21/18 22:52; Admin Dose 1 MG; Start 10/21/18 at 21:30 Famotidine (Pepcid) 20 mg BID PO Last administered on 10/27/18at 10:16; Admin Dose 20 MG; Start 10/22/18 at 09:00 Acetaminophen/ Hydrocodone Bitart ([place] (5/325)) 1 tab Q6H PRN PO MODERATE PAIN LEVEL 4-6 Last administered on 10/22/18 16:13; Admin Dose 1 TAB; Start 10/22/18 at 16:30 Diltiazem HCl (Cardizem Cd) 120 mg DAILY PO Last administered on 10/27/18 10:16; Admin Dose 120 MG; Start 10/22/18 at 17:30 Morphine Sulfate (morphine) 2 mg Q6H PRN IV SEVERE PAIN LEVEL 7-10; Start 10/22/18 at 18:30 Vancomycin HCl 1.75 gm/Sodium Chloride 500 ml @ 125 mls/hr Q12H IVPB Last administered on 10/27/18at 00:05; Admin Dose 125 MLS/HR; Start 10/23/18 at 12:00 Methylprednisolone Sodium Succinate (Solu-Medrol) 40 mg DAILY IV Last administered on 10/27/18at 11:15; Admin Dose 40 MG; Start 10/27/18 at 09:00 Aspirin (Aspirin) 81 mg DAILY PO Last administered on 10/27/18 10:19; Admin Dose 81 MG; Start 10/27/18 at 09:00 Apixaban (Eliquis) 5 mg BID PO Last administered on 10/27/18 10:16; Admin Dose 5 MG; Start 10/26/18 at 21:00 Amiodarone HCl (Cordarone) 200 mg BID PO Last administered on 10/27/18 10:16; Admin Dose 200 MG; Start 10/26/18 at 21:00 Furosemide (Lasix) 20 mg DAILY@0600 PO ; Start 10/28/18 at 06:00 Assessment/Plan Hospital Course (Demo Recall) IMPRESSION 1. Acute hypoxemic respiratory failure, likely secondary to combination of chronic obstructive pulmonary disease exacerbation. Clinically improving. 2. Congestive cardiac failure. 3. Postop atelectasis and possible effusion. Plan 1. Supplemental O2. Titrate to keep sats greater than 92. 2. Antibiotics, currently on cefepime and vancomycin. 3. Rate control per cardiology. 4. Short course of steroids. 5. Diuretics. 6. Will likely need home O2. IVAN COOK MD, [facility] Oct 27, 2018 13:41
--- NOTE | 2018-10-27 14:12 | CONS ---
Assessment/Plan Assessment/Plan Hospital Course (Demo Recall) Alert, feels better, comfortable on nc, no fevers Microbiology: Blood culture on admission grew coag negative staph species, repeat blood cultures negative Chest x-ray revealed no pneumothorax status post thoracentesis Antimicrobials: Vancomycin, cefepime Plan: This is a well-developed obese middle-aged man who is in no distress. Head atraumatic normocephalic sclera nonicteric neck is supple. Chest rise symmetrical breath sounds diminished to bases. Heart: S1-S2. Abdomen soft shiloh l sounds present. Extremities without cyanosis. Skin: Patient has well-healed midsternal scar there is an area of swelling upper part of incision no pain, no fluctuance Assessment: 1. Acute hypoxemic respiratory failure secondary to CHF exacerbation and pneumonia, s/p thoracentesis 1 L 10/25/18 2. Gram-positive cocci bacteremia cw contaminant ==> no vegetations per 2D echo 3. Coronary artery disease with a history of CABG and aortic valve replacement 4. COPD exacerbation 5. Diabetes 6. Obesity Plan: Continues to improve, will keep on abx for couple more days Consultation Date/Type/Reason Admit Date/Time Oct 21, 2018 at 05:07 Initial Consult Date 10/22/18 Type of Consult id Requesting Provider: VANCE FELDMAN DO Date/Time of Note DATE: 10/27/18 TIME: 14:11 Exam/Review of Systems Exam Vitals Vital Signs Date Temp Pulse Resp B/P (MAP) Pulse Ox O2 O2 Flow FiO2 Time Delivery Rate 10/27/18 58 12:30 10/27/18 97.9 20 127/70 95 Nasal 11:02 (89) Cannula 10/27/18 3.0 04:58 10/26/18 35 04:58 Intake and Output 10/26/18 10/26/18 10/27/18 1515:00 23:00 07:00 IntakeIntake Total 50 ml 1400 ml OutputOutput Total 1300 ml BalanceBalance 50 ml 100 ml Results Result Diagram: 10/27/18 0633 10/27/18 0633 Results 24hrs Laboratory Tests Test 10/27/18 06:33 White Blood Count 20.7 H Red Blood Count 3.86 L Hemoglobin 11.4 L Hematocrit 34.9 L Mean Corpuscular Volume 90.4 Mean Corpuscular Hemoglobin 29.5 Mean Corpuscular Hemoglobin Concent 32.7 Red Cell Distribution Width 14.3 Platelet Count 97 #L Mean Platelet Volume 10.1 Immature Granulocytes % 1.800 H Neutrophils % 70.9 Lymphocytes % 19.4 Monocytes % 7.4 Eosinophils % 0.4 Basophils % 0.1 Nucleated Red Blood Cells % 0.2 H Immature Granulocytes # 0.380 H Neutrophils # 14.6 H Lymphocytes # 4.0 H Monocytes # 1.5 H Eosinophils # 0.1 Basophils # 0.0 Nucleated Red Blood Cells # 0.0 Sodium Level 138 Potassium Level 3.2 L Chloride Level 96 L Carbon Dioxide Level 31 Anion Gap 11 Blood Urea Nitrogen 38 H Creatinine 1.12 Est Glomerular Filtrat Rate mL/min > 60 Glucose Level 107 # Calcium Level 8.9 Phosphorus Level 4.0 Magnesium Level 2.1 Medications Medication Current Medications Acetaminophen (Tylenol Tab) 650 mg Q6H PRN PO MILD PAIN LEVEL 1-3; Start 10/21/18 at 08:30 Atorvastatin Calcium (Lipitor) 80 mg QHS PO Last administered on 10/26/18at 21: 18; Admin Dose 80 MG; Start 10/21/18 at 21:00 Nicotine (Nicoderm 7 Mg/ 24 Hr) 1 patch DAILY TRANSDERM Last administered on 10/27/18 10:17; Admin Dose 1 PATCH; Start 10/21/18 at 09:00 Cefepime HCl 50 ml @ 100 mls/hr Q12 IVPB Last administered on 10/27/18 11:15; Admin Dose 100 MLS/HR; Start 10/21/18 at 21:00 Vancomycin HCl (Vanco Iv Per Pharmacy) VANCOMYCIN PER PHARMACY PER PROTOCOL XX ; Start 10/21/18 at 09:30 Albuterol/ Ipratropium (Duoneb) 3 ml Q6H RESP THERAPY PRN HHN SHORTNESS OF BREATH; Start 10/21/18 at 17:00 Miscellaneous Information (Pending [facility] Order For Wound Care) This patient mclean... PRN PRN XX WOUND CARE; Start 10/21/18 at 19:30 Lorazepam (Ativan) 1 mg Q8H PRN IV anxiety Last administered on 10/21/18at 22:52; Admin Dose 1 MG; Start 10/21/18 at 21:30 Famotidine (Pepcid) 20 mg BID PO Last administered on 10/27/18 10:16; Admin Dose 20 MG; Start 10/22/18 at 09:00 Acetaminophen/ Hydrocodone Bitart ([place] (5/325)) 1 tab Q6H PRN PO MODERATE PAIN LEVEL 4-6 Last administered on 10/22/18 16:13; Admin Dose 1 TAB; Start 10/22/18 at 16:30 Diltiazem HCl (Cardizem Cd) 120 mg DAILY PO Last administered on 10/27/18 10:16; Admin Dose 120 MG; Start 10/22/18 at 17:30 Morphine Sulfate (morphine) 2 mg Q6H PRN IV SEVERE PAIN LEVEL 7-10; Start 10/22/18 at 18:30 Vancomycin HCl 1.75 gm/Sodium Chloride 500 ml @ 125 mls/hr Q12H IVPB Last administered on 10/27/18 00:05; Admin Dose 125 MLS/HR; Start 10/23/18 at 12:00 Methylprednisolone Sodium Succinate (Solu-Medrol) 40 mg DAILY IV Last administered on 10/27/18 11:15; Admin Dose 40 MG; Start 10/27/18 at 09:00 Aspirin (Aspirin) 81 mg DAILY PO Last administered on 10/27/18 10:19; Admin Dose 81 MG; Start 10/27/18 at 09:00 Apixaban (Eliquis) 5 mg BID PO Last administered on 10/27/18 10:16; Admin Dose 5 MG; Start 10/26/18 at 21:00 Amiodarone HCl (Cordarone) 200 mg BID PO Last administered on 10/27/18 10:16; Admin Dose 200 MG; Start 10/26/18 at 21:00 Furosemide (Lasix) 20 mg DAILY@0600 PO ; Start 10/28/18 at 06:00 JUAN CARLOS ROLDAN NP Oct 27, 2018 14:12
[2018-10-27] MEDS: ATORVASTATIN 80 MG TAB PO SCH (21:32)
[2018-10-28] VITALS (11 sets, daily range): BP systolic 99–135; BP diastolic 46–78; PULSE 52–63; RESP 18–20
[2018-10-28] MEDS: VANCOMYCIN HCL 1.75 GM in SOD CHLORIDE 0.9% 500 ML IVPB SCH ×4 (00:28→12:28)
[2018-10-28] MEDS ORDERED: FUROSEMIDE 40 MG TAB PO SCH (06:00)
[2018-10-28] MEDS: FUROSEMIDE 20 MG TAB PO SCH (06:29)
[2018-10-28] MEDS: CEFEPIME 1GM/50 ML (PMX) 50 ML IVPB SCH ×2 (09:07→21:07)
[2018-10-28] MEDS: ASPIRIN 325 MG TAB PO SCH (09:07)
[2018-10-28] MEDS: METHYLPREDNISOLONE 40 MG INJ IV SCH (09:07)
[2018-10-28] MEDS: FAMOTIDINE 20 MG TAB PO SCH ×2 (09:08→21:07)
[2018-10-28] MEDS: DILTIAZEM (CD) 120 MG CAP PO SCH (09:08)
[2018-10-28] MEDS: APIXABAN 5 MG TABLET PO SCH ×2 (09:08→21:07)
[2018-10-28] MEDS: NICOTINE (7 MG/24 HR) PATCH TRANSDERM SCH (09:08)
[2018-10-28] MEDS: AMIODARONE 200 MG TAB PO SCH ×2 (09:08→21:07)
--- NOTE | 2018-10-28 09:40 | CONS ---
Assessment/Plan Assessment/Plan Assessment/Plan (Daily) Assessment and recommendations; next 1. Patient with history of recent CABG about 5 weeks ago admitted for hypoxemia due to pneumonia as well as CHF exacerbation with significant interval clinical improvement. 2. Underlying COPD. 3. Improving CHF. 4. Minimal bibasilar atelectasis. 5. Persistent leukocytosis. Continue current supportive care. Patient responding well to current treatment regimen. Antibiotics per ID recommendations. Consultation Date/Type/Reason Admit Date/Time Oct 21, 2018 at 05:07 Initial Consult Date 10/22/18 Type of Consult Pulmonary Requesting Provider: VANCE FELDMAN DO Date/Time of Note DATE: 10/28/18 TIME: 09:38 24 HR Interval Summary Free Text/Dictation Patient's condition is stable. Remains awake and alert. Denies any chest pain, shortness of breath, coughing, wheezing. General exam; middle-aged male, sitting in a chair by bedside. Awake and alert. Currently in no distress. Exam/Review of Systems Exam Vitals Vital Signs Date Temp Pulse Resp B/P (MAP) Pulse Ox O2 O2 Flow FiO2 Time Delivery Rate 10/28/18 97.6 55 20 112/64 97 Room Air 08:02 (80) 10/28/18 3.0 03:58 10/26/18 35 04:58 Intake and Output 10/27/18 10/27/18 10/28/18 1414:59 22:59 06:59 IntakeIntake Total 800 ml 720 ml OutputOutput Total 1200 ml 1300 ml BalanceBalance -400 ml -580 ml Exam H EENT exam; supple neck, positive JVD. No lymphadenopathy. Midline trachea. No thyromegaly. Patient has multiple carious teeth. Chest exam; diminished breath sounds in bases. Upper lobes are clear. S1-S2 audible, no murmurs. Regular rhythm. There is a well-healed sternal scar. Abdomen exam; soft, protuberant. No organomegaly. Nontender. Bowel sounds audible. Extremity exam; no peripheral edema or clubbing. Pulses 1+. DIGITAL FORENSIC ANALYST exam; no focal deficit. Results Result Diagram: 10/28/18 0634 10/28/18 0634 Results 24hrs Laboratory Tests Test 10/27/18 23:02 10/28/18 06:34 Vancomycin Level Trough 14.2 White Blood Count 20.1 H Red Blood Count 3.74 L Hemoglobin 11.0 L Hematocrit 33.8 L Mean Corpuscular Volume 90.4 Mean Corpuscular Hemoglobin 29.4 Mean Corpuscular Hemoglobin Concent 32.5 Red Cell Distribution Width 14.5 Platelet Count 46 #L Mean Platelet Volume 9.9 Immature Granulocytes % 2.300 H Neutrophils % 77.3 H Lymphocytes % 13.5 L Monocytes % 6.1 Eosinophils % 0.6 Basophils % 0.2 Nucleated Red Blood Cells % 0.1 H Immature Granulocytes # 0.460 H Neutrophils # 15.5 H Lymphocytes # 2.7 Monocytes # 1.2 H Eosinophils # 0.1 Basophils # 0.0 Nucleated Red Blood Cells # 0.0 Sodium Level 139 Potassium Level 3.8 Chloride Level 99 Carbon Dioxide Level 32 H Anion Gap 8 Blood Urea Nitrogen 35 H Creatinine 0.73 Est Glomerular Filtrat Rate mL/min > 60 Glucose Level 116 Calcium Level 8.5 Phosphorus Level 3.2 Magnesium Level 2.0 Medications Medication Current Medications Acetaminophen (Tylenol Tab) 650 mg Q6H PRN PO MILD PAIN LEVEL 1-3; Start 10/21/18 at 08:30 Atorvastatin Calcium (Lipitor) 80 mg QHS PO Last administered on 10/27/18at 21:32; Admin Dose 80 MG; Start 10/21/18 at 21:00 Nicotine (Nicoderm 7 Mg/ 24 Hr) 1 patch DAILY TRANSDERM Last administered on 10/28/18at 09:08; Admin Dose 1 PATCH; Start 10/21/18 at 09:00 Cefepime HCl 50 ml @ 100 mls/hr Q12 IVPB Last administered on 10/28/18at 09:07; Admin Dose 100 MLS/HR; Start 10/21/18 at 21:00 Vancomycin HCl (Vanco Iv Per Pharmacy) VANCOMYCIN PER PHARMACY PER PROTOCOL XX ; Start 10/21/18 at 09:30 Albuterol/ Ipratropium (Duoneb) 3 ml Q6H RESP THERAPY PRN HHN SHORTNESS OF BREATH; Start 10/21/18 at 17:00 Miscellaneous Information (Pending Santyl Order For Wound Care) This patient mclean... PRN PRN XX WOUND CARE; Start 10/21/18 at 19:30 Lorazepam (Ativan) 1 mg Q8H PRN IV anxiety Last administered on 10/21/18at 22:52; Admin Dose 1 MG; Start 10/21/18 at 21:30 Famotidine (Pepcid) 20 mg BID PO Last administered on 10/28/18 09:08; Admin Dose 20 MG; Start 10/22/18 at 09:00 Acetaminophen/ Hydrocodone Bitart ([place] (5/325)) 1 tab Q6H PRN PO MODERATE PAIN LEVEL 4-6 Last administered on 10/22/18 16:13; Admin Dose 1 TAB; Start 10/22/18 at 16:30 Diltiazem HCl (Cardizem Cd) 120 mg DAILY PO Last administered on 10/28/18 09:08; Admin Dose 120 MG; Start 10/22/18 at 17:30 Morphine Sulfate (morphine) 2 mg Q6H PRN IV SEVERE PAIN LEVEL 7-10; Start 10/22/18 at 18:30 Vancomycin HCl 1.75 gm/Sodium Chloride 500 ml @ 125 mls/hr Q12H IVPB Last administered on 10/28/18 00:28; Admin Dose 125 MLS/HR; Start 10/23/18 at 12:00 Methylprednisolone Sodium Succinate (Solu-Medrol) 40 mg DAILY IV Last administered on 10/28/18 09:07; Admin Dose 40 MG; Start 10/27/18 at 09:00 Aspirin (Aspirin) 81 mg DAILY PO Last administered on 10/28/18 09:07; Admin D ose 81 MG; Start 10/27/18 at 09:00 Apixaban (Eliquis) 5 mg BID PO Last administered on 10/28/18 09:08; Admin Dose 5 MG; Start 10/26/18 at 21:00 Amiodarone HCl (Cordarone) 200 mg BID PO Last administered on 10/28/18 09:08; Admin Dose 200 MG; Start 10/26/18 at 21:00 Furosemide (Lasix) 20 mg DAILY@0600 PO Last administered on 10/28/18 06:29; Admin Dose 20 MG; Start 10/28/18 at 06:00 GLORIA SANCHEZ Oct 28, 2018 09:40
--- NOTE | 2018-10-28 11:19 | PN ---
Date/Time of Note Date/Time of Note DATE: 10/28/18 TIME: 11:17 Assessment/Plan [place] [facility] [place]: 7 SCD applied (from Ns): Yes Pharmacological prophylaxis: LMWH Lines/Catheters IV Catheter Type (from [email or web address] [place] Assessment/Plan Hospital Course 1. Acute hypoxemic respiratory failure. Etiology is multifactorial secondary to congestive heart failure exacerbation, chronic obstructive pulmonary disease exacerbation, pleural effusion. The patient is clinically improving. Continue current medical management. Continue antibiotic therapy, nebulizers, continue diuretic therapy, and monitor closely. 2. Systemic inflammatory response syndrome, possible sepsis. The patient's blood cultures were positive for coag negative staph. Repeat cultures have been negative. Continue antibiotic therapy. Leukocytosis is likely due to underlying steroids. 3. Acute diastolic heart failure. The patient is clinically improving, appears near euvolemic status. now on lasix po 4. Nonoliguric acute kidney injury, etiology is secondary to hemodynamics, diuretic therapy. improved. 5. Hypokalemia. replaced 6. Metabolic alkalosis secondary to diuretic therapy, hypokalemia. We will continue to monitor. give additional dose of diamox today 7. Arrhythmia. The patient is currently on anticoagulation, on amiodarone. We will continue. 8. Coronary artery disease, status post 5-vessel coronary artery bypass graft. Continue medical management. Continue aspirin. 9. Hypertension. Blood pressure controlled. 10. Diabetes. Continue current diabetic regimen. 11. Anemia. Continue to monitor hemoglobin and hematocrit levels. 12. Gastrointestinal and deep vein thrombosis prophylaxis. 13. Status post syncope. 14. History of tobacco use. 15. Debility. We will place a physical therapy consult for evaluation. Result Diagram: 10/28/18 0634 10/28/18 0634 Results 24hrs Laboratory Tests Test 10/27/18 23:02 10/28/18 06:34 Vancomycin Level Trough 14.2 White Blood Count 20.1 H Red Blood Count 3.74 L Hemoglobin 11.0 L Hematocrit 33.8 L Mean Corpuscular Volume 90.4 Mean Corpuscular Hemoglobin 29.4 Mean Corpuscular Hemoglobin Concent 32.5 Red Cell Distribution Width 14.5 Platelet Count 46 #L Mean Platelet Volume 9.9 Immature Granulocytes % 2.300 H Neutrophils % 77.3 H Lymphocytes % 13.5 L Monocytes % 6.1 Eosinophils % 0.6 Basophils % 0.2 Nucleated Red Blood Cells % 0.1 H Immature Granulocytes # 0.460 H Neutrophils # 15.5 H Lymphocytes # 2.7 Monocytes # 1.2 H Eosinophils # 0.1 Basophils # 0.0 Nucleated Red Blood Cells # 0.0 Sodium Level 139 Potassium Level 3.8 Chloride Level 99 Carbon Dioxide Level 32 H Anion Gap 8 Blood Urea Nitrogen 35 H Creatinine 0.73 Est Glomerular Filtrat Rate mL/min > 60 Glucose Level 116 Calcium Level 8.5 Phosphorus Level 3.2 Magnesium Level 2.0 Subjective 24 Hr Interval Summary Free Text/Dictation shortness of breathing. still has cough able to ambulate denies n/v d/w rn gen nad cv rrr pulm ctab abd soft, nd, nt +bs ext: no edema Exam/Review of Systems Exam Vitals Vital Signs Date Temp Pulse Resp B/P (MAP) Pulse Ox O2 O2 Flow FiO2 Time Delivery Rate 10/28/18 97.6 55 20 112/64 97 Room Air 08:02 (80) 10/28/18 3.0 03:58 10/26/18 35 04:58 Intake and Output 10/27/18 10/27/18 10/28/18 1515:00 23:00 07:00 IntakeIntake Total 800 ml 720 ml OutputOutput Total 1200 ml 1300 ml BalanceBalance -400 ml -580 ml Results Results 24hrs Laboratory Tests Test 10/27/18 23:02 10/28/18 06:34 Vancomycin Level Trough 14.2 White Blood Count 20.1 H Red Blood Count 3.74 L Hemoglobin 11.0 L Hematocrit 33.8 L Mean Corpuscular Volume 90.4 Mean Corpuscular Hemoglobin 29.4 Mean Corpuscular Hemoglobin Concent 32.5 Red Cell Distribution Width 14.5 Platelet Count 46 #L Mean Platelet Volume 9.9 Immature Granulocytes % 2.300 H Neutrophils % 77.3 H Lymphocytes % 13.5 L Monocytes % 6.1 Eosinophils % 0.6 Basophils % 0.2 Nucleated Red Blood Cells % 0.1 H Immature Granulocytes # 0.460 H Neutrophils # 15.5 H Lymphocytes # 2.7 Monocytes # 1.2 H Eosinophils # 0.1 Basophils # 0.0 Nucleated Red Blood Cells # 0.0 Sodium Level 139 Potassium Level 3.8 Chloride Level 99 Carbon Dioxide Level 32 H Anion Gap 8 Blood Urea Nitrogen 35 H Creatinine 0.73 Est Glomerular Filtrat Rate mL/min > 60 Glucose Level 116 Calcium Level 8.5 Phosphorus Level 3.2 Magnesium Level 2.0 Medications Medication Current Medications Acetaminophen (Tylenol Tab) 650 mg Q6H PRN PO MILD PAIN LEVEL 1-3; Start 10/21/18 at 08:30 Atorvastatin Calcium (Lipitor) 80 mg QHS PO Last administered on 10/27/18 21: 32; Admin Dose 80 MG; Start 10/21/18 at 21:00 Nicotine (Nicoderm 7 Mg/ 24 Hr) 1 patch DAILY TRANSDERM Last administered on 10/28/18 09:08; Admin Dose 1 PATCH; Start 10/21/18 at 09:00 Cefepime HCl 50 ml @ 100 mls/hr Q12 IVPB Last administered on 10/28/18 09:07; Admin Dose 100 MLS/HR; Start 10/21/18 at 21:00 Vancomycin HCl (Vanco Iv Per Pharmacy) VANCOMYCIN PER PHARMACY PER PROTOCOL XX ; Start 10/21/18 at 09:30 Albuterol/ Ipratropium (Duoneb) 3 ml Q6H RESP THERAPY PRN HHN SHORTNESS OF BREATH; Start 10/21/18 at 17:00 Miscellaneous Information (Pending [facility] Order For Wound Care) This patient mclean... PRN PRN XX WOUND CARE; Start 10/21/18 at 19:30 Lorazepam (Ativan) 1 mg Q8H PRN IV anxiety Last administered on 10/21/18 22:52; Admin Dose 1 MG; Start 10/21/18 at 21:30 Famotidine (Pepcid) 20 mg BID PO Last administered on 10/28/18 09:08; Admin Dose 20 MG; Start 10/22/18 at 09:00 Acetaminophen/ Hydrocodone Bitart ([place] (5/325)) 1 tab Q6H PRN PO MODERATE PAIN LEVEL 4-6 Last administered on 10/22/18 16:13; Admin Dose 1 TAB; Start 10/22/18 at 16:30 Diltiazem HCl (Cardizem Cd) 120 mg DAILY PO Last administered on 10/28/18 09:08; Admin Dose 120 MG; Start 10/22/18 at 17:30 Morphine Sulfate (morphine) 2 mg Q6H PRN IV SEVERE PAIN LEVEL 7-10; Start 10/22/18 at 18:30 Vancomycin HCl 1.75 gm/Sodium Chloride 500 ml @ 125 mls/hr Q12H IVPB Last administered on 10/28/18at 00:28; Admin Dose 125 MLS/HR; Start 10/23/18 at 12:00 Methylprednisolone Sodium Succinate (Solu-Medrol) 40 mg DAILY IV Last administered on 10/28/18 09:07; Admin Dose 40 MG; Start 10/27/18 at 09:00 Aspirin (Aspirin) 81 mg DAILY PO Last administered on 10/28/18 09:07; Admin Dose 81 MG; Start 10/27/18 at 09:00 Apixaban (Eliquis) 5 mg BID PO Last administered on 10/28/18 09:08; Admin Dose 5 MG; Start 10/26/18 at 21:00 Amiodarone HCl (Cordarone) 200 mg BID PO Last administered on 10/28/18 09:08; Admin Dose 200 MG; Start 10/26/18 at 21:00 Furosemide (Lasix) 20 mg DAILY@0600 PO Last administered on 10/28/18 06:29; Admin Dose 20 MG; Start 10/28/18 at 06:00 Miscellaneous Information (*Rx Drug Level Order Reminder*) VANCO TROUGH ON @ 100 1100 ONCE XX ; Start 10/29/18 at 11:00; Stop 10/29/18 at 11:01 VAMSHI AUGUSTE MD Oct 28, 2018 11:19
[2018-10-28] MEDS ORDERED: ACETAZOLAMIDE 500 MG INJ IV ONE (11:30)
--- NOTE | 2018-10-28 17:04 | CONS ---
Consultation Date/Type/Reason Admit Date/Time Oct 21, 2018 at 05:07 Initial Consult Date SUBJECTIVE: Pt is awake, alert, resting in bed. No acute events over night. VS: stable T: 98.0 LABS: Reviewed. WBC- 20.1 Microbiology: Blood culture on admission grew coag negative staph species, repeat blood cultures negative Thoracic FLUID CULTURE: FUNGAL CULTURE Preliminary --Pending AFB SMEAR Final =ACID FAST BACILLI = NONE SEEN GRAM STAIN Final WHITE BLOOD CELLS 1+ . NO ORGANISM SEEN BODY FLUID CULTURE Final No growth after 3 days Chest x-ray revealed no pneumothorax status post thoracentesis Antimicrobials: Vancomycin, cefepime Physical exam: GEN: This is a well-developed obese middle-aged man who is in no distress. HENT: Head atraumatic normocephalic, sclera nonicteric, neck is supple. PULM: Chest rise symmetrical breath sounds diminished to bases. Heart: S1-S2. Abdomen soft bowel sounds present. Extremities without cyanosis. Skin: Patient has well-healed midsternal scar there is an area of swelling upper part of incision no pain, no fluctuance Assessment: 1. Acute hypoxemic respiratory failure secondary to CHF exacerbation and pneumonia, s/p thoracentesis 1 L 10/25/18 2. Gram-positive cocci bacteremia cw contaminant ==> no vegetations per 2D echo 3. Coronary artery disease with a history of CABG and aortic valve replacement 4. COPD exacerbation 5. Diabetes 6. Obesity Plan: Pt is stable. Continue current IV antbx. No fevers and WBC is gradually improving. CXR in AM. Pulm. recommendations. Requesting Provider: VANCE FELDMAN DO Date/Time of Note DATE: 10/28/18 TIME: 16:57 Exam/Review of Systems Exam Vitals Vital Signs Date Temp Pulse Resp B/P (MAP) Pulse Ox O2 O2 Flow FiO2 Time Delivery Rate 10/28/18 98.0 56 18 109/57 96 Nasal 15:44 (74) Cannula 10/28/18 3.0 03:58 10/26/18 35 04:58 Intake and Output 10/27/18 10/27/18 10/28/18 1515:00 23:00 07:00 IntakeIntake Total 800 ml 720 ml OutputOutput Total 1200 ml 1300 ml BalanceBalance -400 ml -580 ml Results Result Diagram: 10/28/18 0634 10/28/18 0634 Results 24hrs Laboratory Tests Test 10/27/18 23:02 10/28/18 06:34 Vancomycin Level Trough 14.2 White Blood Count 20.1 H Red Blood Count 3.74 L Hemoglobin 11.0 L Hematocrit 33.8 L Mean Corpuscular Volume 90.4 Mean Corpuscular Hemoglobin 29.4 Mean Corpuscular Hemoglobin Concent 32.5 Red Cell Distribution Width 14.5 Platelet Count 46 #L Mean Platelet Volume 9.9 Immature Granulocytes % 2.300 H Neutrophils % 77.3 H Lymphocytes % 13.5 L Monocytes % 6.1 Eosinophils % 0.6 Basophils % 0.2 Nucleated Red Blood Cells % 0.1 H Immature Granulocytes # 0.460 H Neutrophils # 15.5 H Lymphocytes # 2.7 Monocytes # 1.2 H Eosinophils # 0.1 Basophils # 0.0 Nucleated Red Blood Cells # 0.0 Sodium Level 139 Potassium Level 3.8 Chloride Level 99 Carbon Dioxide Level 32 H Anion Gap 8 Blood Urea Nitrogen 35 H Creatinine 0.73 Est Glomerular Filtrat Rate mL/min > 60 Glucose Level 116 Calcium Level 8.5 Phosphorus Level 3.2 Magnesium Level 2.0 Medications Medication Current Medications Acetaminophen (Tylenol Tab) 650 mg Q6H PRN PO MILD PAIN LEVEL 1-3; Start 10/21/18 at 08:30 Atorvastatin Calcium (Lipitor) 80 mg QHS PO Last administered on 10/27/18at 21:32; Admin Dose 80 MG; Start 10/21/18 at 21:00 Nicotine (Nicoderm 7 Mg/ 24 Hr) 1 patch DAILY TRANSDERM Last administered on 10/28/18at 09:08; Admin Dose 1 PATCH; Start 10/21/18 at 09:00 Cefepime HCl 50 ml @ 100 mls/hr Q12 IVPB Last administered on 10/28/18at 09:07; Admin Dose 100 MLS/HR; Start 10/21/18 at 21:00 Vancomycin HCl (Vanco Iv Per Pharmacy) VANCOMYCIN PER PHARMACY PER PROTOCOL XX ; Start 10/21/18 at 09:30 Albuterol/ Ipratropium (Duoneb) 3 ml Q6H RESP THERAPY PRN HHN SHORTNESS OF B REATH; Start 10/21/18 at 17:00 Miscellaneous Information (Pending Santyl Order For Wound Care) This patient mclean... PRN PRN XX WOUND CARE; Start 10/21/18 at 19:30 Lorazepam (Ativan) 1 mg Q8H PRN IV anxiety Last administered on 10/21/18 22:52; Admin Dose 1 MG; Start 10/21/18 at 21:30 Famotidine (Pepcid) 20 mg BID PO Last administered on 10/28/18 09:08; Admin Dose 20 MG; Start 10/22/18 at 09:00 Acetaminophen/ Hydrocodone Bitart ([place] (5/325)) 1 tab Q6H PRN PO MODERATE PAIN LEVEL 4-6 Last administered on 10/22/18 16:13; Admin Dose 1 TAB; Start 10/22/18 at 16:30 Diltiazem HCl (Cardizem Cd) 120 mg DAILY PO Last administered on 10/28/18 09:08; Admin Dose 120 MG; Start 10/22/18 at 17:30 Morphine Sulfate (morphine) 2 mg Q6H PRN IV SEVERE PAIN LEVEL 7-10; Start 10/22/18 at 18:30 Vancomycin HCl 1.75 gm/Sodium Chloride 500 ml @ 125 mls/hr Q12H IVPB Last administered on 10/28/18 12:28; Admin Dose 125 MLS/HR; Start 10/23/18 at 12:00 Methylprednisolone Sodium Succinate (Solu-Medrol) 40 mg DAILY IV Last administered on 10/28/18 09:07; Admin Dose 40 MG; Start 10/27/18 at 09:00 Aspirin (Aspirin) 81 mg DAILY PO Last administered on 10/28/18 09:07; Admin Dose 81 MG; Start 10/27/18 at 09:00 Apixaban (Eliquis) 5 mg BID PO Last administered on 10/28/18 09:08; Admin Dose 5 MG; Start 10/26/18 at 21:00 Amiodarone HCl (Cordarone) 200 mg BID PO Last administered on 10/28/18 09:08; Admin Dose 200 MG; Start 10/26/18 at 21:00 Furosemide (Lasix) 20 mg DAILY@0600 PO Last administered on 10/28/18 06:29; Admin Dose 20 MG; Start 10/28/18 at 06:00 Miscellaneous Information (*Rx Drug Level Order Reminder*) VANCO TROUGH ON @ 100 1100 ONCE XX ; Start 10/29/18 at 11:00; Stop 10/29/18 at 11:01 GLORIA WEBER Oct 28, 2018 17:04
[2018-10-28] MEDS: ATORVASTATIN 80 MG TAB PO SCH (21:07)
[2018-10-29] VITALS (10 sets, daily range): BP systolic 113–136; BP diastolic 57–64; PULSE 51–78; RESP 18–20
[2018-10-29] MEDS: VANCOMYCIN HCL 1.75 GM in SOD CHLORIDE 0.9% 500 ML IVPB SCH (00:27)
[2018-10-29] MEDS: FUROSEMIDE 20 MG TAB PO SCH (05:27)
--- NOTE | 2018-10-29 08:26 | CONS ---
Assessment/Plan Assessment/Plan Assessment/Plan (Daily) Assessment and recommendations; 1. Patient with history of recent CABG admitted for pneumonia as well as CHF exacerbation with significant interval improvement. 2. Underlying COPD. 3. Persistent leukocytosis, patient however currently on appropriate antimicrobial regimen. 4. Minimal bibasilar atelectasis. Continue current supportive care. Obtain follow-up chest x-ray. Antibiotics per ID recommendations. Consultation Date/Type/Reason Admit Date/Time Oct 21, 2018 at 05:07 Initial Consult Date 10/22/18 Type of Consult Pulmonary Requesting Provider: VANCE FELDMAN DO Date/Time of Note DATE: 10/29/18 TIME: 08:25 24 HR Interval Summary Free Text/Dictation Patient's condition is stable. Denies any shortness of breath, coughing, wheezing, chest pain. General exam; middle-aged male, sitting in a chair by bedside. Awake and alert. Currently in no distress. Exam/Review of Systems Exam Vitals Vital Signs Date Temp Pulse Resp B/P (MAP) Pulse Ox O2 O2 Flow FiO2 Time Delivery Rate 10/29/18 97.4 58 20 118/63 98 Nasal 07:28 (81) Cannula 10/28/18 2.0 22:35 10/26/18 35 04:58 Intake and Output 10/28/18 10/28/18 10/29/18 1515:00 23:00 07:00 IntakeIntake Total 800 ml 450 ml OutputOutput Total 350 ml 1000 ml 1250 ml BalanceBalance -350 ml -200 ml -800 ml Exam H EENT exam; supple neck, no JVD. No lymphadenopathy. Midline trachea. No thyromegaly. Patient does have carious teeth. Chest exam; diminished but clear breath sounds. S1-S2 audible, no murmurs. Regular rhythm. There is a well-healed sternal scar. Abdomen exam; soft, mildly protuberant. Nontender. Bowel sounds audible. Organomegaly difficult to assess. Extremity exam; no peripheral edema. POLITICAL ANALYST exam; no focal deficit. Results Result Diagram: 10/28/18 0634 10/28/18 0634 Results 24hrs Laboratory Tests Test 10/29/18 07:06 White Blood Count Pending Red Blood Count Pending Hemoglobin Pending Hematocrit Pending Mean Corpuscular Volume Pending Mean Corpuscular Hemoglobin Pending Mean Corpuscular Hemoglobin Concent Pending Red Cell Distribution Width Pending Platelet Count Pending Mean Platelet Volume Pending Medications Medication Current Medications Acetaminophen (Tylenol Tab) 650 mg Q6H PRN PO MILD PAIN LEVEL 1-3; Start 10/21/18 at 08:30 Atorvastatin Calcium (Lipitor) 80 mg QHS PO Last administered on 10/28/18 21:07; Admin Dose 80 MG; Start 10/21/18 at 21:00 Nicotine (Nicoderm 7 Mg/ 24 Hr) 1 patch DAILY TRANSDERM Last administered on 10/28/18 09:08; Admin Dose 1 PATCH; Start 10/21/18 at 09:00 Cefepime HCl 50 ml @ 100 mls/hr Q12 IVPB Last administered on 10/28/18 21:07; Admin Dose 100 MLS/HR; Start 10/21/18 at 21:00 Vancomycin HCl (Vanco Iv Per Pharmacy) VANCOMYCIN PER PHARMACY PER PROTOCOL XX ; Start 10/21/18 at 09:30 Albuterol/ Ipratropium (Duoneb) 3 ml Q6H RESP THERAPY PRN HHN SHORTNESS OF BREATH; Start 10/21/18 at 17:00 Miscellaneous Information (Pending [facility] Order For Wound Care) This patient mclean... PRN PRN XX WOUND CARE; Start 10/21/18 at 19:30 Lorazepam (Ativan) 1 mg Q8H PRN IV anxiety Last administered on 10/21/18 22:52; Admin Dose 1 MG; Start 10/21/18 at 21:30 Famotidine (Pepcid) 20 mg BID PO Last administered on 10/28/18 21:07; Admin Dose 20 MG; Start 10/22/18 at 09:00 Acetaminophen/ Hydrocodone Bitart ([place] (5/325)) 1 tab Q6H PRN PO MODERATE PAIN LEVEL 4-6 Last administered on 10/22/18 16:13; Admin Dose 1 TAB; Start 10/22/18 at 16:30 Diltiazem HCl (Cardizem Cd) 120 mg DAILY PO Last administered on 10/28/18 09:08; Admin Dose 120 MG; Start 10/22/18 at 17:30 Morphine Sulfate (morphine) 2 mg Q6H PRN IV SEVERE PAIN LEVEL 7-10; Start 10/22/18 at 18:30 Vancomycin HCl 1.75 gm/Sodium Chloride 500 ml @ 125 mls/hr Q12H IVPB Last administered on 10/29/18at 00:27; Admin Dose 125 MLS/HR; Start 10/23/18 at 12:00 Methylprednisolone Sodium Succinate (Solu-Medrol) 40 mg DAILY IV Last administered on 10/28/18at 09:07; Admin Dose 40 MG; Start 10/27/18 at 09:00 Aspirin (Aspirin) 81 mg DAILY PO Last administered on 10/28/18 09:07; Admin Dose 81 MG; Start 10/27/18 at 09:00 Apixaban (Eliquis) 5 mg BID PO Last administered on 10/28/18 21:07; Admin Dose 5 MG; Start 10/26/18 at 21:00 Amiodarone HCl (Cordarone) 200 mg BID PO Last administered on 10/28/18at 21:07; Admin Dose 200 MG; Start 10/26/18 at 21:00 Furosemide (Lasix) 20 mg DAILY@0600 PO Last administered on 10/29/18at 05:27; Admin Dose 20 MG; Start 10/28/18 at 06:00 Miscellaneous Information (*Rx Drug Level Order Reminder*) VANCO TROUGH ON @ 100 1100 ONCE XX ; Start 10/29/18 at 11:00; Stop 10/29/18 at 11:01 GLORIA SANCHEZ Oct 29, 2018 08:26
--- NOTE | 2018-10-29 13:06 | PN ---
Date/Time of Note Date/Time of Note DATE: 10/29/18 TIME: 13:02 Assessment/Plan VTE Prophylaxis [place] [facility] [place]: 1 SCD applied [place] [facility] [place] Yes Pharmacological prophylaxis: NA/contraindicated Pharm contraindication: thrombocytopenia Lines/Catheters IV Catheter Type (from [facility]): [place]ine Lock Urinary Cath still in place: No Assessment/Plan Hospital Course 1. Acute hypoxemic respiratory failure. Etiology is multifactorial secondary to congestive heart failure exacerbation, chronic obstructive pulmonary disease exacerbation, pleural effusion. The patient is clinically improving. Continue current medical management. Continue antibiotic therapy, nebulizers, continue diuretic therapy, and monitor closely. 2. Systemic inflammatory response syndrome, possible sepsis. The patient's blood cultures were positive for coag negative staph. Repeat cultures have been negative. abx per ID. Leukocytosis is likely due to underlying steroids. 3. Acute diastolic heart failure. The patient is clinically improving, appears near euvolemic status. now on lasix po 4. Nonoliguric acute kidney injury, etiology is secondary to hemodynamics, diuretic therapy. improved. 5. Hypokalemia. replaced 6. Metabolic alkalosis secondary to diuretic therapy, hypokalemia. We will continue to monitor. 7. Arrhythmia. cont amiodarone. holding eliquis due to thrombocytopenia 8. Coronary artery disease, status post 5-vessel coronary artery bypass graft. Continue medical management. Continue aspirin. 9. Hypertension. Blood pressure controlled. 10. Diabetes. Continue current diabetic regimen. 11. Anemia. Continue to monitor hemoglobin and hematocrit levels. 12. Gastrointestinal and deep vein thrombosis prophylaxis. 13. Status post syncope. 14. History of tobacco use. 15. thrombocytopenia: likely due to cefepime. d/c cefepime. hem/onc consult. holding asa and eliquis. Result Diagram: 10/29/18 0706 10/29/18 0706 Results 24hrs Laboratory Tests Test 10/29/18 07:06 10/29/18 10:52 White Blood Count 22.4 H Red Blood Count 3.83 L Hemoglobin 11.2 L Hematocrit 35.2 L Mean Corpuscular Volume 91.9 Mean Corpuscular Hemoglobin 29.2 Mean Corpuscular Hemoglobin Concent 31.8 L Red Cell Distribution Width 15.2 H Platelet Count 27 #*L Mean Platelet Volume 11.6 H Immature Granulocytes % 2.800 H Neutrophils % 71.3 Segmented Neutrophils % (Manual) 71 Band Neutrophils % (Manual) 1 Lymphocytes % 17.0 Lymphocytes % (Manual) 18 Monocytes % 7.7 Monocytes % (Manual) 9 Eosinophils % 1.1 Basophils % 0.1 Plasma Cells % (manual) 1 Nucleated Red Blood Cells % 0.1 H Immature Granulocytes # 0.630 H Neutrophils # 15.9 H Neutrophils # (Manual) 15.9 H Band Neutrophils # 0.2 Lymphocytes (Manual) 4.0 H Lymphocytes # 3.8 H Monocytes # 1.7 H Monocytes # (Manual) 2.0 H Eosinophils # 0.3 Basophils # 0.0 Plasma Cells # (manual) 0.2 H Nucleated Red Blood Cells # 0.0 Pathologist Review (Hematology) YES Platelet Estimate SIG DECREASED Polychromasia 1+ Hypochromasia 1+ Anisocytosis 1+ Macrocytosis 1+ Sodium Level 140 Potassium Level 4.2 Chloride Level 99 Carbon Dioxide Level 32 H Anion Gap 9 Blood Urea Nitrogen 27 H Creatinine 0.85 Est Glomerular Filtrat Rate mL/min > 60 Glucose Level 96 Calcium Level 8.6 Phosphorus Level 3.4 Magnesium Level 2.1 Vancomycin Level Trough 14.3 Subjective 24 Hr Interval Summary Free Text/Dictation shortness of breath improved denies f/c or n/v no bleeding d/w rn gen nad cv rrr pulm ctab abd soft, nd, nt +bs ext: no edema Exam/Review of Systems Exam Vitals Vital Signs Date Temp Pulse Resp B/P (MAP) Pulse Ox O2 O2 Flow FiO2 Time Delivery Rate 10/29/18 56 12:01 10/29/18 98.6 20 114/58 95 11:16 (76) 10/29/18 Nasal 07:28 Cannula 10/28/18 2.0 22:35 10/26/18 35 04:58 Intake and Output 10/28/18 10/28/18 10/29/18 1515:00 23:00 07:00 IntakeIntake Total 800 ml 450 ml OutputOutput Total 350 ml 1000 ml 1250 ml BalanceBalance -350 ml -200 ml -800 ml Results Results 24hrs Laboratory Tests Test 10/29/18 07:06 10/29/18 10:52 White Blood Count 22.4 H Red Blood Count 3.83 L Hemoglobin 11.2 L Hematocrit 35.2 L Mean Corpuscular Volume 91.9 Mean Corpuscular Hemoglobin 29.2 Mean Corpuscular Hemoglobin Concent 31.8 L Red Cell Distribution Width 15.2 H Platelet Count 27 #*L Mean Platelet Volume 11.6 H Immature Granulocytes % 2.800 H Neutrophils % 71.3 Segmented Neutrophils % (Manual) 71 Band Neutrophils % (Manual) 1 Lymphocytes % 17.0 Lymphocytes % (Manual) 18 Monocytes % 7.7 Monocytes % (Manual) 9 Eosinophils % 1.1 Basophils % 0.1 Plasma Cells % (manual) 1 Nucleated Red Blood Cells % 0.1 H Immature Granulocytes # 0.630 H Neutrophils # 15.9 H Neutrophils # (Manual) 15.9 H Band Neutrophils # 0.2 Lymphocytes (Manual) 4.0 H Lymphocytes # 3.8 H Monocytes # 1.7 H Monocytes # (Manual) 2.0 H Eosinophils # 0.3 Basophils # 0.0 Plasma Cells # (manual) 0.2 H Nucleated Red Blood Cells # 0.0 Pathologist Review (Hematology) YES Platelet Estimate SIG DECREASED Polychromasia 1+ Hypochromasia 1+ Anisocytosis 1+ Macrocytosis 1+ Sodium Level 140 Potassium Level 4.2 Chloride Level 99 Carbon Dioxide Level 32 H Anion Gap 9 Blood Urea Nitrogen 27 H Creatinine 0.85 Est Glomerular Filtrat Rate mL/min > 60 Glucose Level 96 Calcium Level 8.6 Phosphorus Level 3.4 Magnesium Level 2.1 Vancomycin Level Trough 14.3 Medications Medication Current Medications Acetaminophen (Tylenol Tab) 650 mg Q6H PRN PO MILD PAIN LEVEL 1-3; Start 10/21/18 at 08:30 Atorvastatin Calcium (Lipitor) 80 mg QHS PO Last administered on 10/28/18at 21:07; Admin Dose 80 MG; Start 10/21/18 at 21:00 Nicotine (Nicoderm 7 Mg/ 24 Hr) 1 patch DAILY TRANSDERM Last administered on 10/28/18at 09:08; Admin Dose 1 PATCH; Start 10/21/18 at 09:00 Cefepime HCl 50 ml @ 100 mls/hr Q12 IVPB Last administered on 10/28/18at 21:07; Admin Dose 100 MLS/HR; Start 10/21/18 at 21:00 Vancomycin HCl (Vanco Iv Per Pharmacy) VANCOMYCIN PER PHARMACY PER PROTOCOL XX ; Start 10/21/18 at 09:30 Albuterol/ Ipratropium (Duoneb) 3 ml Q6H RESP THERAPY PRN HHN SHORTNESS OF BREATH; Start 10/21/18 at 17:00 Miscellaneous Information (Pending Santyl Order For Wound Care) This patient mclean... PRN PRN XX WOUND CARE; Start 10/21/18 at 19:30 Lorazepam (Ativan) 1 mg Q8H PRN IV anxiety Last administered on 10/21/18 22:52; Admin Dose 1 MG; Start 10/21/18 at 21:30 Famotidine (Pepcid) 20 mg BID PO Last administered on 10/28/18 21:07; Admin Dose 20 MG; Start 10/22/18 at 09:00 Acetaminophen/ Hydrocodone Bitart ([place] (5/325)) 1 tab Q6H PRN PO MODERATE PAIN LEVEL 4-6 Last administered on 10/22/18 16:13; Admin Dose 1 TAB; Start 10/22/18 at 16:30 Diltiazem HCl (Cardizem Cd) 120 mg DAILY PO Last administered on 10/28/18 09:08; Admin Dose 120 MG; Start 10/22/18 at 17:30 Morphine Sulfate (morphine) 2 mg Q6H PRN IV SEVERE PAIN LEVEL 7-10; Start at 18:30 Vancomycin HCl 1.75 gm/Sodium Chloride 500 ml @ 125 mls/hr Q12H IVPB Last administered on 10/29/18 00:27; Admin Dose 125 MLS/HR; Start 10/23/18 at 12:00 Methylprednisolone Sodium Succinate (Solu-Medrol) 40 mg DAILY IV Last administered on 10/28/18 09:07; Admin Dose 40 MG; Start 10/27/18 at 09:00 Amiodarone HCl (Cordarone) 200 mg BID PO Last administered on 10/28/18 21:07; Admin Dose 200 MG; Start 10/26/18 at 21:00 Furosemide (Lasix) 20 mg DAILY@0600 PO Last administered on 10/29/18 05:27; Admin Dose 20 MG; Start 10/28/18 at 06:00 VAMSHI AUGUSTE MD Oct 29, 2018 13:06
[2018-10-29] MEDS: METHYLPREDNISOLONE 40 MG INJ IV SCH (13:16)
[2018-10-29] MEDS: FAMOTIDINE 20 MG TAB PO SCH ×2 (13:18→20:31)
[2018-10-29] MEDS: AMIODARONE 200 MG TAB PO SCH ×2 (13:18→20:31)
[2018-10-29] MEDS: NICOTINE (7 MG/24 HR) PATCH TRANSDERM SCH (13:18)
[2018-10-29] MEDS: DILTIAZEM (CD) 120 MG CAP PO SCH (13:18)
--- NOTE | 2018-10-29 14:43 | CONS ---
Assessment/Plan Cardiology NYHA: IV Heart Failure Type: Acute on Chronic Heart Failure Type: Diastolic Assessment/Plan Hospital Course (Demo Recall) Acute respiratory failure: Likely multifactorial including CHF exacerbation, COPD, and left pleural effusion Coag negative staph bacteremia: likely contaminant. f/u ID recs Acute on chronic diastolic CHF: EF remains preserved though poor study. Euvolemic now Acute on chronic COPD with exacerbation Left pleural effusion: s/p thora with 1 L removed 10/25 Paroxysmal atrial fibrillation/flutter: very common post cardiac surgery, however this is no longer the acute stage and so anticoagulation mcc is appropriate. Now back in sinus after amiodarone CAD s/p CABG: s/p CABG x5 10/04/2018, BILLINGSLEY to LAD, SVG to PDA, SVG to diagonal artery sequence to OM1 sequenced to OM2. No angina and trops negative HTN HL DM Tobacco use Thrombocytopenia: follow up hematology consultation -continue lasix 20mg PO daily, may need 40mg daily to keep even but can monitor -continue amiodarone 200mg PO BID, taper to 200mg on discharge -aspirin and Eliquis on hold due to thrombocytopenia -continue lipitor 80mg -continue diltiazem 120mg instead of metoprolol with COPD Consultation Date/Type/Reason Admit Date/Time Oct 21, 2018 at 05:07 Initial Consult Date 10/22/18 Type of Consult Cardiology Date/Time of Note DATE: 10/29/18 TIME: 14:40 24 HR Interval Summary Free Text/Dictation Denies chest pain or shortness of breath. Platelets down to 27. Detailed Summary Additional Comments 14 point review of systems without changes. Exam/Review of Systems Vital Signs Vitals Vital Signs Date Temp Pulse Resp B/P (MAP) Pulse Ox O2 O2 Flow FiO2 Time Delivery Rate 10/29/18 56 12:01 10/29/18 98.6 20 114/58 95 11:16 (76) 10/29/18 Nasal 07:28 Cannula 10/28/18 2.0 22:35 10/26/18 35 04:58 Intake and Output 10/28/18 10/28/18 10/29/18 1515:00 23:00 07:00 IntakeIntake Total 800 ml 450 ml OutputOutput Total 350 ml 1000 ml 1250 ml BalanceBalance -350 ml -200 ml -800 ml Exam Exam Constitutional: alert, oriented Psych: no complaints, nl mood/affect Head: normocephalic, atraumatic Neck: No jvd Respiratory: crackles/rales (mild at bases); No clear to auscultation Cardiovascular: regular rate and rhythm; No edema, No systolic murmur Gastrointestinal: soft, non-tender; No distended Neurological: nl mental status, nl speech Labs Result Diagram: 10/29/18 0706 10/29/18 0706 Results 24hrs Laboratory Tests Test 10/29/18 07:06 10/29/18 10:52 White Blood Count 22.4 H Red Blood Count 3.83 L Hemoglobin 11.2 L Hematocrit 35.2 L Mean Corpuscular Volume 91.9 Mean Corpuscular Hemoglobin 29.2 Mean Corpuscular Hemoglobin Concent 31.8 L Red Cell Distribution Width 15.2 H Platelet Count 27 #*L Mean Platelet Volume 11.6 H Immature Granulocytes % 2.800 H Neutrophils % 71.3 Segmented Neutrophils % (Manual) 71 Band Neutrophils % (Manual) 1 Lymphocytes % 17.0 Lymphocytes % (Manual) 18 Monocytes % 7.7 Monocytes % (Manual) 9 Eosinophils % 1.1 Basophils % 0.1 Plasma Cells % (manual) 1 Nucleated Red Blood Cells % 0.1 H Immature Granulocytes # 0.630 H Neutrophils # 15.9 H Neutrophils # (Manual) 15.9 H Band Neutrophils # 0.2 Lymphocytes (Manual) 4.0 H Lymphocytes # 3.8 H Monocytes # 1.7 H Monocytes # (Manual) 2.0 H Eosinophils # 0.3 Basophils # 0.0 Plasma Cells # (manual) 0.2 H Nucleated Red Blood Cells # 0.0 Pathologist Review (Hematology) YES Platelet Estimate SIG DECREASED Polychromasia 1+ Hypochromasia 1+ Anisocytosis 1+ Macrocytosis 1+ Sodium Level 140 Potassium Level 4.2 Chloride Level 99 Carbon Dioxide Level 32 H Anion Gap 9 Blood Urea Nitrogen 27 H Creatinine 0.85 Est Glomerular Filtrat Rate mL/min > 60 Glucose Level 96 Calcium Level 8.6 Phosphorus Level 3.4 Magnesium Level 2.1 Vancomycin Level Trough 14.3 Medications Medications Current Medications Acetaminophen (Tylenol Tab) 650 mg Q6H PRN PO MILD PAIN LEVEL 1-3; Start 10/21/18 at 08:30 Atorvastatin Calcium (Lipitor) 80 mg QHS PO Last administered on 10/28/18 21:07; Admin Dose 80 MG; Start 10/21/18 at 21:00 Nicotine (Nicoderm 7 Mg/ 24 Hr) 1 patch DAILY TRANSDERM Last administered on 10/29/18 13:18; Admin Dose 1 PATCH; Start 10/21/18 at 09:00 Albuterol/ Ipratropium (Duoneb) 3 ml Q6H RESP THERAPY PRN HHN SHORTNESS OF BREATH; Start 10/21/18 at 17:00 Miscellaneous Information (Pending Santyl Order For Wound Care) This patient mclean... PRN PRN XX WOUND CARE; Start 10/21/18 at 19:30 Lorazepam (Ativan) 1 mg Q8H PRN IV anxiety Last administered on 10/21/18 22:52; Admin Dose 1 MG; Start 10/21/18 at 21:30 Famotidine (Pepcid) 20 mg BID PO Last administered on 10/29/18 13:18; Admin Dose 20 MG; Start 10/22/18 at 09:00 Acetaminophen/ Hydrocodone Bitart ([place] (5/325)) 1 tab Q6H PRN PO MODERATE PAIN LEVEL 4-6 Last administered on 10/22/18 16:13; Admin Dose 1 TAB; Start 10/22/18 at 16:30 Diltiazem HCl (Cardizem Cd) 120 mg DAILY PO Last administered on 10/29/18 13:18; Admin Dose 120 MG; Start 10/22/18 at 17:30 Morphine Sulfate (morphine) 2 mg Q6H PRN IV SEVERE PAIN LEVEL 7-10; Start 10/22/18 at 18:30 Methylprednisolone Sodium Succinate (Solu-Medrol) 40 mg DAILY IV Last administered on 10/29/18 13:16; Admin Dose 40 MG; Start 10/27/18 at 09:00 Amiodarone HCl (Cordarone) 200 mg BID PO Last administered on 10/29/18 13:18; Admin Dose 200 MG; Start 10/26/18 at 21:00 Furosemide (Lasix) 20 mg DAILY@0600 PO Last administered on 10/29/18 05:27; Admin Dose 20 MG; Start 10/28/18 at 06:00 CYN VALDOVINOS MD Oct 29, 2018 14:43
--- NOTE | 2018-10-29 16:30 | CONS ---
Consultation Date/Type/Reason Admit Date/Time Oct 21, 2018 at 05:07 Initial Consult Date SUBJECTIVE: Pt is awake, alert, resting in bed. No acute events over night. VS: stable T: 98.2 LABS: Reviewed. WBC- 22.4 Increased. Plt count=27 CXR: 10/29/18 IMPRESSION: Cardiomegaly with calcified atherosclerosis in the aorta. Stable retrocardiac opacity that may reflect left lower lobe atelectasis or infiltrate combined with small pleural effusion. Right basilar infiltrates with small right pleural effusion. Microbiology: Blood culture on admission grew coag negative staph species, repeat blood cultures negative Thoracic FLUID CULTURE: FUNGAL CULTURE Preliminary --Pending AFB SMEAR Final =ACID FAST BACILLI = NONE SEEN GRAM STAIN Final WHITE BLOOD CELLS 1+ . NO ORGANISM SEEN BODY FLUID CULTURE Final No growth after 3 days Chest x-ray revealed no pneumothorax status post thoracentesis Antimicrobials: Vancomycin, cefepime Physical exam: GEN: This is a well-developed obese middle-aged man who is in no distress. HENT: Head atraumatic normocephalic, sclera nonicteric, neck is supple. PULM: Chest rise symmetrical breath sounds diminished to bases. Heart: S1-S2. Abdomen soft bowel sounds present. Extremities without cyanosis. Skin: Patient has well-healed midsternal scar there is an area of swelling upper part of incision no pain, no fluctuance Assessment: 1. Acute hypoxemic respiratory failure secondary to CHF exacerbation and pneumonia, s/p thoracentesis 1 L 10/25/18 2. Gram-positive cocci bacteremia cw contaminant ==> no vegetations per 2D echo 3. Coronary artery disease with a history of CABG and aortic valve replacement 4. COPD exacerbation 5. Diabetes 6. Obesity Plan: Pt is stable. D/C IV antbx. Monitor thrombocytopenia. CXR noted. Pulm. recommendations. Date/Time of Note DATE: 10/29/18 TIME: 16:26 Exam/Review of Systems Exam Vitals Vital Signs Date Temp Pulse Resp B/P (MAP) Pulse Ox O2 O2 Flow FiO2 Time Delivery Rate 10/29/18 98.2 59 20 117/58 92 Room Air 15:18 (77) 10/28/18 2.0 22:35 10/26/18 35 04:58 Intake and Output 10/28/18 10/28/18 10/29/18 1515:00 23:00 07:00 IntakeIntake Total 800 ml 450 ml OutputOutput Total 350 ml 1000 ml 1250 ml BalanceBalance -350 ml -200 ml -800 ml Results Result Diagram: 10/29/18 0706 10/29/18 0706 Results 24hrs Laboratory Tests Test 10/29/18 07:06 10/29/18 10:52 White Blood Count 22.4 H Red Blood Count 3.83 L Hemoglobin 11.2 L Hematocrit 35.2 L Mean Corpuscular Volume 91.9 Mean Corpuscular Hemoglobin 29.2 Mean Corpuscular Hemoglobin Concent 31.8 L Red Cell Distribution Width 15.2 H Platelet Count 27 #*L Mean Platelet Volume 11.6 H Immature Granulocytes % 2.800 H Neutrophils % 71.3 Segmented Neutrophils % (Manual) 71 Band Neutrophils % (Manual) 1 Lymphocytes % 17.0 Lymphocytes % (Manual) 18 Monocytes % 7.7 Monocytes % (Manual) 9 Eosinophils % 1.1 Basophils % 0.1 Plasma Cells % (manual) 1 Nucleated Red Blood Cells % 0.1 H Immature Granulocytes # 0.630 H Neutrophils # 15.9 H Neutrophils # (Manual) 15.9 H Band Neutrophils # 0.2 Lymphocytes (Manual) 4.0 H Lymphocytes # 3.8 H Monocytes # 1.7 H Monocytes # (Manual) 2.0 H Eosinophils # 0.3 Basophils # 0.0 Plasma Cells # (manual) 0.2 H Nucleated Red Blood Cells # 0.0 Pathologist Review (Hematology) YES Platelet Estimate SIG DECREASED Polychromasia 1+ Hypochromasia 1+ Anisocytosis 1+ Macrocytosis 1+ Sodium Level 140 Potassium Level 4.2 Chloride Level 99 Carbon Dioxide Level 32 H Anion Gap 9 Blood Urea Nitrogen 27 H Creatinine 0.85 Est Glomerular Filtrat Rate mL/min > 60 Glucose Level 96 Calcium Level 8.6 Phosphorus Level 3.4 Magnesium Level 2.1 Vancomycin Level Trough 14.3 Medications Medication Current Medications Acetaminophen (Tylenol Tab) 650 mg Q6H PRN PO MILD PAIN LEVEL 1-3; Start 10/21/18 at 08:30 Atorvastatin Calcium (Lipitor) 80 mg QHS PO Last administered on 10/28/18at 21:07; Admin Dose 80 MG; Start 10/21/18 at 21:00 Nicotine (Nicoderm 7 Mg/ 24 Hr) 1 patch DAILY TRANSDERM Last administered on 10/29/18 13:18; Admin Dose 1 PATCH; Start 10/21/18 at 09:00 Albuterol/ Ipratropium (Duoneb) 3 ml Q6H RESP THERAPY PRN HHN SHORTNESS OF B REATH; Start 10/21/18 at 17:00 Miscellaneous Information (Pending Santyl Order For Wound Care) This patient mclean... PRN PRN XX WOUND CARE; Start 10/21/18 at 19:30 Lorazepam (Ativan) 1 mg Q8H PRN IV anxiety Last administered on 10/21/18 22:52; Admin Dose 1 MG; Start 10/21/18 at 21:30 Famotidine (Pepcid) 20 mg BID PO Last administered on 10/29/18 13:18; Admin Dose 20 MG; Start 10/22/18 at 09:00 Acetaminophen/ Hydrocodone Bitart ([place] (5/325)) 1 tab Q6H PRN PO MODERATE PAIN LEVEL 4-6 Last administered on 10/22/18 16:13; Admin Dose 1 TAB; Start 10/22/18 at 16:30 Diltiazem HCl (Cardizem Cd) 120 mg DAILY PO Last administered on 10/29/18 13:18; Admin Dose 120 MG; Start 10/22/18 at 17:30 Morphine Sulfate (morphine) 2 mg Q6H PRN IV SEVERE PAIN LEVEL 7-10; Start 10/22/18 at 18:30 Methylprednisolone Sodium Succinate (Solu-Medrol) 40 mg DAILY IV Last administered on 10/29/18 13:16; Admin Dose 40 MG; Start 10/27/18 at 09:00 Amiodarone HCl (Cordarone) 200 mg BID PO Last administered on 10/29/18 13:18; Admin Dose 200 MG; Start 10/26/18 at 21:00 Furosemide (Lasix) 20 mg DAILY@0600 PO Last administered on 10/29/18 05:27; Admin Dose 20 MG; Start 10/28/18 at 06:00 GLORIA WEBER Oct 29, 2018 16:30
[2018-10-29] MEDS: ATORVASTATIN 80 MG TAB PO SCH (20:31)
[2018-10-30] VITALS (12 sets, daily range): BP systolic 124–139; BP diastolic 61–73; PULSE 57–96; RESP 18–20
[2018-10-30] MEDS: FUROSEMIDE 20 MG TAB PO SCH (07:08)
--- NOTE | 2018-10-30 08:19 | CONS ---
Assessment/Plan Cardiology NYHA: IV Heart Failure Type: Acute on Chronic Heart Failure Type: Diastolic Assessment/Plan Hospital Course (Demo Recall) Thrombocytopenia: Plts down to 25. No bleeding. Heme to see Acute on chronic diastolic CHF: EF remains preserved though poor study. Euvolemic now Acute respiratory failure: Likely multifactorial including CHF exacerbation, COPD, and left pleural effusion. No PE by CTA. Resolved Coag negative staph bacteremia: likely contaminant. Acute on chronic COPD with exacerbation Left pleural effusion: s/p thora with 1 L removed 10/25 Paroxysmal atrial fibrillation/flutter: very common post cardiac surgery, however this is no longer the acute stage and so anticoagulation chcf is appropriate. Now back in sinus after amiodarone CAD s/p CABG: s/p CABG x5 10/04/2018, BILLINGSLEY to LAD, SVG to PDA, SVG to diagonal artery sequence to OM1 sequenced to OM2. No angina and trops negative HTN HL DM Tobacco use -awaiting heme eval -lasix 20mg PO daily -holding Eliquis 5mg BID and ASA 81mg due to thrombocytopenia -amiodarone 200mg PO BID, taper to 200mg on discharge -lipitor 80mg -diltiazem 120mg instead of metoprolol with COPD Consultation Date/Type/Reason Admit Date/Time Oct 21, 2018 at 05:07 Initial Consult Date 10/22/18 Type of Consult Cardiology Date/Time of Note DATE: 10/30/18 TIME: 08:11 24 HR Interval Summary Free Text/Dictation Plts stable around 25. No bleeding. No chest pain or SOB. Frustrated at prolonged hospitalization Chest CTA without PE. Possible liver cirrhosis Exam/Review of Systems Vital Signs Vitals Vital Signs Date Temp Pulse Resp B/P (MAP) Pulse Ox O2 O2 Flow FiO2 Time Delivery Rate 10/30/18 98.3 96 20 136/73 97 Room Air 07:28 (94) 10/30/18 2.0 02:00 Intake and Output 10/29/18 10/29/18 10/30/18 1515:00 23:00 07:00 IntakeIntake Total 1200 ml BalanceBalance 1200 ml Exam Constitutional: alert, oriented Psych: no complaints, nl mood/affect Head: normocephalic, atraumatic Neck: No jvd Respiratory: diminished breath sounds; No clear to auscultation Cardiovascular: regular rate and rhythm, edema (trace) Gastrointestinal: soft, non-tender; No distended Neurological: nl mental status, nl speech Labs Result Diagram: 10/30/18 0630 10/30/18 0630 Results 24hrs Laboratory Tests Test 10/29/18 10:52 10/30/18 06:30 Vancomycin Level Trough 14.3 White Blood Count 22.0 H Red Blood Count 3.62 L Hemoglobin 10.5 L Hematocrit 33.3 L Mean Corpuscular Volume 92.0 Mean Corpuscular Hemoglobin 29.0 Mean Corpuscular Hemoglobin Concent 31.5 L Red Cell Distribution Width 15.3 H Platelet Count 25 *L Mean Platelet Volume 12.6 H Immature Granulocytes % 3.500 H Neutrophils % Lymphocytes % Monocytes % Eosinophils % Basophils % Nucleated Red Blood Cells % 0.1 H Immature Granulocytes # 0.780 H Neutrophils # Lymphocytes # Monocytes # Eosinophils # Basophils # Nucleated Red Blood Cells # Pathologist Review (Hematology) YES Sodium Level 138 Potassium Level 3.8 Chloride Level 102 Carbon Dioxide Level 30 Anion Gap 6 Blood Urea Nitrogen 26 H Creatinine 0.62 Est Glomerular Filtrat Rate mL/min > 60 Glucose Level 93 Calcium Level 8.4 Phosphorus Level 3.5 Magnesium Level 2.0 Medications Medications Current Medications Acetaminophen (Tylenol Tab) 650 mg Q6H PRN PO MILD PAIN LEVEL 1-3; Start 10/21/18 at 08:30 Atorvastatin Calcium (Lipitor) 80 mg QHS PO Last administered on 10/29/18at 20:31; Admin Dose 80 MG; Start 10/21/18 at 21:00 Nicotine (Nicoderm 7 Mg/ 24 Hr) 1 patch DAILY TRANSDERM Last administered on 10/29/18at 13:18; Admin Dose 1 PATCH; Start 10/21/18 at 09:00 Albuterol/ Ipratropium (Duoneb) 3 ml Q6H RESP THERAPY PRN HHN SHORTNESS OF BREATH; Start 10/21/18 at 17:00 [facility] This patient mclean... PRN PRN XX WOUND CARE; Start 10/21/18 at 19:30 Lorazepam (Ativan) 1 mg Q8H PRN IV anxiety Last administered on 10/21/18at 22:52; Admin Dose 1 MG; Start 10/21/18 at 21:30 Famotidine (Pepcid) 20 mg BID PO Last administered on 10/29/18 20:31; Admin Dose 20 MG; Start 10/22/18 at 09:00 Acetaminophen/ Hydrocodone Bitart ([place] (5/325)) 1 tab Q6H PRN PO MODERATE PAIN LEVEL 4-6 Last administered on 10/22/18 16:13; Admin Dose 1 TAB; Start 10/22/18 at 16:30 Diltiazem HCl (Cardizem Cd) 120 mg DAILY PO Last administered on 10/29/18 13: 18; Admin Dose 120 MG; Start 10/22/18 at 17:30 Morphine Sulfate (morphine) 2 mg Q6H PRN IV SEVERE PAIN LEVEL 7-10; Start 10/22/18 at 18:30 Methylprednisolone Sodium Succinate (Solu-Medrol) 40 mg DAILY IV Last administered on 10/29/18 13:16; Admin Dose 40 MG; Start 10/27/18 at 09:00 Amiodarone HCl (Cordarone) 200 mg BID PO Last administered on 10/29/18 20:31; Admin Dose 200 MG; Start 10/26/18 at 21:00 Furosemide (Lasix) 20 mg DAILY@0600 PO Last administered on 10/30/18 07:08; Admin Dose 20 MG; Start 10/28/18 at 06:00 VANESA RUIZ Oct 30, 2018 08:19
[2018-10-30] MEDS: METHYLPREDNISOLONE 40 MG INJ IV SCH (08:49)
[2018-10-30] MEDS: FAMOTIDINE 20 MG TAB PO SCH ×2 (08:49→21:10)
[2018-10-30] MEDS: DILTIAZEM (CD) 120 MG CAP PO SCH (08:54)
[2018-10-30] MEDS: AMIODARONE 200 MG TAB PO SCH ×2 (08:54→21:11)
[2018-10-30] MEDS: NICOTINE (7 MG/24 HR) PATCH TRANSDERM SCH (09:27)
--- NOTE | 2018-10-30 10:13 | PN ---
DATE: 10/30/2018 SUBJECTIVE: The patient is stable, no events overnight. No fever, chills, nausea or vomiting. OBJECTIVE: VITAL SIGNS: Blood pressure is 136/73, respiratory rate 20, pulse 96, temperature 98.3. HEENT: Head is normocephalic. NECK: Supple. HEART: Regular rate. LUNGS: Show diminished breath sounds at the base. ABDOMEN: Soft, nontender to palpation without rebound or guarding. EXTREMITIES: Negative for clubbing, cyanosis. Trace edema. DERMATOLOGIC: No rashes. MUSCULOSKELETAL: No joint effusion. NEUROLOGIC: No change in exam. MEDICATIONS: Reviewed. LABORATORY DATA: From 10/30/2018 was reviewed. ASSESSMENT AND PLAN: 1. Acute hypoxemic respiratory failure, etiology is multifactorial secondary to congestive heart [place] lure exacerbation, COPD and pleural effusion. The patient is clinically improving. Continue medical management with antibiotics, nebulizer, steroids and diuretics. 2. Thrombocytopenia. Etiology may be multifactorial secondary to antibiotics, anticoagulation. Hem atology consult was placed. Will continue to monitor. Awaiting recommendations. Holding aspirin an d Eliquis at this time. 3. Systemic inflammatory response syndrome, possible sepsis. The patient has completed antibiotic c ourse. Continue to monitor. Follow up with infectious disease. 4. Acute diastolic heart failure. The patient is clinically improving nearing in euvolemic status. Continue oral diuretics. 5. Nonoliguric acute kidney injury. Etiology secondary to hemodynamics, diuretic therapy, improved. Continue to monitor. 6. Hypokalemia, improved. 7. Metabolic alkalosis secondary to diuretic therapy, improved. Continue to monitor. 8. Arrhythmia. Continue amiodarone. 9. Currently status post 5-vessel graft. Continue medical management. 10. Hypertension. Continue current blood pressure regimen. 11. Diabetes. Continue current insulin regimen. 12. Anemia. Monitor hemoglobin and hematocrit levels. 13. Deep venous thrombosis prophylaxis. 14. Status post syncope. 15. History of tobacco use. Dictated By: VANCE EUGENE/MARC Conf#: [id number] DID#: [id number] CC: RONY WYNN MD;*EndCC*
--- NOTE | 2018-10-30 13:55 | CONS ---
Assessment/Plan Assessment/Plan Hospital Course (Demo Recall) unfortunate 58 yo with CAD s/p recent CABG admitted with SOB, COPD exacerbation, sepsis, on abx, now with worsening thrombocytopenia #thrombocytopenia suspect it is most likely due to sepsis and infection and medication-related rule out DIC: check fibrinogen and monitor coags his imaging is suggestive of cirrhosis, check HEP B and C check HIT ab transfuse to keep plt >20 K or if actively bleeding doubt this is TTP, no evidence of hemolysis Consultation Date/Type/Reason Admit Date/Time Oct 21, 2018 at 05:07 Date/Time of Note DATE: 10/30/18 TIME: 13:54 Hx of Present Illness 58-year-old male with coronary artery disease, history of tobacco s/p cardiac catheterization and 5-vessel CABG by Dr. Irizarry. He was discharged home in stable condition but presented back with increased shortness of breath.He is on antibiotics for +blood cultures and ID is on board. Also with COPD exacerbation. We are asked to see him for newly developed thrombocytopenia. On admission his plt count was 436, has been dropping to 258--147--97--46--27--25. He is not bleeding or bruising Coagulation parameters are normal he had CT chest angio showing no PE and US LE during this admission showing no DVT He does not drink Illicit drug use >15 years ago Eyes: no complaints ENT: no complaints Respiratory: no complaints Cardiovascular: no complaints Gastrointestinal: no complaints Genitourinary: no complaints Skin: bruising Endocrine: no complaints Lymphatic: no complaints Past Medical History Home Meds Reported Medications Nicotine* (Nicotine* Patch) 7 mg/day Patch, 1 PATCH TD DAILY, PATCH 14MCG 10/02/18 Atorvastatin* (Atorvastatin*) 80 Mg Tablet, 80 MG PO QHS, #30 TAB 10/02/18 Acetaminophen* (Acetaminophen*) 650 Mg Tablet, 650 MG PO Q6H PRN for MILD PAIN LEVEL 1-3, #30 TAB 10/02/18 Medications Current Medications Acetaminophen (Tylenol Tab) 650 mg Q6H PRN PO MILD PAIN LEVEL 1-3; Start 10/21/18 at 08:30 Atorvastatin Calcium (Lipitor) 80 mg QHS PO Last administered on 10/29/18at 20:31; Admin Dose 80 MG; Start 10/21/18 at 21:00 Nicotine (Nicoderm 7 Mg/ 24 Hr) 1 patch DAILY TRANSDERM Last administered on 10/30/18 09:27; Admin Dose 1 PATCH; Start 10/21/18 at 09:00 Albuterol/ Ipratropium (Duoneb) 3 ml Q6H RESP THERAPY PRN HHN SHORTNESS OF BREATH; Start 10/21/18 at 17:00 Miscellaneous Information (Pending [facility] Order For Wound Care) This patient mclean... PRN PRN XX WOUND CARE; Start 10/21/18 at 19:30 Lorazepam (Ativan) 1 mg Q8H PRN IV anxiety Last administered on 10/21/18 22:52; Admin Dose 1 MG; Start 10/21/18 at 21:30 Famotidine (Pepcid) 20 mg BID PO Last administered on 10/30/18 08:49; Admin Dose 20 MG; Start 10/22/18 at 09:00 Acetaminophen/ Hydrocodone Bitart ([place] (5/325)) 1 tab Q6H PRN PO MODERATE PAIN LEVEL 4-6 Last administered on 10/22/18 16:13; Admin Dose 1 TAB; Start at 16:30 Diltiazem HCl (Cardizem Cd) 120 mg DAILY PO Last administered on 10/30/18 08:54; Admin Dose 120 MG; Start 10/22/18 at 17:30 Morphine Sulfate (morphine) 2 mg Q6H PRN IV SEVERE PAIN LEVEL 7-10; Start 10/22/18 at 18:30 Methylprednisolone Sodium Succinate (Solu-Medrol) 40 mg DAILY IV Last administered on 10/30/18 08:49; Admin Dose 40 MG; Start 10/27/18 at 09:00 Amiodarone HCl (Cordarone) 200 mg BID PO Last administered on 10/30/18 08:54; Admin Dose 200 MG; Start 10/26/18 at 21:00 Furosemide (Lasix) 20 mg DAILY@0600 PO Last administered on 10/30/18 07:08; Admin Dose 20 MG; Start 10/28/18 at 06:00 Allergies: Coded Allergies: No Known Allergy (Unverified , 10/02/18) Past Surgical History Past Surgical Hx: no surgical history Social History Smoking Status: Former smoker Exam/Review of Systems Exam Vitals Vital Signs Date Temp Pulse Resp B/P (MAP) Pulse Ox O2 O2 Flow FiO2 Time Delivery Rate 10/30/18 57 12:01 10/30/18 98.4 20 124/65 96 Room Air 11:32 (84) 10/30/18 2.0 10:40 Intake and Output 10/29/18 10/29/18 10/30/18 1515:00 23:00 07:00 IntakeIntake Total 1200 ml BalanceBalance 1200 ml Constitutional: alert, oriented, well developed Psych: no complaints, nl mood/affect Head: normocephalic, atraumatic Eyes: nl conjunctiva, EOMI, nl lids, nl sclera, PERRL Gastrointestinal: soft, nl liver, spleen, non-tender, distended Results Result Diagram: 10/30/18 0630 10/30/18 0630 Results 24hrs Laboratory Tests Test 10/30/18 06:30 White Blood Count 22.0 H Red Blood Count 3.62 L Hemoglobin 10.5 L Hematocrit 33.3 L Mean Corpuscular Volume 92.0 Mean Corpuscular Hemoglobin 29.0 Mean Corpuscular Hemoglobin Concent 31.5 L Red Cell Distribution Width 15.3 H Platelet Count 25 *L Mean Platelet Volume 12.6 H Immature Granulocytes % 3.500 H Neutrophils % Segmented Neutrophils % (Manual) 84 H Band Neutrophils % (Manual) 1 Lymphocytes % Lymphocytes % (Manual) 7 L Monocytes % Monocytes % (Manual) 5 Eosinophils % Basophils % Basophils % (Manual) 1 Metamyelocytes % (manual) 1 H Myelocytes % (Manual) 1 H Nucleated Red Blood Cells % 0.1 H Immature Granulocytes # 0.780 H Neutrophils # Neutrophils # (Manual) 18.5 H Band Neutrophils # 0.2 Lymphocytes (Manual) 1.5 Lymphocytes # Monocytes # Monocytes # (Manual) 1.1 H Eosinophils # Basophils # Basophils # (Manual) 0.2 H Metamyelocytes # 0.2 H Myelocytes # 0.2 H Nucleated Red Blood Cells # Pathologist Review (Hematology) YES Platelet Estimate SIG DECREASED Polychromasia 3+ Poikilocytosis 1+ Anisocytosis 1+ Microcytosis 1+ Sodium Level 138 Potassium Level 3.8 Chloride Level 102 Carbon Dioxide Level 30 Anion Gap 6 Blood Urea Nitrogen 26 H Creatinine 0.62 Est Glomerular Filtrat Rate mL/min > 60 Glucose Level 93 Calcium Level 8.4 Phosphorus Level 3.5 Magnesium Level 2.0 Medications Medication Current Medications Acetaminophen (Tylenol Tab) 650 mg Q6H PRN PO MILD PAIN LEVEL 1-3; Start 10/21/18 at 08:30 Atorvastatin Calcium (Lipitor) 80 mg QHS PO Last administered on 10/29/18 20:31; Admin Dose 80 MG; Start 10/21/18 at 21:00 Nicotine (Nicoderm 7 Mg/ 24 Hr) 1 patch DAILY TRANSDERM Last administered on 10/30/18 09:27; Admin Dose 1 PATCH; Start 10/21/18 at 09:00 Albuterol/ Ipratropium (Duoneb) 3 ml Q6H RESP THERAPY PRN HHN SHORTNESS OF BREATH; Start 10/21/18 at 17:00 [facility] This patient mclean... PRN PRN XX WOUND CARE; Start 10/21/18 at 19:30 Lorazepam (Ativan) 1 mg Q8H PRN IV anxiety Last administered on 10/21/18 22:52; Admin Dose 1 MG; Start 10/21/18 at 21:30 Famotidine (Pepcid) 20 mg BID PO Last administered on 10/30/18 08:49; Admin Dose 20 MG; Start 10/22/18 at 09:00 Acetaminophen/ Hydrocodone Bitart ([place] (5/325)) 1 tab Q6H PRN PO MODERATE PAIN LEVEL 4-6 Last administered on 10/22/18 16:13; Admin Dose 1 TAB; Start 10/22/18 at 16:30 Diltiazem HCl (Cardizem Cd) 120 mg DAILY PO Last administered on 10/30/18 08:54; Admin Dose 120 MG; Start 10/22/18 at 17:30 Morphine Sulfate (morphine) 2 mg Q6H PRN IV SEVERE PAIN LEVEL 7-10; Start 10/22/18 at 18:30 Methylprednisolone Sodium Succinate (Solu-Medrol) 40 mg DAILY IV Last administered on 10/30/18 08:49; Admin Dose 40 MG; Start 10/27/18 at 09:00 Amiodarone HCl (Cordarone) 200 mg BID PO Last administered on 10/30/18 08:54; Admin Dose 200 MG; Start 10/26/18 at 21:00 Furosemide (Lasix) 20 mg DAILY@0600 PO Last administered on 10/30/18at 07:08; Admin Dose 20 MG; Start 10/28/18 at 06:00 GRAYSON SANDOVAL Oct 30, 2018 13:55
--- NOTE | 2018-10-30 14:11 | CONS ---
Consult Date/Type/Reason Admit Date/Time Oct 21, 2018 at 05:07 Initial Consult Date 10/22/18 Type of Consult Pulmonary Date/Time of Note DATE: 10/30/18 TIME: 14:05 Subjective Patient remained stable this morning. No new events. Mild exertional dyspnea. Persistent leukocytosis noted. Objective Vital Signs Date Temp Pulse Resp B/P (MAP) Pulse Ox O2 O2 Flow FiO2 Time Delivery Rate 10/30/18 57 12:01 10/30/18 98.4 20 124/65 96 Room Air 11:32 (84) 10/30/18 2.0 10:40 Intake and Output 10/29/18 10/29/18 10/30/18 1515:00 23:00 07:00 IntakeIntake Total 1200 ml BalanceBalance 1200 ml Exam PHYSICAL EXAMINATION: GENERAL: Well-nourished, well-developed gentleman, on 3 L nasal cannula. VITAL SIGNS: NECK: Supple. No JVD or lymphadenopathy. CARDIAC: S1, S2, no added sounds or murmurs. CHEST: Diminished air entry bilaterally. ABDOMEN: Soft, nontender. No guarding or rebound. EXTREMITIES: No cyanosis, clubbing, or edema. NEUROLOGIC: Grossly intact. No focal deficits. Vent Setting Fraction of Inspired Oxygen pe: 35 Results/Medications Result Diagram: 10/30/18 0630 10/30/18 0630 Results 24 hrs Laboratory Tests Test 10/30/18 06:30 White Blood Count 22.0 H Red Blood Count 3.62 L Hemoglobin 10.5 L Hematocrit 33.3 L Mean Corpuscular Volume 92.0 Mean Corpuscular Hemoglobin 29.0 Mean Corpuscular Hemoglobin Concent 31.5 L Red Cell Distribution Width 15.3 H Platelet Count 25 *L Mean Platelet Volume 12.6 H Immature Granulocytes % 3.500 H Neutrophils % Segmented Neutrophils % (Manual) 84 H Band Neutrophils % (Manual) 1 Lymphocytes % Lymphocytes % (Manual) 7 L Monocytes % Monocytes % (Manual) 5 Eosinophils % Basophils % Basophils % (Manual) 1 Metamyelocytes % (manual) 1 H Myelocytes % (Manual) 1 H Nucleated Red Blood Cells % 0.1 H Immature Granulocytes # 0.780 H Neutrophils # Neutrophils # (Manual) 18.5 H Band Neutrophils # 0.2 Lymphocytes (Manual) 1.5 Lymphocytes # Monocytes # Monocytes # (Manual) 1.1 H Eosinophils # Basophils # Basophils # (Manual) 0.2 H Metamyelocytes # 0.2 H Myelocytes # 0.2 H Nucleated Red Blood Cells # Pathologist Review (Hematology) YES Platelet Estimate SIG DECREASED Polychromasia 3+ Poikilocytosis 1+ Anisocytosis 1+ Microcytosis 1+ Sodium Level 138 Potassium Level 3.8 Chloride Level 102 Carbon Dioxide Level 30 Anion Gap 6 Blood Urea Nitrogen 26 H Creatinine 0.62 Est Glomerular Filtrat Rate mL/min > 60 Glucose Level 93 Calcium Level 8.4 Phosphorus Level 3.5 Magnesium Level 2.0 Medications Current Medications Acetaminophen (Tylenol Tab) 650 mg Q6H PRN PO MILD PAIN LEVEL 1-3; Start 10/21/18 at 08:30 Atorvastatin Calcium (Lipitor) 80 mg QHS PO Last administered on 10/29/18 20:31; Admin Dose 80 MG; Start 10/21/18 at 21:00 Nicotine (Nicoderm 7 Mg/ 24 Hr) 1 patch DAILY TRANSDERM Last administered on 10/30/18 09:27; Admin Dose 1 PATCH; Start 10/21/18 at 09:00 Albuterol/ Ipratropium (Duoneb) 3 ml Q6H RESP THERAPY PRN HHN SHORTNESS OF BREATH; Start 10/21/18 at 17:00 Miscellaneous Information (Pending [facility] Order For Wound Care) This patient mclean. .. PRN PRN XX WOUND CARE; Start 10/21/18 at 19:30 Lorazepam (Ativan) 1 mg Q8H PRN IV anxiety Last administered on 10/21/18 22:52; Admin Dose 1 MG; Start 10/21/18 at 21:30 Famotidine (Pepcid) 20 mg BID PO Last administered on 10/30/18 08:49; Admin Dose 20 MG; Start 10/22/18 at 09:00 Acetaminophen/ Hydrocodone Bitart ([place] (5/325)) 1 tab Q6H PRN PO MODERATE PAIN LEVEL 4-6 Last administered on 10/22/18 16:13; Admin Dose 1 TAB; Start 10/22/18 at 16:30 Diltiazem HCl (Cardizem Cd) 120 mg DAILY PO Last administered on 10/30/18 08:54; Admin Dose 120 MG; Start 10/22/18 at 17:30 Morphine Sulfate (morphine) 2 mg Q6H PRN IV SEVERE PAIN LEVEL 7-10; Start 10/22/18 at 18:30 Methylprednisolone Sodium Succinate (Solu-Medrol) 40 mg DAILY IV Last administered on 10/30/18at 08:49; Admin Dose 40 MG; Start 10/27/18 at 09:00 Amiodarone HCl (Cordarone) 200 mg BID PO Last administered on 10/30/18at 08:54; Admin Dose 200 MG; Start 10/26/18 at 21:00 Furosemide (Lasix) 20 mg DAILY@0600 PO Last administered on 10/30/18at 07:08; Admin Dose 20 MG; Start 10/28/18 at 06:00 Assessment/Plan Hospital Course (Demo Recall) IMPRESSION 1. Acute hypoxemic respiratory failure, likely secondary to combination of chronic obstructive pulmonary disease exacerbation. Clinically improving. 2. Congestive cardiac failure. 3. Postop atelectasis and possible effusion. 4. Persistent leukocytosis 5. Thrombocytopenia 6. [address] chest noted. Small left pleural effusion with extrinsic compression. Would not perform thoracentesis. Plan 1. Supplemental O2. Titrate to keep sats greater than 92. 2. Antibiotics per primary team. 3. Rate control per cardiology. 4. Short course of steroids. 5. Diuretics. 6. Will likely need home O2. 7. Hematology evaluation for thrombocytopenia. IVAN COOK MD, [facility] Oct 30, 2018 14:11
--- NOTE | 2018-10-30 14:16 | CONS ---
Assessment/Plan Assessment/Plan Hospital Course (Demo Recall) Alert, feels good, comfortable on RA, no fevers Microbiology: Blood culture on admission grew coag negative staph species, repeat blood cultures negative Antimicrobials: none Plan: This is a well-developed obese middle-aged man who is in no distress. Head atraumatic normocephalic sclera nonicteric neck is supple. Chest rise symmetrical breath sounds diminished to bases. Heart: S1-S2. Abdomen soft bowel sounds present. Extremities without cyanosis. Skin: Patient has well- healed midsternal scar there is an area of swelling upper part of incision no pain, no fluctuance Assessment: 1. Acute hypoxemic respiratory failure secondary to CHF exacerbation and pneumonia, s/p thoracentesis 1 L 10/25/18 2. Gram-positive cocci bacteremia cw contaminant ==> no vegetations per 2D echo 3. Coronary artery disease with a history of CABG and aortic valve replacement 4. COPD exacerbation 5. Diabetes 6. Obesity Plan: Stable, completed abx, CT chest noted, continue present care DW pt/ at bedside Consultation Date/Type/Reason Admit Date/Time Oct 21, 2018 at 05:07 Initial Consult Date 10/22/18 Type of Consult id Date/Time of Note DATE: 10/30/18 TIME: 14:15 Exam/Review of Systems Exam Vitals Vital Signs Date Temp Pulse Resp B/P (MAP) Pulse Ox O2 O2 Flow FiO2 Time Delivery Rate 10/30/18 57 12:01 10/30/18 98.4 20 124/65 96 Room Air 11:32 (84) 10/30/18 2.0 10:40 Intake and Output 10/29/18 10/29/18 10/30/18 1515:00 23:00 07:00 IntakeIntake Total 1200 ml BalanceBalance 1200 ml Results Result Diagram: 10/30/18 0630 10/30/18 0630 Results 24hrs Laboratory Tests Test 10/30/18 06:30 White Blood Count 22.0 H Red Blood Count 3.62 L Hemoglobin 10.5 L Hematocrit 33.3 L Mean Corpuscular Volume 92.0 Mean Corpuscular Hemoglobin 29.0 Mean Corpuscular Hemoglobin Concent 31.5 L Red Cell Distribution Width 15.3 H Platelet Count 25 *L Mean Platelet Volume 12.6 H Immature Granulocytes % 3.500 H Neutrophils % Segmented Neutrophils % (Manual) 84 H Band Neutrophils % (Manual) 1 Lymphocytes % Lymphocytes % (Manual) 7 L Monocytes % Monocytes % (Manual) 5 Eosinophils % Basophils % Basophils % (Manual) 1 Metamyelocytes % (manual) 1 H Myelocytes % (Manual) 1 H Nucleated Red Blood Cells % 0.1 H Immature Granulocytes # 0.780 H Neutrophils # Neutrophils # (Manual) 18.5 H Band Neutrophils # 0.2 Lymphocytes (Manual) 1.5 Lymphocytes # Monocytes # Monocytes # (Manual) 1.1 H Eosinophils # Basophils # Basophils # (Manual) 0.2 H Metamyelocytes # 0.2 H Myelocytes # 0.2 H Nucleated Red Blood Cells # Pathologist Review (Hematology) YES Platelet Estimate SIG DECREASED Polychromasia 3+ Poikilocytosis 1+ Anisocytosis 1+ Microcytosis 1+ Sodium Level 138 Potassium Level 3.8 Chloride Level 102 Carbon Dioxide Level 30 Anion Gap 6 Blood Urea Nitrogen 26 H Creatinine 0.62 Est Glomerular Filtrat Rate mL/min > 60 Glucose Level 93 Calcium Level 8.4 Phosphorus Level 3.5 Magnesium Level 2.0 Medications Medication Current Medications Acetaminophen (Tylenol Tab) 650 mg Q6H PRN PO MILD PAIN LEVEL 1-3; Start 10/21/18 at 08:30 Atorvastatin Calcium (Lipitor) 80 mg QHS PO Last administered on 10/29/18at 20:31; Admin Dose 80 MG; Start 10/21/18 at 21:00 Nicotine (Nicoderm 7 Mg/ 24 Hr) 1 patch DAILY TRANSDERM Last administered on 10/30/18at 09:27; Admin Dose 1 PATCH; Start 10/21/18 at 09:00 Albuterol/ Ipratropium (Duoneb) 3 ml Q6H RESP THERAPY PRN HHN SHORTNESS OF BREATH; Start 10/21/18 at 17:00 Miscellaneous Information (Pending [facility] Order For Wound Care) This patient mclean... PRN PRN XX WOUND CARE; Start 10/21/18 at 19:30 Lorazepam (Ativan) 1 mg Q8H PRN IV anxiety Last administered on 10/21/18at 22:52; Admin Dose 1 MG; Start 10/21/18 at 21:30 Famotidine (Pepcid) 20 mg BID PO Last administered on 10/30/18at 08:49; Admin Dose 20 MG; Start 10/22/18 at 09:00 Acetaminophen/ Hydrocodone Bitart ([place] (5/325)) 1 tab Q6H PRN PO MODERATE PAIN LEVEL 4-6 Last administered on 10/22/18 16:13; Admin Dose 1 TAB; Start 10/22/18 at 16:30 Diltiazem HCl (Cardizem Cd) 120 mg DAILY PO Last administered on 10/30/18 08:54; Admin Dose 120 MG; Start 10/22/18 at 17:30 Morphine Sulfate (morphine) 2 mg Q6H PRN IV SEVERE PAIN LEVEL 7-10; Start 10/22/18 at 18:30 Methylprednisolone Sodium Succinate (Solu-Medrol) 40 mg DAILY IV Last administered on 10/30/18 08:49; Admin Dose 40 MG; Start 10/27/18 at 09:00 Amiodarone HCl (Cordarone) 200 mg BID PO Last administered on 10/30/18 08:54; Admin Dose 200 MG; Start 10/26/18 at 21:00 Furosemide (Lasix) 20 mg DAILY@0600 PO Last administered on 10/30/18 07:08; Admin Dose 20 MG; Start 10/28/18 at 06:00 JUAN CARLOS ROLDAN NP Oct 30, 2018 14:16
[2018-10-30] MEDS: ATORVASTATIN 80 MG TAB PO SCH (21:10)
[2018-10-31] VITALS (13 sets, daily range): BP systolic 106–154; BP diastolic 58–81; PULSE 52–72; RESP 20–22
[2018-10-31] MEDS: FUROSEMIDE 20 MG TAB PO SCH (06:15)
[2018-10-31] MEDS: DILTIAZEM (CD) 120 MG CAP PO SCH (08:22)
[2018-10-31] MEDS: FAMOTIDINE 20 MG TAB PO SCH ×2 (08:22→21:40)
[2018-10-31] MEDS: METHYLPREDNISOLONE 40 MG INJ IV SCH (08:23)
[2018-10-31] MEDS: AMIODARONE 200 MG TAB PO SCH ×2 (08:23→21:41)
[2018-10-31] MEDS: NICOTINE (7 MG/24 HR) PATCH TRANSDERM SCH (08:23)
--- NOTE | 2018-10-31 08:28 | CONS ---
Assessment/Plan Cardiology NYHA: IV Heart Failure Type: Acute on Chronic Heart Failure Type: Diastolic Assessment/Plan Hospital Course (Demo Recall) Thrombocytopenia: Plts down to 25. No bleeding. Seen by jonathan Acute on chronic diastolic CHF: EF remains preserved though poor study. Starting to get more edematous again Acute respiratory failure: Likely multifactorial including CHF exacerbation, COPD, and left pleural effusion. No PE by CTA. Resolved Coag negative staph bacteremia: likely contaminant. Acute on chronic COPD with exacerbation Left pleural effusion: s/p thora with 1 L removed 10/25 Paroxysmal atrial fibrillation/flutter: very common post cardiac surgery, however this is no longer the acute stage and so anticoagulation shelter is appropriate. Now back in sinus after amiodarone CAD s/p CABG: s/p CABG x5 10/04/2018, [place] to LAD, SVG to PDA, SVG to diagonal artery sequence to OM1 sequenced to OM2. No angina and trops negative HTN HL DM Tobacco use -lasix 20mg IV x 1 now -increase to lasix 40mg PO daily tomorrow -holding Eliquis 5mg BID and ASA 81mg due to thrombocytopenia -amiodarone 200mg PO BID, taper to 200mg on discharge -lipitor 80mg -diltiazem 120mg instead of metoprolol with COPD Consultation Date/Type/Reason Admit Date/Time Oct 21, 2018 at 05:07 Initial Consult Date 10/22/18 Type of Consult Cardiology Date/Time of Note DATE: 10/31/18 TIME: 08:26 24 HR Interval Summary Free Text/Dictation No events. Labs not back yet. Seen by jonathan. No complaints Exam/Review of Systems Vital Signs Vitals Vital Signs Date Temp Pulse Resp B/P (MAP) Pulse Ox O2 O2 Flow FiO2 Time Delivery Rate 10/31/18 62 08:23 10/31/18 97.6 22 107/63 96 Nasal 2.0 07:44 (78) Cannula Intake and Output 10/30/18 10/30/18 10/31/18 1515:00 23:00 07:00 IntakeIntake Total 950 ml 800 ml 750 ml OutputOutput Total 1150 ml 1000 ml 980 ml BalanceBalance -200 ml -200 ml -230 ml Exam Constitutional: alert, oriented Head: normocephalic, atraumatic Neck: No jvd Respiratory: diminished breath sounds; No clear to auscultation Cardiovascular: regular rate and rhythm, edema (1+) Gastrointestinal: soft, non-tender; No distended Neurological: nl mental status, nl speech Labs Result Diagram: 10/30/18 0630 10/30/18 0630 Results 24hrs Laboratory Tests Test 10/30/18 14:20 10/30/18 14:21 Hepatitis B Surface Antigen NEGATIVE Hepatitis B Surface Antibody NEGATIVE Hepatitis B Core Total Antibody NEGATIVE Hepatitis C Antibody NEGATIVE Fibrinogen 269.0 Medications Medications Current Medications Acetaminophen (Tylenol Tab) 650 mg Q6H PRN PO MILD PAIN LEVEL 1-3; Start 10/21/18 at 08:30 Atorvastatin Calcium (Lipitor) 80 mg QHS PO Last administered on 10/30/18at 21 :10; Admin Dose 80 MG; Start 10/21/18 at 21:00 Nicotine (Nicoderm 7 Mg/ 24 Hr) 1 patch DAILY TRANSDERM Last administered on 10/31/18at 08:23; Admin Dose 1 PATCH; Start 10/21/18 at 09:00 Albuterol/ Ipratropium (Duoneb) 3 ml Q6H RESP THERAPY PRN HHN SHORTNESS OF BREATH; Start 10/21/18 at 17:00 Miscellaneous Information (Pending [facility] Order For Wound Care) This patient mclean... PRN PRN XX WOUND CARE; Start 10/21/18 at 19:30 Lorazepam (Ativan) 1 mg Q8H PRN IV anxiety Last administered on 10/21/18at 22:52; Admin Dose 1 MG; Start 10/21/18 at 21:30 Famotidine (Pepcid) 20 mg BID PO Last administered on 10/31/18at 08:22; Admin Dose 20 MG; Start 10/22/18 at 09:00 Acetaminophen/ Hydrocodone Bitart ([place] (5/325)) 1 tab Q6H PRN PO MODERATE PAIN LEVEL 4-6 Last administered on 10/22/18at 16:13; Admin Dose 1 TAB; Start 10/22/18 at 16:30 Diltiazem HCl (Cardizem Cd) 120 mg DAILY PO Last administered on 10/31/18 08:22; Admin Dose 120 MG; Start 10/22/18 at 17:30 Morphine Sulfate (morphine) 2 mg Q6H PRN IV SEVERE PAIN LEVEL 7-10; Start 10/22/18 at 18:30 Methylprednisolone Sodium Succinate (Solu-Medrol) 40 mg DAILY IV Last administered on 10/31/18at 08:23; Admin Dose 40 MG; Start 10/27/18 at 09:00 Amiodarone HCl (Cordarone) 200 mg BID PO Last administered on 10/31/18 08:23; Admin Dose 200 MG; Start 10/26/18 at 21:00 Furosemide (Lasix) 20 mg DAILY@0600 PO Last administered on 10/31/18at 06:15; Admin Dose 20 MG; Start 10/28/18 at 06:00 VANESA RUIZ Oct 31, 2018 08:28
[2018-10-31] MEDS ORDERED: FUROSEMIDE 20 MG INJ IV ONE (08:30)
[2018-10-31] MEDS: morphine 2 MG INJ IV PRN ×3 (09:34→23:22)
--- NOTE | 2018-10-31 10:28 | PN ---
DATE: 10/31/2018 SUBJECTIVE: The patient is stable on 2 liters nasal cannula. No other acute events noted overnight. No bleeding, no hemoptysis, or hematemesis. OBJECTIVE: VITAL SIGNS: Blood pressure is 107/63, respirations 22, pulse 56, temperature 97.6. HEENT: Head is normocephalic. NECK: Supple. HEART: Regular rate. LUNGS: Show diminished breath sounds at the base. ABDOMEN: Soft, nontender to palpation without rebound or guarding. EXTREMITIES: Negative for clubbing, cyanosis. Positive edema. DERMATOLOGIC: No rashes. MUSCULOSKELETAL: No joint effusion. NEUROLOGIC: No change in exam. MEDICATIONS: The patient's medications have been reviewed. LABORATORY DATA: Shows white count 22.0, hemoglobin 10.9, platelet count is 30. Sodium 138, potassi um 3.8, BUN 26, creatinine 0.62. ASSESSMENT AND PLAN: 1. Acute hypoxemic respiratory failure. Etiology is multifactorial secondary to congestive heart fa ilure exacerbation, chronic obstructive pulmonary disease, pleural effusion. The patient is clinical ly improving, currently stable on 2 liters nasal cannula. Continue medical management. 2. Thrombocytopenia. Etiology is likely multifactorial secondary to medications and antiplatelets. Appreciate hematology's evaluation. Workup is ongoing. Platelet levels are slowly improving. Cont inue to monitor. The patient's aspirin and Eliquis are currently on hold. 3. Systemic inflammatory response syndrome, possible sepsis. The patient is completing antibiotic c ourse. Continue to monitor. 4. Leukocytosis, likely from recent steroids. Continue to monitor. 5. Acute diastolic heart failure. The patient appears more decompensated. Agree with intensifying diuretic therapy. We will switch the patient to Bumex daily. 6. Nonoliguric acute kidney injury. Etiology is secondary to hemodynamics. Continue to monitor. R enal function has improved. 7. Hypokalemia, improved. 8. Metabolic alkalosis. Continue to monitor. 9. Arrhythmia. Continue amiodarone. 10. Coronary artery disease, status post coronary artery bypass graft. Continue medical management. 11. Hypertension. Continue current blood pressure regimen. 12. Diabetes. Continue current insulin regimen. 13. Anemia. Continue to monitor hemoglobin and hematocrit levels. 14. Status post syncope. 15. History of tobacco use. Dictated By: VANCE EUGENE/MARC Conf#: [id number] [facility]#: [id number]
--- NOTE | 2018-10-31 11:56 | CONS ---
Assessment/Plan Assessment/Plan Hospital Course (Demo Recall) All noted, no acute events, comfortable on nc Microbiology: Blood culture on admission grew coag negative staph species, repeat blood cultures negative Antimicrobials: none Plan: This is a well-developed obese middle-aged man who is in no distress. Head atraumatic normocephalic sclera nonicteric neck is supple. Chest rise symmetrical breath sounds diminished to bases. Heart: S1-S2. Abdomen soft bowel sounds present. Extremities without cyanosis. Skin: Patient has well- healed midsternal scar there is an area of swelling upper part of incision no pain, no fluctuance Assessment: 1. Acute hypoxemic respiratory failure secondary to CHF exacerbation and pneumonia, s/p thoracentesis 1 L 10/25/18 2. Gram-positive cocci bacteremia cw contaminant ==> no vegetations per 2D echo 3. Coronary artery disease with a history of CABG and aortic valve replacement 4. COPD exacerbation 5. Diabetes 6. Obesity Plan: Completed abx, observe Consultation Date/Type/Reason Admit Date/Time Oct 21, 2018 at 05:07 Initial Consult Date 10/22/18 Type of Consult id Date/Time of Note DATE: 10/31/18 TIME: 11:55 Exam/Review of Systems Exam Vitals Vital Signs Date Temp Pulse Resp B/P (MAP) Pulse Ox O2 O2 Flow FiO2 Time Delivery Rate 10/31/18 62 08:23 10/31/18 97.6 22 107/63 96 Nasal 2.0 07:44 (78) Cannula Intake and Output 10/30/18 10/30/18 10/31/18 1414:59 22:59 06:59 IntakeIntake Total 950 ml 800 ml 750 ml OutputOutput Total 1150 ml 1000 ml 980 ml BalanceBalance -200 ml -200 ml -230 ml Results Result Diagram: 10/31/18 0743 10/31/18 0743 Results 24hrs Laboratory Tests Test 10/30/18 14:20 10/30/18 14:21 10/31/18 07:43 Hepatitis B Surface Antigen NEGATIVE Hepatitis B Surface Antibody NEGATIVE Hepatitis B Core Total Antibody NEGATIVE Hepatitis C Antibody NEGATIVE Fibrinogen 269.0 White Blood Count 22.0 H Red Blood Count 3.66 L Hemoglobin 10.9 L Hematocrit 34.0 L Mean Corpuscular Volume 92.9 Mean Corpuscular Hemoglobin 29.8 Mean Corpuscular 32.1 Hemoglobin Concent Red Cell Distribution Width 15.8 H Platelet Count 30 L Mean Platelet Volume 13.0 H Immature Granulocytes % 3.700 H Neutrophils % 70.5 Segmented Neutrophils % (Manual) 76 Lymphocytes % 18.4 Lymphocytes % (Manual) 13 L Reactive Lymphocytes % (Manual) 1 H Monocytes % 6.7 Monocytes % (Manual) 10 Eosinophils % 0.5 Basophils % 0.2 Nucleated Red Blood Cells % 0.1 H Immature Granulocytes # 0.810 H Neutrophils # 15.5 H Lymphocytes (Manual) 2.8 Lymphocytes # 4.0 H Reactive Lymphocytes # 0.2 H Monocytes # 1.5 H Monocytes # (Manual) 2.2 H Eosinophils # 0.1 Basophils # 0.0 Nucleated Red Blood Cells # 0.0 Platelet Estimate SIG DECREASED Polychromasia 1+ Poikilocytosis 1+ Anisocytosis 1+ Spherocytes 1+ Sodium Level 140 Potassium Level 4.3 Chloride Level 101 Carbon Dioxide Level 34 H Anion Gap 5 Blood Urea Nitrogen 22 H Creatinine 0.68 Est Glomerular Filtrat > 60 Rate mL/min Glucose Level 139 # Calcium Level 8.5 Phosphorus Level 3.1 Magnesium Level 2.0 Medications Medication Current Medications Acetaminophen (Tylenol Tab) 650 mg Q6H PRN PO MILD PAIN LEVEL 1-3 Last administered on 10/31/18at 08:46; Admin Dose 650 MG; Start 10/21/18 at 08:30 Atorvastatin Calcium (Lipitor) 80 mg QHS PO Last administered on 10/30/18at 21:10; Admin Dose 80 MG; Start 10/21/18 at 21:00 Nicotine (Nicoderm 7 Mg/ 24 Hr) 1 patch DAILY TRANSDERM Last administered on 10/31/18at 08:23; Admin Dose 1 PATCH; Start 10/21/18 at 09:00 Albuterol/ Ipratropium (Duoneb) 3 ml Q6H RESP THERAPY PRN HHN SHORTNESS OF BREATH; Start 10/21/18 at 17:00 Miscellaneous Information (Pending [facility] Order For Wound Care) This patient mclean... PRN PRN XX WOUND CARE; Start 10/21/18 at 19:30 Lorazepam (Ativan) 1 mg Q8H PRN IV anxiety Last administered on 10/21/18at 22:52; Admin Dose 1 MG; Start 10/21/18 at 21:30 Famotidine (Pepcid) 20 mg BID PO Last administered on 10/31/18 08:22; Admin Dose 20 MG; Start 10/22/18 at 09:00 Acetaminophen/ Hydrocodone Bitart ([place] (5/325)) 1 tab Q6H PRN PO MODERATE PAIN LEVEL 4-6 Last administered on 10/22/18 16:13; Admin Dose 1 TAB; Start 10/22/18 at 16:30 Diltiazem HCl (Cardizem Cd) 120 mg DAILY PO Last administered on 10/31/18 08:22; Admin Dose 120 MG; Start 10/22/18 at 17:30 Morphine Sulfate (morphine) 2 mg Q6H PRN IV SEVERE PAIN LEVEL 7-10 Last administered on 10/31/18 09:34; Admin Dose 2 MG; Start 10/22/18 at 18:30 Methylprednisolone Sodium Succinate (Solu-Medrol) 40 mg DAILY IV Last administered on 10/31/18 08:23; Admin Dose 40 MG; Start 10/27/18 at 09:00 Amiodarone HCl (Cordarone) 200 mg BID PO Last administered on 10/31/18 08:23; Admin Dose 200 MG; Start 10/26/18 at 21:00 Furosemide (Lasix) 40 mg DAILY@0600 PO ; Start 11/01/18 at 06:00 JUAN CARLOS ROLDAN NP Oct 31, 2018 11:56
--- NOTE | 2018-10-31 15:17 | CONS ---
Consult Date/Type/Reason Admit Date/Time Oct 21, 2018 at 05:07 Initial Consult Date 10/22/18 Type of Consult Pulmonary Date/Time of Note DATE: 10/31/18 TIME: 15:16 Subjective Patient comfortable on nasal cannula this morning. Objective Vital Signs Date Temp Pulse Resp B/P (MAP) Pulse Ox O2 O2 Flow FiO2 Time Delivery Rate 10/31/18 97.8 58 22 106/63 96 Room Air 12:52 (77) 10/31/18 2.0 07:44 Intake and Output 10/30/18 10/30/18 10/31/18 1515:00 23:00 07:00 IntakeIntake Total 950 ml 800 ml 750 ml OutputOutput Total 1150 ml 1000 ml 980 ml BalanceBalance -200 ml -200 ml -230 ml Exam PHYSICAL EXAMINATION: GENERAL: Well-nourished, well-developed gentleman, on 3 L nasal cannula. VITAL SIGNS: NECK: Supple. No JVD or lymphadenopathy. CARDIAC: S1, S2, no added sounds or murmurs. CHEST: Diminished air entry bilaterally. ABDOMEN: Soft, nontender. No guarding or rebound. EXTREMITIES: No cyanosis, clubbing, or edema. NEUROLOGIC: Grossly intact. No focal deficits. Vent Setting Fraction of Inspired Oxygen pe: 35 Results/Medications Result Diagram: 10/31/18 0743 10/31/18 0743 Results 24 hrs Laboratory Tests Test 10/31/18 07:43 White Blood Count 22.0 H Red Blood Count 3.66 L Hemoglobin 10.9 L Hematocrit 34.0 L Mean Corpuscular Volume 92.9 Mean Corpuscular Hemoglobin 29.8 Mean Corpuscular Hemoglobin Concent 32.1 Red Cell Distribution Width 15.8 H Platelet Count 30 L Mean Platelet Volume 13.0 H Immature Granulocytes % 3.700 H Neutrophils % 70.5 Segmented Neutrophils % (Manual) 76 Lymphocytes % 18.4 Lymphocytes % (Manual) 13 L Reactive Lymphocytes % (Manual) 1 H Monocytes % 6.7 Monocytes % (Manual) 10 Eosinophils % 0.5 Basophils % 0.2 Nucleated Red Blood Cells % 0.1 H Immature Granulocytes # 0.810 H Neutrophils # 15.5 H Lymphocytes (Manual) 2.8 Lymphocytes # 4.0 H Reactive Lymphocytes # 0.2 H Monocytes # 1.5 H Monocytes # (Manual) 2.2 H Eosinophils # 0.1 Basophils # 0.0 Nucleated Red Blood Cells # 0.0 Platelet Estimate SIG DECREASED Polychromasia 1+ Poikilocytosis 1+ Anisocytosis 1+ Spherocytes 1+ Sodium Level 140 Potassium Level 4.3 Chloride Level 101 Carbon Dioxide Level 34 H Anion Gap 5 Blood Urea Nitrogen 22 H Creatinine 0.68 Est Glomerular Filtrat Rate mL/min > 60 Glucose Level 139 # Calcium Level 8.5 Phosphorus Level 3.1 Magnesium Level 2.0 Medications Current Medications Acetaminophen (Tylenol Tab) 650 mg Q6H PRN PO MILD PAIN LEVEL 1-3 Last administered on 10/31/18 08:46; Admin Dose 650 MG; Start 10/21/18 at 08:30 Atorvastatin Calcium (Lipitor) 80 mg QHS PO Last administered on 10/30/18 21:10; Admin Dose 80 MG; Start 10/21/18 at 21:00 Nicotine (Nicoderm 7 Mg/ 24 Hr) 1 patch DAILY TRANSDERM Last administered on 10/31/18 08:23; Admin Dose 1 PATCH; Start 10/21/18 at 09:00 Albuterol/ Ipratropium (Duoneb) 3 ml Q6H RESP THERAPY PRN HHN SHORTNESS OF BREATH; Start 10/21/18 at 17:00 Miscellaneous Information (Pending [facility] Order For Wound Care) This patient mclean... PRN PRN XX WOUND CARE; Start 10/21/18 at 19:30 Lorazepam (Ativan) 1 mg Q8H PRN IV anxiety Last administered on 10/21/18 22:52; Admin Dose 1 MG; Start 10/21/18 at 21:30 Famotidine (Pepcid) 20 mg BID PO Last administered on 10/31/18 08:22; Admin Dose 20 MG; Start 10/22/18 at 09:00 Acetaminophen/ Hydrocodone Bitart ([place] (5/325)) 1 tab Q6H PRN PO MODERATE PAIN LEVEL 4-6 Last administered on 10/22/18 16:13; Admin Dose 1 TAB; Start 10/22/18 at 16:30 Diltiazem HCl (Cardizem Cd) 120 mg DAILY PO Last administered on 10/31/18 08:22; Admin Dose 120 MG; Start 10/22/18 at 17:30 Morphine Sulfate (morphine) 2 mg Q6H PRN IV SEVERE PAIN LEVEL 7-10 Last administered on 10/31/18at 09:34; Admin Dose 2 MG; Start 10/22/18 at 18:30 Methylprednisolone Sodium Succinate (Solu-Medrol) 40 mg DAILY IV Last administered on 10/31/18at 08:23; Admin Dose 40 MG; Start 10/27/18 at 09:00 Amiodarone HCl (Cordarone) 200 mg BID PO Last administered on 10/31/18at 08:23; Admin Dose 200 MG; Start 10/26/18 at 21:00 Furosemide (Lasix) 40 mg DAILY@0600 PO ; Start 11/01/18 at 06:00 Assessment/Plan Hospital Course (Demo Recall) IMPRESSION 1. Acute hypoxemic respiratory failure, likely secondary to combination of chronic obstructive pulmonary disease exacerbation. Clinically improving. 2. Congestive cardiac failure. 3. Postop atelectasis and possible effusion. 4. Persistent leukocytosis 5. Thrombocytopenia 6. [address] chest noted. Small left pleural effusion with extrinsic compression. Would not perform thoracentesis. Plan 1. Supplemental O2. Titrate to keep sats greater than 92. 2. Antibiotics per primary team. 3. Rate control per cardiology. 4. DC steroids 5. Diuretics. 6. Will likely need home O2. 7. Hematology evaluation for thrombocytopenia and persistent leukocytosis. IVAN COOK MD, [facility] Oct 31, 2018 15:17
[2018-10-31] MEDS: HYDROCODONE/APAP (5/325) TAB PO PRN (21:40)
[2018-10-31] MEDS: ATORVASTATIN 80 MG TAB PO SCH (21:40)
[2018-11-01] VITALS (11 sets, daily range): BP systolic 113–147; BP diastolic 44–73; PULSE 52–64; RESP 18–22
[2018-11-01] MEDS: FUROSEMIDE 40 MG TAB PO SCH (05:36)
[2018-11-01] MEDS: AMIODARONE 200 MG TAB PO SCH ×2 (08:15→21:00)
[2018-11-01] MEDS: DILTIAZEM (CD) 120 MG CAP PO SCH (08:16)
[2018-11-01] MEDS: FAMOTIDINE 20 MG TAB PO SCH ×2 (08:16→21:38)
[2018-11-01] MEDS: METHYLPREDNISOLONE 40 MG INJ IV SCH (08:16)
[2018-11-01] MEDS: NICOTINE (7 MG/24 HR) PATCH TRANSDERM SCH (08:16)
--- NOTE | 2018-11-01 08:53 | CONS ---
Assessment/Plan Cardiology NYHA: IV Heart Failure Type: Acute on Chronic Heart Failure Type: Diastolic Assessment/Plan Hospital Course (Demo Recall) Thrombocytopenia: Plts down to 25. No bleeding. Seen by heme. Stable at 30 Acute on chronic diastolic CHF: EF remains preserved though poor study. Mild CHF now Acute respiratory failure: Likely multifactorial including CHF exacerbation, COPD, and left pleural effusion. No PE by CTA. Resolved Coag negative staph bacteremia: likely contaminant. Acute on chronic COPD with exacerbation Left pleural effusion: s/p thora with 1 L removed 10/25 Paroxysmal atrial fibrillation/flutter: very common post cardiac surgery, however this is no longer the acute stage and so anticoagulation halfway is appropriate. Now back in sinus after amiodarone CAD s/p CABG: s/p CABG x5 10/04/2018, [place] to LAD, SVG to PDA, SVG to diagonal artery sequence to OM1 sequenced to OM2. No angina and trops negative HTN HL DM Tobacco use -lasix 40mg PO daily -hold ASA. ?start when plts >50 -holding Eliquis 5mg BID, ?start when plts >100 -amiodarone 200mg PO BID, taper to 200mg on discharge -lipitor 80mg -diltiazem 120mg instead of metoprolol with COPD Consultation Date/Type/Reason Admit Date/Time Oct 21, 2018 at 05:07 Initial Consult Date 10/22/18 Type of Consult Cardiology Date/Time of Note DATE: 11/01/18 TIME: 08:52 24 HR Interval Summary Free Text/Dictation No events. No SOB. Plts 30 Exam/Review of Systems Vital Signs Vitals Vital Signs Date Temp Pulse Resp B/P (MAP) Pulse Ox O2 O2 Flow FiO2 Time Delivery Rate 11/01/18 52 08:26 11/01/18 Nasal 2.0 08:24 Cannula 11/01/18 98.6 20 133/72 96 07:24 (92) Intake and Output 10/31/18 10/31/18 11/01/18 1414:59 22:59 06:59 IntakeIntake Total 1200 ml 900 ml OutputOutput Total 1700 ml BalanceBalance -500 ml 900 ml Exam Constitutional: alert, oriented Psych: no complaints, nl mood/affect Head: normocephalic, atraumatic Neck: No jvd Respiratory: diminished breath sounds; No clear to auscultation Cardiovascular: regular rate and rhythm, edema (1+); No systolic murmur Gastrointestinal: soft, non-tender; No distended Neurological: nl mental status, nl speech Labs Result Diagram: 10/31/18 0743 11/01/18 0624 Results 24hrs Laboratory Tests Test 11/01/18 06:24 Sodium Level 140 Potassium Level 5.0 Chloride Level 100 Carbon Dioxide Level 36 H Anion Gap 4 L Blood Urea Nitrogen 26 H Creatinine 0.76 Est Glomerular Filtrat Rate mL/min > 60 Glucose Level 152 Calcium Level 8.1 L Phosphorus Level 3.3 Magnesium Level 2.0 Medications Medications Current Medications Acetaminophen (Tylenol Tab) 650 mg Q6H PRN PO MILD PAIN LEVEL 1-3 Last administered on 10/31/18 08:46; Admin Dose 650 MG; Start 10/21/18 at 08:30 Atorvastatin Calcium (Lipitor) 80 mg QHS PO Last administered on 10/31/18 21:40; Admin Dose 80 MG; Start 10/21/18 at 21:00 Nicotine (Nicoderm 7 Mg/ 24 Hr) 1 patch DAILY TRANSDERM Last administered on 11/01/18 08:16; Admin Dose 1 PATCH; Start 10/21/18 at 09:00 Albuterol/ Ipratropium (Duoneb) 3 ml Q6H RESP THERAPY PRN HHN SHORTNESS OF BREATH; Start 10/21/18 at 17:00 [facility]isc[facility] This patient mclean... PRN PRN XX WOUND CARE; Start 10/21/18 at 19:30 Lorazepam (Ativan) 1 mg Q8H PRN IV anxiety Last administered on 10/21/18 22:52; Admin Dose 1 MG; Start 10/21/18 at 21:30 Famotidine (Pepcid) 20 mg BID PO Last administered on 11/01/18 08:16; Admin Dose 20 MG; Start 10/22/18 at 09:00 Acetaminophen/ Hydrocodone Bitart ([place] (5/325)) 1 tab Q6H PRN PO MODERATE PAIN LEVEL 4-6 Last administered on 10/31/18 21:40; Admin Dose 1 TAB; Start 10/22/18 at 16:30 Diltiazem HCl (Cardizem Cd) 120 mg DAILY PO Last administered on 11/01/18 08:16; Admin Dose 120 MG; Start 10/22/18 at 17:30 Morphine Sulfate (morphine) 2 mg Q6H PRN IV SEVERE PAIN LEVEL 7-10 Last ad ministered on 10/31/18 23:22; Admin Dose 2 MG; Start 10/22/18 at 18:30 Methylprednisolone Sodium Succinate (Solu-Medrol) 40 mg DAILY IV Last administered on 11/01/18 08:16; Admin Dose 40 MG; Start 10/27/18 at 09:00 Amiodarone HCl (Cordarone) 200 mg BID PO Last administered on 11/01/18 08:15; Admin Dose 200 MG; Start 10/26/18 at 21:00 Furosemide (Lasix) 40 mg DAILY@0600 PO Last administered on 11/01/18 05:36; Admin Dose 40 MG; Start 11/01/18 at 06:00 VANESA RUIZ Nov 01, 2018 08:53
[2018-11-01] MEDS ORDERED: ACETAZOLAMIDE 500 MG INJ IV ONE (09:00)
--- NOTE | 2018-11-01 09:57 | PN ---
DATE: 11/01/2018 SUBJECTIVE: The patient is stable on 2 liters nasal cannula. The patient continues to have lower ex tremity edema. No other events noted. OBJECTIVE: VITAL SIGNS: Blood pressure is 133/72, pulse 82, respirations 20, temperature 98.6. HEENT: Head is normocephalic. NECK: Supple. HEART: Regular rate. LUNGS: Show diminished breath sounds at the base. ABDOMEN: Soft, nontender to palpation. No rebound or guarding. EXTREMITIES: Negative for clubbing, cyanosis, positive edema. DERMATOLOGIC: No rashes. MUSCULOSKELETAL: No joint effusion. NEUROLOGIC: No change in exam. MEDICATIONS: The patient's medications have been reviewed. LABORATORY DATA: From 11/01/2018 shows sodium 140, potassium 5.0, BUN 26, creatinine 0.76, calcium 8 .1. The patient's CBC is pending. ASSESSMENT AND PLAN: 1. Acute hypoxemic respiratory failure, etiology is multifactorial secondary to congestive heart [place] lure, chronic obstructive pulmonary disease, pleural effusion. The patient is clinically improving, currently stable on 2 liters nasal cannula. Continue current medical management. 2. Thrombocytopenia. Etiology is felt to be possibly multifactorial secondary to medications, possi ble aspirin, questionable Eliquis. The patient has been evaluated by Hematology. Greatly appreciate their help with management. We will follow platelet level and follow platelet antibody. 3. Sepsis, etiology is secondary to possible pneumonia and bacteremia. The patient is completing an tibiotic course. Continue to monitor. 4. Leukocytosis likely from steroids. Continue to monitor. 5. Acute diastolic heart failure. The patient is decompensated. The patient is currently on Lasix 40 mg daily. We will consider adding Diamox and diuresis. 6. Nonoliguric acute kidney injury, etiology is secondary to hemodynamic. Continue to monitor. 7. Hypokalemia, improved. 8. Metabolic alkalosis. Etiology may be multifactorial secondary to diuretics, respiratory. The pa brina will be given Diamox. Monitor closely. 9. Arrhythmia. Continue amiodarone and Eliquis is on hold. 10. Coronary artery disease status post coronary artery bypass graft. Continue to monitor. 11. Hypertension. Continue current blood pressure regimen. 12. Diabetes. Continue current insulin regimen. 13. Anemia. Continue to monitor hemoglobin and hematocrit levels. 14. Status post syncope. 15. Status post tobacco use. Dictated By: VANCE FELDMAN DO NR/NTS Conf#: [id number] DID#: [id number] CC: VANCE FELDMAN DO; IVAN COOK MD; RONY WYNN MD;*EndCC*
--- NOTE | 2018-11-01 10:27 | CONS ---
Assessment/Plan Assessment/Plan Assessment/Plan (Daily) Assessment and recommendations; 1. Patient status post CABG, status post respiratory failure. 2. Status post treatment for bilateral pneumonia. 3. Mild CHF. 4. Persistent leukocytosis and severe thrombocytopenia. Indicative of underlying bone marrow pathology. Continue current supportive care. Patient possibly may need to have a bone marrow biopsy performed. Consultation Date/Type/Reason Admit Date/Time Oct 21, 2018 at 05:07 Initial Consult Date 10/22/18 Type of Consult Pulmonary Date/Time of Note DATE: 11/01/18 TIME: 10:25 24 HR Interval Summary Free Text/Dictation Patient's condition is stable. Denies any shortness of breath, chest pain. General exam; middle-aged male, awake and alert. Currently in no distress. Exam/Review of Systems Exam Vitals Vital Signs Date Temp Pulse Resp B/P (MAP) Pulse Ox O2 O2 Flow FiO2 Time Delivery Rate 11/01/18 52 08:26 11/01/18 Nasal 2.0 08:24 Cannula 11/01/18 98.6 20 133/72 96 07:24 (92) Intake and Output 10/31/18 10/31/18 11/01/18 1515:00 23:00 07:00 IntakeIntake Total 1200 ml 900 ml OutputOutput Total 1700 ml BalanceBalance -500 ml 900 ml Exam H EENT exam; supple neck, no JVD. No lymphadenopathy. Midline trachea. No thyromegaly. Patient has fair dentition. No neck masses. Chest exam; diminished but clear breath sounds. S1-S2 audible, no murmurs. Regular rhythm. Sternal scar is healing well. Abdomen exam; soft, no organomegaly. Bowel sounds audible. Nontender. Protuberant. Extremity exam; no peripheral edema clubbing. TABULAR TYPIST exam; no focal deficit. Results Result Diagram: 11/01/18 0622 11/01/18 0624 Results 24hrs Laboratory Tests Test 11/01/18 06:22 11/01/18 06:24 White Blood Count 20.0 H Red Blood Count 3.60 L Hemoglobin 10.6 L Hematocrit 33.8 L Mean Corpuscular Volume 93.9 Mean Corpuscular Hemoglobin 29.4 Mean Corpuscular Hemoglobin Concent 31.4 L Red Cell Distribution Width 15.8 H Platelet Count 37 #L Mean Platelet Volume 12.6 H Immature Granulocytes % 3.600 H Neutrophils % 72.8 Lymphocytes % 16.3 Monocytes % 6.9 Eosinophils % 0.2 Basophils % 0.2 Nucleated Red Blood Cells % 0.1 H Immature Granulocytes # 0.710 H Neutrophils # 14.6 H Lymphocytes # 3.3 H Monocytes # 1.4 H Eosinophils # 0.0 Basophils # 0.0 Nucleated Red Blood Cells # 0.0 Sodium Level 140 Potassium Level 5.0 Chloride Level 100 Carbon Dioxide Level 36 H Anion Gap 4 L Blood Urea Nitrogen 26 H Creatinine 0.76 Est Glomerular Filtrat Rate mL/min > 60 Glucose Level 152 Calcium Level 8.1 L Phosphorus Level 3.3 Magnesium Level 2.0 Medications Medication Current Medications Acetaminophen (Tylenol Tab) 650 mg Q6H PRN PO MILD PAIN LEVEL 1-3 Last administered on 10/31/18 08:46; Admin Dose 650 MG; Start 10/21/18 at 08:30 Atorvastatin Calcium (Lipitor) 80 mg QHS PO Last administered on 10/31/18 21:40; Admin Dose 80 MG; Start 10/21/18 at 21:00 Nicotine (Nicoderm 7 Mg/ 24 Hr) 1 patch DAILY TRANSDERM Last administered on 11/01/18 08:16; Admin Dose 1 PATCH; Start 10/21/18 at 09:00 Albuterol/ Ipratropium (Duoneb) 3 ml Q6H RESP THERAPY PRN HHN SHORTNESS OF BREATH; Start 10/21/18 at 17:00 [facility]isc[facility] This patient mclean... PRN PRN XX WOUND CARE; Start 10/21/18 at 19:30 Lorazepam (Ativan) 1 mg Q8H PRN IV anxiety Last administered on 10/21/18 22:52; Admin Dose 1 MG; Start 10/21/18 at 21:30 Famotidine (Pepcid) 20 mg BID PO Last administered on 11/01/18 08:16; Admin Dose 20 MG; Start 10/22/18 at 09:00 Acetaminophen/ Hydrocodone Bitart ([place] (5/325)) 1 tab Q6H PRN PO MODERATE PAIN LEVEL 4-6 Last administered on 10/31/18 21:40; Admin Dose 1 TAB; Start 10/22/18 at 16:30 Diltiazem HCl (Cardizem Cd) 120 mg DAILY PO Last administered on 11/01/18 08:16; Admin Dose 120 MG; Start 10/22/18 at 17:30 Morphine Sulfate (morphine) 2 mg Q6H PRN IV SEVERE PAIN LEVEL 7-10 Last administered on 10/31/18 23:22; Admin Dose 2 MG; Start 10/22/18 at 18:30 Methylprednisolone Sodium Succinate (Solu-Medrol) 40 mg DAILY IV Last administered on 11/01/18at 08:16; Admin Dose 40 MG; Start 10/27/18 at 09:00 Amiodarone HCl (Cordarone) 200 mg BID PO Last administered on 11/01/18 08:15; Admin Dose 200 MG; Start 10/26/18 at 21:00 Furosemide (Lasix) 40 mg DAILY@0600 PO Last administered on 11/01/18at 05:36; Admin Dose 40 MG; Start 11/01/18 at 06:00 Linagliptin (Tradjenta) 5 mg DAILY PO ; Start 11/01/18 at 09:00; Status UNV Diagnostic Test (Pha) (Accu-Chek) 1 ea AC MEALS AND BEDTIME XX ; Start 11/01/18 at 11:20; Status UNV GLORIA SANCHEZ Nov 01, 2018 10:27
[2018-11-01] MEDS ORDERED: GLUCOSE GEL 15 GRAM TUBE BUCCAL PRN (10:30)
[2018-11-01] MEDS ORDERED: GLUCAGON 1 MG INJ IM PRN (10:30)
[2018-11-01] MEDS ORDERED: DEXTROSE 50% 50 ML SYRINGE IV PRN ×2 (10:30)
[2018-11-01] MEDS ORDERED: GLUCOSE GEL 15 GRAM TUBE PO PRN ×2 (10:30)
[2018-11-01] MEDS: LINAGLIPTIN 5 MG TABLET PO SCH (10:41)
[2018-11-01] MEDS: ACCU-CHEK XX SCH ×3 (11:46→21:35)
--- NOTE | 2018-11-01 13:12 | CONS ---
Assessment/Plan Assessment/Plan Hospital Course (Demo Recall) unfortunate 58 yo with CAD s/p recent CABG admitted with SOB, COPD exacerbation, sepsis, on abx, now with worsening thrombocytopenia #thrombocytopenia, plt count increased o 37K suspect it is most likely due to sepsis and infection and medication-related DIC ruled out: normal fibrinogen his imaging is suggestive of cirrhosis, check HEP B and C check HIT ab--PENDING transfuse to keep plt >20 K or if actively bleeding doubt this is TTP, no evidence of hemolysis Consultation Date/Type/Reason Admit Date/Time Oct 21, 2018 at 05:07 Initial Consult Date 10/22/18 Date/Time of Note DATE: 11/01/18 TIME: 13:11 24 HR Interval Summary Free Text/Dictation plt count increased Exam/Review of Systems Exam Vitals Vital Signs Date Temp Pulse Resp B/P (MAP) Pulse Ox O2 O2 Flow FiO2 Time Delivery Rate 11/01/18 52 12:23 11/01/18 97.7 20 113/70 95 Nasal 11:07 (84) Cannula 11/01/18 2.0 08:24 Intake and Output 10/31/18 10/31/18 11/01/18 1515:00 23:00 07:00 IntakeIntake Total 1200 ml 900 ml OutputOutput Total 1700 ml BalanceBalance -500 ml 900 ml Results Result Diagram: 11/01/18 0622 11/01/18 0624 Results 24hrs Laboratory Tests Test 11/01/18 06:22 11/01/18 06:24 11/01/18 10:40 11/01/18 11:45 White Blood Count 20.0 H Red Blood Count 3.60 L Hemoglobin 10.6 L Hematocrit 33.8 L Mean Corpuscular 93.9 Volume Mean Corpuscular 29.4 Hemoglobin Mean Corpuscular 31.4 L Hemoglobin Concent Red Cell 15.8 H Distribution Width Platelet Count 37 #L Mean Platelet Volume 12.6 H Immature 3.600 H Granulocytes % Neutrophils % 72.8 Lymphocytes % 16.3 Monocytes % 6.9 Eosinophils % 0.2 Basophils % 0.2 Nucleated Red Blood 0.1 H Cells % Immature 0.710 H Granulocytes # Neutrophils # 14.6 H Lymphocytes # 3.3 H Monocytes # 1.4 H Eosinophils # 0.0 Basophils # 0.0 Nucleated Red Blood 0.0 Cells # Sodium Level 140 Potassium Level 5.0 Chloride Level 100 Carbon Dioxide Level 36 H Anion Gap 4 L Blood Urea Nitrogen 26 H Creatinine 0.76 Est Glomerular > 60 Filtrat Rate mL/min Glucose Level 152 Calcium Level 8.1 L Phosphorus Level 3.3 Magnesium Level 2.0 Bedside Glucose 263 H 217 Medications Medication Current Medications Acetaminophen (Tylenol Tab) 650 mg Q6H PRN PO MILD PAIN LEVEL 1-3 Last administered on 10/31/18 08:46; Admin Dose 650 MG; Start 10/21/18 at 08:30 Atorvastatin Calcium (Lipitor) 80 mg QHS PO Last administered on 10/31/18 21:40; Admin Dose 80 MG; Start 10/21/18 at 21:00 Nicotine (Nicoderm 7 Mg/ 24 Hr) 1 patch DAILY TRANSDERM Last administered on 11/01/18 08:16; Admin Dose 1 PATCH; Start 10/21/18 at 09:00 Albuterol/ Ipratropium (Duoneb) 3 ml Q6H RESP THERAPY PRN HHN SHORTNESS OF BREATH; Start 10/21/18 at 17:00 Misc[facility] This patient mclean... PRN PRN XX WOUND CARE; Start 10/21/18 at 19:30 Lorazepam (Ativan) 1 mg Q8H PRN IV anxiety Last administered on 10/21/18 22:52; Admin Dose 1 MG; Start 10/21/18 at 21:30 Famotidine (Pepcid) 20 mg BID PO Last administered on 11/01/18 08:16; Admin Dose 20 MG; Start 10/22/18 at 09:00 Acetaminophen/ Hydrocodone Bitart ([place] (5/325)) 1 tab Q6H PRN PO MODERATE PAIN LEVEL 4-6 Last administered on 10/31/18 21:40; Admin Dose 1 TAB; Start 10/22/18 at 16:30 Diltiazem HCl (Cardizem Cd) 120 mg DAILY PO Last administered on 11/01/18 08:16; Admin Dose 120 MG; Start 10/22/18 at 17:30 Morphine Sulfate (morphine) 2 mg Q6H PRN IV SEVERE PAIN LEVEL 7-10 Last administered on 10/31/18 23:22; Admin Dose 2 MG; Start 10/22/18 at 18:30 Methylprednisolone Sodium Succinate (Solu-Medrol) 40 mg DAILY IV Last adm inistered on 11/01/18at 08:16; Admin Dose 40 MG; Start 10/27/18 at 09:00 Amiodarone HCl (Cordarone) 200 mg BID PO Last administered on 11/01/18 08:15; Admin Dose 200 MG; Start 10/26/18 at 21:00 Furosemide (Lasix) 40 mg DAILY@0600 PO Last administered on 11/01/18at 05:36; Admin Dose 40 MG; Start 11/01/18 at 06:00 Linagliptin (Tradjenta) 5 mg DAILY PO Last administered on 11/01/18at 10:41; Admin Dose 5 MG; Start 11/01/18 at 09:00 Diagnostic Test (Pha) (Accu-Chek) 1 ea AC MEALS AND BEDTIME XX Last administered on 11/01/18at 11:46; Admin Dose 1 EA; Start 11/01/18 at 11:20 Miscellaneous Information 1 ea NOTE XX ; Start 11/01/18 at 10:30 Glucose (Glutose) 15 gm Q15M PRN PO DECREASED GLUCOSE; Start 11/01/18 at 10:30 Glucose (Glutose) 22.5 gm Q15M PRN PO DECREASED GLUCOSE; Start 11/01/18 at 10 :30 Dextrose (D50w Syringe) 25 ml Q15M PRN IV DECREASED GLUCOSE; Start 11/01/18 at 10:30 Dextrose (D50w Syringe) 50 ml Q15M PRN IV DECREASED GLUCOSE; Start 11/01/18 at 10:30 Glucagon (Glucagen) 1 mg Q15M PRN IM DECREASED GLUCOSE; Start 11/01/18 at 10:30 Glucose (Glutose) 15 gm Q15M PRN BUCCAL DECREASED GLUCOSE; Start 11/01/18 at 10:30 GRAYSON SANDOVAL Nov 01, 2018 13:12
--- NOTE | 2018-11-01 15:50 | CONS ---
Assessment/Plan Assessment/Plan Hospital Course (Demo Recall) Alert, feels good, on 2L nc, no fevers Microbiology: Blood culture on admission grew coag negative staph species, repeat blood cultures negative Antimicrobials: none Plan: This is a well-developed obese middle-aged man who is in no distress. Head atraumatic normocephalic sclera nonicteric neck is supple. Chest rise symmetrical breath sounds diminished to bases. Heart: S1-S2. Abdomen soft bowel sounds present. Extremities without cyanosis. Skin: Patient has well- healed midsternal scar there is an area of swelling upper part of incision no pain, no fluctuance Assessment: 1. Acute hypoxemic respiratory failure secondary to CHF exacerbation and pneumonia, s/p thoracentesis 1 L 10/25/18 2. Gram-positive cocci bacteremia cw contaminant ==> no vegetations per 2D echo 3. Coronary artery disease with a history of CABG and aortic valve replacement 4. COPD exacerbation 5. Diabetes 6. Obesity 7. Leukocytosis==> on steroids Plan: Stable, off abx, continue sterids taper, pulm/card/hematology rec-s Consultation Date/Type/Reason Admit Date/Time Oct 21, 2018 at 05:07 Initial Consult Date 10/22/18 Type of Consult id Date/Time of Note DATE: 11/01/18 TIME: 15:49 Exam/Review of Systems Exam Vitals Vital Signs Date Temp Pulse Resp B/P (MAP) Pulse Ox O2 O2 Flow FiO2 Time Delivery Rate 11/01/18 98.3 62 20 119/62 94 Nasal 15:37 (81) Cannula 11/01/18 2.0 08:24 Intake and Output 10/31/18 10/31/18 11/01/18 1515:00 23:00 07:00 IntakeIntake Total 1200 ml 900 ml OutputOutput Total 1700 ml BalanceBalance -500 ml 900 ml Results Result Diagram: 11/01/18 0622 11/01/18 0624 Results 24hrs Laboratory Tests Test 11/01/18 06:22 11/01/18 06:24 11/01/18 10:40 11/01/18 11:45 White Blood Count 20.0 H Red Blood Count 3.60 L Hemoglobin 10.6 L Hematocrit 33.8 L Mean Corpuscular 93.9 Volume Mean Corpuscular 29.4 Hemoglobin Mean Corpuscular 31.4 L Hemoglobin Concent Red Cell 15.8 H Distribution Width Platelet Count 37 #L Mean Platelet Volume 12.6 H Immature 3.600 H Granulocytes % Neutrophils % 72.8 Lymphocytes % 16.3 Monocytes % 6.9 Eosinophils % 0.2 Basophils % 0.2 Nucleated Red Blood 0.1 H Cells % Immature 0.710 H Granulocytes # Neutrophils # 14.6 H Lymphocytes # 3.3 H Monocytes # 1.4 H Eosinophils # 0.0 Basophils # 0.0 Nucleated Red Blood 0.0 Cells # Sodium Level 140 Potassium Level 5.0 Chloride Level 100 Carbon Dioxide Level 36 H Anion Gap 4 L Blood Urea Nitrogen 26 H Creatinine 0.76 Est Glomerular > 60 Filtrat Rate mL/min Glucose Level 152 Calcium Level 8.1 L Phosphorus Level 3.3 Magnesium Level 2.0 Bedside Glucose 263 H 217 Medications Medication Current Medications Acetaminophen (Tylenol Tab) 650 mg Q6H PRN PO MILD PAIN LEVEL 1-3 Last administered on 10/31/18 08:46; Admin Dose 650 MG; Start 10/21/18 at 08:30 Atorvastatin Calcium (Lipitor) 80 mg QHS PO Last administered on 10/31/18 21:40; Admin Dose 80 MG; Start 10/21/18 at 21:00 Nicotine (Nicoderm 7 Mg/ 24 Hr) 1 patch DAILY TRANSDERM Last administered on 11/01/18 08:16; Admin Dose 1 PATCH; Start 10/21/18 at 09:00 Albuterol/ Ipratropium (Duoneb) 3 ml Q6H RESP THERAPY PRN HHN SHORTNESS OF BREATH; Start 10/21/18 at 17:00 [facility] This patient mclean... PRN PRN XX WOUND CARE; Start 10/21/18 at 19:30 Lorazepam (Ativan) 1 mg Q8H PRN IV anxiety Last administered on 10/21/18 22:52; Admin Dose 1 MG; Start 10/21/18 at 21:30 Famotidine (Pepcid) 20 mg BID PO Last administered on 11/01/18 08:16; Admin Dose 20 MG; Start 10/22/18 at 09:00 Acetaminophen/ Hydrocodone Bitart ([place] (5/325)) 1 tab Q6H PRN PO MODERATE PAIN LEVEL 4-6 Last administered on 10/31/18 21:40; Admin Dose 1 TAB; Start 10/22/18 at 16:30 Diltiazem HCl (Cardizem Cd) 120 mg DAILY PO Last administered on 11/01/18 08 :16; Admin Dose 120 MG; Start 10/22/18 at 17:30 Morphine Sulfate (morphine) 2 mg Q6H PRN IV SEVERE PAIN LEVEL 7-10 Last administered on 10/31/18 23:22; Admin Dose 2 MG; Start 10/22/18 at 18:30 Methylprednisolone Sodium Succinate (Solu-Medrol) 40 mg DAILY IV Last administered on 11/01/18 08:16; Admin Dose 40 MG; Start 10/27/18 at 09:00 Amiodarone HCl (Cordarone) 200 mg BID PO Last administered on 11/01/18 08:15; Admin Dose 200 MG; Start 10/26/18 at 21:00 Furosemide (Lasix) 40 mg DAILY@0600 PO Last administered on 11/01/18 05:36; Admin Dose 40 MG; Start 11/01/18 at 06:00 Linagliptin (Tradjenta) 5 mg DAILY PO Last administered on 11/01/18at 10:41; Admin Dose 5 MG; Start 11/01/18 at 09:00 Diagnostic Test (Pha) (Accu-Chek) 1 ea AC MEALS AND BEDTIME XX Last administered on 11/01/18at 11:46; Admin Dose 1 EA; Start 11/01/18 at 11:20 Miscellaneous Information 1 ea NOTE XX ; Start 11/01/18 at 10:30 Glucose (Glutose) 15 gm Q15M PRN PO DECREASED GLUCOSE; Start 11/01/18 at 10:30 Glucose (Glutose) 22.5 gm Q15M PRN PO DECREASED GLUCOSE; Start 11/01/18 at 10:30 Dextrose (D50w Syringe) 25 ml Q15M PRN IV DECREASED GLUCOSE; Start 11/01/18 at 10:30 Dextrose (D50w Syringe) 50 ml Q15M PRN IV DECREASED GLUCOSE; Start 11/01/18 at 10:30 Glucagon (Glucagen) 1 mg Q15M PRN IM DECREASED GLUCOSE; Start 11/01/18 at 10:30 Glucose (Glutose) 15 gm Q15M PRN BUCCAL DECREASED GLUCOSE; Start 11/01/18 at 10:30 JUAN CARLOS ROLDAN NP Nov 01, 2018 15:50
[2018-11-01] MEDS: ATORVASTATIN 80 MG TAB PO SCH (21:38)
[2018-11-02] VITALS (9 sets, daily range): BP systolic 97–130; BP diastolic 56–72; PULSE 52–78; RESP 18–19
[2018-11-02] MEDS: FUROSEMIDE 40 MG TAB PO SCH (05:05)
[2018-11-02] MEDS: INSULIN ASPART [NOVOLOG] 3 ML PEN SC SCH ×4 (07:55→21:00)
[2018-11-02] MEDS: ACCU-CHEK XX SCH ×4 (08:08→21:00)
[2018-11-02] MEDS: LINAGLIPTIN 5 MG TABLET PO SCH (08:09)
[2018-11-02] MEDS ORDERED: POTASSIUM CHLORIDE 20 MEQ POWDER FOR ORAL SOLN PO ONE (09:00)
[2018-11-02] MEDS: NICOTINE (7 MG/24 HR) PATCH TRANSDERM SCH (09:16)
[2018-11-02] MEDS: ASPIRIN 81 MG TAB PO SCH (09:16)
[2018-11-02] MEDS: FAMOTIDINE 20 MG TAB PO SCH ×2 (09:16→22:14)
[2018-11-02] MEDS: AMIODARONE 200 MG TAB PO SCH (09:16)
[2018-11-02] MEDS: DILTIAZEM (CD) 120 MG CAP PO SCH (09:17)
[2018-11-02] MEDS: METHYLPREDNISOLONE 40 MG INJ IV SCH (09:17)
--- NOTE | 2018-11-02 09:17 | CONS ---
Assessment/Plan Cardiology NYHA: IV Heart Failure Type: Acute on Chronic Heart Failure Type: Diastolic Assessment/Plan Hospital Course (Demo Recall) Thrombocytopenia: Plts down to 25. No bleeding. Seen by heme. Now 52 Acute on chronic diastolic CHF: EF remains preserved though poor study. Euvolemic Acute respiratory failure: Likely multifactorial including CHF exacerbation, COPD, and left pleural effusion. No PE by CTA. Resolved Coag negative staph bacteremia: likely contaminant. Acute on chronic COPD with exacerbation Left pleural effusion: s/p thora with 1 L removed 10/25 Paroxysmal atrial fibrillation/flutter: very common post cardiac surgery, however this is no longer the acute stage and so anticoagulation prison is appropriate. Now back in sinus after amiodarone CAD s/p CABG: s/p CABG x5 10/04/2018, [place] to LAD, SVG to PDA, SVG to diagonal artery sequence to OM1 sequenced to OM2. No angina and trops negative HTN HL DM Tobacco use -restart ASA 81mg with recent grafts now that plts >50 -lasix 40mg PO daily -holding Eliquis 5mg BID, ?start when plts >100 -amiodarone 200mg PO daily -lipitor 80mg -diltiazem 120mg instead of metoprolol with COPD Consultation Date/Type/Reason Admit Date/Time Oct 21, 2018 at 05:07 Initial Consult Date 10/22/18 Type of Consult Cardiology Date/Time of Note DATE: 11/02/18 TIME: 09:15 24 HR Interval Summary Free Text/Dictation Plts 52. No complaints. No bleeding Exam/Review of Systems Vital Signs Vitals Vital Signs Date Temp Pulse Resp B/P (MAP) Pulse Ox O2 O2 Flow FiO2 Time Delivery Rate 11/02/18 98.6 54 19 97/56 (70) 98 07:44 11/02/18 3.0 01:39 11/02/18 Nasal 00:00 Cannula Intake and Output 11/01/18 11/01/18 11/02/18 1515:00 23:00 07:00 IntakeIntake Total 960 ml 800 ml OutputOutput Total 2500 ml 1000 ml BalanceBalance -1540 ml -200 ml Exam Constitutional: alert, oriented Psych: no complaints, nl mood/affect Head: normocephalic, atraumatic Neck: No jvd Respiratory: diminished breath sounds; No clear to auscultation, No crackles/rales Cardiovascular: regular rate and rhythm, edema (1+) Gastrointestinal: soft, non-tender; No distended Neurological: nl mental status, nl speech Labs Result Diagram: 11/02/18 0646 11/02/18 0646 Results 24hrs Laboratory Tests Test 11/01/18 10:40 11/01/18 11:45 11/01/18 17:32 11/01/18 21:35 Bedside Glucose 263 H 217 211 174 Test 11/02/18 06:46 11/02/18 08:08 White Blood Count 23.1 H Red Blood Count 3.72 L Hemoglobin 10.9 L Hematocrit 34.7 L Mean Corpuscular 93.3 Volume Mean Corpuscular 29.3 Hemoglobin Mean Corpuscular 31.4 L Hemoglobin Concent Red Cell 16.2 H Distribution Width Platelet Count 52 #L Mean Platelet Volume 11.4 H Immature 3.300 H Granulocytes % Neutrophils % 72.4 Lymphocytes % 16.7 Monocytes % 7.1 Eosinophils % 0.3 Basophils % 0.2 Nucleated Red Blood 0.1 H Cells % Immature 0.760 H Granulocytes # Neutrophils # 16.7 H Lymphocytes # 3.9 H Monocytes # 1.6 H Eosinophils # 0.1 Basophils # 0.1 Nucleated Red Blood 0.0 Cells # Sodium Level 140 Potassium Level 3.6 Chloride Level 103 Carbon Dioxide Level 31 Anion Gap 6 Blood Urea Nitrogen 22 H Creatinine 0.78 Est Glomerular > 60 Filtrat Rate mL/min Glucose Level 126 Calcium Level 8.5 Phosphorus Level 3.5 Magnesium Level 2.1 Bedside Glucose 116 Medications Medications Current Medications Acetaminophen (Tylenol Tab) 650 mg Q6H PRN PO MILD PAIN LEVEL 1-3 Last administered on 10/31/18at 08:46; Admin Dose 650 MG; Start 10/21/18 at 08:30 Atorvastatin Calcium (Lipitor) 80 mg QHS PO Last administered on 11/01/18at 21:38; Admin Dose 80 MG; Start 10/21/18 at 21:00 Nicotine (Nicoderm 7 Mg/ 24 Hr) 1 patch DAILY TRANSDERM Last administered on 11/01/18 08:16; Admin Dose 1 PATCH; Start 10/21/18 at 09:00 Albuterol/ Ipratropium (Duoneb) 3 ml Q6H RESP THERAPY PRN HHN SHORTNESS OF BREATH; Start 10/21/18 at 17:00 [facility] This patient mclean... PRN PRN XX WOUND CARE; Start 10/21/18 at 19:30 Lorazepam (Ativan) 1 mg Q8H PRN IV anxiety Last administered on 10/21/18 22:52; Admin Dose 1 MG; Start 10/21/18 at 21:30 Famotidine (Pepcid) 20 mg BID PO Last administered on 11/01/18at 21:38; Admin Dose 20 MG; Start 10/22/18 at 09:00 Acetaminophen/ Hydrocodone Bitart ([place] (5/325)) 1 tab Q6H PRN PO MODERATE PAIN LEVEL 4-6 Last administered on 10/31/18 21:40; Admin Dose 1 TAB; Start 10/22/18 at 16:30 Diltiazem HCl (Cardizem Cd) 120 mg DAILY PO Last administered on 11/01/18 08:16; Admin Dose 120 MG; Start 10/22/18 at 17:30 Morphine Sulfate (morphine) 2 mg Q6H PRN IV SEVERE PAIN LEVEL 7-10 Last administered on 10/31/18 23:22; Admin Dose 2 MG; Start 10/22/18 at 18:30 Methylprednisolone Sodium Succinate (Solu-Medrol) 40 mg DAILY IV Last administered on 11/01/18 08:16; Admin Dose 40 MG; Start 10/27/18 at 09:00 Furosemide (Lasix) 40 mg DAILY@0600 PO Last administered on 11/02/18 05:05; Admin Dose 40 MG; Start 11/01/18 at 06:00 Linagliptin (Tradjenta) 5 mg DAILY PO Last administered on 11/02/18 08:09; Admin Dose 5 MG; Start 11/01/18 at 09:00 Diagnostic Test (Pha) (Accu-Chek) 1 ea AC MEALS AND BEDTIME XX Last administered on 11/02/18at 08:08; Admin Dose 1 EA; Start 11/01/18 at 11:20 Miscellaneous Information 1 ea NOTE XX ; Start 11/01/18 at 10:30 Glucose (Glutose) 15 gm Q15M PRN PO DECREASED GLUCOSE; Start 4/24/19 at 10:30 Glucose (Glutose) 22.5 gm Q15M PRN PO DECREASED GLUCOSE; Start 11/01/18 at 10:30 Dextrose (D50w Syringe) 25 ml Q15M PRN IV DECREASED GLUCOSE; Start 11/01/18 at 10:30 Dextrose (D50w Syringe) 50 ml Q15M PRN IV DECREASED GLUCOSE; Start 11/01/18 at 10:30 Glucagon (Glucagen) 1 mg Q15M PRN IM DECREASED GLUCOSE; Start 11/01/18 at 10:30 Glucose (Glutose) 15 gm Q15M PRN BUCCAL DECREASED GLUCOSE; Start 11/01/18 at 10:30 Insulin Aspart (Novolog Insulin Pen) NOVOLOG *MILD* ALGORITHM WITH MEALS BEDTIME SC ; Start 11/02/18 at 07:55 Amiodarone HCl (Cordarone) 200 mg DAILY PO ; Start 11/02/18 at 09:00 Aspirin (Aspirin) 81 mg DAILY PO ; Start 11/02/18 at 09:00 VANESA RUIZ Nov 02, 2018 09:17
--- NOTE | 2018-11-02 09:23 | PN ---
DATE: 11/02/2018 SUBJECTIVE: The patient is stable, no events overnight. The patient continues to complain about low er extremity edema. OBJECTIVE: VITAL SIGNS: Blood pressure is 97/56, respiration 19, pulse 54, temperature 98.6. HEENT: Head is normocephalic. NECK: Supple. HEART: Regular rate. LUNGS: Show diminished breath sounds at the base. ABDOMEN: Soft, nontender to palpation without rebound or guarding. EXTREMITIES: Negative for clubbing, cyanosis. Positive edema. DERMATOLOGIC: No rashes. MUSCULOSKELETAL: No joint effusions. NEUROLOGIC: No change in exam. MEDICATIONS: The patient's medications have been reviewed. LABORATORY DATA: Has been reviewed. ASSESSMENT AND PLAN: 1. Acute hypoxemic respiratory failure, etiology secondary to CHF, COPD, pleural effusion. The froylan ent is currently improving, currently stable on nasal cannula. Continue current medical management. 2. Thrombocytopenia. Etiology is likely felt to be secondary to medications, possibly aspirin, Eliq uis, antibiotics. The patient's platelet levels are improving. Will discuss with system manager if pa tient may be reintroduced on aspirin or Eliquis. 3. Sepsis secondary to pneumonia bacteremia. The patient has completed an antibiotic course. 4. Leukocytosis, likely from steroids. Continue to monitor. 5. Acute diastolic heart failure. The patient is currently decompensated. Continue current medical management. Continue current diuretic regimen and monitor blood pressure and vitals closely. 6. Nonoliguric acute kidney injury. Etiology is secondary to hemodynamics. Continue to monitor. 7. Hypokalemia, improved. 8. Metabolic alkalosis. Etiology is multifactorial secondary to diuretics. The patient is status p ost Diamox. Continue to monitor. 9. Arrhythmia. Continue medical management. 10. Coronary artery disease status post coronary artery bypass graft. Continue to monitor. 11. Hypertension. Continue current blood pressure regimen. Monitor blood pressure closely. 12. Diabetes. Continue current insulin regimen. 13. Anemia. Monitor hemoglobin and hematocrit levels. 14. Status post syncope. 15. History of tobacco use. Continue nicotine patch. Dictated By: VANCE EUGENE/NTS Conf#: [id number] DID#: [id number] CC: IVAN COOK MD; RONY WYNN MD; VANESA RUIZ MD;*End*
--- NOTE | 2018-11-02 15:27 | CONS ---
Assessment/Plan Assessment/Plan Hospital Course (Demo Recall) Alert, feels good Microbiology: Blood culture on admission grew coag negative staph species, repeat blood cultures negative Antimicrobials: none Plan: This is a well-developed obese middle-aged man who is in no distress. Head atraumatic normocephalic sclera nonicteric neck is supple. Chest rise symmetrical breath sounds diminished to bases. Heart: S1-S2. Abdomen soft bowel sounds present. Extremities without cyanosis. Skin: Patient has well- healed midsternal scar there is an area of swelling upper part of incision no pain, no fluctuance Assessment: 1. Acute hypoxemic respiratory failure secondary to CHF exacerbation and pneumonia, s/p thoracentesis 1 L 10/25/18 2. Gram-positive cocci bacteremia cw contaminant ==> no vegetations per 2D echo 3. Coronary artery disease with a history of CABG and aortic valve replacement 4. COPD exacerbation 5. Diabetes 6. Obesity 7. Leukocytosis==> on steroids Plan: Stable off abx, f/u pulm/card/hematology rec-s Consultation Date/Type/Reason Admit Date/Time Oct 21, 2018 at 05:07 Initial Consult Date 10/22/18 Type of Consult id Date/Time of Note DATE: 11/02/18 TIME: 15:27 Exam/Review of Systems Exam Vitals Vital Signs Date Temp Pulse Resp B/P (MAP) Pulse Ox O2 O2 Flow FiO2 Time Delivery Rate 11/02/18 58 12:00 11/02/18 98.7 18 121/68 95 11:38 (85) 11/02/18 3.0 01:39 11/02/18 Nasal 00:00 Cannula Intake and Output 11/01/18 11/01/18 11/02/18 1515:00 23:00 07:00 IntakeIntake Total 960 ml 800 ml OutputOutput Total 2500 ml 1000 ml BalanceBalance -1540 ml -200 ml Results Result Diagram: 11/02/18 0646 11/02/18 0646 Results 24hrs Laboratory Tests Test 11/01/18 17:32 11/01/18 21:35 11/02/18 06:46 11/02/18 08:08 Bedside Glucose 211 174 116 White Blood Count 23.1 H Red Blood Count 3.72 L Hemoglobin 10.9 L Hematocrit 34.7 L Mean Corpuscular 93.3 Volume Mean Corpuscular 29.3 Hemoglobin Mean Corpuscular 31.4 L Hemoglobin Concent Red Cell 16.2 H Distribution Width Platelet Count 52 #L Mean Platelet Volume 11.4 H Immature 3.300 H Granulocytes % Neutrophils % 72.4 Lymphocytes % 16.7 Monocytes % 7.1 Eosinophils % 0.3 Basophils % 0.2 Nucleated Red Blood 0.1 H Cells % Immature 0.760 H Granulocytes # Neutrophils # 16.7 H Lymphocytes # 3.9 H Monocytes # 1.6 H Eosinophils # 0.1 Basophils # 0.1 Nucleated Red Blood 0.0 Cells # Sodium Level 140 Potassium Level 3.6 Chloride Level 103 Carbon Dioxide Level 31 Anion Gap 6 Blood Urea Nitrogen 22 H Creatinine 0.78 Est Glomerular > 60 Filtrat Rate mL/min Glucose Level 126 Calcium Level 8.5 Phosphorus Level 3.5 Magnesium Level 2.1 Test 11/02/18 12:34 Bedside Glucose 194 Medications Medication Current Medications Acetaminophen (Tylenol Tab) 650 mg Q6H PRN PO MILD PAIN LEVEL 1-3 Last administered on 10/31/18 08:46; Admin Dose 650 MG; Start 10/21/18 at 08:30 Atorvastatin Calcium (Lipitor) 80 mg QHS PO Last administered on 11/01/18 21:38; Admin Dose 80 MG; Start 10/21/18 at 21:00 Nicotine (Nicoderm 7 Mg/ 24 Hr) 1 patch DAILY TRANSDERM Last administered on 11/02/18 09:16; Admin Dose 1 PATCH; Start 10/21/18 at 09:00 Albuterol/ Ipratropium (Duoneb) 3 ml Q6H RESP THERAPY PRN HHN SHORTNESS OF BREATH; Start 10/21/18 at 17:00 Miscellaneous Information ([facility] This patient mclean... PRN PRN XX WOUND CARE; Start 10/21/18 at 19:30 Lorazepam (Ativan) 1 mg Q8H PRN IV anxiety Last administered on 10/21/18at 22:52; Admin Dose 1 MG; Start 10/21/18 at 21:30 Famotidine (Pepcid) 20 mg BID PO Last administered on 11/02/18at 09:16; Admin Dose 20 MG; Start 10/22/18 at 09:00 Acetaminophen/ Hydrocodone Bitart ([place] (5/325)) 1 tab Q6H PRN PO MODERATE PAULIE N LEVEL 4-6 Last administered on 10/31/18at 21:40; Admin Dose 1 TAB; Start 10/22/18 at 16:30 Diltiazem HCl (Cardizem Cd) 120 mg DAILY PO Last administered on 11/02/18 09:17; Admin Dose 120 MG; Start 10/22/18 at 17:30 Morphine Sulfate (morphine) 2 mg Q6H PRN IV SEVERE PAIN LEVEL 7-10 Last administered on 10/31/18at 23:22; Admin Dose 2 MG; Start 10/22/18 at 18:30 Methylprednisolone Sodium Succinate (Solu-Medrol) 40 mg DAILY IV Last administered on 11/02/18 09:17; Admin Dose 40 MG; Start 10/27/18 at 09:00 Furosemide (Lasix) 40 mg DAILY@0600 PO Last administered on 11/02/18 05:05; Admin Dose 40 MG; Start 11/01/18 at 06:00 Linagliptin (Tradjenta) 5 mg DAILY PO Last administered on 11/02/18 08:09; Admin Dose 5 MG; Start 11/01/18 at 09:00 Diagnostic Test (Pha) (Accu-Chek) 1 ea AC MEALS AND BEDTIME XX Last administered on 11/02/18at 11:20; Admin Dose 1 EA; Start 11/01/18 at 11:20 Miscellaneous Information 1 ea NOTE XX ; Start 11/01/18 at 10:30 Glucose (Glutose) 15 gm Q15M PRN PO DECREASED GLUCOSE; Start 11/01/18 at 10:30 Glucose (Glutose) 22.5 gm Q15M PRN PO DECREASED GLUCOSE; Start 11/01/18 at 10:30 Dextrose (D50w Syringe) 25 ml Q15M PRN IV DECREASED GLUCOSE; Start 11/01/18 at 10:30 Dextrose (D50w Syringe) 50 ml Q15M PRN IV DECREASED GLUCOSE; Start 11/01/18 at 10:30 Glucagon (Glucagen) 1 mg Q15M PRN IM DECREASED GLUCOSE; Start 11/01/18 at 10:30 Glucose (Glutose) 15 gm Q15M PRN BUCCAL DECREASED GLUCOSE; Start 11/01/18 at 10:30 Insulin Aspart (Novolog Insulin Pen) NOVOLOG *MILD* ALGORITHM WITH MEALS BEDTIME SC Last administered on 11/02/18at 12:38; Admin Dose 2 UNIT; Start 11/02/18 at 07:55 Amiodarone HCl (Cordarone) 200 mg DAILY PO Last administered on 11/02/18at 0 9:16; Admin Dose 200 MG; Start 11/02/18 at 09:00 Aspirin (Aspirin) 81 mg DAILY PO Last administered on 11/02/18at 09:16; Admin Dose 81 MG; Start 11/02/18 at 09:00 JUAN CARLOS ROLDAN NP Nov 02, 2018 15:27
[2018-11-02] MEDS: ATORVASTATIN 80 MG TAB PO SCH (22:14)
[2018-11-03] VITALS (10 sets, daily range): BP systolic 111–139; BP diastolic 63–86; PULSE 50–79; RESP 18–20
[2018-11-03] MEDS: FUROSEMIDE 40 MG TAB PO SCH (06:33)
[2018-11-03] MEDS: ACCU-CHEK XX SCH ×4 (07:25→20:25)
[2018-11-03] MEDS: INSULIN ASPART [NOVOLOG] 3 ML PEN SC SCH ×4 (07:55→20:23)
[2018-11-03] MEDS: DILTIAZEM (CD) 120 MG CAP PO SCH (08:30)
[2018-11-03] MEDS: LINAGLIPTIN 5 MG TABLET PO SCH (08:30)
[2018-11-03] MEDS: AMIODARONE 200 MG TAB PO SCH (08:30)
[2018-11-03] MEDS: FAMOTIDINE 20 MG TAB PO SCH ×2 (08:30→20:17)
[2018-11-03] MEDS: ASPIRIN 81 MG TAB PO SCH (08:30)
[2018-11-03] MEDS: APIXABAN 5 MG TABLET PO SCH ×2 (08:31→20:17)
[2018-11-03] MEDS: METHYLPREDNISOLONE 40 MG INJ IV SCH (08:31)
[2018-11-03] MEDS: NICOTINE (7 MG/24 HR) PATCH TRANSDERM SCH (08:31)
--- NOTE | 2018-11-03 09:23 | PN ---
DATE: 11/03/2018 SUBJECTIVE: The patient is stable. No events overnight. No fevers, chills, nausea, vomiting. OBJECTIVE: VITAL SIGNS: Blood pressure is 132/67, respirations 20, pulse 57, temperature 98.3. HEENT: Head is normocephalic. NECK: Supple. HEART: Regular rate. LUNGS: Show diminished breath sounds at the base. ABDOMEN: Soft, nontender to palpation without rebound or guarding. EXTREMITIES: Negative for clubbing, cyanosis, no edema. DERMATOLOGIC: No rashes. MUSCULOSKELETAL: No joint effusions. NEUROLOGIC: No change in exam. MEDICATIONS: Reviewed. LABORATORY DATA: From 11/03/2018 was reviewed. The patient's platelets are 64. ASSESSMENT AND PLAN: 1. Acute hypoxic respiratory failure. Etiology is secondary to congestive heart failure, COPD, pleural effusion. The patient is clinically improving, currently on nasal cannula. Continue current treatment plan. Continue diuretic therapy, nebulizers. 2. Thrombocytopenia. 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 The patient's platelet levels have been improving. I spoke with mess attendant crew Dr. Chavez and she stated it was okay to resume aspirin and Eliquis. The patient has been reintroduced on aspirin. Will start the patient on Eliquis and monitor platelet levels closely. 3. Sepsis secondary to pneumonia and bacteremia. The patient is completing antibiotic course. 4. Leukocytosis, likely from steroids. Continue to monitor. 5. Acute diastolic heart failure. The patient is currently compensated. Continue medical management. Continue current diuretic regimen. 6. Nonoliguric acute kidney injury. Etiology is secondary to hemodynamics. Continue to monitor. 7. Hypokalemia, improved. 8. Metabolic alkalosis secondary to diuretic therapy, improved. Continue intermittent Diamox. 9. Arrhythmia. Continue medical management. 10. Coronary artery disease, status post coronary artery bypass graft. Continue to monitor. 11. Hypertension. Continue current blood pressure regimen. 12. Diabetes. Continue current insulin regimen. 13. Anemia. Monitor hemoglobin and hematocrit levels. 14. Status post syncope. 15. History of tobacco abuse. Continue nicotine patch. Dictated By: VANCE FELDMAN DO NR/NTS Conf#: [id number] DID#: [id number] CC: RONY WYNN MD;*EndCC* [facility]
--- NOTE | 2018-11-03 12:21 | CONS ---
Assessment/Plan Cardiology NYHA: IV Heart Failure Type: Acute on Chronic Heart Failure Type: Diastolic Assessment/Plan Hospital Course (Demo Recall) Heparin Induced Thrombocytopenia: Plts down to 25. No bleeding. Now 63 and HIT antibody positive. Had heparin last admission and only lovenox this admission Acute on chronic diastolic CHF: EF remains preserved though poor study. Euvolemic Acute respiratory failure: Likely multifactorial including CHF exacerbation, COPD, and left pleural effusion. No PE by CTA. Resolved Coag negative staph bacteremia: likely contaminant. Acute on chronic COPD with exacerbation Left pleural effusion: s/p thora with 1 L removed 10/25 Paroxysmal atrial fibrillation/flutter: very common post cardiac surgery, however this is no longer the acute stage and so anticoagulation half-way is appropriate. Now back in sinus after amiodarone CAD s/p CABG: s/p CABG x5 10/04/2018, BILLINGSLEY to LAD, SVG to PDA, SVG to diagonal artery sequence to OM1 sequenced to OM2. No angina and trops negative HTN HL DM Tobacco use -ASA 81mg -also restarted on Eliquis 5mg BID. Ok per heme -lasix 40mg PO daily -amiodarone 200mg PO daily. 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 HIT antibody positive. No complaints. Exam/Review of Systems Vital Signs Vitals Vital Signs Date Temp Pulse Resp B/P (MAP) Pulse Ox O2 O2 Flow FiO2 Time Delivery Rate 11/03/18 54 12:06 11/03/18 98.2 20 115/65 95 Nasal 11:31 (82) Cannula 11/03/18 2.0 07:32 Intake and Output 11/02/18 11/02/18 11/03/18 1515:00 23:00 07:00 IntakeIntake Total 500 ml OutputOutput Total 800 ml BalanceBalance -300 ml Exam Constitutional: alert, oriented Psych: no complaints, nl mood/affect Head: normocephalic, atraumatic Neck: No jvd Respiratory: diminished breath sounds; No clear to auscultation Cardiovascular: regular rate and rhythm, edema (trace); No systolic murmur Gastrointestinal: soft, non-tender; No distended Neurological: nl mental status, nl speech Labs Result Diagram: 11/03/1862511/03/18625 Results 24hrs Laboratory Tests Test 11/02/18 12:34 11/02/18 17:29 11/02/18 21:21 11/03/18 06:26 Bedside Glucose 194 201 172 White Blood Count 19.4 H Red Blood Count 3.52 L Hemoglobin 10.4 L Hematocrit 33.0 L Mean Corpuscular 93.8 Volume Mean Corpuscular 29.5 Hemoglobin Mean Corpuscular 31.5 L Hemoglobin Concent Red Cell 16.6 H Distribution Width Platelet Count 64 #L Mean Platelet Volume 11.7 H Immature 2.500 H Granulocytes % Neutrophils % 75.6 Lymphocytes % 14.4 L Monocytes % 7.1 Eosinophils % 0.2 Basophils % 0.2 Nucleated Red Blood 0.0 Cells % Immature 0.490 H Granulocytes # Neutrophils # 14.7 H Lymphocytes # 2.8 Monocytes # 1.4 H Eosinophils # 0.0 Basophils # 0.0 Nucleated Red Blood 0.0 Cells # Sodium Level 140 Potassium Level 3.9 Chloride Level 103 Carbon Dioxide Level 31 Anion Gap 6 Blood Urea Nitrogen 25 H Creatinine 0.78 Est Glomerular > 60 Filtrat Rate mL/min Glucose Level 96 Calcium Level 8.1 L Phosphorus Level 3.8 Magnesium Level 2.1 Test 11/03/18 08:01 11/03/18 11:47 Bedside Glucose 98 205 Medications Medications Current Medications Acetaminophen (Tylenol Tab) 650 mg Q6H PRN PO MILD PAIN LEVEL 1-3 Last administered on 10/31/18at 08:46; Admin Dose 650 MG; Start 10/21/18 at 08:30 Atorvastatin Calcium (Lipitor) 80 mg QHS PO Last administered on 11/02/18at 22:14; Admin Dose 80 MG; Start 10/21/18 at 21:00 Nicotine (Nicoderm 7 Mg/ 24 Hr) 1 patch DAILY TRANSDERM Last administered on 11/03/18at 08:31; Admin Dose 1 PATCH; Start 10/21/18 at 09:00 Albuterol/ Ipratropium (Duoneb) 3 ml Q6H RESP THERAPY PRN HHN SHORTNESS OF BREATH; Start 10/21/18 at 17:00 Miscellaneous Information (Pending [facility] Order For Wound Care) This patient mclean... PRN PRN XX WOUND CARE; Start 10/21/18 at 19:30 Lorazepam (Ativan) 1 mg Q8H PRN IV anxiety Last administered on 10/21/18 22:52; Admin Dose 1 MG; Start 10/21/18 at 21:30 Famotidine (Pepcid) 20 mg BID PO Last administered on 11/03/18 08:30; Admin Dose 20 MG; Start 10/22/18 at 09:00 Acetaminophen/ Hydrocodone Bitart ([place] (5/325)) 1 tab Q6H PRN PO MODERATE PAIN LEVEL 4-6 Last administered on 10/31/18 21:40; Admin Dose 1 TAB; Start 10/22/18 at 16:30 Diltiazem HCl (Cardizem Cd) 120 mg DAILY PO Last administered on 11/03/18 08:30; Admin Dose 120 MG; Start 10/22/18 at 17:30 Morphine Sulfate (morphine) 2 mg Q6H PRN IV SEVERE PAIN LEVEL 7-10 Last administered on 10/31/18 23:22; Admin Dose 2 MG; Start 10/22/18 at 18:30 Methylprednisolone Sodium Succinate (Solu-Medrol) 40 mg DAILY IV Last administered on 11/03/18 08:31; Admin Dose 40 MG; Start 10/27/18 at 09:00 Furosemide (Lasix) 40 mg DAILY@0600 PO Last administered on 11/03/18 06:33; Admin Dose 40 MG; Start 11/01/18 at 06:00 Linagliptin (Tradjenta) 5 mg DAILY PO Last administered on 11/03/18 08:30; Admin Dose 5 MG; Start 11/01/18 at 09:00 Diagnostic Test (Pha) (Accu-Chek) 1 ea AC MEALS AND BEDTIME XX Last administered on 11/02/18 21:00; Admin Dose 1 EA; Start 11/01/18 at 11:20 Miscellaneous Information 1 ea NOTE XX ; Start 11/01/18 at 10:30 Glucose (Glutose) 15 gm Q15M PRN PO DECREASED GLUCOSE; Start 11/01/18 at 10:30 Glucose (Glutose) 22.5 gm Q15M PRN PO DECREASED GLUCOSE; Start 11/01/18 at 10:30 Dextrose (D50w Syringe) 25 ml Q15M PRN IV DECREASED GLUCOSE; Start 11/01/18 at 10:30 Dextrose (D50w Syringe) 50 ml Q15M PRN IV DECREASED GLUCOSE; Start 11/01/18 at 10:30 Glucagon (Glucagen) 1 mg Q15M PRN IM DECREASED GLUCOSE; Start 11/01/18 at 10:30 Glucose (Glutose) 15 gm Q15M PRN BUCCAL DECREASED GLUCOSE; Start 11/01/18 at 10:30 Insulin Aspart (Novolog Insulin Pen) NOVOLOG *MILD* ALGORITHM WITH MEALS BEDTIME SC Last administered on 11/03/18at 11:48; Admin Dose 2 UNIT; Start 11/02/18 at 07:55 Amiodarone HCl (Cordarone) 200 mg DAILY PO Last administered on 11/03/18 08:30; Admin Dose 200 MG; Start 11/02/18 at 09:00 Aspirin (Aspirin) 81 mg DAILY PO Last administered on 11/03/18 08:30; Admin Dose 81 MG; Start 11/02/18 at 09:00 Apixaban (Eliquis) 5 mg BID PO Last administered on 11/03/18 08:31; Admin Dose 5 MG; Start 11/03/18 at 09:00 VANESA RUIZ Nov 03, 2018 12:21
--- NOTE | 2018-11-03 13:54 | CONS ---
Assessment/Plan Assessment/Plan Hospital Course (Demo Recall) unfortunate 58 yo with CAD s/p recent CABG admitted with SOB, COPD exacerbation, sepsis, on abx, now with worsening thrombocytopenia #thrombocytopenia, plt count increased 67K suspect it is most likely due to sepsis and infection and medication-related DIC ruled out: normal fibrinogen his imaging is suggestive of cirrhosis, check HEP B and C check HIT ab--positivem check SSRA for confirmation as clinically not behaving like HIT and plt count recovered on its own transfuse to keep plt >20 K or if actively bleeding doubt this is TTP, no evidence of hemolysis if plt count increased by tomorrow, ok for d/c with f/u in my office in 1-2 weeks Consultation Date/Type/Reason Admit Date/Time Oct 21, 2018 at 05:07 Initial Consult Date 10/22/18 Date/Time of Note DATE: 11/03/18 TIME: 13:53 24 HR Interval Summary Free Text/Dictation feels great Exam/Review of Systems Exam Vitals Vital Signs Date Temp Pulse Resp B/P (MAP) Pulse Ox O2 O2 Flow FiO2 Time Delivery Rate 11/03/18 54 12:06 11/03/18 98.2 20 115/65 95 Nasal 11:31 (82) Cannula 11/03/18 2.0 07:32 Intake and Output 11/02/18 11/02/18 11/03/18 1515:00 23:00 07:00 IntakeIntake Total 500 ml OutputOutput Total 800 ml BalanceBalance -300 ml Constitutional: alert, oriented, well developed Psych: no complaints, nl mood/affect Respiratory: normal air movement Neurological: CLOTH WASHER II-XII intact, nl mental status, nl speech, nl strength Results Result Diagram: 11/03/1862511/03/18625 Results 24hrs Laboratory Tests Test 11/02/18 17:29 11/02/18 21:21 11/03/18 06:26 11/03/18 08:01 Bedside Glucose 201 172 98 White Blood Count 19.4 H Red Blood Count 3.52 L Hemoglobin 10.4 L Hematocrit 33.0 L Mean Corpuscular 93.8 Volume Mean Corpuscular 29.5 Hemoglobin Mean Corpuscular 31.5 L Hemoglobin Concent Red Cell 16.6 H Distribution Width Platelet Count 64 #L Mean Platelet Volume 11.7 H Immature 2.500 H Granulocytes % Neutrophils % 75.6 Lymphocytes % 14.4 L Monocytes % 7.1 Eosinophils % 0.2 Basophils % 0.2 Nucleated Red Blood 0.0 Cells % Immature 0.490 H Granulocytes # Neutrophils # 14.7 H Lymphocytes # 2.8 Monocytes # 1.4 H Eosinophils # 0.0 Basophils # 0.0 Nucleated Red Blood 0.0 Cells # Sodium Level 140 Potassium Level 3.9 Chloride Level 103 Carbon Dioxide Level 31 Anion Gap 6 Blood Urea Nitrogen 25 H Creatinine 0.78 Est Glomerular > 60 Filtrat Rate mL/min Glucose Level 96 Calcium Level 8.1 L Phosphorus Level 3.8 Magnesium Level 2.1 Test 11/03/18 11:47 Bedside Glucose 205 Medications Medication Current Medications Acetaminophen (Tylenol Tab) 650 mg Q6H PRN PO MILD PAIN LEVEL 1-3 Last administered on 10/31/18 08:46; Admin Dose 650 MG; Start 10/21/18 at 08:30 Atorvastatin Calcium (Lipitor) 80 mg QHS PO Last administered on 11/02/18 22:14; Admin Dose 80 MG; Start 10/21/18 at 21:00 Nicotine (Nicoderm 7 Mg/ 24 Hr) 1 patch DAILY TRANSDERM Last administered on 11/03/18 08:31; Admin Dose 1 PATCH; Start 10/21/18 at 09:00 Albuterol/ Ipratropium (Duoneb) 3 ml Q6H RESP THERAPY PRN HHN SHORTNESS OF BREATH; Start 10/21/18 at 17:00 Miscellaneous Information (Pending [facility] Order For Wound Care) This patient mclean... PRN PRN XX WOUND CARE; Start 10/21/18 at 19:30 Lorazepam (Ativan) 1 mg Q8H PRN IV anxiety Last administered on 10/21/18 22:52; Admin Dose 1 MG; Start 10/21/18 at 21:30 Famotidine (Pepcid) 20 mg BID PO Last administered on 11/03/18 08:30; Admin Dose 20 MG; Start 10/22/18 at 09:00 Acetaminophen/ Hydrocodone Bitart ([place] (5/325)) 1 tab Q6H PRN PO MODERATE PAIN LEVEL 4-6 Last administered on 10/31/18 21:40; Admin Dose 1 TAB; Start 10/22/18 at 16:30 Diltiazem HCl (Cardizem Cd) 120 mg DAILY PO Last administered on 11/03/18at 08:30; Admin Dose 120 MG; Start 10/22/18 at 17:30 Morphine Sulfate (morphine) 2 mg Q6H PRN IV SEVERE PAIN LEVEL 7-10 Last administered on 10/31/18 23:22; Admin Dose 2 MG; Start 10/22/18 at 18:30 Methylprednisolone Sodium Succinate (Solu-Medrol) 40 mg DAILY IV Last administered on 11/03/18at 08:31; Admin Dose 40 MG; Start 10/27/18 at 09:00 Furosemide (Lasix) 40 mg DAILY@0600 PO Last administered on 11/03/18 06:33; Admin Dose 40 MG; Start 11/01/18 at 06:00 Linagliptin (Tradjenta) 5 mg DAILY PO Last administered on 11/03/18 08:30; Admin Dose 5 MG; Start 11/01/18 at 09:00 Diagnostic Test (Pha) (Accu-Chek) 1 ea AC MEALS AND BEDTIME XX Last administered on 11/02/18at 21:00; Admin Dose 1 EA; Start 11/01/18 at 11:20 Miscellaneous Information 1 ea NOTE XX ; Start 11/01/18 at 10:30 Glucose (Glutose) 15 gm Q15M PRN PO DECREASED GLUCOSE; Start 11/01/18 at 10:30 Glucose (Glutose) 22.5 gm Q15M PRN PO DECREASED GLUCOSE; Start 11/01/18 at 10:30 Dextrose (D50w Syringe) 25 ml Q15M PRN IV DECREASED GLUCOSE; Start 11/01/18 at 10:30 Dextrose (D50w Syringe) 50 ml Q15M PRN IV DECREASED GLUCOSE; Start 11/01/18 at 10:30 Glucagon (Glucagen) 1 mg Q15M PRN IM DECREASED GLUCOSE; Start 11/01/18 at 10:30 Glucose (Glutose) 15 gm Q15M PRN BUCCAL DECREASED GLUCOSE; Start 11/01/18 at 10:30 Insulin Aspart (Novolog Insulin Pen) NOVOLOG *MILD* ALGORITHM WITH MEALS BEDTIME SC Last administered on 11/03/18at 11:48; Admin Dose 2 UNIT; Start 11/02/18 at 07:55 Amiodarone HCl (Cordarone) 200 mg DAILY PO Last administered on 11/03/18 08:30; Admin Dose 200 MG; Start 11/02/18 at 09:00 Aspirin (Aspirin) 81 mg DAILY PO Last administered on 11/03/18 08:30; Admin Dose 81 MG; Start 11/02/18 at 09:00 Apixaban (Eliquis) 5 mg BID PO Last administered on 11/03/18 08:31; Admin Dose 5 MG; Start 11/03/18 at 09:00 GRAYSON SANDOVAL Nov 03, 2018 13:54
--- NOTE | 2018-11-03 15:08 | CONS ---
Assessment/Plan Assessment/Plan Hospital Course (Demo Recall) Alert, feels good, no n/v/d/dysuria Microbiology: Blood culture on admission grew coag negative staph species, repeat blood cultures negative Antimicrobials: none Plan: This is a well-developed obese middle-aged man who is in no distress. Head atraumatic normocephalic sclera nonicteric neck is supple. Chest rise symmetrical breath sounds diminished to bases. Heart: S1-S2. Abdomen soft bowel sounds present. Extremities without cyanosis. Skin: Patient has well- healed midsternal scar there is an area of swelling upper part of incision no pain, no fluctuance Assessment: 1. Acute hypoxemic respiratory failure secondary to CHF exacerbation and pneumonia, s/p thoracentesis 1 L 10/25/18 2. Gram-positive cocci bacteremia cw contaminant ==> no vegetations per 2D echo 3. Coronary artery disease with a history of CABG and aortic valve replacement 4. COPD exacerbation 5. Diabetes 6. Obesity 7. Leukocytosis==> on steroids Plan: Remains stable off abx, f/u pulm/card/hematology rec-s Consultation Date/Type/Reason Admit Date/Time Oct 21, 2018 at 05:07 Initial Consult Date 10/22/18 Type of Consult id Date/Time of Note DATE: 11/03/18 TIME: 15:08 Exam/Review of Systems Exam Vitals Vital Signs Date Temp Pulse Resp B/P (MAP) Pulse Ox O2 O2 Flow FiO2 Time Delivery Rate 11/03/18 98.5 62 20 139/69 95 Nasal 15:06 (92) Cannula 11/03/18 2.0 07:32 Intake and Output 11/02/18 11/02/18 11/03/18 1515:00 23:00 07:00 IntakeIntake Total 500 ml OutputOutput Total 800 ml BalanceBalance -300 ml Results Result Diagram: 11/03/18 0626 11/03/18 0626 Results 24hrs Laboratory Tests Test 11/02/18 17:29 11/02/18 21:21 11/03/18 06:26 11/03/18 08:01 Bedside Glucose 201 172 98 White Blood Count 19.4 H Red Blood Count 3.52 L Hemoglobin 10.4 L Hematocrit 33.0 L Mean Corpuscular 93.8 Volume Mean Corpuscular 29.5 Hemoglobin Mean Corpuscular 31.5 L Hemoglobin Concent Red Cell 16.6 H Distribution Width Platelet Count 64 #L Mean Platelet Volume 11.7 H Immature 2.500 H Granulocytes % Neutrophils % 75.6 Lymphocytes % 14.4 L Monocytes % 7.1 Eosinophils % 0.2 Basophils % 0.2 Nucleated Red Blood 0.0 Cells % Immature 0.490 H Granulocytes # Neutrophils # 14.7 H Lymphocytes # 2.8 Monocytes # 1.4 H Eosinophils # 0.0 Basophils # 0.0 Nucleated Red Blood 0.0 Cells # Sodium Level 140 Potassium Level 3.9 Chloride Level 103 Carbon Dioxide Level 31 Anion Gap 6 Blood Urea Nitrogen 25 H Creatinine 0.78 Est Glomerular > 60 Filtrat Rate mL/min Glucose Level 96 Calcium Level 8.1 L Phosphorus Level 3.8 Magnesium Level 2.1 Test 11/03/18 11:47 Bedside Glucose 205 Medications Medication Current Medications Acetaminophen (Tylenol Tab) 650 mg Q6H PRN PO MILD PAIN LEVEL 1-3 Last administered on 10/31/18 08:46; Admin Dose 650 MG; Start 10/21/18 at 08:30 Atorvastatin Calcium (Lipitor) 80 mg QHS PO Last administered on 11/02/18 22:14; Admin Dose 80 MG; Start 10/21/18 at 21:00 Nicotine (Nicoderm 7 Mg/ 24 Hr) 1 patch DAILY TRANSDERM Last administered on 11/03/18 08:31; Admin Dose 1 PATCH; Start 10/21/18 at 09:00 Albuterol/ Ipratropium (Duoneb) 3 ml Q6H RESP THERAPY PRN HHN SHORTNESS OF BREATH; Start 10/21/18 at 17:00 Miscellaneous Information (Pending [facility] Order For Wound Care) This patient mclean... PRN PRN XX WOUND CARE; Start 10/21/18 at 19:30 Lorazepam (Ativan) 1 mg Q8H PRN IV anxiety Last administered on 10/21/18at 22:52; Admin Dose 1 MG; Start 10/21/18 at 21:30 Famotidine (Pepcid) 20 mg BID PO Last administered on 11/03/18 08:30; Admin Dose 20 MG; Start 10/22/18 at 09:00 Acetaminophen/ Hydrocodone Bitart ([place] (5/325)) 1 tab Q6H PRN PO MODERATE PAIN LEVEL 4-6 Last administered on 10/31/18 21:40; Admin Dose 1 TAB; Start 10/22/18 at 16:30 Diltiazem HCl (Cardizem Cd) 120 mg DAILY PO Last administered on 11/03/18 08:30; Admin Dose 120 MG; Start 10/22/18 at 17:30 Morphine Sulfate (morphine) 2 mg Q6H PRN IV SEVERE PAIN LEVEL 7-10 Last administered on 10/31/18 23:22; Admin Dose 2 MG; Start 10/22/18 at 18:30 Methylprednisolone Sodium Succinate (Solu-Medrol) 40 mg DAILY IV Last administered on 11/03/18 08:31; Admin Dose 40 MG; Start 10/27/18 at 09:00 Furosemide (Lasix) 40 mg DAILY@0600 PO Last administered on 11/03/18 06:33; Admin Dose 40 MG; Start 11/01/18 at 06:00 Linagliptin (Tradjenta) 5 mg DAILY PO Last administered on 11/03/18 08:30; Admin Dose 5 MG; Start 11/01/18 at 09:00 Diagnostic Test (Pha) (Accu-Chek) 1 ea AC MEALS AND BEDTIME XX Last administered on 11/02/18 21:00; Admin Dose 1 EA; Start 11/01/18 at 11:20 Miscellaneous Information 1 ea NOTE XX ; Start 11/01/18 at 10:30 Glucose (Glutose) 15 gm Q15M PRN PO DECREASED GLUCOSE; Start 11/01/18 at 10:30 Glucose (Glutose) 22.5 gm Q15M PRN PO DECREASED GLUCOSE; Start 11/01/18 at 10:30 Dextrose (D50w Syringe) 25 ml Q15M PRN IV DECREASED GLUCOSE; Start 11/01/18 at 10:30 Dextrose (D50w Syringe) 50 ml Q15M PRN IV DECREASED GLUCOSE; Start 11/01/18 at 10:30 Glucagon (Glucagen) 1 mg Q15M PRN IM DECREASED GLUCOSE; Start 11/01/18 at 10:30 Glucose (Glutose) 15 gm Q15M PRN BUCCAL DECREASED GLUCOSE; Start 11/01/18 at 10:30 Insulin Aspart (Novolog Insulin Pen) NOVOLOG *MILD* ALGORITHM WITH MEALS BEDTIME SC Last administered on 11/03/18 11:48; Admin Dose 2 UNIT; Start 11/02/18 at 07:55 Amiodarone HCl (Cordarone) 200 mg DAILY PO Last administered on 11/03/18 08:30; Admin Dose 200 MG; Start 11/02/18 at 09:00 Aspirin (Aspirin) 81 mg DAILY PO Last administered on 11/03/18 08:30; Admin Dose 81 MG; Start 11/02/18 at 09:00 Apixaban (Eliquis) 5 mg BID PO Last administered on 11/03/18at 08:31; Admin Dose 5 MG; Start 11/03/18 at 09:00 JUAN CARLOS ROLDAN NP Nov 03, 2018 15:08
[2018-11-03] MEDS: ATORVASTATIN 80 MG TAB PO SCH (20:17)
[2018-11-04] VITALS (11 sets, daily range): BP systolic 109–131; BP diastolic 62–72; PULSE 55–62; RESP 18–20
[2018-11-04] MEDS: FUROSEMIDE 40 MG TAB PO SCH (05:25)
[2018-11-04] MEDS: ACCU-CHEK XX SCH ×3 (07:25→18:22)
[2018-11-04] MEDS: INSULIN ASPART [NOVOLOG] 3 ML PEN SC SCH ×3 (07:55→18:29)
[2018-11-04] MEDS: NICOTINE (7 MG/24 HR) PATCH TRANSDERM SCH (08:50)
[2018-11-04] MEDS: FAMOTIDINE 20 MG TAB PO SCH (08:51)
[2018-11-04] MEDS: AMIODARONE 200 MG TAB PO SCH (08:51)
[2018-11-04] MEDS: ASPIRIN 81 MG TAB PO SCH (08:51)
[2018-11-04] MEDS: DILTIAZEM (CD) 120 MG CAP PO SCH (08:51)
[2018-11-04] MEDS: METHYLPREDNISOLONE 40 MG INJ IV SCH (08:51)
[2018-11-04] MEDS: LINAGLIPTIN 5 MG TABLET PO SCH (08:51)
[2018-11-04] MEDS: APIXABAN 5 MG TABLET PO SCH (08:51)
--- NOTE | 2018-11-04 10:26 | DS ---
DATE OF ADMISSION: 10/21/2018 DATE OF DISCHARGE: HOSPITAL COURSE: This is a 58-year-old male with a past medical history of coronary artery disease, recent history of 5-vessel CABG, history of tobacco use who presented to [facility] with shortness of breath. The patient one week prior to admission had undergone a 5-vessel CABG wit hout any complication. The patient was then discharged. In the outpatient setting, the patient note d to have increased shortness of breath, dyspnea on exertion. As a result, he was readmitted to [facility]. The patient upon arrival was noted to be in acute hypoxemic respiratory fa ilure secondary to congestive heart failure exacerbation, COPD and pneumonia. The patient was initia lly admitted to intensive care unit where he was placed on high flow oxygen. Patient was treated wit h aggressive diuretic therapy, antibiotics, nebulizers, steroids. The patient also had a pleural eff usion and underwent a thoracentesis. Eventually the respiratory status clinically improved, thus, he was titrated to low dose oxygen approximately 2 liters, which he has been tolerating well, saturatin g above 90%. The patient was followed during the hospital course with educational technology coordinator, Dr. Cee, ca rdiologist, Dr. Aldana and infectious disease, Dr. Kelly. In terms of the patient's heart failu re, the patient is clinically improved with aggressive diuretic therapy and now appears near euvolemi c status. The patient during the hospital course; however, did develop thrombocytopenia, which was f elt to be secondary to medications. The patient was tested for HIT antibody which was positive; damico audelia, per Hematology it is unclear if this is a true HIT. [facility]. The patient's platelet counts have been improving during hos pital course, and is currently above 80 and per Hematology okay for discharge. The patient during e hospital course also had episodes of arrhythmia, which is now medically managed and controlled. e patient is currently on Eliquis, which will be continued. The patient also had leukocytosis during hospital course, which was felt to be secondary to steroids. The patient's other medical problems i ncluding hypertension, coronary artery disease, diabetes have been stable. Currently, at this time, the patient will be discharged home where he will follow up with his primary care physician, hematolo sanju, bilingual teacher assistant in one week's time. At the time of discharge, the patient is stable, in no acute distress. FINAL DIAGNOSES: 1. Acute hypoxemic respiratory failure secondary to chronic obstructive pulmonary disease exacerbati on, congestive heart failure, pleural effusion, pneumonia, improved. 2. Thrombocytopenia. Etiology is multifactorial secondary to medications, aspirin, antibiotics, que stionable HIT. The patient's platelet levels have been improving. Will continue to followup with [facility] hematology. 3. Status post sepsis. 4. Leukocytosis from steroids. Continue to monitor. 5. Acute diastolic heart failure, resolving. 6. Nonoliguric acute kidney injury, resolved. 7. Hyperkalemia, resolved. 8. Metabolic alkalosis, resolved. 9. Arrhythmia, stable. The patient on amiodarone and Eliquis. 10. Coronary artery disease. 11. Hypertension. 12. Diabetes. 13. Anemia. 14. Status post coronary artery bypass graft. FINAL MEDICATIONS: The patient will be discharged on: 1. Amiodarone. 2. Eliquis. 3. Aspirin. 4. Lipitor. 5. Diltiazem. 6. Pepcid. 7. Lasix. 9. Tradjenta. 10. Prednisone taper. 11. Nicotine patch. At the time of discharge, the patient is stable, in no acute distress. Please note I spent over 40 minutes of time preparing the patient's discharge. Dictated By: VANCE FELDMAN DO NR/NTS Conf#: [id number] DID#: [id number] CC: IVAN CEE MD; RONY WYNN MD;*End*
--- NOTE | 2018-11-04 12:01 | CONS ---
Assessment/Plan Cardiology NYHA: IV Heart Failure Type: Acute on Chronic Heart Failure Type: Diastolic Assessment/Plan Hospital Course (Demo Recall) Heparin Induced Thrombocytopenia: Plts down to 25. No bleeding. Now 88 and HIT antibody positive. Had heparin last admission and only lovenox this admission Acute on chronic diastolic CHF: EF remains preserved though poor study. Euvolemic Acute respiratory failure: Likely multifactorial including CHF exacerbation, COPD, and left pleural effusion. No PE by CTA. Resolved Coag negative staph bacteremia: likely contaminant. Acute on chronic COPD with exacerbation Left pleural effusion: s/p thora with 1 L removed 10/25 Paroxysmal atrial fibrillation/flutter: very common post cardiac surgery, however this is no longer the acute stage and so anticoagulation half-way is appropriate. Now back in sinus after amiodarone CAD s/p CABG: s/p CABG x5 10/04/2018, BILLINGSLEY to LAD, SVG to PDA, SVG to diagonal artery sequence to OM1 sequenced to OM2. No angina and trops negative HTN HL DM Tobacco use -ok for d/c from my perspective with below cardiac meds -ASA 81mg -Eliquis 5mg BID -lasix 40mg PO daily -amiodarone 200mg PO daily. 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 Plts up to 88. Plan for d/c today Exam/Review of Systems Vital Signs Vitals Vital Signs Date Temp Pulse Resp B/P (MAP) Pulse Ox O2 O2 Flow FiO2 Time Delivery Rate 11/04/18 97.7 55 20 129/72 95 Nasal 11:07 (91) Cannula 11/04/18 2.0 04:42 Intake and Output 11/03/18 11/03/18 11/04/18 1515:00 23:00 07:00 IntakeIntake Total 1560 ml 380 ml OutputOutput Total 2150 ml 700 ml BalanceBalance -590 ml -320 ml Exam Constitutional: alert, oriented Psych: no complaints, nl mood/affect Head: normocephalic, atraumatic Neck: supple; No jvd Respiratory: clear to auscultation, diminished breath sounds; No crackles/rales Cardiovascular: regular rate and rhythm, edema (trace) Gastrointestinal: soft, non-tender; No distended Neurological: nl mental status, nl speech Labs Result Diagram: 11/04/18 0629 11/04/18 0629 Results 24hrs Laboratory Tests Test 11/03/18 17:08 11/03/18 20:20 11/04/18 06:29 11/04/18 08:01 Bedside Glucose 230 H 193 122 White Blood Count 19.1 H Red Blood Count 3.90 L Hemoglobin 11.4 L Hematocrit 36.1 L Mean Corpuscular 92.6 Volume Mean Corpuscular 29.2 Hemoglobin Mean Corpuscular 31.6 L Hemoglobin Concent Red Cell 16.8 H Distribution Width Platelet Count 88 #L Mean Platelet Volume 10.9 H Immature 1.500 H Granulocytes % Neutrophils % 75.9 Lymphocytes % 16.4 Monocytes % 5.9 Eosinophils % 0.2 Basophils % 0.1 Nucleated Red Blood 0.0 Cells % Immature 0.290 H Granulocytes # Neutrophils # 14.5 H Lymphocytes # 3.1 H Monocytes # 1.1 H Eosinophils # 0.0 Basophils # 0.0 Nucleated Red Blood 0.0 Cells # Sodium Level 141 Potassium Level 4.0 Chloride Level 105 Carbon Dioxide Level 31 Anion Gap 5 Blood Urea Nitrogen 26 H Creatinine 0.68 Est Glomerular > 60 Filtrat Rate mL/min Glucose Level 102 Calcium Level 8.5 Phosphorus Level 3.9 Magnesium Level 2.1 Medications Medications Current Medications Acetaminophen (Tylenol Tab) 650 mg Q6H PRN PO MILD PAIN LEVEL 1-3 Last administered on 10/31/18 08:46; Admin Dose 650 MG; Start 10/21/18 at 08:30 Atorvastatin Calcium (Lipitor) 80 mg QHS PO Last administered on 11/03/18at 20:17; Admin Dose 80 MG; Start 10/21/18 at 21:00 Nicotine (Nicoderm 7 Mg/ 24 Hr) 1 patch DAILY TRANSDERM Last administered on 11/04/18at 08:50; Admin Dose 1 PATCH; Start 10/21/18 at 09:00 Albuterol/ Ipratropium (Duoneb) 3 ml Q6H RESP THERAPY PRN HHN SHORTNESS OF BREATH; Start 10/21/18 at 17:00 Miscellaneous Information (Pending Santyl Order For Wound Care) This patient mclean... PRN PRN XX WOUND CARE; Start 10/21/18 at 19:30 Lorazepam (Ativan) 1 mg Q8H PRN IV anxiety Last administered on 10/21/18 22:52; Admin Dose 1 MG; Start 10/21/18 at 21:30 Famotidine (Pepcid) 20 mg BID PO Last administered on 11/04/18 08:51; Admin Dose 20 MG; Start 10/22/18 at 09:00 Acetaminophen/ Hydrocodone Bitart ([place] (5/325)) 1 tab Q6H PRN PO MODERATE PAIN LEVEL 4-6 Last administered on 10/31/18 21:40; Admin Dose 1 TAB; Start 10/22/18 at 16:30 Diltiazem HCl (Cardizem Cd) 120 mg DAILY PO Last administered on 11/04/18 08:51; Admin Dose 120 MG; Start 10/22/18 at 17:30 Morphine Sulfate (morphine) 2 mg Q6H PRN IV SEVERE PAIN LEVEL 7-10 Last administered on 10/31/18 23:22; Admin Dose 2 MG; Start 10/22/18 at 18:30 Methylprednisolone Sodium Succinate (Solu-Medrol) 40 mg DAILY IV Last administered on 11/04/18 08:51; Admin Dose 40 MG; Start 10/27/18 at 09:00 Furosemide (Lasix) 40 mg DAILY@0600 PO Last administered on 11/04/18 05:25; Admin Dose 40 MG; Start 11/01/18 at 06:00 Linagliptin (Tradjenta) 5 mg DAILY PO Last administered on 11/04/18 08:51; Admin Dose 5 MG; Start 11/01/18 at 09:00 Diagnostic Test (Pha) (Accu-Chek) 1 ea AC MEALS AND BEDTIME XX Last administered on 11/04/18 07:25; Admin Dose 1 EA; Start 11/01/18 at 11:20 Miscellaneous Information 1 ea NOTE XX ; Start 11/01/18 at 10:30 Glucose (Glutose) 15 gm Q15M PRN PO DECREASED GLUCOSE; Start 11/01/18 at 10:30 Glucose (Glutose) 22.5 gm Q15M PRN PO DECREASED GLUCOSE; Start 11/01/18 at 10:30 Dextrose (D50w Syringe) 25 ml Q15M PRN IV DECREASED GLUCOSE; Start 11/01/18 at 10:30 Dextrose (D50w Syringe) 50 ml Q15M PRN IV DECREASED GLUCOSE; Start 11/01/18 at 10:30 Glucagon (Glucagen) 1 mg Q15M PRN IM DECREASED GLUCOSE; Start 11/01/18 at 10:30 Glucose (Glutose) 15 gm Q15M PRN BUCCAL DECREASED GLUCOSE; Start 11/01/18 at 10:30 Insulin Aspart (Novolog Insulin Pen) NOVOLOG *MILD* ALGORITHM WITH MEALS BED TIME SC Last administered on 11/03/18at 20:23; Admin Dose 1 UNIT; Start 11/02/18 at 07:55 Amiodarone HCl (Cordarone) 200 mg DAILY PO Last administered on 11/04/18 08:51; Admin Dose 200 MG; Start 11/02/18 at 09:00 Aspirin (Aspirin) 81 mg DAILY PO Last administered on 11/04/18 08:51; Admin Dose 81 MG; Start 11/02/18 at 09:00 Apixaban (Eliquis) 5 mg BID PO Last administered on 11/04/18 08:51; Admin Dose 5 MG; Start 11/03/18 at 09:00 VANESA RUIZ Nov 04, 2018 12:01
[2018-11-04] MEDS ORDERED: FAMO20TA18 PO ×2 (19:39→19:42)
[2018-11-04] MEDS ORDERED: AMIO200T4 PO (19:40)
== END 2018-11-04 20:30 | disposition home or self-care (01) | DRG 871 ==
LOC: E/R 03:28 → ICU 05:07 → TEL 10-26 06:18
PROVIDERS: ADMIT Internal Medicine; ATTEND Internal Medicine
PROC: 5A09357 Assistance with Respiratory Ventilation, Less than 24 Consecutive Hours, Continuous Positive Airway Pressure (ICD-10-PCS; 2018-10-21)
PROC: 0W9B3ZZ Drainage of Left Pleural Cavity, Percutaneous Approach (ICD-10-PCS; principal; 2018-10-25)
DX: A41.9 Sepsis, unspecified organism (principal); J18.9 Pneumonia, unspecified organism; I50.33 Acute on chronic diastolic (congestive) heart failure; J96.01 Acute respiratory failure with hypoxia; J44.1 Chronic obstructive pulmonary disease with (acute) exacerbation; I48.92 Unspecified atrial flutter; E87.3 Alkalosis; J90 Pleural effusion, not elsewhere classified; J98.11 Atelectasis; R65.20 Severe sepsis without septic shock; D64.9 Anemia, unspecified; E78.5 Hyperlipidemia, unspecified; E11.9 Type 2 diabetes mellitus without complications; E87.6 Hypokalemia; F17.210 Nicotine dependence, cigarettes, uncomplicated; G47.33 Obstructive sleep apnea (adult) (pediatric); I11.0 Hypertensive heart disease with heart failure; I25.10 Atherosclerotic heart disease of native coronary artery without angina pectoris; I48.0 Paroxysmal atrial fibrillation; D69.59 Other secondary thrombocytopenia; T45.515A Adverse effect of anticoagulants, initial encounter; R55 Syncope and collapse; R53.81 Other malaise; E66.01 Morbid (severe) obesity due to excess calories; Z68.38 Body mass index [BMI] 38.0-38.9, adult; Z95.5 Presence of coronary angioplasty implant and graft; Z95.1 Presence of aortocoronary bypass graft; Z95.2 Presence of prosthetic heart valve
CPT/HCPCS: 32555; 36415; 36600; 71045; 71275; 80048; 80076; 80202; 81001; 81003; 82043; 82803; 82962; 83615; 83735; 83880; 84100; 84155; 84157; 84300; 84484; 85025; 85378; 85384; 85610; 85730; 86022; 86704; 86706; 86803; 87070; 87081; 87102; 87116; 87340; 93005; 93306; 93970; 94660; 94664; 96374; 97161; J0282; J0692; J1120; J1650; J1815; J1940; J2060; J2270; J2920; J2930; J3370; J7040; J7050; J7060; Q9967

== ENCOUNTER 2019-01-10 12:51 | Inpatient (IN) | payer OTHER ==
[~2019-01-10] VITALS: Ht 180.3 cm; Wt 103.9 kg
[~2019-01-10 12:51] MED LIST changes: +AMIO200T4 PO; +FAMO20TA18 PO
--- NOTE | 2019-01-10 16:38 | ERD ---
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 Shortness of breath is worse with exertion. He is unable to lay flat as this worsens his symptoms. No alleviating factors. He was recently diagnosed with a pleural effusion. He denies any cough or hemoptysis. No chest pain but he does have some pressure in his lungs. No fevers or chills. No rectal bleeding but he states that his stool is darker than usual. ROS All systems reviewed and are negative except as per history of present illness. Medications Home Meds Reported Medications Famotidine* (Famotidine*) 20 Mg Tablet, 20 MG PO BID, #60 TAB 11/04/18 Famotidine* (Famotidine*) 20 Mg Tablet, 20 MG PO BID, #60 TAB 11/04/18 Amiodarone Hcl* (Amiodarone Hcl*) 200 Mg Tablet, 200 MG PO DAILY, #30 TAB 11/04/18 Famotidine* (Famotidine*) 20 Mg Tablet, 20 MG PO BID, #60 TAB 11/04/18 Nicotine* (Nicotine* Patch) 7 mg/day Patch, 1 PATCH TD DAILY, PATCH 14MCG 10/02/18 Atorvastatin* (Atorvastatin*) 80 Mg Tablet, 80 MG PO QHS, #30 TAB 10/02/18 Acetaminophen* (Acetaminophen*) 650 Mg Tablet, 650 MG PO Q6H PRN for MILD PAIN LEVEL 1-3, #30 TAB 10/02/18 Allergies Allergies: Coded Allergies: No Known Allergy (Unverified , 10/02/18) PMhx/Soc History of Surgery: Yes (CABG 10/04/18, ) Anesthesia Reaction: No Hx Neurological Disorder: No Hx Respiratory Disorders: Yes (PLEURAL EFFUSION) Hx Cardiac Disorders: Yes (CAD, CHF) Hx Psychiatric Problems: No Hx Miscellaneous Medical Probl: Yes (CAD, H.OF TOBACCO USE, S/P CARDIAC CATH.OBESITY, COPG , S/P CABG) Hx Alcohol Use: No Hx Substance Use: No Hx Tobacco Use: No FmHx Family History: No diabetes Physical Exam Vitals Vital Signs Date Temp Pulse Resp B/P (MAP) Pulse Ox O2 O2 Flow FiO2 Time Delivery Rate 01/10/19 62 18 105/66 97 Nasal 2.0 17:00 (79) Cannula 01/10/19 Nasal 2 16:05 Cannula 01/10/19 Nasal 2.0 16:05 Cannula 01/10/19 98.6 76 32 108/63 95 13:04 (78) Physical Exam Const: No acute distress Head: Atraumatic Eyes: Pale conjunctiva, no scleral icterus ENT: Normal External Ears, Nose and Mouth. Neck: Full range of motion. No meningismus. Chest wall: Sternotomy scar noted, well-healed. No crepitus palpation Resp: Diminished breath sounds bilaterally, left greater than right. No crackles or wheezing Cardio: Regular rate and rhythm, no murmurs. 2+ distal pulses Abd: Soft, non tender, mildly distended with possible ascites. Normal bowel sounds Rectal: Maroon-colored stool in rectal vault. No masses. No active bleeding. Skin: Pale. No petechiae or rashes Back: No midline or flank tenderness Ext: No cyanosis, or edema Neur: Awake and alert Psych: Normal Mood and Affect Result Diagram: 01/10/19 1641 01/10/19 1641 Results 24 hrs Laboratory Tests Test 01/10/19 16:41 01/10/19 18:35 White Blood Count 10.5 10^3/ul Red Blood Count 2.75 10^6/ul Hemoglobin 6.8 g/dl Hematocrit 22.6 % Mean Corpuscular Volume 82.2 fl Mean Corpuscular Hemoglobin 24.7 pg Mean Corpuscular Hemoglobin Concent 30.1 g/dl Red Cell Distribution Width 16.1 % Platelet Count 321 10^3/UL Mean Platelet Volume 8.7 fl Immature Granulocytes % 0.500 % Neutrophils % % Segmented Neutrophils % (Manual) 72 % Lymphocytes % % Lymphocytes % (Manual) 14 % Reactive Lymphocytes % (Manual) 3 % Monocytes % % Monocytes % (Manual) 9 % Eosinophils % % Eosinophils % (Manual) 1 % Basophils % % Nucleated Red Blood Cells % 0.0 /100WBC Immature Granulocytes # 0.050 10^3/ul Neutrophils # 10^3/ul Lymphocytes (Manual) 1.4 10^3/ul Lymphocytes # 10^3/ul Reactive Lymphocytes # 0.3 10^3/ul Monocytes # 10^3/ul Monocytes # (Manual) 0.9 10^3/ul Eosinophils # 10^3/ul Basophils # 10^3/ul Nucleated Red Blood Cells # 10^3/ul Polychromasia 1+ Poikilocytosis 1+ Anisocytosis 1+ Prothrombin Time 15.0 Sec Prothrombin Time Ratio 1.2 INR International Normalized Ratio 1.17 Activated Partial Thromboplast Time 28.5 Sec Sodium Level 142 mmol/L Potassium Level 3.6 mmol/L Chloride Level 102 mmol/L Carbon Dioxide Level 29 mmol/L Anion Gap 11 Blood Urea Nitrogen 19 mg/dl Creatinine 0.91 mg/dl Est Glomerular Filtrat Rate mL/min > 60 mL/min Glucose Level 95 mg/dl Calcium Level 9.1 mg/dl Troponin I 0.087 ng/ml Stool Occult Blood POSITIVE Current Medications Medications Dose Sig/Maureen Start Time Status Last (Trade) Ordered Route PRN Stop Time Admin Dose Reason Admin Sodium 0 ml @ 0 Q0M ONCE 01/10/19 DC 01/10/19 Chloride mls/hr IV 17:01 01/10/19 17:55 17:02 Furosemide 40 mg ONCE ONCE 01/10/19 DC 01/10/19 (Lasix) IV 18:30 01/10/19 18:56 18:31 Lorazepam 2 mg ONCE ONCE 01/10/19 DC (Ativan) IV 18:30 01/10/19 18:31 50 mg ONCE ONCE 01/10/19 DC 01/10/19 Diphenhydrami IV 18:30 01/10/19 19:51 ne HCl 18:31 (Benadryl) Ondansetron 4 mg ER BRIDGE 01/10/19 HCl (Zofran PRN IV 18:30 01/11/19 Inj) NAUSEA/VOMITI 18:29 NG 650 mg ER BRIDGE 01/10/19 Acetaminophen PRN PO 18:30 01/11/19 (Tylenol .MILD PAIN 18:29 Tab) 1-3 OR TEMP Procedures/MDM EMERGENT LABS AND DIAGNOSTIC STUDIES: Lab Results above were reviewed and interpreted by me. CBC: Severe anemia with hemoglobin 6.8, No evidence of infection BMP: No e/o clinically significant electrolyte abnormality severe acidosis, alkalosis, renal failure, diabetic ketoacidosis Troponin within normal limits, not indicative of cardiac ischemia Stool occult blood positive 12-lead EKG was interpreted by N. Ekmekjian, MD: Normal Sinus Rhythm with ventricular rate of 64 beats per minute Normal axis Normal intervals T wave abnormality with inversions in inferior lateral leads Possible ischemia, no STEMI. Radiology Results as interpreted by Radiology below were reviewed by Sesar Whitten MD: Chest x-ray shows bilateral pleural effusions, moderate to large on the left, small on the right. Initial Nursing notes reviewed. Previous Medical Records requested via the Electronic Health Record. EMERGENCY DEPARTMENT COURSE / MEDICAL DECISION MAKING: Patient is presenting with increasing shortness of breath, pleural effusion, and anemia. Vitals were notable for tachypnea but I have a low suspicion for pneumonia or sepsis. His stool occult blood was positive, which is likely the source of his anemia. He has never had a colonoscopy. He will likely need further work-up for GI bleed. Blood transfusion ordered, 2 units PRBCs. Patient will likely need a thoracentesis while here. He was recently he was last admitted to Dr. Hogan. He was contacted and patient will be admitted by the covering physician, Dr. Vines. Critical Care Management of Hemorrhage and Symptomatic Anemia: Time: 35 minutes Treatments/Evaluations: Close monitoring and management of bleeding sources while maintaining tight balance of fluid. With judicious assessment of anemia, coagulopathy and thrombocytopenia, while considering correction with blood products and medical therapy. Departure Diagnosis: Primary Impression: Dyspnea Dyspnea type: unspecified Qualified Codes: R06.00 - Dyspnea, unspecified Additional Impressions: Recurrent left pleural effusion Symptomatic anemia GI bleed GI bleed type/associated pathology: unspecified gastrointestinal hemorrhage type Qualified Codes: K92.2 - Gastrointestinal hemorrhage, unspecified Condition: Serious ABBEY WHITTEN MD Jan 10, 2019 16:38
[2019-01-10] MEDS ORDERED: SOD CHLORIDE 0.9% 0 ML IV ONE (17:01)
[2019-01-10] MEDS ORDERED: LORAZEPAM 2 MG INJ IV ONE (18:30)
[2019-01-10] MEDS ORDERED: ONDANSETRON 4 MG INJ IV PRN (18:30)
[2019-01-10] MEDS ORDERED: FUROSEMIDE 40 MG INJ IV ONE (18:30)
[2019-01-10] MEDS ORDERED: ACETAMINOPHEN 325 MG TAB PO PRN (18:30)
[2019-01-10] MEDS: DIPHENHYDRAMINE 50 MG INJ IV ONE ×2 (18:55→19:51)
[2019-01-11] VITALS (10 sets, daily range): BP systolic 98–118; BP diastolic 56–72; PULSE 61–74; RESP 18–20
[2019-01-11] MEDS ORDERED: ATRO INHALATION (00:37)
[2019-01-11] MEDS ORDERED: UMEC1DIS INHALATION (00:37)
[2019-01-11] MEDS ORDERED: LINA5TAB PO (00:37)
[2019-01-11] MEDS ORDERED: APIX5TAB PO (00:37)
[2019-01-11] MEDS ORDERED: DILT-9 PO (00:37)
[2019-01-11] MEDS ORDERED: FURO40TA4 PO (00:37)
[2019-01-11] MEDS ORDERED: morphine 2 MG INJ IV PRN (01:30)
[2019-01-11] MEDS ORDERED: NITROGLYCERIN (SL) 0.4 MG TAB SL PRN (01:30)
[2019-01-11] MEDS ORDERED: ACETAMINOPHEN 325 MG TAB PO PRN (08:00)
[2019-01-11] MEDS ORDERED: GLUCAGON 1 MG INJ IM PRN ×2 (08:30→23:45)
[2019-01-11] MEDS ORDERED: GLUCOSE GEL 15 GRAM TUBE PO PRN ×4 (08:30→23:45)
[2019-01-11] MEDS ORDERED: GLUCOSE GEL 15 GRAM TUBE BUCCAL PRN ×2 (08:30→23:45)
[2019-01-11] MEDS ORDERED: DEXTROSE 50% 50 ML SYRINGE IV PRN ×4 (08:30→23:45)
[2019-01-11] MEDS: AMIODARONE 200 MG TAB PO SCH (08:41)
[2019-01-11] MEDS: LINAGLIPTIN 5 MG TABLET PO SCH (08:41)
[2019-01-11] MEDS ORDERED: FUROSEMIDE 40 MG TAB PO SCH (09:00)
--- NOTE | 2019-01-11 09:20 | HP ---
DATE OF ADMISSION: 01/10/2019 CHIEF COMPLAINT: Shortness of breath, anemia. HISTORY OF PRESENT ILLNESS: This is a 58-year-old male well known to me with a past medical history of coronary artery disease, history of tobacco abuse who initially presented to [facility] in October for acute coronary syndrome. The patient underwent cardiac catheterization, janell sauer had 5-vessel CABG by Dr. Irizarry. The patient was eventually discharged home, was then subsequentl y readmitted in October for shortness of breath. The patient during that hospital course, underwent ag gressive diuresis, was stabilized and discharged home. The patient since discharge has been stable i n the outpatient setting, requires 2 to 3 liters of nasal cannula for his underlying COPD. 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 The patient states that his shortness of breath has significantl y worsened over the past several days, unable to lie flat with a noted dyspnea on exertion. The froylan ent denies any hemoptysis, hematemesis, hematochezia. The patient does, however, note darkened stool s and possible melena. No other events noted. PAST MEDICAL HISTORY: History of coronary artery disease, history of CHF, history of tobacco use, hi story of COPD, history of pleural effusion. PAST SURGICAL HISTORY: Status post CABG, status post thoracentesis. FAMILY HISTORY: No family history of kidney disease. SOCIAL HISTORY: Does not drink or actively smoke. The patient was a former smoker. MEDICATIONS: The patient's medications have been reviewed and reconciled. ALLERGIES: NO KNOWN DRUG ALLERGIES. REVIEW OF SYSTEMS: A 14-point review of systems was conducted. Pertinent positives stated in HPI, o therwise negative. PHYSICAL EXAMINATION: VITAL SIGNS: Blood pressure is 102/64, respiration 18, pulse 61, temperature 97.9. HEENT: Head is normocephalic. NECK: Supple. HEART: Regular rate. LUNGS: The patient has diminished breath sounds, left greater than right. ABDOMEN: Soft, nontender to palpation without rebound or guarding. EXTREMITIES: Negative for clubbing, cyanosis, no edema. DERMATOLOGIC: No rashes. MUSCULOSKELETAL: No joint effusion. NEUROLOGIC: No focal deficits. LABORATORY DATA: Has been reviewed. IMAGING STUDIES: Have been reviewed. ASSESSMENT AND PLAN: This is a 58-year-old male who presents with: 1. Severe anemia. Etiology is concerning for possible gastrointestinal bleed. The patient's stool OB is positive. The patient is also complaining of melenic stools. The patient is status post blood transfusion. Plan at this point is to follow up with gastroenterology for possible EGD, colonoscopy . Will start the patient on PPI, Protonix 40 mg b.i.d. Will hold antiplatelets and blood thinner at this time. Will monitor hemoglobin and hematocrit levels closely. Will continue to transfuse as ne eded. 2. Recurrent pleural effusion, left greater than right. Etiology is possibly from CHF, recent coron lorene artery bypass graft. Other processes such as exudative effusion is a consideration. Will consul t pulmonary. Consider possible thoracentesis. Continue current diuretic regimen and monitor closely . 3. Acute respiratory failure. Etiology is possibly multifactorial secondary to chronic obstructive pulmonary disease, recurrent pleural effusions, congestive heart failure. Continue current medical m anagement. Continue nebulizers. Consider a course of steroids. Continue diuretic therapy. Will co nsider thoracentesis and monitor. 4. Acute on chronic heart failure, diastolic. Will continue patient on Lasix. Will change to IV 40 mg b.i.d. Will follow up with cardiology. Consider repeat 2D echo. Monitor electrolytes and renal function closely. 5. History of thrombocytopenia, possible heparin-induced thrombocytopenia. Continue to monitor. Wi ll hold any heparin products 6. Coronary artery disease, status post coronary artery bypass graft. Continue medical management. 7. Hypertension. Blood pressure controlled. Continue blood pressure regimen. 8. Arrhythmia, currently stable. Continue amiodarone. 9. Diabetes. Continue Tradjenta. 10. Gastrointestinal and deep venous thrombosis prophylaxis. Please note I spent an additional 30 minutes of [id number] time with this patient, discussing advan ce directives and code status. The patient is FULL CODE. Dictated By: VANCE FELDMAN DO NR/NTS Conf#: [id number] DID#: [id number] CC: FRANKI MARTINEZ DO;*EndCC*
--- NOTE | 2019-01-11 10:02 | CONS ---
Assessment/Plan Assessment/Plan Hospital Course (Demo Recall) Dyspnea: likely combination of pleural effusion and anemia. Appears euvolemic on exam at this time Recurrent pleural effusion: Raises the question of underlying malignancy with heavy smoking history. Needs thora and cytology and possibly CT after Anemia: No active bleeding. Hgb 6.8 on admission, On Eliquis/ASA as outpt. Acute on chronic diastolic CHF: EF preserved. Euvolemic on my exam Paroxysmal atrial fibrillation/flutter: in sinus. Remains on amiodarone but probably should be d/c-ed with COPD. Will defer to his outpt certified technician CAD s/p CABG: s/p CABG x5 10/04/2018, [place] to LAD, SVG to PDA, SVG to diagonal artery sequence to OM1 sequenced to OM2. No angina and trops negative H/o HIT HTN HL DM h/o Tobacco use -ok for colonoscopy/EGD if indicated -hold Eliquis -restart ASA when cleared by GI -?thoracentesis -change lasix to home dose 40mg BID -amiodarone 200mg PO daily -lipitor 80mg Consultation Date/Type/Reason Admit Date/Time Jan 10, 2019 at 18:12 Date of Consultation: Jan 11, 2019 Type of Consult Cardiology Reason for Consultation CHF Requesting Provider: VANCE FELDMAN DO Date/Time of Note DATE: 01/11/19 TIME: 09:47 Hx of Present Illness 58 yo M known to me from prior hospitalizations with a h/o CAD s/p CABG x5 10/04/2018, paroxysmal afib on amiodarone and Eliquis, chronic diastolic CHF, COPD, Recurrent left pleural effusion, h/o HIT, DM, HTN, HL, who was sent in by his certified technician for workup of anemia. His hgb was 6.8 on admission. He denies melena or active bleeding. This was discovered on routine bloodwork which was done prior to scheduled thoracentesis for his left pleural effusion. He was also asked to stop his Eliquis. He notes recent worsening of dyspnea over the past 1 month which he describes as pressure when he tries to breath. No leg edema and no chest pain which he had prior to his CABG. Currently no complaints at rest. per hPI Past Medical History per hPI Home Meds Reported Medications Umeclidinium Brm-Vilanterol Tr (Anoro Ellipta) 62.5-25 Mcg Disk.w.dev, 1 EACH INHALATION DAILY, #1 DISK 01/11/19 Ipratropium [place]* (Atrovent HFA*) 12.9 Gm Aer.w.adap, 2 PUFF INHALATION Q4H for SHORTNESS OF BREATH, #1 INHALER 01/11/19 Apixaban* (Eliquis*) 5 Mg Tablet, 5 MG PO BID TAKE 1 TABLET BY MOUTH TWICE A DAY 01/11/19 Linagliptin (TRADJENTA) 5 Mg Tablet, 5 MG PO DAILY TAKE 1 TABLET BY MOUTH EVERY DAY 01/11/19 Furosemide* (Furosemide*) 40 Mg Tablet, 40 MG PO BID for 30 Days, #60 TAKE 1 TABLET BY MOUTH TWICE A DAY 01/11/19 Diltiazem Hcl (DILTIAZEM 24HR ER) 120 Mg Cap.er.24h, 120 MG PO QAM TAKE ONE CAPSULE BY MOUTH EVERY DAY 01/11/19 Famotidine* (Famotidine*) 20 Mg Tablet, 20 MG PO BID, #60 TAB 11/04/18 Amiodarone Hcl* (Amiodarone Hcl*) 200 Mg Tablet, 200 MG PO DAILY, #30 TAB 11/04/18 Atorvastatin* (Atorvastatin*) 80 Mg Tablet, 80 MG PO QHS, #30 TAB 10/02/18 Acetaminophen* (Acetaminophen*) 650 Mg Tablet, 650 MG PO Q6H PRN for MILD PAIN LEVEL 1-3, #30 TAB 10/02/18 Discontinued Reported Medications Famotidine* (Famotidine*) 20 Mg Tablet, 20 MG PO BID, #60 TAB 11/04/18 Famotidine* (Famotidine*) 20 Mg Tablet, 20 MG PO BID, #60 TAB 11/04/18 Nicotine* (Nicotine* Patch) 7 mg/day Patch, 1 PATCH TD DAILY, PATCH 14MCG 10/02/18 Medications Current Medications Nitroglycerin (Nitroglycerin (Sl Tab) 0.4 Mg) 1 tab Q5M PRN SL ANGINA; Start 01/11/19 at 01:30 Morphine Sulfate (morphine) 1 mg Q2H PRN IV PAIN; Start 01/11/19 at 01:30 Acetaminophen (Tylenol Tab) 650 mg Q6H PRN PO MILD PAIN LEVEL 1-3; Start 01/11/19 at 08:00 Atorvastatin Calcium (Lipitor) 80 mg QHS PO ; Start 01/11/19 at 21:00 Ipratropium [place] (Atrovent Hfa) 2 puff Q4 INH ; Start 01/11/19 at 09:00 Linagliptin (Tradjenta) 5 mg DAILY PO Last administered on 01/11/19at 08:41; Admin Dose 5 MG; Start 01/11/19 at 09:00 Diagnostic Test (Pha) (Accu-Chek) 1 ea AC MEALS AND BEDTIME XX ; Start 01/11/19 at 11:20 Amiodarone HCl (Cordarone) 200 mg DAILY PO Last administered on 01/11/19at 08:41; Admin Dose 200 MG; Start 01/11/19 at 09:00 Pantoprazole (Protonix Tab) 40 mg BID@06,18 PO ; Start 01/11/19 at 18:00 Miscellaneous Information 1 ea NOTE XX ; Start 01/11/19 at 08:30 Glucose (Glutose) 15 gm Q15M PRN PO DECREASED GLUCOSE; Start 01/11/19 at 08:30 Glucose (Glutose) 22.5 gm Q15M PRN PO DECREASED GLUCOSE; Start 01/11/19 at 08:30 Dextrose (D50w Syringe) 25 ml Q15M PRN IV DECREASED GLUCOSE; Start 01/11/19 at 08:30 Dextrose (D50w Syringe) 50 ml Q15M PRN IV DECREASED GLUCOSE; Start 01/11/19 at 08:30 Glucagon (Glucagen) 1 mg Q15M PRN IM DECREASED GLUCOSE; Start 01/11/19 at 08:30 Glucose (Glutose) 15 gm Q15M PRN BUCCAL DECREASED GLUCOSE; Start 01/11/19 at 08:30 Furosemide (Lasix) 40 mg BID DIURETICS IV ; Start 01/11/19 at 18:00 Allergies: Coded Allergies: No Known Allergy (Unverified , 01/11/19) Past Surgical History Past Surgical Hx: no surgical history Social History Smoking Status: Never smoker Exam/Review of Systems Vital Signs Vitals Vital Signs Date Temp Pulse Resp B/P (MAP) Pulse Ox O2 O2 Flow FiO2 Time Delivery Rate 01/11/19 97.9 61 18 102/64 96 Nasal 2.0 07:24 (77) Cannula Exam Constitutional: alert, oriented Psych: no complaints, nl mood/affect Head: normocephalic, atraumatic Neck: supple; No jvd Respiratory: diminished breath sounds (left base); No clear to auscultation Cardiovascular: regular rate and rhythm; No edema Gastrointestinal: soft, non-tender; No distended Neurological: nl mental status, nl speech Labs Result Diagram: 01/10/19 1641 01/10/19 1641 Results 24hrs Laboratory Tests Test 01/10/19 16:41 01/10/19 18:35 01/11/19 02:33 01/11/19 05:37 White Blood Count 10.5 # Red Blood Count 2.75 #L Hemoglobin 6.8 #*L Hematocrit 22.6 #L Mean Corpuscular 82.2 Volume Mean Corpuscular 24.7 L Hemoglobin Mean Corpuscular 30.1 L Hemoglobin Concent Red Cell 16.1 H Distribution Width Platelet Count 321 # Mean Platelet 8.7 # Volume Immature 0.500 H Granulocytes % Neutrophils % Segmented 72 Neutrophils % (Manual) Lymphocytes % Lymphocytes % 14 L (Manual) Reactive 3 H Lymphocytes % (Manual) Monocytes % Monocytes % 9 (Manual) Eosinophils % Eosinophils % 1 (Manual) Basophils % Nucleated Red Blood 0.0 Cells % Immature 0.050 H Granulocytes # Neutrophils # Lymphocytes 1.4 (Manual) Lymphocytes # Reactive 0.3 H Lymphocytes # Monocytes # Monocytes # 0.9 (Manual) Eosinophils # Basophils # Nucleated Red Blood Cells # Polychromasia 1+ Poikilocytosis 1+ Anisocytosis 1+ Prothrombin Time 15.0 H Prothrombin Time 1.2 Ratio INR International 1.17 Normalized Ratio Activated 28.5 Partial Thromboplas t Time Sodium Level 142 Potassium Level 3.6 Chloride Level 102 Carbon Dioxide 29 Level Anion Gap 11 Blood Urea Nitrogen 19 Creatinine 0.91 Est Glomerular > 60 Filtrat Rate mL/min Glucose Level 95 Calcium Level 9.1 Troponin I 0.087 0.057 Stool Occult Blood POSITIVE Lab Scanned Report BLOOD TRANSFUSION Test 01/11/19 08:40 Bedside Glucose 124 Medications Medications Current Medications Nitroglycerin (Nitroglycerin (Sl Tab) 0.4 Mg) 1 tab Q5M PRN SL ANGINA; Start 01/11/19 at 01:30 Morphine Sulfate (morphine) 1 mg Q2H PRN IV PAIN; Start 01/11/19 at 01:30 Acetaminophen (Tylenol Tab) 650 mg Q6H PRN PO MILD PAIN LEVEL 1-3; Start 01/11/19 at 08:00 Atorvastatin Calcium (Lipitor) 80 mg QHS PO ; Start 01/11/19 at 21:00 Ipratropium [place] (Atrovent Hfa) 2 puff Q4 INH ; Start 01/11/19 at 09:00 Linagliptin (Tradjenta) 5 mg DAILY PO Last administered on 01/11/19at 08:41; Admin Dose 5 MG; Start 01/11/19 at 09:00 Diagnostic Test (Pha) (Accu-Chek) 1 ea AC MEALS AND BEDTIME XX ; Start 01/11/19 at 11:20 Amiodarone HCl (Cordarone) 200 mg DAILY PO Last administered on 01/11/19at 08:41; Admin Dose 200 MG; Start 01/11/19 at 09:00 Pantoprazole (Protonix Tab) 40 mg BID@06,18 PO ; Start 01/11/19 at 18:00 Miscellaneous Information 1 ea NOTE XX ; Start 01/11/19 at 08:30 Glucose (Glutose) 15 gm Q15M PRN PO DECREASED GLUCOSE; Start 01/11/19 at 08:30 Glucose (Glutose) 22.5 gm Q15M PRN PO DECREASED GLUCOSE; Start 01/11/19 at 08:30 Dextrose (D50w Syringe) 25 ml Q15M PRN IV DECREASED GLUCOSE; Start 01/11/19 at 08:30 Dextrose (D50w Syringe) 50 ml Q15M PRN IV DECREASED GLUCOSE; Start 01/11/19 at 08:30 Glucagon (Glucagen) 1 mg Q15M PRN IM DECREASED GLUCOSE; Start 01/11/19 at 08:30 Glucose (Glutose) 15 gm Q15M PRN BUCCAL DECREASED GLUCOSE; Start 01/11/19 at 08:30 Furosemide (Lasix) 40 mg BID DIURETICS IV ; Start 01/11/19 at 18:00 VANESA RUIZ Jan 11, 2019 10:01
[2019-01-11] MEDS: IPRATROPIUM (HFA) 12.9 GM INHALER INH SCH ×3 (10:37→17:43)
[2019-01-11] MEDS: ACCU-CHEK XX SCH ×3 (11:37→21:46)
--- NOTE | 2019-01-11 15:02 | CONS ---
Assessment/Plan Assessment/Plan Assessment/Plan (Daily) IMP: 1. Recurrent left pleural effusion--likely representing a post-CABG effusion. 2. Respiratory insufficiency--likely 2/2 #1 +/- mild ADHF 3. CAD s/p CABG 4. Query COPD RECS: 1. Diagnostic/therapeutic left thoracentesis 2. Pleural fluid for cell count with diff, LDH, TP, glucose, cytology Consultation Date/Type/Reason Admit Date/Time Jan 10, 2019 at 18:12 Date of Consultation: Jan 11, 2019 Type of Consult Pulm Date/Time of Note DATE: 01/11/19 TIME: 14:54 Hx of Present Illness Briefly, this is a 58-year-old man with a past medical history of coronary artery disease s/p CABG 10/2018, followed by development of left pleural effusion s/p left thoracentesis in 10/2016, with findings most c/w post-CABG effusion. Now he presents with progressive dypsnea and orthopnea, found to be anemic with moderate-sized left pleural effusion. Constitutional: no complaints Eyes: no complaints ENT: no complaints Respiratory: shortness of breath Cardiovascular: orthopenea Gastrointestinal: no complaints Genitourinary: no complaints Musculoskeletal: no complaints Skin: no complaints Neurologic: no complaints Endocrine: no complaints Psychological: no complaints Immunologic: no complaints Past Medical History Medical History: coronary artery disease Home Meds Reported Medications Umeclidinium Brm-Vilanterol Tr (Anoro Ellipta) 62.5-25 Mcg Disk.w.dev, 1 EACH INHALATION DAILY, #1 DISK 01/11/19 Ipratropium [place]* (Atrovent HFA*) 12.9 Gm Aer.w.adap, 2 PUFF INHALATION Q4H for SHORTNESS OF BREATH, #1 INHALER 01/11/19 Apixaban* (Eliquis*) 5 Mg Tablet, 5 MG PO BID TAKE 1 TABLET BY MOUTH TWICE A DAY 01/11/19 Linagliptin (TRADJENTA) 5 Mg Tablet, 5 MG PO DAILY TAKE 1 TABLET BY MOUTH EVERY DAY 01/11/19 Furosemide* (Furosemide*) 40 Mg Tablet, 40 MG PO BID for 30 Days, #60 TAKE 1 TABLET BY MOUTH TWICE A DAY 01/11/19 Diltiazem Hcl (DILTIAZEM 24HR ER) 120 Mg Cap.er.24h, 120 MG PO QAM TAKE ONE CAPSULE BY MOUTH EVERY DAY 01/11/19 Famotidine* (Famotidine*) 20 Mg Tablet, 20 MG PO BID, #60 TAB 11/04/18 Amiodarone Hcl* (Amiodarone Hcl*) 200 Mg Tablet, 200 MG PO DAILY, #30 TAB 11/04/18 Atorvastatin* (Atorvastatin*) 80 Mg Tablet, 80 MG PO QHS, #30 TAB 10/02/18 Acetaminophen* (Acetaminophen*) 650 Mg Tablet, 650 MG PO Q6H PRN for MILD PAIN LEVEL 1-3, #30 TAB 10/02/18 Discontinued Reported Medications Famotidine* (Famotidine*) 20 Mg Tablet, 20 MG PO BID, #60 TAB 11/04/18 Famotidine* (Famotidine*) 20 Mg Tablet, 20 MG PO BID, #60 TAB 11/04/18 Nicotine* (Nicotine* Patch) 7 mg/day Patch, 1 PATCH TD DAILY, PATCH 14MCG 10/02/18 Medications Current Medications Nitroglycerin (Nitroglycerin (Sl Tab) 0.4 Mg) 1 tab Q5M PRN SL ANGINA; Start 01/11/19 at 01:30 Morphine Sulfate (morphine) 1 mg Q2H PRN IV PAIN; Start 01/11/19 at 01:30 Acetaminophen (Tylenol Tab) 650 mg Q6H PRN PO MILD PAIN LEVEL 1-3; Start 01/11/19 at 08:00 Atorvastatin Calcium (Lipitor) 80 mg QHS PO ; Start 01/11/19 at 21:00 Ipratropium [place] (Atrovent Hfa) 2 puff Q4 INH Last administered on 01/11/19at 13:44; Admin Dose 2 PUFF; Start 01/11/19 at 09:00 Linagliptin (Tradjenta) 5 mg DAILY PO Last administered on 01/11/19at 08:41; Admin Dose 5 MG; Start 01/11/19 at 09:00 Diagnostic Test (Pha) (Accu-Chek) 1 ea AC MEALS AND BEDTIME XX Last administered on 01/11/19at 11:37; Admin Dose 1 EA; Start 01/11/19 at 11:20 Amiodarone HCl (Cordarone) 200 mg DAILY PO Last administered on 01/11/19at 08:41; Admin Dose 200 MG; Start 01/11/19 at 09:00 Pantoprazole (Protonix Tab) 40 mg BID@06,18 PO ; Start 01/11/19 at 18:00 Miscellaneous Information 1 ea NOTE XX ; Start 01/11/19 at 08:30 Glucose (Glutose) 15 gm Q15M PRN PO DECREASED GLUCOSE; Start 01/11/19 at 08:30 Glucose (Glutose) 22.5 gm Q15M PRN PO DECREASED GLUCOSE; Start 01/11/19 at 08:30 Dextrose (D50w Syringe) 25 ml Q15M PRN IV DECREASED GLUCOSE; Start 01/11/19 at 08:30 Dextrose (D50w Syringe) 50 ml Q15M PRN IV DECREASED GLUCOSE; Start 01/11/19 at 08:30 Glucagon (Glucagen) 1 mg Q15M PRN IM DECREASED GLUCOSE; Start 01/11/19 at 08:30 Glucose (Glutose) 15 gm Q15M PRN BUCCAL DECREASED GLUCOSE; Start 01/11/19 at 08:30 Furosemide (Lasix) 40 mg BID DIURETICS PO ; Start 01/11/19 at 18:00 Allergies: Coded Allergies: No Known Allergy (Unverified , 01/11/19) Past Surgical History Past Surgical Hx: no surgical history Social History Smoking Status: Former smoker Drug Use: none Exam/Review of Systems Exam Vitals Vital Signs Date Temp Pulse Resp B/P (MAP) Pulse Ox O2 O2 Flow FiO2 Time Delivery Rate 01/11/19 98.2 70 19 101/64 95 Nasal 2.0 11:15 (76) Cannula Constitutional: alert, oriented, well developed Psych: no complaints Head: normocephalic, atraumatic Eyes: nl conjunctiva, EOMI ENMT: nl external ears & nose, nl lips & teeth, nl nasal mucosa & septum, mucosa pink and moist Neck: supple, non-tender, jvd Respiratory: diminished breath sounds Cardiovascular: regular rate and rhythm, jugular venous distention (JVD) Gastrointestinal: soft, nl liver, spleen, non-tender Musculoskeletal: nl extremities to inspection Extremities: normal pulses Neurological: [employer] MA[employer] II-XII intact, DTR's symmetric Results Result Diagram: 01/11/19 0956 01/11/19 0956 Results 24hrs Laboratory Tests Test 01/10/19 16:41 01/10/19 18:35 01/11/19 02:33 01/11/19 05:37 White Blood Count 10.5 # Red Blood Count 2.75 #L Hemoglobin 6.8 #*L Hematocrit 22.6 #L Mean Corpuscular 82.2 Volume Mean Corpuscular 24.7 L Hemoglobin Mean Corpuscular 30.1 L Hemoglobin Concent Red Cell 16.1 H Distribution Width Platelet Count 321 # Mean Platelet 8.7 # Volume Immature 0.500 H Granulocytes % Neutrophils % Segmented 72 Neutrophils % (Manual) Lymphocytes % Lymphocytes % 14 L (Manual) Reactive 3 H Lymphocytes % (Manual) Monocytes % Monocytes % 9 (Manual) Eosinophils % Eosinophils % 1 (Manual) Basophils % Nucleated Red Blood 0.0 Cells % Immature 0.050 H Granulocytes # Neutrophils # Lymphocytes 1.4 (Manual) Lymphocytes # Reactive 0.3 H Lymphocytes # Monocytes # Monocytes # 0.9 (Manual) Eosinophils # Basophils # Nucleated Red Blood Cells # Polychromasia 1+ Poikilocytosis 1+ Anisocytosis 1+ Prothrombin Time 15.0 H Prothrombin Time 1.2 Ratio INR International 1.17 Normalized Ratio Activated 28.5 Partial Thromboplas t Time Sodium Level 142 Potassium Level 3.6 Chloride Level 102 Carbon Dioxide 29 Level Anion Gap 11 Blood Urea Nitrogen 19 Creatinine 0.91 Est Glomerular > 60 Filtrat Rate mL/min Glucose Level 95 Calcium Level 9.1 Troponin I 0.087 0.057 Stool Occult Blood POSITIVE Lab Scanned Report BLOOD TRANSFUSION Test 01/11/19 08:40 01/11/19 09:56 01/11/19 11:37 Bedside Glucose 124 136 White Blood Count 8.2 # Red Blood Count 3.10 L Hemoglobin 8.2 #L Hematocrit 26.0 L Mean Corpuscular 83.9 Volume Mean Corpuscular 26.5 L Hemoglobin Mean Corpuscular 31.5 L Hemoglobin Concent Red Cell 15.8 H Distribution Width Platelet Count 283 Mean Platelet 9.0 Volume Immature 0.400 Granulocytes % Neutrophils % 68.8 Lymphocytes % 17.6 Monocytes % 8.4 Eosinophils % 4.1 Basophils % 0.7 Nucleated Red Blood 0.0 Cells % Immature 0.030 Granulocytes # Neutrophils # 5.7 Lymphocytes # 1.5 Monocytes # 0.7 Eosinophils # 0.3 Basophils # 0.1 Nucleated Red Blood 0.0 Cells # Sodium Level 142 Potassium Level 3.6 Chloride Level 103 Carbon Dioxide 31 Level Anion Gap 8 Blood Urea Nitrogen 19 Creatinine 0.93 Est Glomerular > 60 Filtrat Rate mL/min Glucose Level 122 Calcium Level 8.6 Total Bilirubin 1.3 Direct Bilirubin 0.00 Indirect Bilirubin 1.3 H Aspartate Amino 23 Transf (AST/SGOT) Alanine 16 Aminotransferase (A LT/SGPT) Alkaline 88 Phosphatase Total Protein 7.0 Albumin 3.5 Medications Medication Current Medications Nitroglycerin (Nitroglycerin (Sl Tab) 0.4 Mg) 1 tab Q5M PRN SL ANGINA; Start 01/11/19 at 01:30 Morphine Sulfate (morphine) 1 mg Q2H PRN IV PAIN; Start 01/11/19 at 01:30 Acetaminophen (Tylenol Tab) 650 mg Q6H PRN PO MILD PAIN LEVEL 1-3; Start 01/11/19 at 08:00 Atorvastatin Calcium (Lipitor) 80 mg QHS PO ; Start 01/11/19 at 21:00 Ipratropium [place] (Atrovent Hfa) 2 puff Q4 INH Last administered on 01/11/19at 13:44; Admin Dose 2 PUFF; Start 01/11/19 at 09:00 Linagliptin (Tradjenta) 5 mg DAILY PO Last administered on 01/11/19at 08:41; Admin Dose 5 MG; Start 01/11/19 at 09:00 Diagnostic Test (Pha) (Accu-Chek) 1 ea AC MEALS AND BEDTIME XX Last administered on 01/11/19at 11:37; Admin Dose 1 EA; Start 01/11/19 at 11:20 Amiodarone HCl (Cordarone) 200 mg DAILY PO Last administered on 01/11/19at 08:41; Admin Dose 200 MG; Start 01/11/19 at 09:00 Pantoprazole (Protonix Tab) 40 mg BID@06,18 PO ; Start 01/11/19 at 18:00 Miscellaneous Information 1 ea NOTE XX ; Start 01/11/19 at 08:30 Glucose (Glutose) 15 gm Q15M PRN PO DECREASED GLUCOSE; Start 01/11/19 at 08:30 Glucose (Glutose) 22.5 gm Q15M PRN PO DECREASED GLUCOSE; Start 01/11/19 at 08:30 Dextrose (D50w Syringe) 25 ml Q15M PRN IV DECREASED GLUCOSE; Start 01/11/19 at 08:30 Dextrose (D50w Syringe) 50 ml Q15M PRN IV DECREASED GLUCOSE; Start 01/11/19 at 08:30 Glucagon (Glucagen) 1 mg Q15M PRN IM DECREASED GLUCOSE; Start 01/11/19 at 08:30 Glucose (Glutose) 15 gm Q15M PRN BUCCAL DECREASED GLUCOSE; Start 01/11/19 at 08:30 Furosemide (Lasix) 40 mg BID DIURETICS PO ; Start 01/11/19 at 18:00 AME GARCIA MD Jan 11, 2019 15:01
--- NOTE | 2019-01-11 15:58 | CONS ---
DATE OF ADMISSION: 01/10/2019 DATE OF CONSULTATION: 01/11/2019 HISTORY OF PRESENT ILLNESS: A 58-year-old male with a history of coronary artery disease status post coronary artery bypass graft, tobacco abuse. The patient was admitted to the hospital for shortness of breath. The routine hemogram revealed his hemoglobin was low 6. On interrogation, the patient d efinitely admitted that he was having black colored stool. No nausea, no vomiting, no abdominal pain , no chest pain, no shortness of breath. He was on Eliquis and aspirin, but Eliquis was stopped 2 da ys prior to the hospitalization in anticipation for a thoracocentesis. PAST MEDICAL HISTORY: Coronary artery disease status post coronary artery bypass graft, history of C OPD, tobacco nicotine usage and pleural effusion. PAST SURGICAL HISTORY: CABG, status post thoracocentesis. FAMILY HISTORY: Nothing contributory. SOCIAL HISTORY: Does not drink, smokes actively. MEDICATIONS: All reviewed. ALLERGIES: None. REVIEW OF SYSTEMS: Otherwise negative. PHYSICAL EXAMINATION: GENERAL: Well-built, nourished, not in distress. CARDIOVASCULAR: No murmur, gallop or click. LUNGS: Diminished air entry. ABDOMEN: Benign. EXTREMITIES: No edema. CENTRAL NERVOUS SYSTEM: Grossly within normal limits. The patient is on 2 [address] His st ool for occult blood was reported positive. His hemoglobin was 6.8 after transfusion, now it is 8.2. INR was within normal limits. BUN was normal. Creatinine was normal. There was indirect hyperbil irubinemia. Chest x-ray revealed a left-sided moderate pleural effusion. IMPRESSION: 1. Severe anemia secondary to gastrointestinal blood loss. 2. Recurrent pleural effusion. 3. Respiratory insufficiency. The patient was on oxygen. 4. Congestive heart failure. 5. Coronary artery bypass graft. 6. Hypertension. 7. Diabetes mellitus. 8. Erythema which is stable. PLAN: At this point is to continue PPI. Patient is off aspirin and Eliquis and will proceed with EG D to find out the cause of his bleeding. In the interim, monitor hemoglobin and hematocrit. Continu e diuretic therapy and supplemental oxygen. Thank you once again for the kind referral. Dictated By: FRANCES NEELY/MARC Conf#: [id number] DID#: [id number] CC: FRANKI MARTINEZ DO; VANCE FELDMAN DO;*End*
[2019-01-11] MEDS ORDERED: LIDOCAINE 1% (MPF) 5 ML VIAL ONE (17:11)
[2019-01-11] MEDS: FUROSEMIDE 40 MG TAB PO SCH (17:43)
[2019-01-11] MEDS: PANTOPRAZOLE (EC) 40 MG TAB PO SCH (17:43)
[2019-01-11] MEDS ORDERED: FUROSEMIDE 40 MG INJ IV SCH (18:00)
[2019-01-11] MEDS: ATORVASTATIN 80 MG TAB PO SCH (21:40)
[2019-01-12] VITALS (17 sets, daily range): BP systolic 82–132; BP diastolic 41–75; PULSE 63–80; RESP 12–23
[2019-01-12] MEDS ORDERED: DEXTROSE 5%-0.45% NACL 1,000 ML IV SCH
[2019-01-12] MEDS: ACCU-CHEK XX SCH ×6 (00:24→20:49)
[2019-01-12] MEDS: INSULIN ASPART [NOVOLOG] 3 ML PEN SC SCH ×6 (00:24→20:49)
[2019-01-12] MEDS ORDERED: ACCU-CHEK XX SCH (02:00)
[2019-01-12] MEDS: PANTOPRAZOLE (EC) 40 MG TAB PO SCH ×2 (07:51→17:41)
[2019-01-12] MEDS: FUROSEMIDE 40 MG TAB PO SCH ×2 (07:53→17:42)
[2019-01-12] MEDS ORDERED: INSULIN ASPART [NOVOLOG] 3 ML PEN SC SCH (07:55)
[2019-01-12] MEDS: IPRATROPIUM (HFA) 12.9 GM INHALER INH SCH ×6 (09:00→21:00)
[2019-01-12] MEDS: AMIODARONE 200 MG TAB PO SCH (09:00)
[2019-01-12] MEDS: LINAGLIPTIN 5 MG TABLET PO SCH (09:00)
--- NOTE | 2019-01-12 09:09 | PN ---
DATE: 01/12/2019 SUBJECTIVE: The patient received 2 units of PRBC yesterday, tolerated well. The patient also had a thoracentesis with 2 liters removed. The patient is clinically improving. Shortness of breath is im proving. The patient scheduled for EGD. No other events noted. OBJECTIVE: VITAL SIGNS: Blood pressure is 111/72, respirations 18, pulse 75, temperature 98.1. HEENT: Head is normocephalic. NECK: Supple. HEART: Irregular rate. LUNGS: Show improved aeration of right lower base. DERMATOLOGIC: No rashes. MUSCULOSKELETAL: No joint effusions. NEUROLOGICAL: No change in exam. MEDICATIONS: The patient's medications have been reviewed. LABORATORY DATA: Has been reviewed. ASSESSMENT AND PLAN: 1. Severe anemia. Etiology is concerning for possible gastrointestinal bleed. The patient is pendi ng EGD. Continue Protonix. Continue to monitor hemoglobin and hematocrit levels closely. Follow up with GI. 2. Recurrent pleural effusion. The patient is status post thoracentesis. Etiology of effusion is u nclear, secondary to congestive heart failure versus exudative process. The patient's effusion has b een sent out for cytology. Continue to monitor closely. Follow up with pulmonary. 3. Acute respiratory failure. Etiology is likely multifactorial secondary to chronic obstructive pu lmonary disease exacerbation, recurrent effusion. Continue current medical management. Continue diu retic regimen. 4. Heart failure. The patient is clinically improving. Continue current diuretic regimen. 5. History of heparin-induced thrombocytopenia . Continue to monitor closely. Avoid any heparin pr oducts. 6. Coronary artery disease, status post coronary artery bypass graft. Continue medical management. Holding aspirin at this time. 7. History of atrial fibrillation, currently in sinus rhythm. Continue amiodarone. Holding Eliquis . 8. Diabetes. Continue Tradjenta, insulin sliding scale. 9. Hypertension. Continue current blood pressure regimen. 10. Hypokalemia. Replete with potassium chloride. 11. Gastrointestinal and deep vein thrombosis prophylaxis. Continue PPI and sequential leg squeezer s. Dictated By: VANCE FELDMAN DO NR/NTS Conf#: [id number] DID#: [id number] CC: FRANKI MARTINEZ DO;*EndCC*
[2019-01-12] MEDS: POTASSIUM CHLORIDE 100 ML IVPB SCH ×2 (09:25→12:22)
--- NOTE | 2019-01-12 09:51 | CONS ---
Assessment/Plan Assessment/Plan Hospital Course (Demo Recall) Dyspnea: likely combination of pleural effusion and anemia. Appears euvolemic on exam at this time. Improved after thoracentesis Recurrent pleural effusion: Raises the question of underlying malignancy with heavy smoking history. s/p thoracentesis 01/11 Anemia: No active bleeding. Hgb 6.8 on admission, On Eliquis/ASA as outpt. Plan for EGD/colo Acute on chronic diastolic CHF: EF preserved. Euvolemic on my exam Paroxysmal atrial fibrillation/flutter: in sinus. Remains on amiodarone but probably should be d/c-ed with COPD. 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 No angina and trops negative H/o HIT HTN HL DM h/o Tobacco use -ok for colonoscopy/EGD -hold Eliquis -restart ASA when cleared by GI -lasix 40mg BID -amiodarone 200mg PO daily -lipitor 80mg Consultation Date/Type/Reason Admit Date/Time Jan 10, 2019 at 18:12 Initial Consult Date 01/11/19 Type of Consult Cardiology Requesting Provider: VANCE FELDMAN DO Date/Time of Note DATE: 01/12/19 TIME: 09:49 24 HR Interval Summary Free Text/Dictation s/p thoracentesis with significant improvement in dyspnea. Stool occult positive. Plan for EGD today but possibly colonoscopy as well Exam/Review of Systems Vital Signs Vitals Vital Signs Date Temp Pulse Resp B/P (MAP) Pulse Ox O2 O2 Flow FiO2 Time Delivery Rate 01/12/19 75 18 111/72 07:50 (85) 01/12/19 98.1 95 Nasal 07:44 Cannula 01/12/19 2.0 03:04 Intake and Output 01/11/19 01/11/19 01/12/19 1414:59 22:59 06:59 IntakeIntake Total 600 ml OutputOutput Total 1000 ml 400 ml BalanceBalance -400 ml -400 ml Exam Constitutional: alert, oriented Psych: no complaints, nl mood/affect Head: normocephalic, atraumatic Neck: supple; No jvd Respiratory: diminished breath sounds (left base); No clear to auscultation Cardiovascular: No edema Gastrointestinal: soft, non-tender; No distended Neurological: nl mental status, nl speech Labs Result Diagram: 01/12/19 0622 01/12/19 0622 Results 24hrs Laboratory Tests Test 01/11/19 09:56 01/11/19 11:37 01/11/19 16:45 01/11/19 17:36 White Blood Count 8.2 # Red Blood Count 3.10 L Hemoglobin 8.2 #L Hematocrit 26.0 L Mean Corpuscular 83.9 Volume Mean Corpuscular 26.5 L Hemoglobin Mean Corpuscular 31.5 L Hemoglobin Concent Red Cell Distribution 15.8 H Width Platelet Count 283 Mean Platelet Volume 9.0 Immature Granulocytes 0.400 % Neutrophils % 68.8 Lymphocytes % 17.6 Monocytes % 8.4 Eosinophils % 4.1 Basophils % 0.7 Nucleated Red Blood 0.0 Cells % Immature Granulocytes 0.030 # Neutrophils # 5.7 Lymphocytes # 1.5 Monocytes # 0.7 Eosinophils # 0.3 Basophils # 0.1 Nucleated Red Blood 0.0 Cells # Sodium Level 142 Potassium Level 3.6 Chloride Level 103 Carbon Dioxide Level 31 Anion Gap 8 Blood Urea Nitrogen 19 Creatinine 0.93 Est Glomerular > 60 Filtrat Rate mL/min Glucose Level 122 Calcium Level 8.6 Total Bilirubin 1.3 Direct Bilirubin 0.00 Indirect Bilirubin 1.3 H Aspartate Amino 23 Transf (AST/SGOT) Alanine 16 Aminotransferase (ALT /SGPT) Alkaline Phosphatase 88 Total Protein 7.0 Albumin 3.5 Bedside Glucose 136 121 Body Fluid Type PLEURAL FLUID Body Fluid Volume 1060.0 Body Fluid Color RED Body Fluid Appearance BLOODY Body Fluid WBC 3104 Body Fluid RBC (Auto) 463903 Body Fluid 11.4 Polynuclear WBCs (%) Body Fluid 88.6 Mononuclear Cells % Auto Body Fluid Glucose 98 Body Fluid Total 5.6 Protein Body Fluid 1046 Lactate Dehydrogenase Test 01/11/19 21:42 01/12/19 00:21 01/12/19 05:40 01/12/19 06:22 Bedside Glucose 195 116 104 White Blood Count 8.6 Red Blood Count 3.01 L Hemoglobin 7.9 L Hematocrit 25.2 L Mean Corpuscular 83.7 Volume Mean Corpuscular 26.2 L Hemoglobin Mean Corpuscular 31.3 L Hemoglobin Concent Red Cell Distribution 16.1 H Width Platelet Count 264 Mean Platelet Volume 8.8 Immature Granulocytes 0.300 % Neutrophils % 64.7 Lymphocytes % 19.5 Monocytes % 9.8 Eosinophils % 5.1 Basophils % 0.6 Nucleated Red Blood 0.0 Cells % Immature Granulocytes 0.030 # Neutrophils # 5.6 Lymphocytes # 1.7 Monocytes # 0.8 Eosinophils # 0.4 Basophils # 0.1 Nucleated Red Blood 0.0 Cells # Sodium Level 141 Potassium Level 3.4 L Chloride Level 104 Carbon Dioxide Level 29 Anion Gap 8 Blood Urea Nitrogen 17 Creatinine 0.80 Est Glomerular > 60 Filtrat Rate mL/min Glucose Level 97 Calcium Level 8.1 L Phosphorus Level 4.4 Magnesium Level 2.0 Test 01/12/19 09:24 Bedside Glucose 110 Medications Medications Current Medications Nitroglycerin (Nitroglycerin (Sl Tab) 0.4 Mg) 1 tab Q5M PRN SL ANGINA; Start 01/11/19 at 01:30 Morphine Sulfate (morphine) 1 mg Q2H PRN IV PAIN; Start 01/11/19 at 01:30 Acetaminophen (Tylenol Tab) 650 mg Q6H PRN PO MILD PAIN LEVEL 1-3; Start 01/11/19 at 08:00 Atorvastatin Calcium (Lipitor) 80 mg QHS PO Last administered on 01/11/19at 21:40; Admin Dose 80 MG; Start 01/11/19 at 21:00 Ipratropium [place] (Atrovent Hfa) 2 puff Q4 INH Last administered on 01/11/19at 17:43; Admin Dose 2 PUFF; Start 01/11/19 at 09:00 Linagliptin (Tradjenta) 5 mg DAILY PO Last administered on 01/11/19at 08:41; Admin Dose 5 MG; Start 01/11/19 at 09:00 Amiodarone HCl (Cordarone) 200 mg DAILY PO Last administered on 01/11/19at 08:41; Admin Dose 200 MG; Start 01/11/19 at 09:00 Pantoprazole (Protonix Tab) 40 mg BID@06,18 PO Last administered on 01/12/19at 07:51; Admin Dose 40 MG; Start 01/11/19 at 18:00 Miscellaneous Information 1 ea NOTE XX ; Start 01/11/19 at 08:30 Glucose (Glutose) 15 gm Q15M PRN PO DECREASED GLUCOSE; Start 01/11/19 at 08:30 Glucose (Glutose) 22.5 gm Q15M PRN PO DECREASED GLUCOSE; Start 01/11/19 at 08:30 Dextrose (D50w Syringe) 25 ml Q15M PRN IV DECREASED GLUCOSE; Start 01/11/19 at 08:30 Dextrose (D50w Syringe) 50 ml Q15M PRN IV DECREASED GLUCOSE; Start 01/11/19 at 08:30 Glucagon (Glucagen) 1 mg Q15M PRN IM DECREASED GLUCOSE; Start 01/11/19 at 08:30 Glucose (Glutose) 15 gm Q15M PRN BUCCAL DECREASED GLUCOSE; Start 01/11/19 at 08:30 Furosemide (Lasix) 40 mg BID DIURETICS PO Last administered on 01/12/19at 07:53; Admin Dose 40 MG; Start 01/11/19 at 18:00 Dextrose/Sodium Chloride 1,000 ml @ 50 mls/hr Q20H IV Last administered on 01/12/19at 00:23; Admin Dose 50 MLS/HR; Start 01/12/19 at 00:00 Diagnostic Test (Pha) (Accu-Chek) 1 ea Q4 XX Last administered on 01/12/19at 09:25; Admin Dose 1 EA; Start 01/12/19 at 01:00 Insulin Aspart (Novolog Insulin Pen) NOVOLOG *MILD* ALGORI... Q4 SC ; Start 01/12/19 at 01:00 Potassium Chloride 100 ml @ 50 mls/hr Q2H IVPB Last administered on 01/12/19at 09:25; Admin Dose 50 MLS/HR; Start 01/12/19 at 08:30; Stop 01/12/19 at 12:29 VANESA RUIZ Jan 12, 2019 09:51
--- NOTE | 2019-01-12 13:52 | CONS ---
Consult Date/Type/Reason Admit Date/Time Jan 10, 2019 at 18:12 Initial Consult Date 01/11/19 Type of Consult Pulmonary Requesting Provider: VANCE FELDMAN DO Date/Time of Note DATE: 01/12/19 TIME: 13:51 Subjective Patient status post thoracentesis yesterday appears comfortable. Objective Vital Signs Date Temp Pulse Resp B/P (MAP) Pulse Ox O2 O2 Flow FiO2 Time Delivery Rate 01/12/19 2.0 12:33 01/12/19 98.2 71 20 114/72 96 Nasal 11:22 (86) Cannula Intake and Output 01/11/19 01/11/19 01/12/19 1515:00 23:00 07:00 IntakeIntake Total 600 ml 350 ml OutputOutput Total 1000 ml 400 ml BalanceBalance -400 ml -50 ml Exam GENERAL: Well-nourished well-developed gentleman comfortable at rest VITAL SIGNS: per chart NECK: Supple. No JVD or lymphadenopathy. CARDIAC EXAM: S1, S2. No added sounds or murmurs. CHEST: Diminished air entry both bases ABDOMEN: Soft, nontender. No guarding or rebound. EXTREMITIES: No cyanosis, clubbing or edema. NEUROLOGIC: Generalized weakness. No focal deficits. Results/Medications Result Diagram: 01/12/1962101/12/19621 Results 24 hrs Laboratory Tests Test 01/11/19 16:45 01/11/19 17:36 01/11/19 21:42 01/12/19 00:21 Body Fluid Type PLEURAL FLUID Body Fluid Volume 1060.0 Body Fluid Color RED Body Fluid Appearance BLOODY Body Fluid WBC 3104 Body Fluid RBC (Auto) 900829 Body Fluid 11.4 Polynuclear WBCs (%) Body Fluid 88.6 Mononuclear Cells % Auto Body Fluid Glucose 98 Body Fluid Total 5.6 Protein Body Fluid 1046 Lactate Dehydrogenase Bedside Glucose 121 195 116 Test 01/12/19 05:40 01/12/19 06:22 01/12/19 09:24 01/12/19 12:25 Bedside Glucose 104 110 97 White Blood Count 8.6 Red Blood Count 3.01 L Hemoglobin 7.9 L Hematocrit 25.2 L Mean Corpuscular 83.7 Volume Mean Corpuscular 26.2 L Hemoglobin Mean Corpuscular 31.3 L Hemoglobin Concent Red Cell Distribution 16.1 H Width Platelet Count 264 Mean Platelet Volume 8.8 Immature Granulocytes 0.300 % Neutrophils % 64.7 Lymphocytes % 19.5 Monocytes % 9.8 Eosinophils % 5.1 Basophils % 0.6 Nucleated Red Blood 0.0 Cells % Immature Granulocytes 0.030 # Neutrophils # 5.6 Lymphocytes # 1.7 Monocytes # 0.8 Eosinophils # 0.4 Basophils # 0.1 Nucleated Red Blood 0.0 Cells # Sodium Level 141 Potassium Level 3.4 L Chloride Level 104 Carbon Dioxide Level 29 Anion Gap 8 Blood Urea Nitrogen 17 Creatinine 0.80 Est Glomerular > 60 Filtrat Rate mL/min Glucose Level 97 Calcium Level 8.1 L Phosphorus Level 4.4 Magnesium Level 2.0 Medications Current Medications Nitroglycerin (Nitroglycerin (Sl Tab) 0.4 Mg) 1 tab Q5M PRN SL ANGINA; Start 01/11/19 at 01:30 Morphine Sulfate (morphine) 1 mg Q2H PRN IV PAIN; Start 01/11/19 at 01:30 Acetaminophen (Tylenol Tab) 650 mg Q6H PRN PO MILD PAIN LEVEL 1-3; Start 01/11/19 at 08:00 Atorvastatin Calcium (Lipitor) 80 mg QHS PO Last administered on 01/11/19at 21:40; Admin Dose 80 MG; Start 01/11/19 at 21:00 Ipratropium [place] (Atrovent Hfa) 2 puff Q4 INH Last administered on 01/11/19at 17:43; Admin Dose 2 PUFF; Start 01/11/19 at 09:00 Linagliptin (Tradjenta) 5 mg DAILY PO Last administered on 01/11/19at 08:41; Admin Dose 5 MG; Start 01/11/19 at 09:00 Amiodarone HCl (Cordarone) 200 mg DAILY PO Last administered on 01/11/19at 08:41; Admin Dose 200 MG; Start 01/11/19 at 09:00 Pantoprazole (Protonix Tab) 40 mg BID@,18 PO Last administered on 01/12/19at 07:51; Admin Dose 40 MG; Start 01/11/19 at 18:00 Miscellaneous Information 1 ea NOTE XX ; Start 01/11/19 at 08:30 Glucose (Glutose) 15 gm Q15M PRN PO DECREASED GLUCOSE; Start 01/11/19 at 08:30 Glucose (Glutose) 22.5 gm Q15M PRN PO DECREASED GLUCOSE; Start 01/11/19 at 08:30 Dextrose (D50w Syringe) 25 ml Q15M PRN IV DECREASED GLUCOSE; Start 01/11/19 at 08:30 Dextrose (D50w Syringe) 50 ml Q15M PRN IV DECREASED GLUCOSE; Start 01/11/19 at 08:30 Glucagon (Glucagen) 1 mg Q15M PRN IM DECREASED GLUCOSE; Start 01/11/19 at 08:30 Glucose (Glutose) 15 gm Q15M PRN BUCCAL DECREASED GLUCOSE; Start 01/11/19 at 08:30 Furosemide (Lasix) 40 mg BID DIURETICS PO Last administered on 01/12/19at 07:53; Admin Dose 40 MG; Start 01/11/19 at 18:00 Diagnostic Test (Pha) (Accu-Chek) 1 ea Q4 XX Last administered on 01/12/19at 12:26; Admin Dose 1 EA; Start 01/12/19 at 01:00 Insulin Aspart (Novolog Insulin Pen) NOVOLOG *MILD* ALGORI... Q4 SC ; Start 01/12/19 at 01:00 Assessment/Plan Hospital Course (Demo Recall) MP: 1. Recurrent left pleural effusion--likely representing a post-CABG effusion. Status post thoracentesis 2. Respiratory insufficiency--likely 2/2 #1 +/- mild ADHF 3. CAD s/p CABG 4. Query COPD RECS: 1. Await pleural fluid studies 2. Encourage out of bed 3. Repeat chest x-ray in a.m. May require repeat thoracentesis. IVAN COOK MD, [facility] Jan 12, 2019 13:52
--- NOTE | 2019-01-12 15:29 | PREAC ---
Date/Time of Note Date/Time of Note DATE: 01/12/19 TIME: 15:28 Anesthesia Eval and Record Evaluation Time Pre-Procedure Interview DATE: 01/12/19 TIME: 15:28 Age 58 Sex male NPO: 8 hrs Preoperative diagnosis gi bleed Planned procedure egd Past Medical History Past Medical History: Includes Cardio: HTN, CABG, CHF Endo: Diabetes Pulm: COPD, Other (pleural effusion) Heme: Anemia Surgery & Anesthesia Issues No known issue Meds Anticoagulation: No Beta Bhavna within 24 hr: No Reason Beta Bhavna not given: Pt. not on B-Bhavna Reported Medications Umeclidinium Brm-Vilanterol Tr (Anoro Ellipta) 62.5-25 Mcg Disk.w.dev, 1 EACH INHALATION DAILY, #1 DISK 01/11/19 Ipratropium [place]* (Atrovent HFA*) 12.9 Gm Aer.w.adap, 2 PUFF INHALATION Q4H for SHORTNESS OF BREATH, #1 INHALER 01/11/19 Apixaban* (Eliquis*) 5 Mg Tablet, 5 MG PO BID TAKE 1 TABLET BY MOUTH TWICE A DAY 01/11/19 Linagliptin (TRADJENTA) 5 Mg Tablet, 5 MG PO DAILY TAKE 1 TABLET BY MOUTH EVERY DAY 01/11/19 Furosemide* (Furosemide*) 40 Mg Tablet, 40 MG PO BID for 30 Days, #60 TAKE 1 TABLET BY MOUTH TWICE A DAY 01/11/19 Diltiazem Hcl (DILTIAZEM 24HR ER) 120 Mg Cap.er.24h, 120 MG PO QAM TAKE ONE CAPSULE BY MOUTH EVERY DAY 01/11/19 Famotidine* (Famotidine*) 20 Mg Tablet, 20 MG PO BID, #60 TAB 11/04/18 Amiodarone Hcl* (Amiodarone Hcl*) 200 Mg Tablet, 200 MG PO DAILY, #30 TAB 11/04/18 Atorvastatin* (Atorvastatin*) 80 Mg Tablet, 80 MG PO QHS, #30 TAB 10/02/18 Acetaminophen* (Acetaminophen*) 650 Mg Tablet, 650 MG PO Q6H PRN for MILD PAIN LEVEL 1-3, #30 TAB 10/02/18 Discontinued Reported Medications Famotidine* (Famotidine*) 20 Mg Tablet, 20 MG PO BID, #60 TAB 11/04/18 Famotidine* (Famotidine*) 20 Mg Tablet, 20 MG PO BID, #60 TAB 11/04/18 Nicotine* (Nicotine* Patch) 7 mg/day Patch, 1 PATCH TD DAILY, PATCH 14MCG 10/02/18 Current Medications Nitroglycerin (Nitroglycerin (Sl Tab) 0.4 Mg) 1 tab Q5M PRN SL ANGINA; Start 01/11/19 at 01:30 Morphine Sulfate (morphine) 1 mg Q2H PRN IV PAIN; Start 01/11/19 at 01:30 Acetaminophen (Tylenol Tab) 650 mg Q6H PRN PO MILD PAIN LEVEL 1-3; Start 01/11/19 at 08:00 Atorvastatin Calcium (Lipitor) 80 mg QHS PO Last administered on 01/11/19at 21:40; Admin Dose 80 MG; Start 01/11/19 at 21:00 Ipratropium [place] (Atrovent Hfa) 2 puff Q4 INH Last administered on 01/11/19at 17:43; Admin Dose 2 PUFF; Start 01/11/19 at 09:00 Linagliptin (Tradjenta) 5 mg DAILY PO Last administered on 01/11/19at 08:41; Admin Dose 5 MG; Start 01/11/19 at 09:00 Amiodarone HCl (Cordarone) 200 mg DAILY PO Last administered on 01/11/19at 08:41; Admin Dose 200 MG; Start 01/11/19 at 09:00 Pantoprazole (Protonix Tab) 40 mg BID@06,18 PO Last administered on 01/12/19at 07:51; Admin Dose 40 MG; Start 01/11/19 at 18:00 Miscellaneous Information 1 ea NOTE XX ; Start 01/11/19 at 08:30 Glucose (Glutose) 15 gm Q15M PRN PO DECREASED GLUCOSE; Start 01/11/19 at 08:30 Glucose (Glutose) 22.5 gm Q15M PRN PO DECREASED GLUCOSE; Start 01/11/19 at 08:30 Dextrose (D50w Syringe) 25 ml Q15M PRN IV DECREASED GLUCOSE; Start 01/11/19 at 08:30 Dextrose (D50w Syringe) 50 ml Q15M PRN IV DECREASED GLUCOSE; Start 01/11/19 at 08:30 Glucagon (Glucagen) 1 mg Q15M PRN IM DECREASED GLUCOSE; Start 01/11/19 at 08:30 Glucose (Glutose) 15 gm Q15M PRN BUCCAL DECREASED GLUCOSE; Start 01/11/19 at 08:30 Furosemide (Lasix) 40 mg BID DIURETICS PO Last administered on 01/12/19at 07:53; Admin Dose 40 MG; Start 01/11/19 at 18:00 Diagnostic Test (Pha) (Accu-Chek) 1 ea Q4 XX Last administered on 01/12/19at 12:26; Admin Dose 1 EA; Start 01/12/19 at 01:00 Insulin Aspart (Novolog Insulin Pen) NOVOLOG *MILD* ALGORI... Q4 SC ; Start 01/12/19 at 01:00 Meds reviewed: Yes Allergies Coded Allergies: No Known Allergy (Unverified , 01/11/19) Allergies Reviewed: Yes Labs/Studies Labs Reviewed: Reviewed by anesthesiologist Result Diagram: 01/12/1962101/12/19 0622 Laboratory Tests 01/12/19 06:22 test: N/A Pre-procedure Exam Last vitals Vital Signs Date Temp Pulse Resp B/P (MAP) Pulse Ox O2 O2 Flow FiO2 Time Delivery Rate 01/12/19 98.0 64 18 115/68 94 Room Air 14:38 (84) 01/12/19 2.0 12:33 Airway: Adequate mouth opening Mallampati: Mallampati II Teeth: Abnormal (missing teeth) Lung: Normal Heart: Normal ASA Physical Status ASA physical status: 3 Emergency: None Planned Anesthetic General/MAC: MAC Pre-operative Attestations Prior to commencing anesthesia and surgery, the patient was re-evaluated, there was verification of: *The patient's identity *The results of appropriate recent lab work and preoperative vital signs *The above evaluation not changing prior to induction *Anesthetic plan, risk benefits, alternative and complications discussed with patient/family; questions answered; patient/family understands, accepts and wishes to proceed. SHAUN SAEED MD Jan 12, 2019 15:29
[2019-01-12] MEDS ORDERED: ETOMIDATE 20 MG INJ ONE (15:30)
[2019-01-12] MEDS ORDERED: PROPOFOL 20 ML ONE (15:30)
[2019-01-12] MEDS ORDERED: PEG/ELECTROLYTES 4L BTL PO STA (15:44)
[2019-01-12] MEDS ORDERED: MEPERIDINE 25 MG INJ IV PRN (16:00)
[2019-01-12] MEDS ORDERED: EPHEDrine 25 MG/5 ML SYG IV PRN (16:00)
[2019-01-12] MEDS ORDERED: EPINEPHrine 0.1 MG/ML SYG ONE (16:05)
[2019-01-12] MEDS ORDERED: PHENYLephrine (100 MCG/ML) 10ML SYG ONE (16:05)
--- NOTE | 2019-01-12 16:46 | GILP ---
DATE OF PROCEDURE: INDICATION: A 58-year-old male undergoing this procedure for GI bleeding manifested in the form of m elenotic stool and anemia requiring blood transfusion. The risk of the procedure, related and unrela [place] complications, anesthetic risks, alternatives were discussed. Informed consent was obtained. DESCRIPTION OF PROCEDURE: The patient was brought to the GI lab, sedated by Dr. Nieto. After optimum sedation, scope was passed with much ease into esophagus, which was grossly within normal limits. N o varicose vein identified. Z-line was regular for 38 cm. Stomach mucosa revealed gastritis. Multi ple biopsies taken for H. pylori infection. There was a subepithelial lesion, which was about 1.5 cm in diameter and constantly moving, tried to take a digging biopsy which was not possible because of constant movement underlying the mucosa. However, 2 biopsies were obtained. Scope was advanced furt her down into the duodenum first and second part was within normal limits. No lesion was identified. No altered blood was seen. Retroversion done, fundal mucosa was normal. Scope was straightened ou t and removed with good patient tolerance. IMPRESSION: 1. Subepithelial lesion 1.5 to 2 cm in diameter in the antrum, which was constantly moving. 2. Gastritis. 3. Normal esophagus. 4. Z line at 38 cm. 6. Normal duodenum. PLAN: Review histopathology. This finding cannot explain the GI bleeding. The patient will definit deloris need colonoscopy. Dictated By: FRANCES WEN MD PJ/NTS Conf#: [id number] DID#: [id number] CC: FRANKI MARTINEZ DO; FRANCES WEN MD;*EndCC*
[2019-01-12] MEDS: ATORVASTATIN 80 MG TAB PO SCH (20:43)
[2019-01-13] VITALS (18 sets, daily range): BP systolic 77–151; BP diastolic 44–82; PULSE 58–90; RESP 14–21
[2019-01-13] MEDS: DEXTROSE 5%-0.45% NACL 1,000 ML IV SCH ×2 (00:15→20:04)
[2019-01-13] MEDS: IPRATROPIUM (HFA) 12.9 GM INHALER INH SCH ×6 (01:00→20:03)
[2019-01-13] MEDS: INSULIN ASPART [NOVOLOG] 3 ML PEN SC SCH ×6 (01:00→20:03)
[2019-01-13] MEDS: ACCU-CHEK XX SCH ×6 (01:45→20:04)
[2019-01-13] MEDS: FUROSEMIDE 40 MG TAB PO SCH ×2 (05:43→17:56)
[2019-01-13] MEDS: PANTOPRAZOLE (EC) 40 MG TAB PO SCH ×2 (05:43→17:56)
[2019-01-13] MEDS: AMIODARONE 200 MG TAB PO SCH (08:29)
[2019-01-13] MEDS: LINAGLIPTIN 5 MG TABLET PO SCH (08:29)
--- NOTE | 2019-01-13 08:59 | PN ---
DATE: 01/13/2019 SUBJECTIVE: The patient is scheduled for colonoscopy today. The patient had EGD yesterday which suyapa wed evidence of gastritis. No other events noted. The patient's shortness of breath has improved. OBJECTIVE: VITAL SIGNS: Blood pressure is 111/70, respiration 18, pulse 65, temperature 97.7. HEENT: Head is normocephalic. NECK: Supple. HEART: Regular rate. LUNGS: Show diminished breath sounds at the base. ABDOMEN: Soft, nontender to palpation without rebound or guarding. EXTREMITIES: Negative for clubbing, cyanosis, no edema. DERMATOLOGIC: No rashes. MUSCULOSKELETAL: No joint effusion. NEUROLOGIC: No change in exam. ASSESSMENT AND PLAN: 1. GI bleed. The patient is status post EGD which showed evidence of gastritis but no active stigma ta of bleeding. The patient is pending colonoscopy. Continue to monitor. Continue PPI. 2. Anemia secondary to gastrointestinal bleed. The patient is status post blood transfusion. Hemog lobin level has been stable, continue to monitor. 3. Recurrent pleural effusions. The patient is status post thoracentesis. The etiology of the effu ernesto is unclear, possibly secondary to congestive heart failure, post-CABG. Other possibilities are being evaluated. Will follow up cytology. Follow up with pulmonary. 4. Acute respiratory failure. Etiology is multifactorial secondary to chronic obstructive pulmonary disease, exacerbation with pleural effusion, possible congestive heart failure. The patient is clin ically improving. Continue current medical management. 5. Acute and chronic heart failure. The patient is currently stable. Continue diuretic regimen. 6. History of HIT. 7. Coronary artery disease, status post coronary artery bypass graft. Continue medical management. 8. History of atrial fibrillation, currently in sinus rhythm. Continue amiodarone. Hold the Eliqui s at this time. Follow up with cardiology. 9. Diabetes. Continue Tradjenta and insulin sliding scale. 10. Hypertension. Continue current blood pressure regimen. 11. Hyperkalemia. Continue to monitor and replete 12. Gastrointestinal and deep venous thrombosis prophylaxis. Continue proton pump inhibitor and seq uential leg squeezers. Dictated By: VANCE FELDMAN DO NR/NTS Conf#: [id number] DID#: [id number] CC: VANESA RUIZ MD; FRANKI MARTINEZ DO;*EndCC*
--- NOTE | 2019-01-13 09:45 | PAC ---
Date/Time of Note Date/Time of Note DATE: 01/13/19 TIME: 09:45 Post-Anesthesia Notes Post-Anesthesia Note Last documented vital signs Vital Signs Date Temp Pulse Resp B/P (MAP) Pulse Ox O2 O2 Flow FiO2 Time Delivery Rate 01/13/19 97.5 71 16 151/75 95 Room Air 0945 (100) 01/13/19 2.0 08:13 Activity: WNL Respiratory function: WNL Cardiovascular function: WNL Mental status: Baseline Pain reasonably controlled: Yes Hydration appropriate: Yes Nausea/Vomiting absent: Yes TYRELL CAMACHO Jan 13, 2019 09:45
[2019-01-13] MEDS ORDERED: PHENYLephrine (100 MCG/ML) 10ML SYG ONE (09:53)
[2019-01-13] MEDS ORDERED: ALBUMIN HUMAN 5% 250 ML ONE (09:53)
[2019-01-13] MEDS ORDERED: hydrALAzine 20 MG INJ IV PRN (10:00)
[2019-01-13] MEDS ORDERED: FENTAnyl 50 MCG/ML VIAL IV PRN ×2 (10:00)
[2019-01-13] MEDS ORDERED: MEPERIDINE 25 MG INJ IV PRN (10:00)
[2019-01-13] MEDS ORDERED: DIPHENHYDRAMINE 50 MG INJ IV PRN (10:00)
[2019-01-13] MEDS ORDERED: ALBUTEROL 0.083% (NEB) 2.5 MG/3 ML AMP HHN PRN (10:00)
[2019-01-13] MEDS ORDERED: EPHEDrine 25 MG/5 ML SYG IV PRN ×2 (10:00)
[2019-01-13] MEDS ORDERED: LABETALOL HCL 20MG INJ IV PRN (10:00)
[2019-01-13] MEDS ORDERED: ONDANSETRON 4 MG INJ IV PRN ×2 (10:00)
[2019-01-13] MEDS ORDERED: ALBUMIN HUMAN 5% 250 ML IV PRN (10:00)
[2019-01-13] MEDS ORDERED: METOCLOPRAMIDE 10 MG INJ IV PRN (10:00)
[2019-01-13] MEDS ORDERED: LIDOCAINE 2% (SDV) 5 ML INJ ONE (10:47)
[2019-01-13] MEDS ORDERED: PROPOFOL 200 MG INJ ONE (10:47)
--- NOTE | 2019-01-13 10:59 | CONS ---
Consult Date/Type/Reason Admit Date/Time Jan 10, 2019 at 18:12 Initial Consult Date 01/11/19 Type of Consult Pulmonary Requesting Provider: VANCE FELDMAN DO Date/Time of Note DATE: 01/13/19 TIME: 10:58 Subjective Patient comfortable this morning mild exertional dyspnea. Chest x-ray shows left pleural effusion. Objective Vital Signs Date Temp Pulse Resp B/P (MAP) Pulse Ox O2 O2 Flow FiO2 Time Delivery Rate 01/13/19 65 126/76 10:39 (93) 01/13/19 21 93 Nasal 2.0 10:15 Cannula 01/13/19 98.3 09:41 Intake and Output 01/12/19 01/12/19 01/13/19 1515:00 23:00 07:00 IntakeIntake Total 200 ml 240 ml 1600 ml OutputOutput Total 750 ml 450 ml BalanceBalance -550 ml 240 ml 1150 ml Exam GENERAL: VITAL SIGNS: per chart NECK: Supple. No JVD or lymphadenopathy. CARDIAC EXAM: S1, S2. No added sounds or murmurs. CHEST: clear bilaterally, No added sounds, rales or wheezes ABDOMEN: Soft, nontender. No guarding or rebound. EXTREMITIES: No cyanosis, clubbing or edema. NEUROLOGIC: Generalized weakness. No focal deficits. Results/Medications Result Diagram: 01/13/19 0641 01/13/19 0641 Results 24 hrs Laboratory Tests Test 01/12/19 12:25 01/12/19 17:28 01/12/19 20:47 01/13/19 01:43 Bedside Glucose 97 98 102 100 Test 01/13/19 05:51 01/13/19 06:41 01/13/19 08:24 Bedside Glucose 103 103 White Blood Count 8.3 Red Blood Count 3.10 L Hemoglobin 8.2 L Hematocrit 26.1 L Mean Corpuscular Volume 84.2 Mean Corpuscular 26.5 L Hemoglobin Mean Corpuscular 31.4 L Hemoglobin Concent Red Cell Distribution 16.2 H Width Platelet Count 284 Mean Platelet Volume 8.7 Immature Granulocytes % 0.200 Neutrophils % 63.2 Lymphocytes % 20.5 Monocytes % 9.7 Eosinophils % 5.9 Basophils % 0.5 Nucleated Red Blood 0.0 Cells % Immature Granulocytes # 0.020 Neutrophils # 5.3 Lymphocytes # 1.7 Monocytes # 0.8 Eosinophils # 0.5 Basophils # 0.0 Nucleated Red Blood 0.0 Cells # Sodium Level 142 Potassium Level 3.5 Chloride Level 105 Carbon Dioxide Level 29 Anion Gap 8 Blood Urea Nitrogen 15 Creatinine 0.82 Est Glomerular Filtrat > 60 Rate mL/min Glucose Level 94 Calcium Level 8.3 L Phosphorus Level 3.8 Magnesium Level 1.9 Medications Current Medications Nitroglycerin (Nitroglycerin (Sl Tab) 0.4 Mg) 1 tab Q5M PRN SL ANGINA; Start 01/11/19 at 01:30 Morphine Sulfate (morphine) 1 mg Q2H PRN IV PAIN; Start 01/11/19 at 01:30 Acetaminophen (Tylenol Tab) 650 mg Q6H PRN PO MILD PAIN LEVEL 1-3; Start 01/11/19 at 08:00 Atorvastatin Calcium (Lipitor) 80 mg QHS PO Last administered on 01/12/19at 20:43; Admin Dose 80 MG; Start 01/11/19 at 21:00 Ipratropium [place] (Atrovent Hfa) 2 puff Q4 INH Last administered on 01/11/19at 17:43; Admin Dose 2 PUFF; Start 01/11/19 at 09:00 Linagliptin (Tradjenta) 5 mg DAILY PO Last administered on 01/11/19at 08:41; Admin Dose 5 MG; Start 01/11/19 at 09:00 Amiodarone HCl (Cordarone) 200 mg DAILY PO Last administered on 01/11/19at 08:41; Admin Dose 200 MG; Start 01/11/19 at 09:00 Pantoprazole (Protonix Tab) 40 mg BID@06,18 PO Last administered on 01/12/19at 17:41; Admin Dose 40 MG; Start 01/11/19 at 18:00 Miscellaneous Information 1 ea NOTE XX ; Start 01/11/19 at 08:30 Glucose (Glutose) 15 gm Q15M PRN PO DECREASED GLUCOSE; Start 01/11/19 at 08:30 Glucose (Glutose) 22.5 gm Q15M PRN PO DECREASED GLUCOSE; Start 01/11/19 at 08:30 Dextrose (D50w Syringe) 25 ml Q15M PRN IV DECREASED GLUCOSE; Start 01/11/19 at 08:30 Dextrose (D50w Syringe) 50 ml Q15M PRN IV DECREASED GLUCOSE; Start 01/11/19 at 08:30 Glucagon (Glucagen) 1 mg Q15M PRN IM DECREASED GLUCOSE; Start 01/11/19 at 08:30 Glucose (Glutose) 15 gm Q15M PRN BUCCAL DECREASED GLUCOSE; Start 01/11/19 at 08:30 Furosemide (Lasix) 40 mg BID DIURETICS PO Last administered on 01/12/19at 17:42; Admin Dose 40 MG; Start 01/11/19 at 18:00 Diagnostic Test (Pha) (Accu-Chek) 1 ea Q4 XX Last administered on 01/13/19at 08:29; Admin Dose 1 EA; Start 01/12/19 at 01:00 Insulin Aspart (Novolog Insulin Pen) NOVOLOG *MILD* ALGORI... Q4 SC ; Start 01/12/19 at 01:00 Dextrose/Sodium Chloride 1,000 ml @ 50 mls/hr Q20H IV Last administered on 01/13/19at 00:15; Admin Dose 50 MLS/HR; Start 01/13/19 at 00:00 Fentanyl (Sublimaze) 25 mcg PACU ORDER PRN IV MILD PAIN 1-3; Start 01/13/19 at 10:00; Stop 01/13/19 at 15:00 Fentanyl (Sublimaze) 50 mcg PACU ORDER PRN IV MOD PAIN 4-6; Start 01/13/19 at 10:00; Stop 01/13/19 at 15:00 Ondansetron HCl (Zofran Inj) 4 mg PACU ORDER PRN IV NAUSEA/VOMITING; Start 01/13/19 at 10:00; Stop 01/13/19 at 15:00 Metoclopramide HCl (Reglan) 10 mg PACU ORDER PRN IV NAUSEA/VOMITING; Start 01/13/19 at 10:00; Stop 01/13/19 at 15:00 Labetalol HCl (Labetalol) 5 mg PACU ORDER PRN IV HIGH BLOOD PRESSURE; Start 01/13/19 at 10:00; Stop 01/13/19 at 15:00 Hydralazine HCl (Apresoline) 5 mg PACU ORDER PRN IV HIGH BLOOD PRESSURE; Start 01/13/19 at 10:00; Stop 01/13/19 at 15:00 Ephedrine Sulfate 5 mg PACU ORDER PRN IV BLOOD PRESSURE SUPPORT; Start 01/13/19 at 10:00; Stop 01/13/19 at 15:00 Albuterol (Proventil 0.083% (Neb)) 2.5 mg PACU ORDER PRN HHN .WHEEZING; Start 01/13/19 at 10:00; Stop 01/13/19 at 15:00 Meperidine HCl (Demerol) 25 mg PACU ORDER PRN IV .RIGORS; Start 01/13/19 at 10:00; Stop 01/13/19 at 15:00 Diphenhydramine HCl (Benadryl) 25 mg PACU ORDER PRN IV .PRURITUS; Start 01/13/19 at 10:00; Stop 01/13/19 at 15:00 Ondansetron HCl (Zofran Inj) 4 mg PACU ORDER PRN IV NAUSEA/VOMITING; Start 01/13/19 at 10:00; Stop 01/13/19 at 16:00 Ephedrine Sulfate 5 mg PACU ORDER PRN IV BLOOD PRESSURE SUPPORT; Start 01/13/19 at 10:00; Stop 01/13/19 at 16:00 Albumin Human 250 ml @ 750 mls/hr PACU ORDER PRN IV BP SUPPORT Last administered on 01/13/19at 10:05; Admin Dose 750 MLS/HR; Start 01/13/19 at 10:00; Stop 01/13/19 at 16:00 Assessment/Plan Hospital Course (Demo Recall) MP: 1. Recurrent left pleural effusion--likely representing a post-CABG effusion. Status post thoracentesis 2. Respiratory insufficiency--likely 2/2 #1 +/- mild ADHF 3. CAD s/p CABG 4. Query COPD RECS: 1. Await pleural fluid studies 2. Encourage out of bed 3. Chest x-ray shows persistent pleural effusion possibly sympathetic in origin. Patient may benefit from chest tube placement with pleurodesis. We will discuss with thoracic surgery. IVAN COOK MD, [facility] Jan 13, 2019 10:59
[2019-01-13] MEDS: ATORVASTATIN 80 MG TAB PO SCH (20:03)
[2019-01-14] VITALS (7 sets, daily range): BP systolic 98–141; BP diastolic 55–72; PULSE 59–74; RESP 18–20
[2019-01-14] MEDS: IPRATROPIUM (HFA) 12.9 GM INHALER INH SCH ×6 (01:00→20:06)
[2019-01-14] MEDS: ACCUCHECK AT 2AM (Patients on SS coverage) XX SCH (01:28)
[2019-01-14] MEDS: PANTOPRAZOLE (EC) 40 MG TAB PO SCH ×2 (06:21→17:19)
[2019-01-14] MEDS: FUROSEMIDE 40 MG TAB PO SCH ×2 (06:21→17:18)
[2019-01-14] MEDS: Insulin NOVOLOG SS MILD Algorithm (SS with meals and bedtime) SC SCH ×4 (07:25→20:06)
[2019-01-14] MEDS ORDERED: INSULIN ASPART [NOVOLOG] 3 ML PEN SC SCH (07:25)
[2019-01-14] MEDS: LINAGLIPTIN 5 MG TABLET PO SCH (08:21)
[2019-01-14] MEDS: AMIODARONE 200 MG TAB PO SCH (08:23)
--- NOTE | 2019-01-14 08:49 | PN ---
DATE: 01/14/2019 SUBJECTIVE: The patient is stable. No events overnight. The patient had colonoscopy yesterday robby h found that patient had a poor prep, positive benign lesion noted. The patient is pending possible repeat colonoscopy. No other events noted. OBJECTIVE: VITAL SIGNS: Blood pressure 98/55, respirations 20, pulse 64, temperature 98.4. HEENT: Head is normocephalic. NECK: Supple. HEART: Regular rate. LUNGS: Show diminished breath sounds at the base. ABDOMEN: Soft, nontender to palpation without rebound or guarding. EXTREMITIES: Negative for clubbing, cyanosis, no edema. DERMATOLOGIC: No rashes. MUSCULOSKELETAL: No joint effusion. NEUROLOGIC: No change in exam. MEDICATIONS: The patient's medications have been reviewed. LABORATORY DATA: Has been reviewed. ASSESSMENT AND PLAN: 1. Acute gastrointestinal bleed. The patient is status post EGD, colonoscopy. The patient's EGD sh owed of gastritis. No evidence of stigmata of bleeding. The patient's colonoscopy was a poor prep. W e will continue to monitor. Continue PPI, monitor hemoglobin and hematocrit levels. 2. Anemia secondary to GI bleed. The patient is status post blood transfusion. Monitor H and H lev els. 3. Recurrent pleural effusion. The patient is status post thoracentesis. Etiology of effusion is u nclear, possibly secondary to congestive heart failure post-CABG versus other. Workup is ongoing. F ollow up with pulmonary. The possibility of a pleurodesis is a consideration. 4. Acute respiratory failure secondary to COPD exacerbation and congestive heart failure. Continue current diuretic regimen. Adjust diuretics as needed. 4. Chronic heart failure. Continue current diuretic regimen. 5. History of HIT. 6. Coronary artery disease, status post coronary artery bypass graft. Continue medical management. 7. Arrhythmia. The patient is currently in sinus rhythm. Continue amiodarone. Hold anticoagulatio n at this time. 8. Diabetes. Continue current insulin regimen. 9. Hypertension. Blood pressure well controlled. 10. , resolved. 11. Gastrointestinal and deep vein thrombosis prophylaxis. Continue proton pump inhibitor and seque ntial leg squeezers. Dictated By: VANCE EUGENE/MARC Conf#: [id number] DID#: [id number] CC: FRANKI MARTINEZ DO; VANESA RUIZ MD;*[facility]*
--- NOTE | 2019-01-14 11:35 | CONS ---
Consult Date/Type/Reason Admit Date/Time Jan 10, 2019 at 18:12 Initial Consult Date 01/11/19 Type of Consult Pulmonary Requesting Provider: VANCE FELDMAN DO Date/Time of Note DATE: 01/14/19 TIME: 11:34 Subjective Status post colonoscopy. Objective Vital Signs Date Temp Pulse Resp B/P (MAP) Pulse Ox O2 O2 Flow FiO2 Time Delivery Rate 01/14/19 98.4 66 20 118/70 92 Room Air 10:58 (86) 01/14/19 2.0 05:37 Intake and Output 01/13/19 01/13/19 01/14/19 1515:00 23:00 07:00 IntakeIntake Total 450 ml 600 ml 600 ml OutputOutput Total 1 ml BalanceBalance 450 ml 599 ml 600 ml Exam GENERAL: VITAL SIGNS: per chart NECK: Supple. No JVD or lymphadenopathy. CARDIAC EXAM: S1, S2. No added sounds or murmurs. CHEST: clear bilaterally, No added sounds, rales or wheezes ABDOMEN: Soft, nontender. No guarding or rebound. EXTREMITIES: No cyanosis, clubbing or edema. NEUROLOGIC: Generalized weakness. No focal deficits. Results/Medications Result Diagram: 01/14/19 0617 01/13/19 0641 Results 24 hrs Laboratory Tests Test 01/13/19 12:11 01/13/19 16:43 01/13/19 20:02 01/14/19 06:17 Bedside Glucose 97 95 114 White Blood Count 7.5 Red Blood Count 3.12 L Hemoglobin 7.9 L Hematocrit 26.0 L Mean Corpuscular Volume 83.3 Mean Corpuscular 25.3 L Hemoglobin Mean Corpuscular 30.4 L Hemoglobin Concent Red Cell Distribution 16.6 H Width Platelet Count 264 Mean Platelet Volume 8.7 Immature Granulocytes % 0.300 Neutrophils % 60.9 Lymphocytes % 23.2 Monocytes % 9.5 Eosinophils % 5.6 Basophils % 0.5 Nucleated Red Blood 0.0 Cells % Immature Granulocytes # 0.020 Neutrophils # 4.6 Lymphocytes # 1.7 Monocytes # 0.7 Eosinophils # 0.4 Basophils # 0.0 Nucleated Red Blood 0.0 Cells # Test 01/14/19 07:46 Bedside Glucose 110 Medications Current Medications Nitroglycerin (Nitroglycerin (Sl Tab) 0.4 Mg) 1 tab Q5M PRN SL ANGINA; Start 01/11/19 at 01:30 Morphine Sulfate (morphine) 1 mg Q2H PRN IV PAIN; Start 01/11/19 at 01:30 Acetaminophen (Tylenol Tab) 650 mg Q6H PRN PO MILD PAIN LEVEL 1-3; Start 01/11/19 at 08:00 Atorvastatin Calcium (Lipitor) 80 mg QHS PO Last administered on 01/13/19at 20: 03; Admin Dose 80 MG; Start 01/11/19 at 21:00 Ipratropium [place] (Atrovent Hfa) 2 puff Q4 INH Last administered on 01/13/19at 20:03; Admin Dose 2 PUFF; Start 01/11/19 at 09:00 Linagliptin (Tradjenta) 5 mg DAILY PO Last administered on 01/14/19at 08:21; Admin Dose 5 MG; Start 01/11/19 at 09:00 Amiodarone HCl (Cordarone) 200 mg DAILY PO Last administered on 01/14/19at 08:23; Admin Dose 200 MG; Start 01/11/19 at 09:00 Pantoprazole (Protonix Tab) 40 mg BID@,18 PO Last administered on 01/14/19at 06:21; Admin Dose 40 MG; Start 01/11/19 at 18:00 Miscellaneous Information 1 ea NOTE XX ; Start 01/11/19 at 08:30 Glucose (Glutose) 15 gm Q15M PRN PO DECREASED GLUCOSE; Start 01/11/19 at 08:30 Glucose (Glutose) 22.5 gm Q15M PRN PO DECREASED GLUCOSE; Start 01/11/19 at 08:30 Dextrose (D50w Syringe) 25 ml Q15M PRN IV DECREASED GLUCOSE; Start 01/11/19 at 08:30 Dextrose (D50w Syringe) 50 ml Q15M PRN IV DECREASED GLUCOSE; Start 01/11/19 at 08:30 Glucagon (Glucagen) 1 mg Q15M PRN IM DECREASED GLUCOSE; Start 01/11/19 at 08:30 Glucose (Glutose) 15 gm Q15M PRN BUCCAL DECREASED GLUCOSE; Start 01/11/19 at 08:30 Furosemide (Lasix) 40 mg BID DIURETICS PO Last administered on 01/14/19at 06:21; Admin Dose 40 MG; Start 01/11/19 at 18:00 Insulin Aspart (Novolog Insulin Pen) (Adult SC Insulin - Mild Algorithm)... AC MEALS AND BEDTIME SC ; Start 01/14/19 at 07:25 Diagnostic Test (Pha) (Accu-Chek) 1 ea 02 XX ; Start 01/14/19 at 02:00 Assessment/Plan Hospital Course (Demo Recall) MP: 1. Recurrent left pleural effusion--likely representing a post-CABG effusion. Status post thoracentesis 2. Respiratory insufficiency--likely 2/2 #1 +/- mild ADHF 3. CAD s/p CABG 4. Query COPD 5. Work-up for malignancy RECS: 1. Await pleural fluid studies 2. Encourage out of bed 3. Appreciate thoracic surgery evaluation. 4. Continue GI recommendations IV[facility] COOK MD, [facility] Jan 14, 2019 11:34
--- NOTE | 2019-01-14 14:08 | CONS ---
Assessment/Plan Assessment/Plan Assessment/Plan (Daily) IMPRESSION: 1. Severe anemia secondary to gastrointestinal blood loss. 2. Recurrent pleural effusion. 3. Respiratory insufficiency. The patient was on oxygen. 4. Congestive heart failure. 5. Coronary artery bypass graft. 6. Hypertension. 7. Diabetes mellitus. 8. Multiple colon polyps 9. Anemia Plan Patient is scheduled for colonoscopy tomorrow for the removal of the polyp Consultation Date/Type/Reason Admit Date/Time Jan 10, 2019 at 18:12 Initial Consult Date 01/11/19 Requesting Provider: VANCE FELDMAN DO Date/Time of Note DATE: 01/14/19 TIME: 14:07 24 HR Interval Summary Constitutional: no complaints, improved Exam/Review of Systems Exam Vitals Vital Signs Date Temp Pulse Resp B/P (MAP) Pulse Ox O2 O2 Flow FiO2 Time Delivery Rate 01/14/19 98.4 66 20 118/70 92 Room Air 10:58 (86) 01/14/19 2.0 05:37 Intake and Output 01/13/19 01/13/19 01/14/19 1515:00 23:00 07:00 IntakeIntake Total 450 ml 600 ml 600 ml OutputOutput Total 1 ml BalanceBalance 450 ml 599 ml 600 ml Constitutional: alert, oriented, well developed Psych: no complaints, nl mood/affect Head: normocephalic, atraumatic Eyes: nl conjunctiva, EOMI, nl lids, nl sclera, PERRL ENMT: nl external ears & nose, nl lips & teeth, nl nasal mucosa & septum Neck: supple, non-tender Respiratory: clear to auscultation, normal air movement Cardiovascular: regular rate and rhythm, nl pulses Gastrointestinal: soft, nl liver, spleen, non-tender Musculoskeletal: nl extremities to inspection, nl gait and stance Extremities: normal pulses Neurological: MANAGER BALANCE II-XII intact, nl mental status, nl speech, nl strength Skin: nl turgor; No rash or lesions Lymph: nl lymph nodes Results Result Diagram: 01/14/19 0617 01/13/19 0641 Results 24hrs Laboratory Tests Test 01/13/19 16:43 01/13/19 20:02 01/14/19 06:17 01/14/19 07:46 Bedside Glucose 95 114 110 White Blood Count 7.5 Red Blood Count 3.12 L Hemoglobin 7.9 L Hematocrit 26.0 L Mean Corpuscular Volume 83.3 Mean Corpuscular 25.3 L Hemoglobin Mean Corpuscular 30.4 L Hemoglobin Concent Red Cell Distribution 16.6 H Width Platelet Count 264 Mean Platelet Volume 8.7 Immature Granulocytes % 0.300 Neutrophils % 60.9 Lymphocytes % 23.2 Monocytes % 9.5 Eosinophils % 5.6 Basophils % 0.5 Nucleated Red Blood 0.0 Cells % Immature Granulocytes # 0.020 Neutrophils # 4.6 Lymphocytes # 1.7 Monocytes # 0.7 Eosinophils # 0.4 Basophils # 0.0 Nucleated Red Blood 0.0 Cells # Test 01/14/19 11:48 Bedside Glucose 96 Medications Medication Current Medications Nitroglycerin (Nitroglycerin (Sl Tab) 0.4 Mg) 1 tab Q5M PRN SL ANGINA; Start 01/11/19 at 01:30 Morphine Sulfate (morphine) 1 mg Q2H PRN IV PAIN; Start 01/11/19 at 01:30 Acetaminophen (Tylenol Tab) 650 mg Q6H PRN PO MILD PAIN LEVEL 1-3; Start 01/11/19 at 08:00 Atorvastatin Calcium (Lipitor) 80 mg QHS PO Last administered on 01/13/19at 20:03; Admin Dose 80 MG; Start 01/11/19 at 21:00 Ipratropium [place] (Atrovent Hfa) 2 puff Q4 INH Last administered on 01/13/19at 20:03; Admin Dose 2 PUFF; Start 01/11/19 at 09:00 Linagliptin (Tradjenta) 5 mg DAILY PO Last administered on 01/14/19at 08:21; Admin Dose 5 MG; Start 01/11/19 at 09:00 Amiodarone HCl (Cordarone) 200 mg DAILY PO Last administered on 01/14/19at 08:23; Admin Dose 200 MG; Start 01/11/19 at 09:00 Pantoprazole (Protonix Tab) 40 mg BID@18 PO Last administered on 01/14/19at 06:21; Admin Dose 40 MG; Start 01/11/19 at 18:00 Miscellaneous Information 1 ea NOTE XX ; Start 01/11/19 at 08:30 Glucose (Glutose) 15 gm Q15M PRN PO DECREASED GLUCOSE; Start 01/11/19 at 08:30 Glucose (Glutose) 22.5 gm Q15M PRN PO DECREASED GLUCOSE; Start 01/11/19 at 08:30 Dextrose (D50w Syringe) 25 ml Q15M PRN IV DECREASED GLUCOSE; Start 01/11/19 at 08:30 Dextrose (D50w Syringe) 50 ml Q15M PRN IV DECREASED GLUCOSE; Start 01/11/19 at 08:30 Glucagon (Glucagen) 1 mg Q15M PRN IM DECREASED GLUCOSE; Start 01/11/19 at 08:30 Glucose (Glutose) 15 gm Q15M PRN BUCCAL DECREASED GLUCOSE; Start 01/11/19 at 08:30 Furosemide (Lasix) 40 mg BID DIURETICS PO Last administered on 01/14/19at 06:21; Admin Dose 40 MG; Start 01/11/19 at 18:00 Insulin Aspart (Novolog Insulin Pen) (Adult SC Insulin - Mild Algorithm)... AC MEALS AND BEDTIME SC ; Start 01/14/19 at 07:25 Diagnostic Test (Pha) (Accu-Chek) 1 ea 02 XX ; Start 01/14/19 at 02:00 FRANCES WEN MD Jan 14, 2019 14:08
[2019-01-14] MEDS ORDERED: PEG/ELECTROLYTES 4L BTL PO ONE (16:00)
[2019-01-14] MEDS: ATORVASTATIN 80 MG TAB PO SCH (20:07)
[2019-01-15] VITALS (13 sets, daily range): BP systolic 97–136; BP diastolic 49–73; PULSE 60–73; RESP 16–20
[2019-01-15] MEDS: IPRATROPIUM (HFA) 12.9 GM INHALER INH SCH ×6 (01:00→21:00)
[2019-01-15] MEDS: ACCUCHECK AT 2AM (Patients on SS coverage) XX SCH (01:49)
[2019-01-15] MEDS: FUROSEMIDE 40 MG TAB PO SCH ×2 (06:10→17:29)
[2019-01-15] MEDS: PANTOPRAZOLE (EC) 40 MG TAB PO SCH ×2 (06:10→17:29)
[2019-01-15] MEDS: INSULIN ASPART [NOVOLOG] 3 ML PEN SC SCH ×5 (07:49→21:00)
--- NOTE | 2019-01-15 08:41 | PN ---
DATE: 01/15/2019 SUBJECTIVE: The patient is stable. The patient is pending a repeat colonoscopy. The patient had a full prep overnight. No other events noted. OBJECTIVE: VITAL SIGNS: Blood pressure is 107/65, pulse 63, respiration 18, temperature 98.2. HEENT: Head is normocephalic. NECK: Supple. HEART: Regular rate. LUNGS: Show diminished breath sounds at the base. ABDOMEN: Soft, nontender to palpation without rebound or guarding. EXTREMITIES: Negative for clubbing, cyanosis, no edema. DERMATOLOGIC: No rashes. MUSCULOSKELETAL: No joint effusion. NEUROLOGIC: No change in exam. MEDICATIONS: Have been reviewed. LABORATORY DATA: Has been reviewed. IMAGING STUDIES: Have been reviewed. ASSESSMENT AND PLAN: 1. Acute gastrointestinal bleed. The patient is status post EGD; showed evidence of gastritis. A r epeat colonoscopy is pending today. Continue proton pump inhibitor. Hemoglobin and hematocrit level s have been stable. 2. Anemia secondary to gastrointestinal bleed. Monitor hemoglobin and hematocrit levels. 3. Recurrent pleural effusion. The patient is status post thoracentesis. Etiology of the effusions unclear. Cytology is pending. The patient is to be evaluated by Dr. Irizarry, CT surgeon to consider possible pleurodesis. Will monitor closely. 4. Acute heart failure. Continue current diuretic regimen. 5. History of , monitor closely. 6. Coronary artery disease, status post coronary artery bypass disease. 7. Arrhythmia, currently stable. Continue amiodarone. Holding anticoagulation at this time. 8. Diabetes. Continue Tradjenta and insulin sliding scale. 9. Hypertension. Continue current blood pressure regimen. 10. Gastrointestinal and deep vein thrombosis prophylaxis. Dictated By: VANCE FELDMAN DO NR/NTS Conf#: [id number] DID#: [id number] CC: FRANKI MARTINEZ DO;*EndCC*
--- NOTE | 2019-01-15 10:26 | CONS ---
Assessment/Plan Assessment/Plan Assessment/Plan (Daily) Assessment and recommendations; 1. Patient with history of prior CABG and recurrent left pleural effusion admitted with shortness of breath status post left thoracentesis, 1 L of fluid was removed. Lung exam is fairly clear now. 2. Anemia. 3. History of cardiac arrhythmia and diabetes. Continue current supportive care. Patient scheduled for colonoscopy. Obtain follow-up chest x-ray in 48 hours. Patient possibly may require pleurodesis on the left side. Consultation Date/Type/Reason Admit Date/Time Jan 10, 2019 at 18:12 Initial Consult Date 01/11/19 Type of Consult Pulmonary Patient's condition is stable. Denies any shortness of breath, chest pain, coughing, wheezing. General exam; middle-aged male, awake alert, currently in no distress. Reason for Consultation H EENT exam; supple neck, no JVD. No lymphadenopathy. Midline trachea. No thyromegaly. Patient has multiple carious teeth. Chest exam; diminished but clear breath sounds. S1-S2 audible, no murmurs. There is a well-healed sternal scar. Abdomen exam; soft, mildly protuberant. Nontender. No organomegaly. Bowel sounds are audible. Extremity exam; no peripheral edema clubbing. 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 Requesting Provider: VANCE FELDMAN DO Date/Time of Note DATE: 01/15/19 TIME: 10:25 Exam/Review of Systems Exam Vitals Vital Signs Date Temp Pulse Resp B/P (MAP) Pulse Ox O2 O2 Flow FiO2 Time Delivery Rate 01/15/19 98.2 63 18 107/65 98 07:54 (79) 01/15/19 Room Air 04:21 01/14/19 2.0 05:37 Intake and Output 01/14/19 01/14/19 01/15/19 1515:00 23:00 07:00 IntakeIntake Total 600 ml 360 ml 3240 ml BalanceBalance 600 ml 360 ml 3240 ml Results Result Diagram: 01/15/19 0644 01/15/19 0644 Results 24hrs Laboratory Tests Test 01/14/19 11:48 01/14/19 17:17 01/14/19 20:06 01/15/19 06:44 Bedside Glucose 96 115 99 White Blood Count 6.8 Red Blood Count 3.35 L Hemoglobin 8.6 L Hematocrit 28.0 L Mean Corpuscular Volume 83.6 Mean Corpuscular 25.7 L Hemoglobin Mean Corpuscular 30.7 L Hemoglobin Concent Red Cell Distribution 16.5 H Width Platelet Count 296 Mean Platelet Volume 8.8 Immature Granulocytes % 0.400 Neutrophils % 61.9 Lymphocytes % 22.9 Monocytes % 9.7 Eosinophils % 4.7 Basophils % 0.4 Nucleated Red Blood 0.0 Cells % Immature Granulocytes # 0.030 Neutrophils # 4.2 Lymphocytes # 1.6 Monocytes # 0.7 Eosinophils # 0.3 Basophils # 0.0 Nucleated Red Blood 0.0 Cells # Sodium Level 142 Potassium Level 3.0 L Chloride Level 105 Carbon Dioxide Level 29 Anion Gap 8 Blood Urea Nitrogen 8 Creatinine 0.76 Est Glomerular Filtrat > 60 Rate mL/min Glucose Level 91 Calcium Level 8.4 Phosphorus Level 3.7 Magnesium Level 1.9 Test 01/15/19 07:43 Bedside Glucose 102 Medications Medication Current Medications Nitroglycerin (Nitroglycerin (Sl Tab) 0.4 Mg) 1 tab Q5M PRN SL ANGINA; Start 01/11/19 at 01:30 Morphine Sulfate (morphine) 1 mg Q2H PRN IV PAIN; Start 01/11/19 at 01:30 Acetaminophen (Tylenol Tab) 650 mg Q6H PRN PO MILD PAIN LEVEL 1-3; Start 01/11/19 at 08:00 Atorvastatin Calcium (Lipitor) 80 mg QHS PO Last administered on 01/14/19at 20:07; Admin Dose 80 MG; Start 01/11/19 at 21:00 Ipratropium [place] (Atrovent Hfa) 2 puff Q4 INH Last administered on 01/13/19at 20:03; Admin Dose 2 PUFF; Start 01/11/19 at 09:00 Linagliptin (Tradjenta) 5 mg DAILY PO Last administered on 01/14/19 08:21; Admin Dose 5 MG; Start 01/11/19 at 09:00 Amiodarone HCl (Cordarone) 200 mg DAILY PO Last administered on 01/14/19 08:23; Admin Dose 200 MG; Start 01/11/19 at 09:00 Pantoprazole (Protonix Tab) 40 mg BID@,18 PO Last administered on 01/15/19at 06:10; Admin Dose 40 MG; Start 01/11/19 at 18:00 Miscellaneous Information 1 ea NOTE XX ; Start 01/11/19 at 08:30 Glucose (Glutose) 15 gm Q15M PRN PO DECREASED GLUCOSE; Start 01/11/19 at 08:30 Glucose (Glutose) 22.5 gm Q15M PRN PO DECREASED GLUCOSE; Start 01/11/19 at 08:30 Dextrose (D50w Syringe) 25 ml Q15M PRN IV DECREASED GLUCOSE; Start 01/11/19 at 08:30 Dextrose (D50w Syringe) 50 ml Q15M PRN IV DECREASED GLUCOSE; Start 01/11/19 at 08:30 Glucagon (Glucagen) 1 mg Q15M PRN IM DECREASED GLUCOSE; Start 01/11/19 at 08:30 Glucose (Glutose) 15 gm Q15M PRN BUCCAL DECREASED GLUCOSE; Start 01/11/19 at 08:30 Furosemide (Lasix) 40 mg BID DIURETICS PO Last administered on 01/15/19at 06:10; Admin Dose 40 MG; Start 01/11/19 at 18:00 Diagnostic Test (Pha) (Accu-Chek) 1 ea 02 XX ; Start 01/14/19 at 02:00 Insulin Aspart (Novolog Insulin Pen) (Adult SC Insulin - Mild Algorithm)... Q4 SC ; Start 01/15/19 at 08:00 Potassium Chloride 100 ml @ 50 mls/hr Q2H IVPB ; Start 01/15/19 at 10:30; Stop 01/15/19 at 14:29; Status GLORIA GURADADO Jan 15, 2019 10:26
--- NOTE | 2019-01-15 10:59 | CONS ---
Assessment/Plan Assessment/Plan Hospital Course (Demo Recall) Dyspnea: likely combination of pleural effusion and anemia. Appears euvolemic on exam at this time. Improved after thoracentesis Recurrent pleural effusion: Raises the question of underlying malignancy with heavy smoking history. s/p thoracentesis 01/11. Cytology pending Anemia: No active bleeding. Hgb 6.8 on admission, On Eliquis/ASA as outpt. EGD showed gastritis. [place] showed a polyp Acute on chronic diastolic CHF: EF preserved. Euvolemic on my exam Paroxysmal atrial fibrillation/flutter: in sinus. Remains on amiodarone but probably should be d/c-ed with COPD. 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 No angina and trops negative H/o HIT HTN HL DM h/o Tobacco use -ok for repeat colonoscopy -hold Eliquis -restart ASA when cleared by GI -lasix 40mg BID -amiodarone 200mg PO daily -lipitor 80mg -hold diltiazem with borderline BP at times Consultation Date/Type/Reason Admit Date/Time Jan 10, 2019 at 18:12 Initial Consult Date 01/11/19 Type of Consult Cardiology Requesting Provider: VANCE FELDMAN DO Date/Time of Note DATE: 01/15/19 TIME: 10:57 24 HR Interval Summary Free Text/Dictation Colonoscopy yesterday reportedly with polyp with plans of removal today. Otherwise no issues. No complaints Exam/Review of Systems Vital Signs Vitals Vital Signs Date Temp Pulse Resp B/P (MAP) Pulse Ox O2 O2 Flow FiO2 Time Delivery Rate 01/15/19 98.2 63 18 107/65 98 07:54 (79) 01/15/19 Room Air 04:21 01/14/19 2.0 05:37 Intake and Output 01/14/19 01/14/19 01/15/19 1515:00 23:00 07:00 IntakeIntake Total 600 ml 360 ml 3240 ml BalanceBalance 600 ml 360 ml 3240 ml Exam Constitutional: alert, oriented Psych: no complaints, nl mood/affect Head: normocephalic, atraumatic Neck: No jvd Respiratory: diminished breath sounds (left base); No clear to auscultation Cardiovascular: regular rate and rhythm; No edema Gastrointestinal: soft, non-tender; No distended Neurological: nl mental status, nl speech Labs Result Diagram: 01/15/19 0644 01/15/19 0644 Results 24hrs Laboratory Tests Test 01/14/19 11:48 01/14/19 17:17 01/14/19 20:06 01/15/19 06:44 Bedside Glucose 96 115 99 White Blood Count 6.8 Red Blood Count 3.35 L Hemoglobin 8.6 L Hematocrit 28.0 L Mean Corpuscular Volume 83.6 Mean Corpuscular 25.7 L Hemoglobin Mean Corpuscular 30.7 L Hemoglobin Concent Red Cell Distribution 16.5 H Width Platelet Count 296 Mean Platelet Volume 8.8 Immature Granulocytes % 0.400 Neutrophils % 61.9 Lymphocytes % 22.9 Monocytes % 9.7 Eosinophils % 4.7 Basophils % 0.4 Nucleated Red Blood 0.0 Cells % Immature Granulocytes # 0.030 Neutrophils # 4.2 Lymphocytes # 1.6 Monocytes # 0.7 Eosinophils # 0.3 Basophils # 0.0 Nucleated Red Blood 0.0 Cells # Sodium Level 142 Potassium Level 3.0 L Chloride Level 105 Carbon Dioxide Level 29 Anion Gap 8 Blood Urea Nitrogen 8 Creatinine 0.76 Est Glomerular Filtrat > 60 Rate mL/min Glucose Level 91 Calcium Level 8.4 Phosphorus Level 3.7 Magnesium Level 1.9 Test 01/15/19 07:43 Bedside Glucose 102 Medications Medications Current Medications Nitroglycerin (Nitroglycerin (Sl Tab) 0.4 Mg) 1 tab Q5M PRN SL ANGINA; Start 01/11/19 at 01:30 Morphine Sulfate (morphine) 1 mg Q2H PRN IV PAIN; Start 01/11/19 at 01:30 Acetaminophen (Tylenol Tab) 650 mg Q6H PRN PO MILD PAIN LEVEL 1-3; Start 01/11/19 at 08:00 Atorvastatin Calcium (Lipitor) 80 mg QHS PO Last administered on 01/14/19at 20:07; Admin Dose 80 MG; Start 01/11/19 at 21:00 Ipratropium [place] (Atrovent Hfa) 2 puff Q4 INH Last administered on 01/13/19at 20:03; Admin Dose 2 PUFF; Start 01/11/19 at 09:00 Linagliptin (Tradjenta) 5 mg DAILY PO Last administered on 01/14/19at 08:21; Admin Dose 5 MG; Start 01/11/19 at 09:00 Amiodarone HCl (Cordarone) 200 mg DAILY PO Last administered on 01/14/19at 08:23; Admin Dose 200 MG; Start 01/11/19 at 09:00 Pantoprazole (Protonix Tab) 40 mg BID@06,18 PO Last administered on 01/15/19at 06:10; Admin Dose 40 MG; Start 01/11/19 at 18:00 Miscellaneous Information 1 ea NOTE XX ; Start 01/11/19 at 08:30 Glucose (Glutose) 15 gm Q15M PRN PO DECREASED GLUCOSE; Start 01/11/19 at 08:30 Glucose (Glutose) 22.5 gm Q15M PRN PO DECREASED GLUCOSE; Start 01/11/19 at 08:30 Dextrose (D50w Syringe) 25 ml Q15M PRN IV DECREASED GLUCOSE; Start 01/11/19 at 08:30 Dextrose (D50w Syringe) 50 ml Q15M PRN IV DECREASED GLUCOSE; Start 01/11/19 at 08:30 Glucagon (Glucagen) 1 mg Q15M PRN IM DECREASED GLUCOSE; Start 01/11/19 at 08:30 Glucose (Glutose) 15 gm Q15M PRN BUCCAL DECREASED GLUCOSE; Start 01/11/19 at 08:30 Furosemide (Lasix) 40 mg BID DIURETICS PO Last administered on 01/15/19at 06:10; Admin Dose 40 MG; Start 01/11/19 at 18:00 Diagnostic Test (Pha) (Accu-Chek) 1 ea 02 XX ; Start 01/14/19 at 02:00 Insulin Aspart (Novolog Insulin Pen) (Adult SC Insulin - Mild Algorithm)... Q4 SC ; Start 01/15/19 at 08:00 Potassium Chloride 100 ml @ 50 mls/hr Q2H IVPB ; Start 01/15/19 at 11:00; Stop 01/15/19 at 14:59 VANESA RUIZ Jan 15, 2019 10:59
[2019-01-15] MEDS ORDERED: PROPOFOL 40 ML ONE (11:56)
[2019-01-15] MEDS ORDERED: LIDOCAINE 100 MG SYRINGE ONE (11:56)
--- NOTE | 2019-01-15 11:56 | PREAC ---
Date/Time of Note Date/Time of Note DATE: 01/15/19 TIME: 11:52 Anesthesia Eval and Record Evaluation Time Pre-Procedure Interview DATE: 01/15/19 TIME: 11:52 Age 58 Sex male NPO: 8 hrs Preoperative diagnosis GI BLEEDING Planned procedure COLONOSCOPY Past Medical History Past Medical History: Includes Cardio: CAD, CHF Pulm: COPD Heme: Anemia Surgery & Anesthesia Issues No known issue Meds Anticoagulation: No Beta Bhavna within 24 hr: No Reason Beta Bhavna not given: Pt. not on B-Bhavna Reported Medications Umeclidinium Brm-Vilanterol Tr (Anoro Ellipta) 62.5-25 Mcg Disk.w.dev, 1 EACH INHALATION DAILY, #1 DISK 01/11/19 Ipratropium [place]* (Atrovent HFA*) 12.9 Gm Aer.w.adap, 2 PUFF INHALATION Q4H for SHORTNESS OF BREATH, #1 INHALER 01/11/19 Apixaban* (Eliquis*) 5 Mg Tablet, 5 MG PO BID TAKE 1 TABLET BY MOUTH TWICE A DAY 01/11/19 Linagliptin (TRADJENTA) 5 Mg Tablet, 5 MG PO DAILY TAKE 1 TABLET BY MOUTH EVERY DAY 01/11/19 Furosemide* (Furosemide*) 40 Mg Tablet, 40 MG PO BID for 30 Days, #60 TAKE 1 TABLET BY MOUTH TWICE A DAY 01/11/19 Diltiazem Hcl (DILTIAZEM 24HR ER) 120 Mg Cap.er.24h, 120 MG PO QAM TAKE ONE CAPSULE BY MOUTH EVERY DAY 01/11/19 Famotidine* (Famotidine*) 20 Mg Tablet, 20 MG PO BID, #60 TAB 11/04/18 Amiodarone Hcl* (Amiodarone Hcl*) 200 Mg Tablet, 200 MG PO DAILY, #30 TAB 11/04/18 Atorvastatin* (Atorvastatin*) 80 Mg Tablet, 80 MG PO QHS, #30 TAB 10/02/18 Acetaminophen* (Acetaminophen*) 650 Mg Tablet, 650 MG PO Q6H PRN for MILD PAIN LEVEL 1-3, #30 TAB 10/02/18 Discontinued Reported Medications Famotidine* (Famotidine*) 20 Mg Tablet, 20 MG PO BID, #60 TAB 11/04/18 Famotidine* (Famotidine*) 20 Mg Tablet, 20 MG PO BID, #60 TAB 11/04/18 Nicotine* (Nicotine* Patch) 7 mg/day Patch, 1 PATCH TD DAILY, PATCH 14MCG 10/02/18 Current Medications Nitroglycerin (Nitroglycerin (Sl Tab) 0.4 Mg) 1 tab Q5M PRN SL ANGINA; Start 01/11/19 at 01:30 Morphine Sulfate (morphine) 1 mg Q2H PRN IV PAIN; Start 01/11/19 at 01:30 Acetaminophen (Tylenol Tab) 650 mg Q6H PRN PO MILD PAIN LEVEL 1-3; Start 01/11/19 at 08:00 Atorvastatin Calcium (Lipitor) 80 mg QHS PO Last administered on 01/14/19at 20:07; Admin Dose 80 MG; Start 01/11/19 at 21:00 Ipratropium [place] (Atrovent Hfa) 2 puff Q4 INH Last administered on 01/13/19at 20:03; Admin Dose 2 PUFF; Start 01/11/19 at 09:00 Linagliptin (Tradjenta) 5 mg DAILY PO Last administered on 01/14/19at 08:21; Admin Dose 5 MG; Start 01/11/19 at 09:00 Amiodarone HCl (Cordarone) 200 mg DAILY PO Last administered on 01/14/19at 08:23; Admin Dose 200 MG; Start 01/11/19 at 09:00 Pantoprazole (Protonix Tab) 40 mg BID@06,18 PO Last administered on 01/15/19at 06:10; Admin Dose 40 MG; Start 01/11/19 at 18:00 Miscellaneous Information 1 ea NOTE XX ; Start 01/11/19 at 08:30 Glucose (Glutose) 15 gm Q15M PRN PO DECREASED GLUCOSE; Start 01/11/19 at 08:30 Glucose (Glutose) 22.5 gm Q15M PRN PO DECREASED GLUCOSE; Start 01/11/19 at 08:30 Dextrose (D50w Syringe) 25 ml Q15M PRN IV DECREASED GLUCOSE; Start 01/11/19 at 08:30 Dextrose (D50w Syringe) 50 ml Q15M PRN IV DECREASED GLUCOSE; Start 01/11/19 at 08:30 Glucagon (Glucagen) 1 mg Q15M PRN IM DECREASED GLUCOSE; Start 01/11/19 at 08:30 Glucose (Glutose) 15 gm Q15M PRN BUCCAL DECREASED GLUCOSE; Start 01/11/19 at 08:30 Furosemide (Lasix) 40 mg BID DIURETICS PO Last administered on 01/15/19at 06:10; Admin Dose 40 MG; Start 01/11/19 at 18:00 Diagnostic Test (Pha) (Accu-Chek) 1 ea 02 XX ; Start 01/14/19 at 02:00 Insulin Aspart (Novolog Insulin Pen) (Adult SC Insulin - Mild Algorithm)... Q4 SC ; Start 01/15/19 at 08:00 Potassium Chloride 100 ml @ 50 mls/hr Q2H IVPB ; Start 01/15/19 at 11:00; Stop 01/15/19 at 14:59 Meds reviewed: Yes Allergies Coded Allergies: No Known Allergy (Unverified , 01/11/19) Allergies Reviewed: Yes Labs/Studies Labs Reviewed: Reviewed by anesthesiologist Result Diagram: 01/15/19 0644 01/15/19 0644 Laboratory Tests 01/15/19 06:44 test: N/A Pre-procedure Exam Last vitals Vital Signs Date Temp Pulse Resp B/P (MAP) Pulse Ox O2 O2 Flow FiO2 Time Delivery Rate 01/15/19 98.9 61 16 97/63 (74) 95 Room Air 11:26 01/14/19 2.0 05:37 Airway: Adequate mouth opening, Adequate thyromental dist Mallampati: Mallampati II Teeth: Normal Lung: Normal Heart: Normal ASA Physical Status ASA physical status: 3 Emergency: E Planned Anesthetic General/MAC: MAC Planned Pain Management Parenteral pain med Pre-operative Attestations Prior to commencing anesthesia and surgery, the patient was re-evaluated, there was verification of: *The patient's identity *The results of appropriate recent lab work and preoperative vital signs *The above evaluation not changing prior to induction *Anesthetic plan, risk benefits, alternative and complications discussed with patient/family; questions answered; patient/family understands, accepts and wishes to proceed. Miky Lizarraga M.D. Jan 15, 2019 11:56
--- NOTE | 2019-01-15 12:53 | PAC ---
Date/Time of Note Date/Time of Note DATE: 01/15/19 TIME: 12:53 Post-Anesthesia Notes Post-Anesthesia Note Last documented vital signs Vital Signs Date Temp Pulse Resp B/P (MAP) Pulse Ox O2 O2 Flow FiO2 Time Delivery Rate 01/15/19 98.9 61 16 97/63 (74) 95 Room Air 11:26 01/14/19 2.0 05:37 Activity: WNL Respiratory function: WNL Cardiovascular function: WNL Mental status: Baseline Pain reasonably controlled: Yes Hydration appropriate: Yes Nausea/Vomiting absent: Yes Miky Lizarraga M.D. Jan 15, 2019 12:53
[2019-01-15] MEDS: AMIODARONE 200 MG TAB PO SCH (13:41)
[2019-01-15] MEDS: POTASSIUM CHLORIDE 100 ML IVPB SCH ×2 (13:41→17:29)
[2019-01-15] MEDS: LINAGLIPTIN 5 MG TABLET PO SCH (13:42)
[2019-01-15] MEDS: ATORVASTATIN 80 MG TAB PO SCH (21:07)
[2019-01-16 00:27] VITALS: BP 121/69; PULSE 72; RESP 18
[2019-01-16] MEDS: INSULIN ASPART [NOVOLOG] 3 ML PEN SC SCH ×4 (01:00→11:38)
[2019-01-16] MEDS: IPRATROPIUM (HFA) 12.9 GM INHALER INH SCH ×4 (01:00→11:38)
[2019-01-16] MEDS: ACCUCHECK AT 2AM (Patients on SS coverage) XX SCH (02:00)
[2019-01-16 03:45] VITALS: BP 109/60; PULSE 63; RESP 16
[2019-01-16] MEDS: PANTOPRAZOLE (EC) 40 MG TAB PO SCH (05:11)
[2019-01-16] MEDS: FUROSEMIDE 40 MG TAB PO SCH (05:11)
[2019-01-16 07:42] VITALS: BP 109/71; PULSE 73; RESP 18
[2019-01-16] MEDS: LINAGLIPTIN 5 MG TABLET PO SCH (08:03)
[2019-01-16] MEDS: AMIODARONE 200 MG TAB PO SCH (08:03)
--- NOTE | 2019-01-16 08:37 | CONS ---
Assessment/Plan Assessment/Plan Assessment/Plan (Daily) IMPRESSION: 1. Severe anemia secondary to gastrointestinal blood loss. 2. Recurrent pleural effusion. 3. Respiratory insufficiency. The patient was on oxygen. 4. Congestive heart failure. 5. Coronary artery bypass graft. 6. Hypertension. 7. Diabetes mellitus. 8. Multiple colon polyps 9. Anemia Plan pt needs capsule endoscopy as OP to look for AVM in small bowel resume aspirin after 7 days Consultation Date/Type/Reason Admit Date/Time Jan 10, 2019 at 18:12 Initial Consult Date 01/11/19 Requesting Provider: VANCE FELDMAN DO Date/Time of Note DATE: 01/16/19 TIME: 08:36 24 HR Interval Summary Constitutional: no complaints, improved Exam/Review of Systems Exam Vitals Vital Signs Date Temp Pulse Resp B/P (MAP) Pulse Ox O2 O2 Flow FiO2 Time Delivery Rate 01/16/19 98.0 73 18 109/71 98 07:42 (84) 01/16/19 Room Air 03:45 01/16/19 21 02:57 01/15/19 19:10 Intake and Output 01/15/19 01/15/19 01/16/19 1515:00 23:00 07:00 IntakeIntake Total 0 ml 440 ml 300 ml BalanceBalance 0 ml 440 ml 300 ml Constitutional: alert, oriented, well developed Psych: no complaints, nl mood/affect Head: normocephalic, atraumatic Eyes: nl conjunctiva, EOMI, nl lids, nl sclera, PERRL ENMT: nl external ears & nose, nl lips & teeth, nl nasal mucosa & septum Neck: supple, non-tender Respiratory: clear to auscultation, normal air movement Cardiovascular: regular rate and rhythm, nl pulses Gastrointestinal: soft, nl liver, spleen, non-tender Musculoskeletal: nl extremities to inspection, nl gait and stance Extremities: normal pulses 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, nl mental status, nl speech, nl strength Skin: nl turgor; No rash or lesions Lymph: nl lymph nodes Results Result Diagram: 01/16/19 0636 01/16/19 0636 Results 24hrs Laboratory Tests Test 01/15/19 11:40 01/15/19 13:40 01/15/19 17:26 01/15/19 20:29 Bedside Glucose 105 89 135 130 Test 01/16/19 01:23 01/16/19 05:09 01/16/19 06:36 01/16/19 08:00 Bedside Glucose 147 113 110 White Blood Count 6.8 Red Blood Count 3.25 L Hemoglobin 8.4 L Hematocrit 27.4 L Mean Corpuscular Volume 84.3 Mean Corpuscular 25.8 L Hemoglobin Mean Corpuscular 30.7 L Hemoglobin Concent Red Cell Distribution 16.3 H Width Platelet Count 266 Mean Platelet Volume 8.7 Immature Granulocytes % 0.300 Neutrophils % 64.5 Lymphocytes % 21.4 Monocytes % 9.3 Eosinophils % 4.1 Basophils % 0.4 Nucleated Red Blood 0.0 Cells % Immature Granulocytes # 0.020 Neutrophils # 4.4 Lymphocytes # 1.5 Monocytes # 0.6 Eosinophils # 0.3 Basophils # 0.0 Nucleated Red Blood 0.0 Cells # Sodium Level 144 Potassium Level 3.3 L Chloride Level 105 Carbon Dioxide Level 31 Anion Gap 8 Blood Urea Nitrogen 10 Creatinine 0.79 Est Glomerular Filtrat > 60 Rate mL/min Glucose Level 98 Calcium Level 8.5 Phosphorus Level 4.5 Magnesium Level 1.7 Medications Medication Current Medications Nitroglycerin (Nitroglycerin (Sl Tab) 0.4 Mg) 1 tab Q5M PRN SL ANGINA; Start 01/11/19 at 01:30 Morphine Sulfate (morphine) 1 mg Q2H PRN IV PAIN; Start 01/11/19 at 01:30 Acetaminophen (Tylenol Tab) 650 mg Q6H PRN PO MILD PAIN LEVEL 1-3; Start 01/11/19 at 08:00 Atorvastatin Calcium (Lipitor) 80 mg QHS PO Last administered on 01/15/19at 21:07; Admin Dose 80 MG; Start 01/11/19 at 21:00 Ipratropium [place] (Atrovent Hfa) 2 puff Q4 INH Last administered on 01/13/19at 20:03; Admin Dose 2 PUFF; Start 01/11/19 at 09:00 Linagliptin (Tradjenta) 5 mg DAILY PO Last administered on 01/16/19at 08:03; Admin Dose 5 MG; Start 01/11/19 at 09:00 Amiodarone HCl (Cordarone) 200 mg DAILY PO Last administered on 01/16/19at 08:03; Admin Dose 200 MG; Start 01/11/19 at 09:00 Pantoprazole (Protonix Tab) 40 mg BID@06,18 PO Last administered on 01/16/19at 05:11; Admin Dose 40 MG; Start 01/11/19 at 18:00 Miscellaneous Information 1 ea NOTE XX ; Start 01/11/19 at 08:30 Glucose (Glutose) 15 gm Q15M PRN PO DECREASED GLUCOSE; Start 01/11/19 at 08:30 Glucose (Glutose) 22.5 gm Q15M PRN PO DECREASED GLUCOSE; Start 01/11/19 at 08:30 Dextrose (D50w Syringe) 25 ml Q15M PRN IV DECREASED GLUCOSE; Start 01/11/19 at 0 8:30 Dextrose (D50w Syringe) 50 ml Q15M PRN IV DECREASED GLUCOSE; Start 01/11/19 at 08:30 Glucagon (Glucagen) 1 mg Q15M PRN IM DECREASED GLUCOSE; Start 01/11/19 at 08:30 Glucose (Glutose) 15 gm Q15M PRN BUCCAL DECREASED GLUCOSE; Start 01/11/19 at 08:30 Furosemide (Lasix) 40 mg BID DIURETICS PO Last administered on 01/16/19at 05:11; Admin Dose 40 MG; Start 01/11/19 at 18:00 Diagnostic Test (Pha) (Accu-Chek) 1 ea 02 XX ; Start 01/14/19 at 02:00 Insulin Aspart (Novolog Insulin Pen) (Adult SC Insulin - Mild Algorithm)... Q4 SC ; Start 01/15/19 at 08:00 FRANCES WEN MD Jan 16, 2019 08:37
[2019-01-16] MEDS ORDERED: POTASSIUM CHLORIDE (SR) 20 MEQ TAB PO STA (09:18)
[2019-01-16 11:58] VITALS: BP 106/65; PULSE 63; RESP 18
== END 2019-01-16 13:30 | disposition home or self-care (01) | DRG 377 ==
LOC: E/R 12:51 → TEL 18:12
PROVIDERS: ADMIT Internal Medicine Nephrology; ATTEND Internal Medicine Nephrology
PROC: 30233N1 Transfusion of Nonautologous Red Blood Cells into Peripheral Vein, Percutaneous Approach (ICD-10-PCS; principal; 2019-01-10)
PROC: 0W9B3ZX Drainage of Left Pleural Cavity, Percutaneous Approach, Diagnostic (ICD-10-PCS; 2019-01-11)
PROC: 0DB68ZX Excision of Stomach, Via Natural or Artificial Opening Endoscopic, Diagnostic (ICD-10-PCS; 2019-01-13)
PROC: 0DBK8ZX Excision of Ascending Colon, Via Natural or Artificial Opening Endoscopic, Diagnostic (ICD-10-PCS; 2019-01-15)
PROC: 0DBL8ZX Excision of Transverse Colon, Via Natural or Artificial Opening Endoscopic, Diagnostic (ICD-10-PCS; 2019-01-15)
PROC: 0DBM8ZX Excision of Descending Colon, Via Natural or Artificial Opening Endoscopic, Diagnostic (ICD-10-PCS; 2019-01-15)
DX: K92.2 Gastrointestinal hemorrhage, unspecified (principal); J96.00 Acute respiratory failure, unspecified whether with hypoxia or hypercapnia; I50.33 Acute on chronic diastolic (congestive) heart failure; J90 Pleural effusion, not elsewhere classified; I48.92 Unspecified atrial flutter; D62 Acute posthemorrhagic anemia; D69.6 Thrombocytopenia, unspecified; I48.2 Chronic atrial fibrillation; D75.82 Heparin induced thrombocytopenia (HIT); I11.0 Hypertensive heart disease with heart failure; E11.9 Type 2 diabetes mellitus without complications; D64.9 Anemia, unspecified; K92.1 Melena; I25.10 Atherosclerotic heart disease of native coronary artery without angina pectoris; E66.9 Obesity, unspecified; Z68.31 Body mass index [BMI] 31.0-31.9, adult; J44.9 Chronic obstructive pulmonary disease, unspecified; E78.5 Hyperlipidemia, unspecified; K29.70 Gastritis, unspecified, without bleeding; Z79.4 Long term (current) use of insulin; Z87.891 Personal history of nicotine dependence; Z95.1 Presence of aortocoronary bypass graft
CPT/HCPCS: 36415; 36430; 71045; 76942; 80048; 80076; 82270; 82945; 82962; 83615; 83735; 84100; 84157; 84484; 85025; 85610; 85730; 86850; 86900; 86901; 86920; 88104; 88305; 89051; 93005; J0171; J1200; J1815; J1940; J2001; J2060; J2370; J3480; J7040; J7042; P9016; P9045

== ENCOUNTER 2019-02-25 05:47 | Inpatient (IN) | payer OTHER ==
[2019-02-25] VITALS (23 sets, daily range): BP systolic 88–158; BP diastolic 59–94; PULSE 78–108; RESP 16–32; Ht 177.8 cm; Wt 102.0 kg
[~2019-02-25] VITALS: Ht 177.8 cm; Wt 102.0 kg
[~2019-02-25 05:47] MED LIST changes: +ATRO INHALATION; +FURO40TA4 PO; +LINA5TAB PO; -NICO-544 TD; +UMEC1DIS INHALATION
[2019-02-25] MEDS ORDERED: ALBUTEROL 0.5% (NEB) 2.5 MG/0.5 ML AMP INH ONE (06:02)
[2019-02-25] MEDS ORDERED: IPRATROPIUM (NEB) 0.5 MG/2.5 ML AMP INH ONE (06:02)
[2019-02-25] MEDS ORDERED: METHYLPREDNISOLONE 125 MG INJ IV ONE (06:02)
[2019-02-25] MEDS ORDERED: SOD CHLORIDE 0.9% 500 ML IV STA (06:17)
[2019-02-25] MEDS ORDERED: CEFEPIME 2GM/50 ML (PMX) 50 ML IVPB STA (06:35)
[2019-02-25] MEDS ORDERED: VANCOMYCIN 1 GM (PMX) 250 ML IVPB ONE (07:00)
[2019-02-25] MEDS ORDERED: SOD CHLORIDE 0.9% 0 ML IV ONE (07:22)
[2019-02-25] MEDS ORDERED: ACETAMINOPHEN 325 MG TAB PO PRN (08:30)
[2019-02-25] MEDS ORDERED: FUROSEMIDE 40 MG TAB PO SCH (09:00)
[2019-02-25] MEDS: FAMOTIDINE 20 MG TAB PO SCH ×2 (09:52→21:41)
[2019-02-25] MEDS: AMIODARONE 200 MG TAB PO SCH (09:53)
[2019-02-25] MEDS: LINAGLIPTIN 5 MG TABLET PO SCH (09:53)
[2019-02-25] MEDS ORDERED: SOD CHLORIDE 0.9% 500 ML IV ONE (11:30)
[2019-02-25] MEDS: ACCU-CHEK XX SCH ×2 (11:30→21:00)
[2019-02-25] MEDS: IPRATROPIUM (HFA) 12.9 GM INHALER INH SCH ×4 (12:50→22:15)
[2019-02-25] MEDS: SOD CHLORIDE 0.9% 1,000 ML IV SCH ×2 (12:50→20:16)
[2019-02-25] MEDS ORDERED: VANCOMYCIN IV PER PHARMACY XX SCH (13:00)
[2019-02-25] MEDS ORDERED: VANCOMYCIN 750 MG (PMX) 250 ML IVPB SCH (14:30)
[2019-02-25] MEDS ORDERED: ETOMIDATE 20 MG INJ ONE (15:00)
[2019-02-25] MEDS ORDERED: ROCURONIUM 50 MG INJ ONE (15:00)
[2019-02-25] MEDS ORDERED: PROPOFOL 100 ML IV STA (15:15)
[2019-02-25] MEDS ORDERED: ROCURONIUM 50 MG INJ IV ONE (15:30)
[2019-02-25] MEDS ORDERED: ETOMIDATE 20 MG INJ IV ONE (15:30)
[2019-02-25] MEDS ORDERED: FENTAnyl (DRIP) 1000 mcg/100mL 100 ML IV ONE (15:30)
[2019-02-25] MEDS ORDERED: SOD CHLORIDE 0.9% 100 ML ONE (16:01)
[2019-02-25] MEDS ORDERED: IOHEXOL 300MG/ML 150 ML BTL ONE (16:01)
[2019-02-25] MEDS: CEFEPIME 1GM/50 ML (PMX) 50 ML IVPB SCH (20:16)
[2019-02-25] MEDS ORDERED: NA BICARBONATE 8.4% 50 ML SYG IV ONE (21:30)
[2019-02-25] MEDS: ATORVASTATIN 80 MG TAB PO SCH (21:41)
[2019-02-25] MEDS: PROPOFOL 100 ML IV SCH (21:54)
[2019-02-26] VITALS (94 sets, daily range): BP systolic 84–122; BP diastolic 54–78; PULSE 58–78; RESP 12–28
[2019-02-26] MEDS: NORepinephrine 8MG/250 ML (PMX 250 ML IV SCH (00:09)
[2019-02-26] MEDS: PROPOFOL 100 ML IV SCH ×7 (00:56→22:23)
[2019-02-26] MEDS: IPRATROPIUM (HFA) 12.9 GM INHALER INH SCH ×6 (00:58→21:08)
[2019-02-26] MEDS ORDERED: MAGNESIUM SULFATE 2 GM/50 ML 50 ML IVPB ONE (07:30)
[2019-02-26] MEDS: SOD CHLORIDE 0.9% 1,000 ML IV SCH (07:55)
[2019-02-26] MEDS: ACCU-CHEK XX SCH ×4 (07:56→20:33)
[2019-02-26] MEDS: INSULIN ASPART [NOVOLOG] 3 ML PEN SC SCH ×4 (07:58→20:33)
[2019-02-26] MEDS: VANCOMYCIN 750 MG (PMX) 250 ML IVPB SCH ×2 (08:00→20:28)
[2019-02-26] MEDS: FAMOTIDINE 20 MG TAB PO SCH ×2 (10:12→20:28)
[2019-02-26] MEDS: AMIODARONE 200 MG TAB PO SCH (10:13)
[2019-02-26] MEDS: LINAGLIPTIN 5 MG TABLET PO SCH (10:27)
[2019-02-26] MEDS: CEFEPIME 1GM/50 ML (PMX) 50 ML IVPB SCH ×2 (10:33→20:28)
[2019-02-26] MEDS: FENTAnyl (DRIP) 1000 mcg/100mL 100 ML IV SCH (13:09)
[2019-02-26] MEDS ORDERED: LIDOCAINE 1% (MPF) 5 ML VIAL ONE (19:31)
[2019-02-26] MEDS: ATORVASTATIN 80 MG TAB PO SCH (20:28)
[2019-02-27] VITALS (106 sets, daily range): BP systolic 85–170; BP diastolic 54–103; PULSE 53–88; RESP 0–21
[2019-02-27] MEDS: IPRATROPIUM (HFA) 12.9 GM INHALER INH SCH ×6 (01:17→21:27)
[2019-02-27] MEDS: PROPOFOL 100 ML IV SCH ×3 (01:28→18:32)
[2019-02-27] MEDS: SOD CHLORIDE 0.9% 1,000 ML IV SCH (01:28)
[2019-02-27] MEDS: NORepinephrine 8MG/250 ML (PMX 250 ML IV SCH (06:16)
[2019-02-27] MEDS: FENTAnyl (DRIP) 1000 mcg/100mL 100 ML IV SCH (06:18)
[2019-02-27] MEDS: POTASSIUM CHLORIDE 50 ML IVPB SCH ×3 (07:20→10:53)
[2019-02-27] MEDS: INSULIN ASPART [NOVOLOG] 3 ML PEN SC SCH ×4 (09:00→20:57)
[2019-02-27] MEDS: AMIODARONE 200 MG TAB PO SCH (09:00)
[2019-02-27] MEDS: VANCOMYCIN 750 MG (PMX) 250 ML IVPB SCH ×2 (09:15→20:38)
[2019-02-27] MEDS: CEFEPIME 1GM/50 ML (PMX) 50 ML IVPB SCH ×2 (09:16→20:38)
[2019-02-27] MEDS: LINAGLIPTIN 5 MG TABLET PO SCH (09:18)
[2019-02-27] MEDS: FAMOTIDINE 20 MG TAB PO SCH (09:18)
[2019-02-27] MEDS ORDERED: DEXTROSE 50% 50 ML SYRINGE IV PRN ×2 (10:30)
[2019-02-27] MEDS ORDERED: GLUCOSE GEL 15 GRAM TUBE PO PRN ×2 (10:30)
[2019-02-27] MEDS ORDERED: GLUCOSE GEL 15 GRAM TUBE BUCCAL PRN (10:30)
[2019-02-27] MEDS ORDERED: GLUCAGON 1 MG INJ IM PRN (10:30)
[2019-02-27] MEDS: MIDAZOLAM (DRIP) 50 mg/50 mL 50 ML IV SCH ×2 (12:34→18:31)
[2019-02-27] MEDS: ATORVASTATIN 80 MG TAB NGT SCH (20:38)
[2019-02-27] MEDS: FAMOTIDINE 20 MG TAB NGT SCH (20:51)
[2019-02-27] MEDS ORDERED: POTASSIUM CHLORIDE 50 ML IVPB ONE (21:30)
[2019-02-27] MEDS ORDERED: SOD CHLORIDE 0.9% 1,000 ML IV SCH (21:30)
[2019-02-27] MEDS ORDERED: FUROSEMIDE 20 MG INJ IV ONE (23:00)
[2019-02-28] VITALS (74 sets, daily range): BP systolic 91–132; BP diastolic 42–81; PULSE 56–82; RESP 10–23
[2019-02-28] MEDS: INSULIN ASPART [NOVOLOG] 3 ML PEN SC SCH ×6 (01:00→20:37)
[2019-02-28] MEDS: IPRATROPIUM (HFA) 12.9 GM INHALER INH SCH ×6 (01:33→21:32)
[2019-02-28] MEDS: MIDAZOLAM (DRIP) 50 mg/50 mL 50 ML IV SCH ×3 (03:19→18:50)
[2019-02-28] MEDS: PROPOFOL 100 ML IV SCH ×2 (03:19→15:36)
[2019-02-28] MEDS ORDERED: VANCOMYCIN 1 GM INJ ONE (07:16)
[2019-02-28] MEDS ORDERED: GELATIN SIZE 100 SPONGE ONE (07:16)
[2019-02-28] MEDS ORDERED: THROMBIN 5000 UNIT (RECOTHROM) VIAL ONE (07:17)
[2019-02-28] MEDS ORDERED: MIDAZOLAM 1 MG/ML 2 ML INJ ONE (07:59)
[2019-02-28] MEDS ORDERED: ROCURONIUM 50 MG INJ ONE (07:59)
[2019-02-28] MEDS: FAMOTIDINE 20 MG TAB NGT SCH ×2 (09:00→20:37)
[2019-02-28] MEDS ORDERED: POLYMYXIN/BACITRACIN 1L IRRIG ONE (09:00)
[2019-02-28] MEDS: AMIODARONE 200 MG TAB NGT SCH (09:00)
[2019-02-28] MEDS: LINAGLIPTIN 5 MG TABLET NGT SCH (09:00)
[2019-02-28] MEDS ORDERED: FENTAnyl 50 MCG/ML VIAL ONE (10:12)
[2019-02-28] MEDS ORDERED: FUROSEMIDE 20 MG INJ ONE (10:16)
[2019-02-28] MEDS: VANCOMYCIN 750 MG (PMX) 250 ML IVPB SCH ×2 (11:25→21:37)
[2019-02-28] MEDS: CEFEPIME 1GM/50 ML (PMX) 50 ML IVPB SCH ×2 (11:25→20:37)
[2019-02-28] MEDS: FENTAnyl (DRIP) 1000 mcg/100mL 100 ML IV SCH (14:09)
[2019-02-28] MEDS ORDERED: BISACODYL 10 MG SUPP PR PRN (18:00)
[2019-02-28] MEDS: DOCUSATE SODIUM 10 MG/ML (10ML CUP) NGT SCH (20:37)
[2019-02-28] MEDS: ATORVASTATIN 80 MG TAB NGT SCH (20:37)
[2019-02-28] MEDS: POLYETHYLENE GLYCOL 17 GM PACKET NGT SCH (20:37)
[2019-03-01] VITALS (61 sets, daily range): BP systolic 83–149; BP diastolic 40–67; PULSE 54–74; RESP 4–24
[2019-03-01] MEDS: IPRATROPIUM (HFA) 12.9 GM INHALER INH SCH ×5 (01:00→20:35)
[2019-03-01] MEDS: INSULIN ASPART [NOVOLOG] 3 ML PEN SC SCH ×6 (01:00→21:00)
[2019-03-01] MEDS: PROPOFOL 100 ML IV SCH ×2 (02:25→19:18)
[2019-03-01] MEDS: FENTAnyl (DRIP) 1000 mcg/100mL 100 ML IV SCH ×2 (06:07→20:17)
[2019-03-01] MEDS: DOCUSATE SODIUM 10 MG/ML (10ML CUP) NGT SCH ×2 (08:44→21:03)
[2019-03-01] MEDS: FAMOTIDINE 20 MG TAB NGT SCH ×2 (08:44→21:03)
[2019-03-01] MEDS: LINAGLIPTIN 5 MG TABLET NGT SCH (08:44)
[2019-03-01] MEDS: CEFEPIME 1GM/50 ML (PMX) 50 ML IVPB SCH ×2 (08:44→21:03)
[2019-03-01] MEDS: AMIODARONE 200 MG TAB NGT SCH (08:44)
[2019-03-01] MEDS: POTASSIUM CHLORIDE 100 ML IVPB SCH ×2 (08:45→10:16)
[2019-03-01] MEDS: VANCOMYCIN 750 MG (PMX) 250 ML IVPB SCH ×2 (10:16→19:44)
[2019-03-01] MEDS: ACETAMINOPHEN 325 MG TAB NGT PRN ×2 (11:45→19:45)
[2019-03-01] MEDS ORDERED: DEXMEDETOMIDINE IN DEXTROSE 5% 50 ML IV ONE (15:06)
[2019-03-01] MEDS: DEXMEDETOMIDINE IN DEXTROSE 5% 50 ML IV SCH ×2 (15:14→21:05)
[2019-03-01] MEDS: MIDAZOLAM (DRIP) 50 mg/50 mL 50 ML IV SCH (19:18)
[2019-03-01] MEDS: ATORVASTATIN 80 MG TAB NGT SCH (21:03)
[2019-03-01] MEDS: POLYETHYLENE GLYCOL 17 GM PACKET NGT SCH (21:05)
[2019-03-01] MEDS: NORepinephrine 8MG/250 ML (PMX 250 ML IV SCH (21:28)
[2019-03-02] VITALS (50 sets, daily range): BP systolic 88–179; BP diastolic 44–79; PULSE 48–118; RESP 10–33
[2019-03-02] MEDS: INSULIN ASPART [NOVOLOG] 3 ML PEN SC SCH ×6 (01:00→21:00)
[2019-03-02] MEDS: IPRATROPIUM (HFA) 12.9 GM INHALER INH SCH ×6 (01:16→21:38)
[2019-03-02] MEDS ORDERED: POTASSIUM CHLORIDE 20 MEQ POWDER FOR ORAL SOLN NGT ONE (06:00)
[2019-03-02] MEDS: DEXMEDETOMIDINE IN DEXTROSE 5% 50 ML IV SCH ×3 (06:19→22:40)
[2019-03-02] MEDS: PROPOFOL 100 ML IV SCH ×2 (07:05→14:55)
[2019-03-02] MEDS: VANCOMYCIN 750 MG (PMX) 250 ML IVPB SCH ×2 (08:44→16:27)
[2019-03-02] MEDS: AMIODARONE 200 MG TAB NGT SCH (08:50)
[2019-03-02] MEDS: FAMOTIDINE 20 MG TAB NGT SCH ×2 (08:55→21:45)
[2019-03-02] MEDS: DOCUSATE SODIUM 10 MG/ML (10ML CUP) NGT SCH ×2 (08:55→21:45)
[2019-03-02] MEDS: POLYETHYLENE GLYCOL 17 GM PACKET NGT SCH (08:56)
[2019-03-02] MEDS: CEFEPIME 1GM/50 ML (PMX) 50 ML IVPB SCH (08:56)
[2019-03-02] MEDS: LINAGLIPTIN 5 MG TABLET NGT SCH (10:39)
[2019-03-02] MEDS: POTASSIUM CHLORIDE 50 ML IVPB SCH ×2 (11:54→13:12)
[2019-03-02] MEDS ORDERED: MAGNESIUM SULFATE 1 GM/D5W 100 ML IVPB ONE (12:00)
[2019-03-02] MEDS: ACETAMINOPHEN 325 MG TAB NGT PRN (14:20)
[2019-03-02] MEDS: MEROPENEM 1 GM/50ML(PMX) 50 ML IVPB SCH (21:45)
[2019-03-02] MEDS: ATORVASTATIN 80 MG TAB NGT SCH (21:45)
[2019-03-03] VITALS (54 sets, daily range): BP systolic 95–164; BP diastolic 47–85; PULSE 45–86; RESP 0–34
[2019-03-03] MEDS: VANCOMYCIN 750 MG (PMX) 250 ML IVPB SCH ×3 (00:25→16:30)
[2019-03-03] MEDS: INSULIN ASPART [NOVOLOG] 3 ML PEN SC SCH ×6 (01:00→21:00)
[2019-03-03] MEDS: IPRATROPIUM (HFA) 12.9 GM INHALER INH SCH ×4 (03:00→13:00)
[2019-03-03] MEDS: DEXMEDETOMIDINE IN DEXTROSE 5% 50 ML IV SCH (04:05)
[2019-03-03] MEDS: MEROPENEM 1 GM/50ML(PMX) 50 ML IVPB SCH ×2 (08:20→21:19)
[2019-03-03] MEDS: POLYETHYLENE GLYCOL 17 GM PACKET NGT SCH (08:20)
[2019-03-03] MEDS: LINAGLIPTIN 5 MG TABLET NGT SCH (08:20)
[2019-03-03] MEDS: FAMOTIDINE 20 MG TAB NGT SCH ×2 (08:20→21:19)
[2019-03-03] MEDS: DOCUSATE SODIUM 10 MG/ML (10ML CUP) NGT SCH ×2 (08:20→21:19)
[2019-03-03] MEDS: AMIODARONE 200 MG TAB NGT SCH (09:00)
[2019-03-03] MEDS: ATORVASTATIN 80 MG TAB NGT SCH (21:19)
[2019-03-03] MEDS: PROPOFOL 100 ML IV SCH (21:22)
[2019-03-04] VITALS (42 sets, daily range): BP systolic 86–152; BP diastolic 55–78; PULSE 64–74; RESP 15–33
[2019-03-04] MEDS: VANCOMYCIN 750 MG (PMX) 250 ML IVPB SCH ×2 (00:31→08:12)
[2019-03-04] MEDS: INSULIN ASPART [NOVOLOG] 3 ML PEN SC SCH ×6 (01:00→20:46)
[2019-03-04] MEDS: DOCUSATE SODIUM 10 MG/ML (10ML CUP) NGT SCH ×2 (08:12→20:26)
[2019-03-04] MEDS: MEROPENEM 1 GM/50ML(PMX) 50 ML IVPB SCH (08:12)
[2019-03-04] MEDS: POLYETHYLENE GLYCOL 17 GM PACKET NGT SCH (08:13)
[2019-03-04] MEDS: FAMOTIDINE 20 MG TAB NGT SCH ×2 (08:13→20:26)
[2019-03-04] MEDS: AMIODARONE 200 MG TAB NGT SCH (08:14)
[2019-03-04] MEDS: LINAGLIPTIN 5 MG TABLET NGT SCH (08:17)
[2019-03-04] MEDS: PROPOFOL 100 ML IV SCH ×2 (08:17→21:30)
[2019-03-04] MEDS ORDERED: SORBITOL 70% 30ML CUP PO ONE (08:30)
[2019-03-04] MEDS ORDERED: BISACODYL (EC) 5 MG TAB PO ONE (08:30)
[2019-03-04] MEDS: ATORVASTATIN 80 MG TAB NGT SCH (20:26)
[2019-03-04] MEDS: ZOLPIDEM 5 MG TAB NGT PRN (20:32)
[2019-03-05] VITALS (21 sets, daily range): BP systolic 100–157; BP diastolic 46–102; PULSE 65–81; RESP 16–32
[2019-03-05] MEDS: INSULIN ASPART [NOVOLOG] 3 ML PEN SC SCH ×6 (00:35→20:51)
[2019-03-05] MEDS: ACETAMINOPHEN 325 MG TAB NGT PRN (00:37)
[2019-03-05] MEDS: DOCUSATE SODIUM 10 MG/ML (10ML CUP) NGT SCH ×2 (09:00→21:29)
[2019-03-05] MEDS: POLYETHYLENE GLYCOL 17 GM PACKET NGT SCH (09:00)
[2019-03-05] MEDS ORDERED: POTASSIUM CHLORIDE 100 ML IVPB ONE (09:30)
[2019-03-05] MEDS: PROPOFOL 100 ML IV SCH (09:30)
[2019-03-05] MEDS: LINAGLIPTIN 5 MG TABLET NGT SCH (09:47)
[2019-03-05] MEDS: ASPIRIN 81 MG TAB PO SCH (09:48)
[2019-03-05] MEDS: FAMOTIDINE 20 MG TAB NGT SCH ×2 (09:48→21:29)
[2019-03-05] MEDS: AMIODARONE 200 MG TAB NGT SCH (09:51)
[2019-03-05] MEDS: FUROSEMIDE 40 MG TAB PO SCH (10:01)
[2019-03-05] MEDS: ATORVASTATIN 80 MG TAB NGT SCH (21:29)
[2019-03-05] MEDS: ZOLPIDEM 5 MG TAB NGT PRN (23:06)
[2019-03-06] MEDS: INSULIN ASPART [NOVOLOG] 3 ML PEN SC SCH ×6 (01:00→20:47)
[2019-03-06 03:59] VITALS: BP 129/66; PULSE 70; RESP 18
[2019-03-06 07:49] VITALS: BP 117/74; PULSE 74; RESP 20
[2019-03-06] MEDS ORDERED: POTASSIUM CHLORIDE (SR) 20 MEQ TAB PO STA (08:08)
[2019-03-06] MEDS: DOCUSATE SODIUM 10 MG/ML (10ML CUP) NGT SCH ×2 (08:32→20:54)
[2019-03-06] MEDS: FUROSEMIDE 40 MG TAB PO SCH (08:33)
[2019-03-06] MEDS: AMIODARONE 200 MG TAB NGT SCH (08:33)
[2019-03-06] MEDS: POLYETHYLENE GLYCOL 17 GM PACKET NGT SCH (08:33)
[2019-03-06] MEDS: LINAGLIPTIN 5 MG TABLET NGT SCH (08:34)
[2019-03-06] MEDS: ASPIRIN 81 MG TAB PO SCH (08:34)
[2019-03-06] MEDS: FAMOTIDINE 20 MG TAB NGT SCH ×2 (08:34→20:55)
[2019-03-06 11:24] VITALS: BP 104/64; PULSE 68; RESP 20
[2019-03-06 15:37] VITALS: BP 118/68; PULSE 69; RESP 20
[2019-03-06 19:29] VITALS: BP 106/61; PULSE 72; RESP 18
[2019-03-06 19:44] VITALS: BP 106/61; PULSE 72; RESP 18
[2019-03-06] MEDS: ATORVASTATIN 80 MG TAB NGT SCH (20:55)
[2019-03-06] MEDS: ZOLPIDEM 5 MG TAB NGT PRN (23:28)
[2019-03-07 00:08] VITALS: BP 115/67; PULSE 66; RESP 18
[2019-03-07] MEDS: INSULIN ASPART [NOVOLOG] 3 ML PEN SC SCH ×4 (01:00→17:00)
[2019-03-07 04:24] VITALS: BP 110/64; PULSE 67; RESP 18
[2019-03-07 07:12] VITALS: BP 109/68; PULSE 64; RESP 19
[2019-03-07] MEDS ORDERED: POTASSIUM CHLORIDE (SR) 20 MEQ TAB PO STA (07:26)
[2019-03-07] MEDS: FAMOTIDINE 20 MG TAB NGT SCH (09:00)
[2019-03-07] MEDS: LINAGLIPTIN 5 MG TABLET NGT SCH (09:00)
[2019-03-07] MEDS: DOCUSATE SODIUM 10 MG/ML (10ML CUP) NGT SCH (09:00)
[2019-03-07] MEDS: FUROSEMIDE 40 MG TAB PO SCH (09:00)
[2019-03-07] MEDS: ASPIRIN 81 MG TAB PO SCH (09:00)
[2019-03-07] MEDS: AMIODARONE 200 MG TAB NGT SCH (09:01)
[2019-03-07 11:58] VITALS: BP 117/68; PULSE 68; RESP 19
[2019-03-07 15:38] VITALS: BP 121/72; PULSE 63; RESP 19
== END 2019-03-07 19:00 | DRG 853 ==
LOC: E/R 05:47 → ICU 08:04 → 6WM 03-05 18:08
PROVIDERS: ADMIT Internal Medicine; ATTEND Internal Medicine
PROC: 5A1955Z Respiratory Ventilation, Greater than 96 Consecutive Hours (ICD-10-PCS; principal; 2019-02-25)
PROC: 0BH17EZ Insertion of Endotracheal Airway into Trachea, Via Natural or Artificial Opening (ICD-10-PCS; 2019-02-25)
PROC: 30233N1 Transfusion of Nonautologous Red Blood Cells into Peripheral Vein, Percutaneous Approach (ICD-10-PCS; 2019-02-26)
PROC: 0W993ZZ Drainage of Right Pleural Cavity, Percutaneous Approach (ICD-10-PCS; 2019-02-26)
PROC: 0WCC0ZZ Extirpation of Matter from Mediastinum, Open Approach (ICD-10-PCS; 2019-02-28)
PROC: 0PB00ZZ Excision of Sternum, Open Approach (ICD-10-PCS; 2019-02-28)
PROC: 0WQ80ZZ Repair Chest Wall, Open Approach (ICD-10-PCS; 2019-02-28)
DX: A41.9 Sepsis, unspecified organism (principal); R65.21 Severe sepsis with septic shock; J96.01 Acute respiratory failure with hypoxia; J18.9 Pneumonia, unspecified organism; I50.33 Acute on chronic diastolic (congestive) heart failure; T81.30XA Disruption of wound, unspecified, initial encounter; E87.2 Acidosis; N17.9 Acute kidney failure, unspecified; I13.0 Hypertensive heart and chronic kidney disease with heart failure and stage 1 through stage 4 chronic kidney disease, or unspecified chronic kidney disease; J94.2 Hemothorax; N39.0 Urinary tract infection, site not specified; N18.9 Chronic kidney disease, unspecified; Z95.1 Presence of aortocoronary bypass graft; Z87.891 Personal history of nicotine dependence; J44.9 Chronic obstructive pulmonary disease, unspecified
CPT/HCPCS: 31500; 36415; 36430; 36600; 70450; 71045; 71250; 71260; 74177; 76775; 76942; 80048; 80053; 80202; 81001; 81003; 82043; 82270; 82607; 82728; 82746; 82803; 82962; 83540; 83605; 83735; 83880; 84100; 84145; 84155; 84300; 84484; 85014; 85018; 85025; 85045; 85610; 85730; 86644; 86850; 86900; 86901; 86920; 87045; 87070; 87081; 87086; 88300; 88304; 92526; 92610; 93005; 94002; 94003; 94640; 94644; 94660; 94770; 96365; 96375; 97116; 97162; 97530; C1713; J0692; J1815; J1940; J2185; J2250; J2930; J3010; J3370; J3475; J3480; J7030; J7040; P9016; Q9967

== ENCOUNTER 2019-03-07 16:06 | Inpatient (IN) | payer OTHER ==
[~2019-03-07] VITALS: Ht 177.8 cm; Wt 100.3 kg
[2019-03-07 18:36] VITALS: BP 112/73; RESP 17
[2019-03-07 18:47] VITALS: Ht 177.8 cm; Wt 100.3 kg
[2019-03-07] MEDS ORDERED: PENDING SANTYL ORDER FOR WOUND CARE XX PRN (19:00)
[2019-03-07] MEDS ORDERED: GLUCOSE GEL 15 GRAM TUBE PO PRN ×2 (19:00)
[2019-03-07] MEDS ORDERED: BISACODYL 10 MG SUPP PR PRN (19:00)
[2019-03-07] MEDS ORDERED: LACTULOSE 30ML CUP PO PRN (19:00)
[2019-03-07] MEDS ORDERED: DEXTROSE 50% 50 ML SYRINGE IV PRN ×2 (19:00)
[2019-03-07] MEDS ORDERED: GLUCOSE GEL 15 GRAM TUBE BUCCAL PRN (19:00)
[2019-03-07] MEDS ORDERED: GLUCAGON 1 MG INJ IM PRN (19:00)
[2019-03-07] MEDS ORDERED: MAGNESIUM HYDROXIDE 30ML CUP PO PRN (19:00)
[2019-03-07] MEDS ORDERED: ACETAMINOPHEN 325 MG TAB PO PRN (19:00)
[2019-03-07] MEDS ORDERED: ZOLPIDEM 5 MG TAB PO PRN (19:00)
[2019-03-07 20:00] VITALS: BP 118/68; PULSE 72; RESP 18
[2019-03-07] MEDS: INSULIN ASPART [NOVOLOG] 3 ML PEN SC SCH (21:00)
[2019-03-07] MEDS: DOCUSATE SODIUM 100 MG CAP PO SCH (21:00)
[2019-03-07] MEDS: SENNA TAB PO SCH (21:00)
[2019-03-07] MEDS: ATORVASTATIN 80 MG TAB PO SCH (21:04)
[2019-03-07] MEDS: ACCU-CHEK XX SCH (21:06)
[2019-03-08 02:00] VITALS: BP 110/65; PULSE 68; RESP 18
[2019-03-08] MEDS: ACCU-CHEK XX SCH ×5 (02:00→20:26)
[2019-03-08 07:30] VITALS: BP 101/56; PULSE 65; RESP 20
[2019-03-08] MEDS: INSULIN ASPART [NOVOLOG] 3 ML PEN SC SCH ×4 (07:35→20:25)
[2019-03-08] MEDS: FAMOTIDINE 20 MG TAB PO SCH ×2 (07:54→17:00)
[2019-03-08] MEDS: AMIODARONE 200 MG TAB PO SCH (08:26)
[2019-03-08] MEDS: FUROSEMIDE 20 MG TAB PO SCH (08:26)
[2019-03-08] MEDS: ASPIRIN 81 MG TAB PO SCH (08:27)
[2019-03-08] MEDS: LINAGLIPTIN 5 MG TABLET PO SCH (08:27)
[2019-03-08] MEDS: DOCUSATE SODIUM 100 MG CAP PO SCH ×2 (08:28→20:25)
[2019-03-08 14:00] VITALS: BP 105/62; PULSE 67; RESP 18
[2019-03-08 19:18] VITALS: BP 107/63; PULSE 68; RESP 18
[2019-03-08] MEDS: ATORVASTATIN 80 MG TAB PO SCH (20:25)
[2019-03-08] MEDS: SENNA TAB PO SCH (20:25)
[2019-03-09 02:00] VITALS: BP 113/67; PULSE 70; RESP 18
[2019-03-09] MEDS: ACCU-CHEK XX SCH ×5 (02:00→20:43)
[2019-03-09] MEDS: FAMOTIDINE 20 MG TAB PO SCH ×2 (06:43→18:04)
[2019-03-09 07:30] VITALS: BP 125/71; PULSE 64; RESP 20
[2019-03-09] MEDS: INSULIN ASPART [NOVOLOG] 3 ML PEN SC SCH ×4 (07:35→20:43)
[2019-03-09] MEDS: LINAGLIPTIN 5 MG TABLET PO SCH (08:03)
[2019-03-09] MEDS: ASPIRIN 81 MG TAB PO SCH (08:04)
[2019-03-09] MEDS: AMIODARONE 200 MG TAB PO SCH (08:06)
[2019-03-09] MEDS: FUROSEMIDE 20 MG TAB PO SCH (08:07)
[2019-03-09] MEDS: DOCUSATE SODIUM 100 MG CAP PO SCH ×2 (08:08→20:43)
[2019-03-09 14:00] VITALS: BP 108/61; PULSE 66; RESP 18
[2019-03-09 19:13] VITALS: BP 107/65; PULSE 72; RESP 18
[2019-03-09] MEDS: ATORVASTATIN 80 MG TAB PO SCH (20:42)
[2019-03-09] MEDS: SENNA TAB PO SCH (20:43)
[2019-03-10 02:00] VITALS: BP 116/67; PULSE 68; RESP 18
[2019-03-10] MEDS: ACCU-CHEK XX SCH ×5 (02:00→20:37)
[2019-03-10] MEDS: FAMOTIDINE 20 MG TAB PO SCH ×2 (06:47→17:13)
[2019-03-10 07:30] VITALS: BP 115/69; PULSE 65; RESP 20
[2019-03-10] MEDS: INSULIN ASPART [NOVOLOG] 3 ML PEN SC SCH ×4 (07:35→20:37)
[2019-03-10] MEDS: ASPIRIN 81 MG TAB PO SCH (08:02)
[2019-03-10] MEDS: LINAGLIPTIN 5 MG TABLET PO SCH (08:02)
[2019-03-10] MEDS: AMIODARONE 200 MG TAB PO SCH (08:03)
[2019-03-10] MEDS: FUROSEMIDE 20 MG TAB PO SCH (08:03)
[2019-03-10] MEDS: DOCUSATE SODIUM 100 MG CAP PO SCH ×2 (08:06→20:37)
[2019-03-10 14:00] VITALS: BP 94/56; PULSE 68; RESP 18
[2019-03-10 19:41] VITALS: BP 106/58; PULSE 66; RESP 18
[2019-03-10] MEDS: ATORVASTATIN 80 MG TAB PO SCH (20:36)
[2019-03-10] MEDS: SENNA TAB PO SCH (20:37)
[2019-03-11] MEDS: ACCU-CHEK XX SCH ×2 (02:00→07:05)
[2019-03-11 03:14] VITALS: BP 107/56; PULSE 64; RESP 18
[2019-03-11] MEDS: FAMOTIDINE 20 MG TAB PO SCH (06:27)
[2019-03-11 07:00] VITALS: BP 111/68; PULSE 64; RESP 18
[2019-03-11] MEDS: INSULIN ASPART [NOVOLOG] 3 ML PEN SC SCH (07:35)
[2019-03-11] MEDS: LINAGLIPTIN 5 MG TABLET PO SCH (08:26)
[2019-03-11] MEDS: ASPIRIN 81 MG TAB PO SCH (08:26)
[2019-03-11] MEDS: DOCUSATE SODIUM 100 MG CAP PO SCH (08:27)
[2019-03-11] MEDS: FUROSEMIDE 20 MG TAB PO SCH (08:27)
[2019-03-11] MEDS: AMIODARONE 200 MG TAB PO SCH (08:27)
== END 2019-03-11 11:10 | disposition home health service (06) | DRG 93 ==
LOC: VRC 18:25
PROVIDERS: ADMIT Physical Medicine & Rehabilitation; ATTEND Internal Medicine
PROC: F07Z5ZZ Bed Mobility Treatment (ICD-10-PCS; principal; 2019-03-08)
PROC: F07Z8ZZ Transfer Training Treatment (ICD-10-PCS; 2019-03-08)
PROC: F07Z9ZZ Gait Training/Functional Ambulation Treatment (ICD-10-PCS; 2019-03-08)
PROC: F08Z2ZZ Grooming/Personal Hygiene Treatment (ICD-10-PCS; 2019-03-08)
PROC: F08Z1ZZ Dressing Techniques Treatment (ICD-10-PCS; 2019-03-08)
PROC: F08Z0ZZ Bathing/Showering Techniques Treatment (ICD-10-PCS; 2019-03-08)
PROC: F06ZDZZ Swallowing Dysfunction Treatment (ICD-10-PCS; 2019-03-08)
DX: G72.81 Critical illness myopathy (principal); I25.10 Atherosclerotic heart disease of native coronary artery without angina pectoris; D64.9 Anemia, unspecified; E11.9 Type 2 diabetes mellitus without complications; E66.9 Obesity, unspecified; I11.0 Hypertensive heart disease with heart failure; I50.9 Heart failure, unspecified; J44.9 Chronic obstructive pulmonary disease, unspecified; R13.11 Dysphagia, oral phase; R10.9 Unspecified abdominal pain; R74.0 Nonspecific elevation of levels of transaminase and lactic acid dehydrogenase [LDH]; Z98.890 Other specified postprocedural states; Z87.09 Personal history of other diseases of the respiratory system; Z87.01 Personal history of pneumonia (recurrent); Z95.1 Presence of aortocoronary bypass graft; Z87.891 Personal history of nicotine dependence; Z68.31 Body mass index [BMI] 31.0-31.9, adult; Z79.84 Long term (current) use of oral hypoglycemic drugs
CPT/HCPCS: 74018; 80048; 80053; 80076; 81001; 82962; 83735; 84100; 85025; 87081; 87086; 92610; 97110; 97116; 97162; 97166; 97530; 97535; J1815